=== PATIENT | female | born 1970 | race Caucasian/White ===

== ENCOUNTER → 2016-10-22 | Outpatient (CLI) | payer OTHER ==
--- NOTE | 2016-10-22 12:49 | EST ---
DATE OF SERVICE: 10/22/2016 AGE: 46Y SEX: F HT: 66 WT: 182 lbs. Protocol Samuel: X Other: Stress Stage: 2 Dur. of Exercise: 6:28 *Heart Rate Blood Pressure *Rest: 78 Rest: 107/70 * *Max. Achieved: 160 Maximum BP: 193/99 85% PMHR: 150 100% PMHR: 176 *METS: 6.7 INDICATIONS: Chest pain. MEDICATIONS: - Patient was exercised for a total period of 7 minutes. A peak heart rate of 160 was achieved. Maximum blood pressure of 193/99 mmHg was noted. Resting EKG shows normal sinus rhythm with normal VA interval and QRS duration and normal ST-T waves. No ST segment depression suggestive of ischemia is noted. No dysrhythmias are noted. FINAL IMPRESSION: This exercise test is not suggestive of ischemia. Patient's exercise tolerance is normal. The patient did not complain of any chest pain during the test.
== END | disposition home or self-care (01) ==
LOC: RADNMMAIN 10:45
PROVIDERS: ATTEND Family Medicine
DX: R07.9 Chest pain, unspecified (principal)
CPT/HCPCS: 93017

== ENCOUNTER 2016-10-23 19:56 | Emergency (ER) | payer OTHER ==
[2016-10-23] MEDS ORDERED: FAMOTIDINE 20 MG/2 ML VIAL IV STA (20:13)
[2016-10-23] MEDS ORDERED: SODIUM CHLORIDE 0.9% 1,000 ML IV ONE (20:13)
[2016-10-23] MEDS ORDERED: KETOROLAC 30 MG/ML 1 ML VIAL IVP STA (20:13)
--- NOTE | 2016-10-23 20:16 | ED ---
Chest Pain HPI - General Chief Complaint: Chest Pain Stated Complaint: Chest Pain Time Seen by Provider: 10/23/16 20:02 Source: patient Mode of arrival: wheelchair Limitations: no limitations - History of Present Illness Initial Comments: This is a 46-year-old female to history of asthma who presents emergency department for chest pain and she states it started about 5:30 [place]. She states that it started suddenly and she became lightheaded and short of breath with it. She describes it as a sharp sensation. She denies any radiation. She states that nothing really seems to make it better or worse. She has been having the chest pain on and off for the last 3 weeks. She is had a stress test done yesterday which was completely normal. She is following with Dr. Jacques for this. She states that she also was diagnosed roughly 3 years ago with gallbladder disease when she had similar episodes however has not had follow-up. 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 She denies any recent travel or surgeries. No history DVT or PE. No lower extremity edema. No other complaints. This patient is low risk for PE because he/she has met the following criteria Age <50 years HR <100 bpm Room Air SpO2 >95% No prior DVT/PE No recent trauma/surgery No hemoptysis No exogenous estrogen use No clinical signs of DVT - Related Data Home Medications Medication Instructions Recorded Confirmed Albuterol Inhaler [Ventolin 1 - 2 puff INHALATION RT-Q4H PRN 02/22/15 10/23/16 Inhaler] Previous Rx's Medication Instructions Recorded Esomeprazole Magnesium [NexIUM 20 mg PO DAILY #30 tablet. 10/23/16 24Hr] Allergies Allergy/AdvReac Type Severity Reaction Status Date / Time acetaminophen Allergy Itching Verified 10/23/16 20:58 [From Darvocet-N 100] cefixime [From Suprax] Allergy Dyspnea Verified 10/23/16 20:58 fexofenadine HCl Allergy Dyspnea Verified 10/23/16 20:58 [From Nina] Iodinated Contrast Media - Allergy Itching IN Verified 10/23/16 20:58 Oral and THROAT AND [Iodinated Contrast Media - BODY, & IV Dye] ALLERGY SYMPTOMS propoxyphene napsylate Allergy Itching Verified 10/23/16 20:58 [From Helencet-N 100] shellfish derived [Shellfish] Allergy Anaphylaxis Verified 10/23/16 20:58 egg AdvReac Abdominal Verified 10/23/16 20:58 Pain, NAUSEA - UNLESS COOKED AT HIGH TEMP IN OVEN Milk Containing Products AdvReac ALLERGY Verified 10/23/16 20:58 NASAL SYMPTOMS, IF MORE THAN 8 OZ AT A TIME SEASONAL,MOLD,DUST,ANIMAL AdvReac RUNNY Uncoded 10/23/16 20:07 DANDER NOSE, ITCHY/WATERY EYES Review of Systems ROS Statement: Those systems with pertinent positive or pertinent negative responses have been documented in the HPI. ROS Other: All systems not noted in ROS Statement are negative. EKG Findings - EKG Comments: EKG Findings:: EKG showing normal sinus rhythm with a rate of 73. No abnormal ST segment changes or T-wave inversions. QTC is 469. Other intervals normal. No ectopy. Past Medical History Past Medical History: Asthma, Chest Pain / Angina, Skin Disorder Additional Past Medical History / Comment(s): OCC ECZEMA. HX GESTATIONAL DIABETES. KIDNEY STONES. MILD FATTY LIVER. HX INJ TO RT ARM, CHRONIC PAIN. HX CP, TOLD IRREG RYTHMN. HEARTBURN, PAIN IN THROAT, CHRONIC SEVERE ABD PAIN - KAREN RUQ. OCC DK STOOL, PAST HX POS OCCULT STOOL. History of Any Multi-Drug Resistant Organisms: None Reported Past Surgical History: Adenoidectomy, Ear Surgery, Tonsillectomy Additional Past Surgical History / Comment(s): BMT. EXC DERMOID CYST RT OVARY. Past Anesthesia/Blood Transfusion Reactions: Previous Problems w/ Anesthesia Additional Past Anesthesia/Blood Transfusion Reaction / Comment(s): WOKE UP DURING COLONOSCOPY, T&A SURG. Past Psychological History: No Psychological Hx Reported Smoking Status: Never smoker - Past Family History Father Family Medical History: Cancer General Exam - General Exam Comments Initial Comments: Constitutional: [Awake alert] [Appears comfortable] Head: [Normocephalic atraumatic] Eyes: [no conjunctival injection] [No scleral icterus] [EOMI] Neck: [No JVD] [Supple] Heart: [Regular rate rhythm] [normal S1-S2] [no murmurs] Lungs: [Clear to auscultation bilaterally] [No wheezing] [No rales] Abdomen: [Soft] [nondistended] [nontender] Extremities: [Non edematous] [DP pulses intact] [Radial pulses intact] Neuro: [A&Ox3] [No focal neurologic deficits] Psych: [Appropriate mood and affect] Limitations: no limitations Course Vital Signs 10/23/16 10/23/16 20:05 20:32 Temperature 98.3 F Pulse Rate 76 64 Respiratory 16 18 Rate Blood Pressure 121/64 121/64 O2 Sat by Pulse 99 99 Oximetry Chest Pain MDM - MDM This 46-year-old female presents emergency department for chest pain. She had a negative troponin. EKG was completely unremarkable. The rest her labs were also unremarkable. At this time I feel the patient's symptoms are likely GI related. She does have a history of hiatal hernia. She is not on any PPI. Going to start her on Nexium. She follow-up with Dr. Jacques as an outpatient. Told to return if she has any worsening or concerning symptoms. All questions were answered. Disposition Clinical Impression: Chest pain Disposition: HOME SELF-CARE Instructions: Chest Pain (ED), Hiatal Hernia (ED) Prescriptions: Esomeprazole Magnesium [NexIUM 24Hr] 20 mg PO DAILY #30 tablet. Referrals: Ricky Jacques MD [Primary Care Provider] - 1-2 days
[2016-10-23 20:45] LABS: Partial Thromboplastin Time 25.2 sec (22.0-30.0); Prothrombin Time 10.5 sec (9.0-12.0)
[2016-10-23 20:46] LABS: ALT 33 U/L (9-52); AST 18 U/L (14-36); Alkaline Phosphatase 62 U/L (38-126); Anion Gap 10 mmol/L; Blood Urea Nitrogen 12 mg/dL (7-17); Calcium 9.4 mg/dL (8.4-10.2); Carbon Dioxide 24 mmol/L (22-30); Chloride 106 mmol/L (98-107); Glucose 98 mg/dL (74-99); Non-African American GFR(MDRD) >60 (>60 ml/min/1.73 sqM); Potassium 4.4 mmol/L (3.5-5.1); Sodium 140 mmol/L (137-145); Total Bilirubin 0.7 mg/dL (0.2-1.3)
[2016-10-23 20:51] LABS: Basophils % (A) 1 %; CH 29.3; CHCM 34.3; Eosinophils % (A) 0 %; HCT 38.1 % (34.0-46.0); HDW 2.64; HGB 12.8 gm/dL (11.4-16.0); Luc # (Auto) 0.13; Luc % (Auto) 2; Lymphocytes # (A) 1.8 k/uL (1.0-4.8); Lymphocytes % (A) 33 %; MCH 28.8 pg (25.0-35.0); MCHC 33.6 g/dL (31.0-37.0); MCV 85.8 fL (80.0-100.0); Mean Platelet Volume 8.4; Monocytes # (A) 0.4 k/uL (0-1.0); Monocytes % (A) 7 %; Neutrophils # (A) 3.1 k/uL (1.3-7.7); Neutrophils % (A) 57 %; RBC 4.43 m/uL (3.80-5.40); RDW 13.8 % (11.5-15.5); WBC 5.5 k/uL (3.8-10.6); WBC (Perox) 5.52
--- NOTE | 2016-10-23 20:58 | XR ---
EXAMINATION TYPE: XR chest 2V DATE OF EXAM: 10/23/2016 COMPARISON: Prior chest x-ray 08/31/2011 HISTORY: Chest pain TECHNIQUE: Frontal and lateral views of the chest are obtained. FINDINGS: There is likely a spinal curvature, patient is rotated as on prior exam. There are overlyi ng cardiac leads. No pneumonia, pneumothorax, or pleural effusion is evident. IMPRESSION: No acute cardiopulmonary process.
[2016-10-23 21:07] LABS: Creatine Kinase MB 0.8 ng/mL (0.0-2.4); Troponin I <0.012 ng/mL (0.000-0.034)
[2016-10-23 21:22] VITALS: BP 111/64; PULSE 68; RESP 16; TEMP 97.6
== END 2016-10-23 21:23 | disposition home or self-care (01) ==
LOC: EC 19:56
DX: R07.9 Chest pain, unspecified (principal); R06.02 Shortness of breath; R42 Dizziness and giddiness; Z88.1 Allergy status to other antibiotic agents; Z88.5 Allergy status to narcotic agent; Z88.8 Allergy status to other drugs, medicaments and biological substances; Z91.012 Allergy to eggs; Z91.013 Allergy to seafood; Z91.041 Radiographic dye allergy status; Z91.011 Allergy to milk products; Z91.09 Other allergy status, other than to drugs and biological substances
CPT/HCPCS: 36415; 93005; 80053; 82553; 83690; 84484; 85025; 85610; 85730; 71020; 99285; 96374; 96375; 96361; J1885

== ENCOUNTER → 2017-01-20 | Outpatient (CLI) | payer OTHER ==
--- NOTE | 2017-01-20 15:20 | XR ---
Sacrum and coccyx HISTORY: Pain radiating into legs, low back pain 3 views of the sacrum and coccyx Bone mineralization, joint spaces are maintained. Question some posterior displacement of the coccyx distally. IMPRESSION: Question some subluxation of the coccyx distally, bone scan with tail on detector view or MRI could be performed for better evaluation.
--- NOTE | 2017-01-20 15:40 | XR ---
Lumbar spine HISTORY: Low back pain 3 views of the lumbar spine correlated to prior exam 08/19/2010 Lumbar vertebral bodies show preserved height, bone mineralization is stable. Levoscoliosis again not ed centered at L2. Calcifications are superimposed over the bilateral kidneys. Mild loss of disc heig ht present at the intervertebral levels, especially L5-S1. Sclerosis present in the posterior element s of the lower lumbar spine. IMPRESSION: Degenerative disc disease and facet arthropathy, scoliosis. Bilateral nephrolithiasis.
== END | disposition home or self-care (01) ==
LOC: RADXRMAIN 11:52
PROVIDERS: ATTEND Family Medicine
DX: M51.36 Other intervertebral disc degeneration, lumbar region (principal); M41.86 Other forms of scoliosis, lumbar region; M46.06 Spinal enthesopathy, lumbar region
CPT/HCPCS: 72100; 72220

== ENCOUNTER 2017-01-21 08:33 | Emergency (ER) | payer OTHER ==
[2017-01-21 08:37] VITALS: TEMP 98.1
--- NOTE | 2017-01-21 09:22 | ED ---
General Adult HPI - General Chief complaint: Back Pain/Injury Stated complaint: Back Pain Time Seen by Provider: 01/21/17 08:59 Source: patient, RN notes reviewed Mode of arrival: ambulatory Limitations: no limitations - History of Present Illness Initial comments: Patient is a 46-year-old female significant past medical history for sciatica, who presents emergency room today with a chief complaint of increased lower back pain. Patient admits that she began feeling some sciatic type pain to the right side a week ago. She states that is gone back and forth from the right than to the left leg. She states she's had sciatic pain in the right leg before ever on the left ureter denies any injury or trauma. States she is now feeling some pain in both sides of the right hip and left hip areas. She states that over the last 3 days she's noticed some numbness sensation to her buttocks and groin area. She states that over last few days she's noticed that she's having increased difficult time urinating. She states she has to cause a lot of pressure to get a small amount of voiding. She states she saw her family doctor for this complaint yesterday. She states she had x-rays obtained yesterday here at the hospital. She states had a difficult time voiding this morning. Difficult time finding cough or position. Denies any other complaints at this time. Patient denies any recent fever, chills, shortness of breath, chest pain, abdominal pain, nausea or vomiting, dysuria or hematuria, constipation or diarrhea, headaches or visual changes, or any other complaints. - Related Data Home Medications Medication Instructions Recorded Confirmed Acetaminophen Tab [Tylenol Tab] 1,000 mg PO Q6HR PRN 01/21/17 01/21/17 Allergies Allergy/AdvReac Type Severity Reaction Status Date / Time cefixime [From Suprax] Allergy Dyspnea Verified 01/21/17 09:00 fexofenadine HCl Allergy Dyspnea Verified 01/21/17 09:00 [From Nina] Iodinated Contrast- Oral and Allergy Itching IN Verified 01/21/17 09:00 IV Dye THROAT AND [Iodinated Contrast Media - BODY, & IV Dye] ALLERGY SYMPTOMS propoxyphene napsylate Allergy Itching Verified 01/21/17 09:00 [From Darvocet-N 100] shellfish derived [Shellfish] Allergy Anaphylaxis Verified 01/21/17 09:00 egg AdvReac Abdominal Verified 01/21/17 09:00 Pain, NAUSEA - UNLESS COOKED AT HIGH TEMP IN OVEN Milk Containing Products AdvReac ALLERGY Verified 01/21/17 09:00 NASAL SYMPTOMS, IF MORE THAN 8 OZ AT A TIME SEASONAL,MOLD,DUST,ANIMAL AdvReac RUNNY Uncoded 01/21/17 08:56 DANDER NOSE, ITCHY/WATERY EYES Review of Systems ROS Statement: Those systems with pertinent positive or pertinent negative responses have been documented in the HPI. ROS Other: All systems not noted in ROS Statement are negative. Past Medical History Past Medical History: Asthma, Chest Pain / Angina, Skin Disorder Additional Past Medical History / Comment(s): OCC ECZEMA. HX GESTATIONAL DIABETES. KIDNEY STONES. MILD FATTY LIVER. HX INJ TO RT ARM, CHRONIC PAIN. HX CP, TOLD IRREG RYTHMN. HEARTBURN, PAIN IN THROAT, CHRONIC SEVERE ABD PAIN - KAREN RUQ. OCC DK STOOL, PAST HX POS OCCULT STOOL. History of Any Multi-Drug Resistant Organisms: None Reported Past Surgical History: Adenoidectomy, Ear Surgery, Tonsillectomy Additional Past Surgical History / Comment(s): BMT. EXC DERMOID CYST RT OVARY. Past Anesthesia/Blood Transfusion Reactions: Previous Problems w/ Anesthesia Additional Past Anesthesia/Blood Transfusion Reaction / Comment(s): WOKE UP DURING COLONOSCOPY, T&A SURG. Past Psychological History: No Psychological Hx Reported Smoking Status: Never smoker - Past Family History Father Family Medical History: Cancer General Exam - General Exam Comments Initial Comments: General: The patient is awake and alert, in no distress, and does not appear acutely ill. Eye: Pupils are equal, round and reactive to light, extra-ocular movements are intact. No nystagmus. There is normal conjunctiva bilaterally. No signs of icterus. Ears, nose, mouth and throat: There are moist mucous membranes and no oral lesions. Neck: The neck is supple, there is no tenderness or JVD. Cardiovascular: There is a regular rate and rhythm. No murmur, rub or gallop is appreciated. Respiratory: Lungs are clear to auscultation, respirations are non-labored, breath sounds are equal. No wheezes, stridor, rales, or rhonchi. Gastrointestinal: Soft, non-distended, non-tender abdomen without masses or organomegaly noted. There is no rebound or guarding present. No CVA tenderness. Bowel sounds are unremarkable. Musculoskeletal: Normal ROM, no tenderness. Strength 5/5. Sensation intact. Pulses equal bilaterally 2+. Neurological: A&O x 3. CN II-XII intact, There are no obvious motor or sensory deficits. Coordination appears grossly intact. Speech is normal. Skin: Skin is warm and dry and no rashes or lesions are noted. Psychiatric: Cooperative, appropriate mood & affect, normal judgment. : HOUSE WRECKERANUM Mckeon present for exam. Normal rectal tone. Limitations: no limitations Course Vital Signs 01/21/17 08:34 Temperature 98.1 F Pulse Rate 90 Respiratory 18 Rate Blood Pressure 177/84 O2 Sat by Pulse 99 Oximetry Medical Decision Making - Medical Decision Making Case discussed in detail with attending physician . Patient reexamined at this time shows no signs of distress resting comfortably. Patient has normal urine emergency room. Patient able to void. Patient's urinalysis reviewed. Patient will have MRI which is currently at 2:15 today. Patient is advised to follow-up family doctor tomorrow for her symptoms. Advised return to emergency room if any symptoms increase or worsen. She states understanding and is in agreement. - Lab Data Lab Results 01/21/17 01/21/17 Range/Units 09:20 09:20 Urine Color Yellow Urine Appearance Clear (Clear) Urine pH 6.5 (5.0-8.0) Ur Specific Imogene 1.021 (1.001-1.035) Urine Protein Negative (Negative) Urine Glucose (UA) Negative (Negative) Urine Ketones Negative (Negative) Urine Blood Negative (Negative) Urine Nitrite Negative (Negative) Urine Bilirubin Negative (Negative) Urine Urobilinogen <2.0 (<2.0) mg/dL Ur Leukocyte Esterase Negative (Negative) Urine HCG, Qual Not Detected (Not Detectd) Disposition Clinical Impression: Lumbar radiculopathy, acute Disposition: HOME SELF-CARE Condition: Undetermined Instructions: Acute Low Back Pain (ED) Additional Instructions: Please follow-up and have MRI performed at 2:15 this afternoon as discussed. Please follow-up the family doctor tomorrow as discussed. Referrals: Ricky Jacques MD [Primary Care Provider] - 1-2 days Time of Disposition: 09:41
[2017-01-21 10:09] LABS: Appearance,Urine Clear (Clear); Bilirubin,Urine Negative (Negative); Glucose,Urine (UA) Negative (Negative); Ketones,Urine Negative (Negative); Leukocyte Esterase,Urine Negative (Negative); Nitrite,Urine Negative (Negative); PH, Urine 6.5 (5.0-8.0); Protein,Urine Negative (Negative); Specific Gravity,Urine 1.021 (1.001-1.035); UA Billing (MACRO vs. MICRO) CHEM; Urobilinogen,Urine <2.0 mg/dL (<2.0)
[2017-01-21 10:38] VITALS: BP 121/58; PULSE 61; RESP 16
== END 2017-01-21 10:38 | disposition home or self-care (01) ==
LOC: EC 08:33
DX: M54.16 Radiculopathy, lumbar region (principal); R39.198 Other difficulties with micturition; Z91.041 Radiographic dye allergy status; Z91.011 Allergy to milk products; Z91.012 Allergy to eggs; Z88.1 Allergy status to other antibiotic agents; Z91.013 Allergy to seafood; Z88.8 Allergy status to other drugs, medicaments and biological substances; Z91.09 Other allergy status, other than to drugs and biological substances; Z88.5 Allergy status to narcotic agent
CPT/HCPCS: 81003; 81025; 87086; 99283

== ENCOUNTER → 2017-01-21 | Outpatient (CLI) | payer OTHER ==
--- NOTE | 2017-01-21 15:19 | MR ---
EXAMINATION TYPE: MR lumbar spine wo con DATE OF EXAM: 01/21/2017 COMPARISON: NONE HISTORY: 46-year-old female with pain and numbness down legs, numbness in tailbone and genital area TECHNIQUE: Multiplanar, multisequence images of the lumbar spine were acquired. FINDINGS: Vertebral body heights are preserved and alignment is maintained. No suspicious bone marrow replacement. Conus medullaris is normal. No prevertebral or paravertebral soft tissue abnormality. Variable mild intervertebral disc desiccation and mild disc bulging in the mid to lower lumbar spine. Additional mild facet arthropathy is present. At T12-L1, no canal or foraminal stenosis. At L1-L2, no canal or foraminal stenosis. At L2-L3, no canal or foraminal stenosis. At L3-L4, there is a central, left paracentral disc protrusion without significant canal or foraminal stenosis. At L4-L5, ligamentum flavum thickening, facet arthropathy, and bulging disc. This minimally attenuate s the thecal sac without significant spinal canal stenosis. There is minimal inferior foraminal narro wing on both sides. At L5-S1, there is diffuse disc bulge with prominent epidural fat and a superimposed central, left pa racentral disc extrusion with inferior disc migration. The sequestered disc fragment measures 1.9 x 0 .9 x 1.2 cm posterior to the S1 vertebral body effacing the spinal canal at this level. At the L5-S1 level disc material impinges the traversing left S1 nerve root and probably contacts, probably imping es the traversing right S1 nerve root as well. Mild bilateral neuroforaminal stenosis. IMPRESSION: 1. Mild multilevel degenerative disc disease. Additional facet arthropathy in the lower lumbar spine. 2. However, there is a moderate-sized disc herniation at L5-S1 with extruded and sequestered disc fra gment measuring 1.9 cm located behind the S1 vertebral body. This completely effaces the spinal canal at this level. 3. Disc material at L5-S1 also impinges the traversing left greater than right S1 nerve roots.
== END | disposition home or self-care (01) ==
LOC: RADMRIMAIN 14:05
PROVIDERS: ATTEND Physician Assistant
DX: M51.27 Other intervertebral disc displacement, lumbosacral region (principal); M51.36 Other intervertebral disc degeneration, lumbar region; S34.3XXS Injury of cauda equina, sequela
CPT/HCPCS: 72148

== ENCOUNTER 2017-02-01 10:33 | Emergency (ER) | payer OTHER ==
--- NOTE | 2017-02-01 11:23 | ED ---
General Adult HPI - General Chief complaint: Urogenital Stated complaint: unable to control bladder Time Seen by Provider: 02/01/17 11:00 Source: patient, family, RN notes reviewed Mode of arrival: ambulatory Limitations: no limitations - History of Present Illness Initial comments: Patient is a pleasant 46-year-old female presenting to the emergency department with back problems. Symptoms just started a few weeks ago. Patient has been having difficulty starting urine stream and constipation for the past couple of weeks. Patient had urinary incontinence last night. Patient states she has tingling and numbness in her perineal region. Patient questions whether or not she could have some leg weakness. Patient was in the emergency department 10 days ago and had a follow-up MRI. Patient did see her doctor following this and is planning on seeing a neurosurgeon. Patient states back discomfort is positional. Discomfort radiates occasionally down both legs. - Related Data Home Medications Medication Instructions Recorded Confirmed Ibuprofen [Motrin] 400 mg PO Q6HR PRN 02/01/17 02/01/17 Allergies Allergy/AdvReac Type Severity Reaction Status Date / Time cefixime [From Suprax] Allergy Dyspnea Verified 02/01/17 11:07 fexofenadine HCl Allergy Dyspnea Verified 02/01/17 11:07 [From Nina] Iodinated Contrast- Oral and Allergy Itching IN Verified 02/01/17 11:07 IV Dye THROAT AND [Iodinated Contrast Media - BODY, & IV Dye] ALLERGY SYMPTOMS propoxyphene napsylate Allergy Itching Verified 02/01/17 11:07 [From Darvocet-N 100] shellfish derived [Shellfish] Allergy Anaphylaxis Verified 02/01/17 11:07 egg AdvReac Abdominal Verified 02/01/17 11:07 Pain, NAUSEA - UNLESS COOKED AT HIGH TEMP IN OVEN Milk Containing Products AdvReac ALLERGY Verified 02/01/17 11:07 NASAL SYMPTOMS, IF MORE THAN 8 OZ AT A TIME SEASONAL,MOLD,DUST,ANIMAL AdvReac RUNNY Uncoded 02/01/17 10:48 DANDER NOSE, ITCHY/WATERY EYES Review of Systems ROS Statement: Those systems with pertinent positive or pertinent negative responses have been documented in the HPI. ROS Other: All systems not noted in ROS Statement are negative. Constitutional: Denies: fever Eyes: Denies: eye pain ENT: Denies: ear pain Respiratory: Denies: cough Cardiovascular: Denies: chest pain Endocrine: Denies: fatigue Gastrointestinal: Reports: constipation. Denies: abdominal pain Genitourinary: Reports: other (Incontinence) Musculoskeletal: Reports: back pain Skin: Denies: rash Neurological: Reports: weakness Past Medical History Past Medical History: Asthma, Chest Pain / Angina, Skin Disorder Additional Past Medical History / Comment(s): OCC ECZEMA. HX GESTATIONAL DIABETES. KIDNEY STONES. MILD FATTY LIVER. HX INJ TO RT ARM, CHRONIC PAIN. HX CP, TOLD IRREG RYTHMN. HEARTBURN, PAIN IN THROAT, CHRONIC SEVERE ABD PAIN - KAREN RUQ. OCC DK STOOL, PAST HX POS OCCULT STOOL. History of Any Multi-Drug Resistant Organisms: None Reported Past Surgical History: Adenoidectomy, Ear Surgery, Tonsillectomy Additional Past Surgical History / Comment(s): BMT. EXC DERMOID CYST RT OVARY. Past Anesthesia/Blood Transfusion Reactions: Previous Problems w/ Anesthesia Additional Past Anesthesia/Blood Transfusion Reaction / Comment(s): WOKE UP DURING COLONOSCOPY, T&A SURG. Past Psychological History: No Psychological Hx Reported Smoking Status: Never smoker - Past Family History Father Family Medical History: Cancer General Exam Limitations: no limitations General appearance: alert, in no apparent distress Head exam: Present: atraumatic Eye exam: Present: normal appearance, PERRL ENT exam: Present: normal oropharynx Neck exam: Present: normal inspection Respiratory exam: Present: normal lung sounds bilaterally Cardiovascular Exam: Present: regular rate, normal rhythm GI/Abdominal exam: Present: soft. Absent: tenderness Rectal exam: Present: decreased rectal tone (Rectal tone is decreased but not absent. RN Laura is present.), other (Patient states decreased sensation on exam.) Extremities exam: Present: normal inspection, full ROM Back exam: Present: tenderness (Mild tenderness diffuse lumbar region) Neurological exam: Present: alert Expanded Sensory exam: Lower Extremity Light Touch: Abnormal Right, Abnormal Left ( States is able to feel light touch however somewhat decreased from normal) Motor strength exam: RLE: 5, LLE: 5 (Grossly patient is able to lift off leg without difficulty however patient does have decreased dorsiflexion of left toe against resistance.) Psychiatric exam: Present: normal affect, normal mood Skin exam: Present: normal color Course Vital Signs 02/01/17 02/01/17 10:44 11:37 Temperature 98.2 F Pulse Rate 90 88 Respiratory 20 18 Rate Blood Pressure 126/76 119/58 O2 Sat by Pulse 98 96 Oximetry - Reevaluation(s) Reevaluation #1: 02/01/17 11:23 MRI report reviewed. 02/01/17 11:41 Case was discussed in detail with Dr. Fortune at [facility] who will accept transfer. Patient states she was scheduled to see Dr. Coronado however because of insurance reasons she believes she may have to see Dr. Gee. Disposition Clinical Impression: Cauda equina compression Disposition: OTHER INSTITUTION NOT DEFINED Condition: Serious Referrals: Ricky Jacques MD [Primary Care Provider] - 1-2 days Time of Disposition: 11:42 - Out of Hospital Transfer - Req. Specs Out of Hospital Transfer - Requested Specifics: Other Emergency Center
[2017-02-01 11:38] VITALS: BP 119/58; PULSE 88; RESP 18
[2017-02-01] MEDS ORDERED: HYDROmorphone 1 MG/ML 1 ML SYRINGE IVP STA (11:41)
[2017-02-01 12:24] VITALS: TEMP 98
== END 2017-02-01 12:24 | disposition short-term general hospital (02) ==
LOC: EC 10:33
DX: G83.4 Cauda equina syndrome (principal); Z87.442 Personal history of urinary calculi; Z91.041 Radiographic dye allergy status; Z88.1 Allergy status to other antibiotic agents; Z88.5 Allergy status to narcotic agent; Z91.011 Allergy to milk products; Z91.012 Allergy to eggs; Z91.013 Allergy to seafood; Z91.09 Other allergy status, other than to drugs and biological substances
CPT/HCPCS: 99284; 96374; 51798; J1170

== ENCOUNTER 2017-02-05 20:33 | Emergency (ER) | payer OTHER ==
[2017-02-05 20:51] VITALS: BP 140/84; PULSE 85; RESP 20; TEMP 98.9
[2017-02-05] MEDS ORDERED: SODIUM CHLORIDE 0.9% 1,000 ML IV STA ×2 (21:30)
--- NOTE | 2017-02-05 21:36 | ED ---
Female Urogenital HPI - General Stated complaint: 4 days post op/Blood in Urine Time Seen by Provider: 02/05/17 21:03 Source: patient, RN notes reviewed, old records reviewed Mode of arrival: ambulatory Limitations: no limitations - History of Present Illness Initial comments: This is a 46-year-old female presents emergency Department chief complaint of sediment and blood within her catheter bag. 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 She reports she had emergent surgery. She was given a Barnes catheter bag. She was told to come to the emergency department to be concerned there is anything abnormal in the back. She reports it's been very dark. She also reports that she's not had a bowel movement 2 days. She is on multiple pain medication. She also states that she was in the hospital, she was discharged yesterday from [facility]. Patient reports that she seemed to have a low-grade fever at that time. - Related Data Home Medications Medication Instructions Recorded Confirmed Docusate [Colace] 200 mg PO BID 02/05/17 02/05/17 Gabapentin [Neurontin] 300 mg PO BID 02/05/17 02/05/17 Methocarbamol [Robaxin] 750 mg PO TID 02/05/17 02/05/17 Sennosides [Senna] 17.2 mg PO HS 02/05/17 02/05/17 oxyCODONE-APAP 5-325MG [Percocet 1 - 2 tab PO TID PRN 02/05/17 02/05/17 5-325 mg] Previous Rx's Medication Instructions Recorded Ciprofloxacin HCl [Cipro] 500 mg PO Q12HR #14 tablet 02/05/17 Ketorolac [Toradol] 10 mg PO TID #15 tab 02/05/17 Ondansetron Odt [Zofran Odt] 4 mg PO Q8HR PRN #15 tab 02/05/17 Tamsulosin [Flomax] 0.4 mg PO DAILY #10 cap 02/05/17 Allergies Allergy/AdvReac Type Severity Reaction Status Date / Time cefixime [From Suprax] Allergy Dyspnea Verified 02/05/17 21:07 fexofenadine HCl Allergy Dyspnea Verified 02/05/17 21:07 [From Nina] Iodinated Contrast- Oral and Allergy Itching IN Verified 02/05/17 21:07 IV Dye THROAT AND [Iodinated Contrast Media - BODY, & IV Dye] ALLERGY SYMPTOMS propoxyphene napsylate Allergy Itching Verified 02/05/17 21:07 [From [place]-N 100] shellfish derived [Shellfish] Allergy Anaphylaxis Verified 02/05/17 21:07 egg AdvReac Abdominal Verified 02/05/17 21:07 Pain, NAUSEA - UNLESS COOKED AT HIGH TEMP IN OVEN Milk Containing Products AdvReac ALLERGY Verified 02/05/17 21:07 NASAL SYMPTOMS, IF MORE THAN 8 OZ AT A TIME SEASONAL,MOLD,DUST,ANIMAL AdvReac RUNNY Uncoded 02/05/17 20:52 DANDER NOSE, ITCHY/WATERY EYES Review of Systems ROS Statement: Those systems with pertinent positive or pertinent negative responses have been documented in the HPI. ROS Other: All systems not noted in ROS Statement are negative. Past Medical History Past Medical History: Asthma, Chest Pain / Angina, Skin Disorder Additional Past Medical History / Comment(s): OCC ECZEMA. HX GESTATIONAL DIABETES. KIDNEY STONES. MILD FATTY LIVER. HX INJ TO RT ARM, CHRONIC PAIN. HX CP, TOLD IRREG RYTHMN. HEARTBURN, PAIN IN THROAT, CHRONIC SEVERE ABD PAIN - KAREN RUQ. OCC DK STOOL, PAST HX POS OCCULT STOOL. History of Any Multi-Drug Resistant Organisms: None Reported Past Surgical History: Adenoidectomy, Ear Surgery, Tonsillectomy Additional Past Surgical History / Comment(s): BMT. EXC DERMOID CYST RT OVARY. Past Anesthesia/Blood Transfusion Reactions: Previous Problems w/ Anesthesia Additional Past Anesthesia/Blood Transfusion Reaction / Comment(s): WOKE UP DURING COLONOSCOPY, T&A SURG. Past Psychological History: No Psychological Hx Reported Smoking Status: Never smoker - Past Family History Father Family Medical History: Cancer General Exam - General Exam Comments Initial Comments: 46-year-old female. No acute distress. Limitations: no limitations General appearance: alert, in no apparent distress Head exam: Present: atraumatic, normocephalic, normal inspection Eye exam: Present: normal appearance, PERRL, EOMI. Absent: scleral icterus, conjunctival injection, periorbital swelling ENT exam: Present: normal exam, mucous membranes moist Neck exam: Present: normal inspection. Absent: tenderness, meningismus, lymphadenopathy Respiratory exam: Present: normal lung sounds bilaterally. Absent: respiratory distress, wheezes, rales, rhonchi, stridor Cardiovascular Exam: Present: regular rate, normal rhythm, normal heart sounds. Absent: systolic murmur, diastolic murmur, rubs, gallop, clicks GI/Abdominal exam: Present: soft, normal bowel sounds. Absent: distended, tenderness, guarding, rebound, rigid Rectal exam: Present: normal inspection, decreased rectal tone (decreased rectal tone, no stool in rectal vault). Absent: normal rectal tone External exam: Present: other (Barnes catheter.) Extremities exam: Present: normal inspection, full ROM, normal capillary refill. Absent: tenderness, pedal edema, joint swelling, calf tenderness Back exam: Present: normal inspection Neurological exam: Present: alert, oriented X3, CN II-XII intact Psychiatric exam: Present: normal affect, normal mood Skin exam: Present: warm, dry, intact, normal color. Absent: rash Course Vital Signs 02/05/17 20:48 Temperature 98.9 F Pulse Rate 85 Respiratory 20 Rate Blood Pressure 140/84 O2 Sat by Pulse 100 Oximetry Medical Decision Making - Medical Decision Making Patient is a 46 year old male, with CC of blood in urine bag. Patient has had recent cauda equina syndrome and emergency surgery. Patient lab work shows urinary tract infection, WBC was normal. Patient given a new barnes catheter. PAtient started on ciprofloxacin. Michael does not have normal rectal tone. She also complains of not having a bowel movement for 2 days. Patient does not have much stool in rectal vault. Patient given theravac. Patient did have a bowel movement. Patient KUB shows renal stones. Michael will be treated for renal stones with pain medication and cipro for infection. Urine culture obtained. She reports she does follow up with her urologist on Thursday. Return parameters were discussed. - Lab Data Result diagrams: 02/05/17 21:36 02/05/17 21:36 Lab Results 02/05/17 02/05/17 02/05/17 Range/Units 21:36 21:36 21:36 WBC 6.7 (3.8-10.6) k/uL RBC 4.58 (3.80-5.40) m/uL Hgb 13.4 (11.4-16.0) gm/dL Hct 39.7 (34.0-46.0) % MCV 86.8 (80.0-100.0) fL MCH 29.2 (25.0-35.0) pg MCHC 33.6 (31.0-37.0) g/dL RDW 14.2 (11.5-15.5) % Plt Count 259 (150-450) k/uL Neutrophils % 66 % Lymphocytes % 26 % Monocytes % 5 % Eosinophils % 0 % Basophils % 0 % Neutrophils # 4.4 (1.3-7.7) k/uL Lymphocytes # 1.8 (1.0-4.8) k/uL Monocytes # 0.4 (0-1.0) k/uL Eosinophils # 0.0 (0-0.7) k/uL Basophils # 0.0 (0-0.2) k/uL PT (9.0-12.0) sec INR (<1.2) APTT (22.0-30.0) sec Sodium 139 (137-145) mmol/L Potassium 3.9 (3.5-5.1) mmol/L Chloride 102 (98-107) mmol/L Carbon Dioxide 26 (22-30) mmol/L Anion Gap 11 mmol/L BUN 9 (7-17) mg/dL Creatinine 0.70 (0.52-1.04) mg/dL Est GFR (MDRD) Af Amer >60 (>60 ml/min/1.73 sqM) Est GFR (MDRD) Non-Af >60 (>60 ml/min/1.73 sqM) Glucose 87 (74-99) mg/dL Plasma Lactic Acid Eric 1.2 (0.7-2.0) mmol/L Calcium 9.5 (8.4-10.2) mg/dL Total Bilirubin 0.4 (0.2-1.3) mg/dL AST 46 H (14-36) U/L ALT 50 (9-52) U/L Alkaline Phosphatase 69 (38-126) U/L Total Protein 7.2 (6.3-8.2) g/dL Albumin 4.5 (3.5-5.0) g/dL Amylase <30 L (30-110) U/L Lipase 45 (23-300) U/L Urine Color Urine Appearance (Clear) Urine pH (5.0-8.0) Ur Specific [place] (1.001-1.035) Urine Protein (Negative) Urine Glucose (UA) (Negative) Urine Ketones (Negative) Urine Blood (Negative) Urine Nitrite (Negative) Urine Bilirubin (Negative) Urine Urobilinogen (<2.0) mg/dL Ur Leukocyte Esterase (Negative) Urine RBC (0-5) /hpf Urine WBC (0-5) /hpf Urine WBC Clumps (None) /hpf Amorphous Sediment (None) /hpf Urine Bacteria (None) /hpf 02/05/17 02/05/17 Range/Units 21:36 21:36 WBC (3.8-10.6) k/uL RBC (3.80-5.40) m/uL Hgb (11.4-16.0) gm/dL Hct (34.0-46.0) % MCV (80.0-100.0) fL MCH (25.0-35.0) pg MCHC (31.0-37.0) g/dL RDW (11.5-15.5) % Plt Count (150-450) k/uL Neutrophils % % Lymphocytes % % Monocytes % % Eosinophils % % Basophils % % Neutrophils # (1.3-7.7) k/uL Lymphocytes # (1.0-4.8) k/uL Monocytes # (0-1.0) k/uL Eosinophils # (0-0.7) k/uL Basophils # (0-0.2) k/uL PT 9.7 (9.0-12.0) sec INR 0.9 (<1.2) APTT 21.0 L (22.0-30.0) sec Sodium (137-145) mmol/L Potassium (3.5-5.1) mmol/L Chloride (98-107) mmol/L Carbon Dioxide (22-30) mmol/L Anion Gap mmol/L BUN (7-17) mg/dL Creatinine (0.52-1.04) mg/dL Est GFR (MDRD) Af Amer (>60 ml/min/1.73 sqM) Est GFR (MDRD) Non-Af (>60 ml/min/1.73 sqM) Glucose (74-99) mg/dL Plasma Lactic Acid Eric (0.7-2.0) mmol/L Calcium (8.4-10.2) mg/dL Total Bilirubin (0.2-1.3) mg/dL AST (14-36) U/L ALT (9-52) U/L Alkaline Phosphatase (38-126) U/L Total Protein (6.3-8.2) g/dL Albumin (3.5-5.0) g/dL Amylase (30-110) U/L Lipase (23-300) U/L Urine Color Yellow Urine Appearance Cloudy H (Clear) Urine pH 6.0 (5.0-8.0) Ur Specific [place] 1.007 (1.001-1.035) Urine Protein 1+ H (Negative) Urine Glucose (UA) Negative (Negative) Urine Ketones Negative (Negative) Urine Blood Large H (Negative) Urine Nitrite Positive H (Negative) Urine Bilirubin Negative (Negative) Urine Urobilinogen <2.0 (<2.0) mg/dL Ur Leukocyte Esterase Large H (Negative) Urine RBC 125 H (0-5) /hpf Urine WBC 41 H (0-5) /hpf Urine WBC Clumps Few H (None) /hpf Amorphous Sediment Rare H (None) /hpf Urine Bacteria Rare H (None) /hpf - Radiology Data Radiology results: report reviewed Right renal calcifications. Bilateral renal cascade concern noted on computed tomography scan of a 20 12/28/2014. Nonacute abdomen. Disposition Clinical Impression: Urinary tract infection, Renal stones Disposition: HOME SELF-CARE Condition: Good Instructions: Catheter-associated Urinary Tract Infection (ED) Additional Instructions: Patient has a follow-up with urologist on Thursday. Take antibiotics as prescribed. Return to the emergency department if any alarming signs or symptoms occur. Prescriptions: Ciprofloxacin HCl [Cipro] 500 mg PO Q12HR #14 tablet Ketorolac [Toradol] 10 mg PO TID #15 tab Ondansetron Odt [Zofran Odt] 4 mg PO Q8HR PRN #15 tab PRN Reason: Nausea Tamsulosin [Flomax] 0.4 mg PO DAILY #10 cap Referrals: Ricky Jacques MD [Primary Care Provider] - 1-2 days Time of Disposition: 23:38
[2017-02-05 21:51] LABS: Basophils % (A) 0 %; CH 29.5; CHCM 34.2; Eosinophils % (A) 0 %; HCT 39.7 % (34.0-46.0); HGB 13.4 gm/dL (11.4-16.0); Luc % (Auto) 2; Lymphocytes # (A) 1.8 k/uL (1.0-4.8); Lymphocytes % (A) 26 %; MCH 29.2 pg (25.0-35.0); MCHC 33.6 g/dL (31.0-37.0); MCV 86.8 fL (80.0-100.0); Mean Platelet Volume 8.1; Monocytes # (A) 0.4 k/uL (0-1.0); Monocytes % (A) 5 %; Neutrophils # (A) 4.4 k/uL (1.3-7.7); Neutrophils % (A) 66 %; RBC 4.58 m/uL (3.80-5.40); RDW 14.2 % (11.5-15.5); WBC 6.7 k/uL (3.8-10.6); WBC (Perox) 7.41
--- NOTE | 2017-02-05 21:55 | XR ---
EXAMINATION TYPE: XR KUB DATE OF EXAM: 02/05/2017 COMPARISON: 11/28/2011 HISTORY: Abdominal pain TECHNIQUE: 2 views FINDINGS: There is no sign of intestinal obstruction or pneumoperitoneum. Fecal pattern is normal. Th ere are calcifications over the right kidney. There is mild thoracolumbar levoscoliosis. Lung bases a re clear. There is no sign of a mass. IMPRESSION: Right renal calcifications. Bilateral renal calcifications are noted on the old CT scan o f 01/05/2015. Nonacute abdomen.
[2017-02-05 21:57] LABS: Amorphous Sediment,Urine Rare /hpf; Appearance,Urine Cloudy (Clear); Bacteria,Urine Rare /hpf; Bilirubin,Urine Negative (Negative); Glucose,Urine (UA) Negative (Negative); Ketones,Urine Negative (Negative); Leukocyte Esterase,Urine Large (Negative); Nitrite,Urine Positive (Negative); Particle Count 44107; Protein,Urine 1+ (Negative); RBC,Urine 125 /hpf (0-5); Specific Gravity,Urine 1.007 (1.001-1.035); UA Billing (MACRO vs. MICRO) MICRO; Urobilinogen,Urine <2.0 mg/dL (<2.0); WBC,Urine 41 /hpf (0-5)
[2017-02-05 22:02] LABS: ALT 50 U/L (9-52); AST 46 U/L (14-36); Alkaline Phosphatase 69 U/L (38-126); Amylase <30 U/L (30-110); Anion Gap 11 mmol/L; Blood Urea Nitrogen 9 mg/dL (7-17); Calcium 9.5 mg/dL (8.4-10.2); Carbon Dioxide 26 mmol/L (22-30); Chloride 102 mmol/L (98-107); Glucose 87 mg/dL (74-99); Non-African American GFR(MDRD) >60 (>60 ml/min/1.73 sqM); Potassium 3.9 mmol/L (3.5-5.1); Sodium 139 mmol/L (137-145); Total Bilirubin 0.4 mg/dL (0.2-1.3); Total Protein 7.2 g/dL (6.3-8.2)
[2017-02-05 22:13] LABS: INR 0.9 (<1.2); Prothrombin Time 9.7 sec (9.0-12.0)
[2017-02-05] MEDS ORDERED: DOCUSATE 283 MG/5 ML ENEMA RECTAL STA (22:36)
[2017-02-05] MEDS ORDERED: CIPROFLOXACIN HCL 500 MG TAB PO STA (23:52)
[2017-02-05] MEDS ORDERED: ONDANSETRON ODT 4 MG TAB PO STA (23:52)
[2017-02-05] MEDS ORDERED: KETOROLAC 30 MG/ML 1 ML VIAL IVP STA (23:53)
== END 2017-02-06 00:28 | disposition home or self-care (01) ==
LOC: EC 20:33
DX: N39.0 Urinary tract infection, site not specified (principal); N20.0 Calculus of kidney; Z79.899 Other long term (current) drug therapy; Z88.5 Allergy status to narcotic agent; Z88.8 Allergy status to other drugs, medicaments and biological substances; Z91.041 Radiographic dye allergy status; Z91.013 Allergy to seafood; Z91.011 Allergy to milk products; Z91.012 Allergy to eggs; Z91.09 Other allergy status, other than to drugs and biological substances
CPT/HCPCS: 36415; 80053; 82150; 83605; 83690; 85025; 85610; 85730; 81001; 87040; 87086; 74000; 99284; 51702; 96374; 96361 ×3; J1885

== ENCOUNTER → 2017-03-20 | Outpatient (CLI) | payer OTHER ==
--- NOTE | 2017-03-23 08:13 | MM ---
Reason for exam: additional evaluation requested from abnormal screening. Last mammogram was performed 1 month ago. History: Took hormonal contraceptives for 6 months beginning at age 28. Physical Findings: Nurse did not find any significant physical abnormalities on exam. MG Work Up Mamm w CAD LT Spot compression MLO, spot compression CC, and LM view(s) were taken of the left breast. Prior study comparison: March 04, 2017, bilateral MG screening mammo w CAD. May 18, 2015, bilateral MG screening mammo w CAD. The breast tissue is heterogeneously dense. This may lower the sensitivity of mammography. No significant new findings when compared with previous films. These results were verbally communicated with the patient and result sheet given to the patient on 03/20/17. ASSESSMENT: Benign, BI-RAD 2 RECOMMENDATION: Return to routine screening mammogram schedule for both breasts.
--- NOTE | 2017-03-23 08:13 | USB ---
Reason for exam: additional evaluation requested from abnormal screening. History: Took hormonal contraceptives for 6 months beginning at age 28. US Breast Workup Limited LT Left breast ultrasound demonstrates a 0.5 x 0.8 x 0.3cm oval, cystic cluster at 3 o'clock and duct ectasia at the nipple. These results were verbally communicated with the patient and result sheet given to the patient on 03/20/17. ASSESSMENT: Probably benign, BI-RAD 3 RECOMMENDATION: Ultrasound of the left breast in 6 months.
== END | disposition home or self-care (01) ==
LOC: RADMAMWWP 14:20
PROVIDERS: ATTEND Obstetrics & Gynecology
DX: R92.8 Other abnormal and inconclusive findings on diagnostic imaging of breast (principal)
CPT/HCPCS: 76642; G0206

== ENCOUNTER → 2017-09-18 | Outpatient (CLI) | payer OTHER ==
--- NOTE | 2017-09-21 07:28 | USB ---
Reason for exam: follow-up at short interval from prior study. History: Took hormonal contraceptives for 6 months beginning at age 28. Physical Findings: Nurse Summary: all soft, nodular, movable (nurse ts). US Breast LT Left complete breast ultrasound includes all four quadrants, the retroareolar region and axilla. Finding demonstrates a 0.7 x 0.5 x 0.2cm oval, cystic lesion at 2 o'clock, a 1.0 x 1.0 x 0.6cm oval, complex, cystic cluster at 3 o'clock, a 0.5 x 0.3 x 0.5cm oval, complex, cystic lesion at 11 o'clock and a 0.4 x 0.3 x 0.3cm oval, cystic lesion at 11 o'clock. These results were verbally communicated with the patient and result sheet given to the patient on 09/18/17. ASSESSMENT: Benign, BI-RAD 2 RECOMMENDATION: Follow-up diagnostic mammogram of both breasts in 6 months. Back on schedule for February 2018.
== END | disposition home or self-care (01) ==
LOC: RADUSWWP 14:53
PROVIDERS: ATTEND Obstetrics & Gynecology
DX: R92.8 Other abnormal and inconclusive findings on diagnostic imaging of breast (principal)

== ENCOUNTER → 2018-02-18 | Outpatient (CLI) | payer OTHER ==
--- NOTE | 2018-02-18 15:21 | XR ---
Abdomen HISTORY: Kidney stone, abdomen discomfort Frontal view of the abdomen on 2 images correlated to prior CT 06/13/2017, abdomen and 28/12/2016 Calcifications in the pelvis are felt likely to represent phleboliths. Bilateral renal calcifications are present, largest in the mid pole the left kidney measures proximally 7 8 mm and in the right mid pole to upper pole 8-9 millimeters. There are approximately 10 calcifications bilaterally. Lung base s are clear. No pneumoperitoneum or bowel obstruction. Retained fecal be indicative of underlying fec al stasis. Bone mineralization is normal. There is a spinal curvature. IMPRESSION: Bilateral nephrolithiasis.
== END | disposition home or self-care (01) ==
LOC: RADXRMAIN 11:25
PROVIDERS: ATTEND Urology
DX: N20.0 Calculus of kidney (principal)
CPT/HCPCS: 74018

== ENCOUNTER → 2018-03-09 | Outpatient (CLI) | payer OTHER ==
[2018-03-09 12:00] VITALS: BP 102/70; PULSE 87; BMI 30.8
--- NOTE | 2018-03-09 12:49 | P.HPOB ---
History of Present Illness H&P Date: 03/09/18 Chief Complaint: The patient is here for her routine gynecologic exam. This is a 47-year-old with an LMP of 03/02/2018. Menses are regular every month. She is complaining of an increasing bulge from the vagina. When she bears down, she can notice of bulge from the introitus about 2 inches. It does go back inside. She does have been known uterine prolapse as well as a cystocele and rectocele. She has been having some problems with bowel movements and thinks it may be getting caught because of the prolapse. Review of Systems She is getting about 18 pounds over the last year. She denies respiratory, or cardiac problems. G.I.: she has several small bowel movements daily and this is a change for her. She has also noticed intermittent abdominal bloating. Please see the HPI for additional details. Past Medical History Past Medical History: Asthma, Chest Pain / Angina, Skin Disorder Additional Past Medical History / Comment(s): OCC ECZEMA. HX GESTATIONAL DIABETES. KIDNEY STONES. MILD FATTY LIVER. HX INJ TO RT ARM, CHRONIC PAIN. HX CP, TOLD IRREG RYTHMN. HEARTBURN, PAIN IN THROAT. Hiatal hernia. Cauda Equina syndrome Jan 2017. 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 History of Any Multi-Drug Resistant Organisms: None Reported Past Surgical History: Adenoidectomy, Ear Surgery, Tonsillectomy Additional Past Surgical History / Comment(s): BMT. EXC DERMOID CYST RT OVARY 2003. Decompressive laminectomy Jan 2017 for Cauda Equina Syndrome. Colonoscopy 1999 and 2014. Past Anesthesia/Blood Transfusion Reactions: Previous Problems w/ Anesthesia Additional Past Anesthesia/Blood Transfusion Reaction / Comment(s): WOKE UP DURING COLONOSCOPY, T&A SURG. 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 - Past Family History Father Family Medical History: Cancer (Skin), Diabetes Mellitus Additional Family Medical History / Comment(s): Grandmother had uterine cancer. Mother Additional Family Medical History / Comment(s): Heart disease. Maternal uncle had Parkinson's disease as well as a grandfather. Grandfather had prostate and skin cancer. Medications and Allergies Home Medications Medication Instructions Recorded Confirmed Type Docusate [Colace] 200 mg PO BID 02/05/17 03/09/18 History Sennosides [Senna] 8.6 - 34.4 mg PO HS PRN 02/05/17 03/09/18 History Albuterol Inhaler [Ventolin Hfa 1 - 2 puff INHALATION RT-Q4H PRN 06/13/17 History Inhaler] Oxybutynin ER [Ditropan Xl] 10 mg PO HS 06/13/17 03/09/18 History Esomeprazole Magnesium [NexIUM] PO DAILY 03/09/18 History Gabapentin [Neurontin] mg PO TID 03/09/18 History Methocarbamol [Robaxin] 750 mg PO TID 03/09/18 03/09/18 History Allergies Allergy/AdvReac Type Severity Reaction Status Date / Time cefixime [From Suprax] Allergy Dyspnea Verified 03/09/18 11:52 fexofenadine HCl Allergy Dyspnea Verified 03/09/18 11:52 [From Nina] Iodinated Contrast- Oral and Allergy Itching IN Verified 03/09/18 11:52 IV Dye THROAT AND [Iodinated Contrast Media - BODY, & IV Dye] ALLERGY SYMPTOMS levofloxacin [From Levaquin] Allergy Unknown Verified 03/09/18 11:52 propoxyphene napsylate Allergy Itching Verified 03/09/18 11:52 [From [place]vocet-N 100] shellfish derived [Shellfish] Allergy Anaphylaxis Verified 03/09/18 11:52 egg AdvReac Abdominal Verified 03/09/18 11:52 Pain, NAUSEA - UNLESS COOKED AT HIGH TEMP IN OVEN Milk Containing Products AdvReac ALLERGY Verified 03/09/18 11:52 NASAL SYMPTOMS, IF MORE THAN 8 OZ AT A TIME SEASONAL,MOLD,DUST,ANIMAL AdvReac RUNNY Uncoded 03/09/18 11:52 DANDER NOSE, ITCHY/WATERY EYES Exam Vital Signs Pulse BP 03/09/18 11:52 87 102/70 Intake and Output 03/08/18 03/09/18 03/09/18 22:59 06:59 14:59 Other: Weight 86.636 kg Temperature 97.9. Height 5'6", weight 191 pounds, BMI 30.8. This is a well-developed well-nourished white female who is alert and oriented times 3 in no acute distress. HEENT: Within normal limits. NECK: Supple without mass or thyromegaly. CHEST AND LUNGS: Clear to auscultation. HEART: Regular rate and rhythm. BREASTS: Are without mass or discharge. AXILLARY EXAM: Negative for adenopathy. BACK: Negative for CVA tenderness. ABDOMEN: Soft, obese, nontender, without palpable masses. PELVIC EXAM: Normal external genitalia. Cervix and vagina reveals a grade 2-3 uterine prolapse at rest and grade 4 uterine prolapse with Valsalva. The cervix protrudes from the introitus about 3 cm with Valsalva. There is a grade 2 cystocele at rest. There is no unusual discharge. There is a grade 2 rectocele. The uterus is midposition, slightly retroverted, nongravid size and nontender. There are no palpable adnexal masses or tenderness. Bimanual examination is somewhat limited secondary to her abdominal size. RECTAL EXAM:rectovaginal exam is negative for mass or tenderness and is negative for occult blood. This does confirm a small rectocele. EXTREMITIES: Nontender. IMPRESSION: 1. 47-year-old premenopausal female with worsening pelvic prolapse consisting of a grade for uterine prolapse, grade 2 to 3 cystocele and grade 2 rectocele. This has become more symptomatic for her. 2. Previous abnormal mammogram which recommended diagnostic mammogram this year. 3. Intermittent abdominal bloating. PLAN: 1. Pap smear was deferred since she had a normal one last year. 2. Self breast awareness was discussed with the patient. 3. Diagnostic mammogram is due and the order slip was given to the patient. 4. Pelvic ultrasound will be scheduled. The order slip was given to the patient for this. 5. If the pelvic ultrasound is benign, she will be referred for her symptomatic pelvic prolapse for possible vaginal hysterectomy with anterior and posterior repairs. She would like to be referred to Dr. Mckinley for this. 6. She will also return in one year and PRN.
== END ==
LOC: WWCWWP 11:01
PROVIDERS: ATTEND Obstetrics & Gynecology
DX: Z53.9 Procedure and treatment not carried out, unspecified reason (principal)

== ENCOUNTER → 2018-03-10 | Outpatient (CLI) | payer OTHER ==
--- NOTE | 2018-03-10 09:16 | US ---
EXAMINATION TYPE: US pelvic complete DATE OF EXAM: 03/10/2018 COMPARISON: CT CLINICAL HISTORY: N81.3 UTERINE PROLAPSE. TECHNIQUE: Transabdominal (TA). Date of LMP: 03/02/2018 EXAM MEASUREMENTS: Uterus: 8.9 x 4.9 x 5.8 cm Endometrial Stripe: 1.3 cm Right Ovary: 2.1 x 2.4 x 1.5 cm Left Ovary: 3.7 x 1.9 x 1.8 cm 1. Uterus: Retroverted At least one fibroid seen right anterior uterus measures 2.7 x 2.4 x 2.1 cm 2. Endometrium: wnl 3. Right Ovary: wnl 4. Left Ovary: wnl 5. Bilateral Adnexa: wnl 6. Posterior cul-de-sac: no free fluid IMPRESSION: 1. Leiomyomatous change of the uterus.
== END | disposition home or self-care (01) ==
LOC: RADUSWWP 08:05
PROVIDERS: ATTEND Obstetrics & Gynecology
DX: R14.0 Abdominal distension (gaseous) (principal); D39.0 Neoplasm of uncertain behavior of uterus; N18.3 Chronic kidney disease, stage 3 (moderate)
CPT/HCPCS: 76856

== ENCOUNTER 2018-11-16 12:03 | Emergency (ER) | payer OTHER ==
[2018-11-16] MEDS ORDERED: SODIUM CHLORIDE 0.9% 1,000 ML IV STA ×2 (12:22)
[2018-11-16] MEDS ORDERED: ONDANSETRON 4 MG/2 ML VIAL IVP STA (12:22)
[2018-11-16] MEDS ORDERED: SODIUM CHLORIDE 0.9% 500 ML 500 ML IV STA (12:22)
--- NOTE | 2018-11-16 12:24 | ED ---
Weakness HPI - General Chief complaint: Recheck/Abnormal Lab/Rx Stated complaint: Low blood pressure Time Seen by Provider: 11/16/18 12:13 Source: patient, RN notes reviewed, old records reviewed Mode of arrival: wheelchair Limitations: no limitations - History of Present Illness Initial comments: This is a 48-year-old female the ER for evasive weakness low blood pressure. Patient has recent diagnosis of thyroid CA scheduled for radioactive iodine th erapy. Patient currently off thyroid medication. States she's been feeling weak for about a week, dietary changes, mild nausea no vomiting occasional abdominal pain. No fevers. Patient was seen by her pain specialist today and had fluttering blood pressure from average to her low for her. Patient denies symptoms of headache chest pain shortness or abdominal pain, denies syncope. MD Complaint: generalized weakness, lack of energy -: days(s) Location: generalized Severity: moderate Severity scale (1-10): 5 Consistency: constant Improves with: none Worsens with: none Context: recent illness Associated Symptoms: denies other symptoms - Related Data Home Medications Medication Instructions Recorded Confirmed Docusate [Colace] 100 mg PO TID PRN 02/05/17 11/16/18 Albuterol Inhaler [Ventolin Hfa 1 - 2 puff INHALATION RT-Q4H PRN 06/13/17 11/16/18 Inhaler] Gabapentin [Neurontin] 300 mg PO BID@0800,1600 03/09/18 11/16/18 Methocarbamol [Robaxin] 750 mg PO TID PRN 03/09/18 11/16/18 Gabapentin [Neurontin] 600 mg PO HS 11/16/18 11/16/18 Montelukast [Singulair] 10 mg PO HS 11/16/18 11/16/18 Omeprazole [PriLOSEC] 10 mg PO DAILY 11/16/18 11/16/18 Allergies Allergy/AdvReac Type Severity Reaction Status Date / Time cefixime [From Suprax] Allergy Dyspnea Verified 11/16/18 12:42 fexofenadine HCl Allergy Dyspnea Verified 11/16/18 12:42 [From Nina] Iodinated Contrast- Oral and Allergy Itching IN Verified 11/16/18 12:42 IV Dye THROAT AND [Iodinated Contrast Media - BODY, & IV Dye] ALLERGY SYMPTOMS levofloxacin [From Levaquin] Allergy Unknown Verified 11/16/18 12:42 propoxyphene napsylate Allergy Itching Verified 11/16/18 12:42 [From Darvocet-N 100] shellfish derived [Shellfish] Allergy Anaphylaxis Verified 11/16/18 12:42 egg AdvReac Abdominal Verified 11/16/18 12:42 Pain, NAUSEA - UNLESS COOKED AT HIGH TEMP IN OVEN Milk Containing Products AdvReac ALLERGY Verified 11/16/18 12:42 NASAL SYMPTOMS, IF MORE THAN 8 OZ AT A TIME SEASONAL,MOLD,DUST,ANIMAL AdvReac RUNNY Uncoded 11/16/18 12:10 DANDER NOSE, ITCHY/WATERY EYES Review of Systems ROS Statement: Those systems with pertinent positive or pertinent negative responses have been documented in the HPI. ROS Other: All systems not noted in ROS Statement are negative. Past Medical History Past Medical History: Asthma, Chest Pain / Angina, GERD/Reflux, Skin Disorder Additional Past Medical History / Comment(s): OCC ECZEMA. HX GESTATIONAL DIABETES. KIDNEY STONES. MILD FATTY LIVER. HX INJ TO RT ARM, CHRONIC PAIN. HX CP, TOLD IRREG RYTHMN. Hiatal hernia. Cauda Equina syndrome Jan 2017. P History of Any Multi-Drug Resistant Organisms: None Reported Past Surgical History: Adenoidectomy, Ear Surgery, Tonsillectomy Additional Past Surgical History / Comment(s): BMT. EXC DERMOID CYST RT OVARY 2003. Decompressive laminectomy Jan 2017 for Cauda Equina Syndrome. Colonoscopy 1999 and 2014. Past Anesthesia/Blood Transfusion Reactions: Previous Problems w/ Anesthesia Additional Past Anesthesia/Blood Transfusion Reaction / Comment(s): WOKE UP DURING COLONOSCOPY, T&A SURG. Past Psychological History: No Psychological Hx Reported Smoking Status: Never smoker Past Alcohol Use History: None Reported Past Drug Use History: None Reported - Past Family History Mother Additional Family Medical History / Comment(s): Heart disease. Maternal uncle had Parkinson's disease as well as a grandfather. Grandfather had prostate and skin cancer. Father Family Medical History: Cancer (Skin), Diabetes Mellitus Additional Family Medical History / Comment(s): Grandmother had uterine cancer. General Exam Limitations: no limitations General appearance: alert, in no apparent distress Head exam: Present: atraumatic, normocephalic, normal inspection Eye exam: Present: normal appearance, PERRL, EOMI. Absent: scleral icterus, conjunctival injection, periorbital swelling ENT exam: Present: normal exam, mucous membranes moist Neck exam: Present: normal inspection. Absent: tenderness, meningismus, lymphadenopathy Respiratory exam: Present: normal lung sounds bilaterally. Absent: respiratory distress, wheezes, rales, rhonchi, stridor Cardiovascular Exam: Present: regular rate, normal rhythm, normal heart sounds. Absent: systolic murmur, diastolic murmur, rubs, gallop, clicks GI/Abdominal exam: Present: soft, normal bowel sounds. Absent: distended, tenderness, guarding, rebound, rigid Extremities exam: Present: normal inspection, full ROM, normal capillary refill. Absent: tenderness, pedal edema, joint swelling, calf tenderness Back exam: Present: normal inspection Neurological exam: Present: alert, oriented X3, CN II-XII intact Psychiatric exam: Present: normal affect, normal mood Skin exam: Present: warm, dry, intact, normal color. Absent: rash Course Vital Signs 11/16/18 11/16/18 11/16/18 12:06 12:50 12:57 Temperature 99.0 F Pulse Rate 80 84 Pulse Rate [ 73 Trouble Dispatcher ] Respiratory 18 16 Rate Blood Pressure 107/71 113/73 O2 Sat by Pulse 100 99 Oximetry 11/16/18 11/16/18 13:00 13:30 Temperature Pulse Rate 75 62 Pulse Rate [ Trouble Dispatcher ] Respiratory 16 16 Rate Blood Pressure 113/73 113/73 O2 Sat by Pulse 97 99 Oximetry - Reevaluation(s) Reevaluation #1: 11/16/18 12:23 Medical records reviewed EKG Findings - EKG Comments: EKG Findings:: EKG shows sinus rhythm rate of 61, NE 150, QRS 80, QTC 460 Medical Decision Making - Medical Decision Making 48 female the ER for evaluation of weakness. Thought to be hyponatremic per family doctor. Patient's lab tests are normal here in the ER she feels better with Zofran also fluids. Patient can be discharged home - Lab Data Result diagrams: 11/16/18 12:40 11/16/18 12:40 Lab Results 11/16/18 11/16/18 11/16/18 Range/Units 12:40 12:40 12:40 WBC 4.9 (3.8-10.6) k/uL RBC 5.79 H (3.80-5.40) m/uL Hgb 15.7 (11.4-16.0) gm/dL Hct 47.3 H (34.0-46.0) % MCV 81.8 (80.0-100.0) fL MCH 27.1 (25.0-35.0) pg MCHC 33.1 (31.0-37.0) g/dL RDW 15.1 (11.5-15.5) % Plt Count 273 (150-450) k/uL Neutrophils % 53 % Lymphocytes % 34 % Monocytes % 9 % Eosinophils % 1 % Basophils % 1 % Neutrophils # 2.6 (1.3-7.7) k/uL Lymphocytes # 1.7 (1.0-4.8) k/uL Monocytes # 0.4 (0-1.0) k/uL Eosinophils # 0.0 (0-0.7) k/uL Basophils # 0.1 (0-0.2) k/uL PT (9.0-12.0) sec INR (<1.2) APTT (22.0-30.0) sec Sodium 141 (137-145) mmol/L Potassium 4.7 (3.5-5.1) mmol/L Chloride 102 (98-107) mmol/L Carbon Dioxide 26 (22-30) mmol/L Anion Gap 13 mmol/L BUN 8 (7-17) mg/dL Creatinine 1.08 H (0.52-1.04) mg/dL Est GFR (CKD-EPI)AfAm 71 (>60 ml/min/1.73 sqM) Est GFR (CKD-EPI)NonAf 62 (>60 ml/min/1.73 sqM) Glucose 113 H (74-99) mg/dL Plasma Lactic Acid Eric 1.6 (0.7-2.0) mmol/L Calcium 10.3 H (8.4-10.2) mg/dL Phosphorus 4.0 (2.5-4.5) mg/dL Magnesium 2.2 (1.6-2.3) mg/dL Total Bilirubin 0.5 (0.2-1.3) mg/dL AST 27 (14-36) U/L ALT 26 (9-52) U/L Alkaline Phosphatase 56 (38-126) U/L Creatine Kinase 55 (30-135) U/L Total Protein 8.1 (6.3-8.2) g/dL Albumin 5.1 H (3.5-5.0) g/dL Urine Color Urine Appearance (Clear) Urine pH (5.0-8.0) Ur Specific [place] (1.001-1.035) Urine Protein (Negative) Urine Glucose (UA) (Negative) Urine Ketones (Negative) Urine Blood (Negative) Urine Nitrite (Negative) Urine Bilirubin (Negative) Urine Urobilinogen (<2.0) mg/dL Ur Leukocyte Esterase (Negative) Urine WBC (0-5) /hpf Ur Squamous Epith Cells (0-4) /hpf Urine Bacteria (None) /hpf 11/16/18 11/16/18 Range/Units 12:40 12:40 WBC (3.8-10.6) k/uL RBC (3.80-5.40) m/uL Hgb (11.4-16.0) gm/dL Hct (34.0-46.0) % MCV (80.0-100.0) fL MCH (25.0-35.0) pg MCHC (31.0-37.0) g/dL RDW (11.5-15.5) % Plt Count (150-450) k/uL Neutrophils % % Lymphocytes % % Monocytes % % Eosinophils % % Basophils % % Neutrophils # (1.3-7.7) k/uL Lymphocytes # (1.0-4.8) k/uL Monocytes # (0-1.0) k/uL Eosinophils # (0-0.7) k/uL Basophils # (0-0.2) k/uL PT 9.8 (9.0-12.0) sec INR 0.9 (<1.2) APTT 28.4 (22.0-30.0) sec Sodium (137-145) mmol/L Potassium (3.5-5.1) mmol/L Chloride (98-107) mmol/L Carbon Dioxide (22-30) mmol/L Anion Gap mmol/L BUN (7-17) mg/dL Creatinine (0.52-1.04) mg/dL Est GFR (CKD-EPI)AfAm (>60 ml/min/1.73 sqM) Est GFR (CKD-EPI)NonAf (>60 ml/min/1.73 sqM) Glucose (74-99) mg/dL Plasma Lactic Acid Eric (0.7-2.0) mmol/L Calcium (8.4-10.2) mg/dL Phosphorus (2.5-4.5) mg/dL Magnesium (1.6-2.3) mg/dL Total Bilirubin (0.2-1.3) mg/dL AST (14-36) U/L ALT (9-52) U/L Alkaline Phosphatase (38-126) U/L Creatine Kinase (30-135) U/L Total Protein (6.3-8.2) g/dL Albumin (3.5-5.0) g/dL Urine Color Colorless Urine Appearance Clear (Clear) Urine pH 7.0 (5.0-8.0) Ur Specific [place] 1.002 (1.001-1.035) Urine Protein Negative (Negative) Urine Glucose (UA) Negative (Negative) Urine Ketones Negative (Negative) Urine Blood Trace H (Negative) Urine Nitrite Negative (Negative) Urine Bilirubin Negative (Negative) Urine Urobilinogen <2.0 (<2.0) mg/dL Ur Leukocyte Esterase Trace H (Negative) Urine WBC 2 (0-5) /hpf Ur Squamous Epith Cells <1 (0-4) /hpf Urine Bacteria Rare H (None) /hpf Disposition Clinical Impression: Weakness Disposition: HOME SELF-CARE Condition: Good Instructions (If sedation given, give patient instructions): Weakness (ED) Is patient prescribed a controlled substance at d/c from ED?: No Referrals: Clem Forrest MD [Primary Care Provider] - 1-2 days
[2018-11-16 13:09] LABS: Appearance,Urine Clear (Clear); Bacteria,Urine Rare /hpf; Bilirubin,Urine Negative (Negative); Blood,Urine Trace (Negative); Color,Urine Colorless; Glucose,Urine (UA) Negative (Negative); Ketones,Urine Negative (Negative); Leukocyte Esterase,Urine Trace (Negative); Nitrite,Urine Negative (Negative); Protein,Urine Negative (Negative); Specific Gravity,Urine 1.002 (1.001-1.035); Squamous Epithelial Cell,Urine <1 /hpf (0-4); Urobilinogen,Urine <2.0 mg/dL (<2.0); WBC,Urine 2 /hpf (0-5)
[2018-11-16 13:17] LABS: Albumin 5.1 g/dL (3.5-5.0); Calcium 10.3 mg/dL (8.4-10.2); Magnesium 2.2 mg/dL (1.6-2.3); Potassium 4.7 mmol/L (3.5-5.1); Total Bilirubin 0.5 mg/dL (0.2-1.3); Total Protein 8.1 g/dL (6.3-8.2)
[2018-11-16 13:18] LABS: INR 0.9 (<1.2); Partial Thromboplastin Time 28.4 sec (22.0-30.0); Prothrombin Time 9.8 sec (9.0-12.0)
[2018-11-16 13:22] LABS: Basophils # (A) 0.1 k/uL (0-0.2); Basophils % (A) 1 %; Eosinophils % (A) 1 %; HCT 47.3 % (34.0-46.0); HGB 15.7 gm/dL (11.4-16.0); Lymphocytes # (A) 1.7 k/uL (1.0-4.8); Lymphocytes % (A) 34 %; MCH 27.1 pg (25.0-35.0); MCHC 33.1 g/dL (31.0-37.0); MCV 81.8 fL (80.0-100.0); Mean Platelet Volume 8.8; Monocytes # (A) 0.4 k/uL (0-1.0); Monocytes % (A) 9 %; Neutrophils # (A) 2.6 k/uL (1.3-7.7); Neutrophils % (A) 53 %; Platelet Count 273 k/uL (150-450); RBC 5.79 m/uL (3.80-5.40); RDW 15.1 % (11.5-15.5); WBC 4.9 k/uL (3.8-10.6)
[2018-11-16 15:14] VITALS: BP 111/81; PULSE 89; RESP 18; TEMP 98
[2018-11-16 21:29] LABS: T4, Free (Free Thyroxine) <0.07 ng/dL (0.78-2.19)
== END 2018-11-16 15:14 | disposition home or self-care (01) ==
LOC: EC 12:03
DX: R53.1 Weakness (principal); C73 Malignant neoplasm of thyroid gland; R11.0 Nausea; R10.9 Unspecified abdominal pain; J45.909 Unspecified asthma, uncomplicated; K21.9 Gastro-esophageal reflux disease without esophagitis; G89.29 Other chronic pain; Z88.1 Allergy status to other antibiotic agents; Z88.5 Allergy status to narcotic agent; Z88.8 Allergy status to other drugs, medicaments and biological substances; Z91.011 Allergy to milk products; Z91.012 Allergy to eggs; Z91.013 Allergy to seafood; Z91.041 Radiographic dye allergy status; Z91.048 Other nonmedicinal substance allergy status; Z79.899 Other long term (current) drug therapy
CPT/HCPCS: 36415; 93005; 84439; 80053; 84443; 82550; 83605; 83735; 84100; 84484; 85025; 85610; 85730; 81001; 87040; 87086; 99284; 96374; 96361 ×2; J2405

== ENCOUNTER → 2018-11-22 | Outpatient (CLI) | payer OTHER ==
--- NOTE | 2018-11-23 13:51 | NM ---
EXAMINATION TYPE: NM thyroid uptake only single DATE OF EXAM: 11/23/2018 COMPARISON: NONE HISTORY: Thyroid CA Following administration of 82 capsule. FINDINGS: Limited uptake exam performed demonstrating the 24-hour uptake of 0.8%. IMPRESSION: Uptake measured to be 0.8%.
== END | disposition home or self-care (01) ==
LOC: RADNMMAIN 12:48
PROVIDERS: ATTEND Internal Medicine
DX: C73 Malignant neoplasm of thyroid gland (principal)
CPT/HCPCS: 78012; A9516

== ENCOUNTER → 2018-11-30 | Outpatient (CLI) | payer OTHER ==
--- NOTE | 2018-12-04 20:49 | NM ---
EXAMINATION: Nuclear medicine thyroid I-131 therapy for cancer (outpatient) DATE: 11/30/2018 HISTORY: 48-year-old female status post resection for thyroid cancer. Patient presents for post resec tion ablation treatment. COMPARISON: Correlation with nuclear medicine thyroid uptake of 11/22/2018. RADIOTRACER: 93.7 mCi I-131. TECHNIQUE: No hormone replacement has been initiated. Patient is on a low iodine diet. Dose was prescribed (written directive) by an Authorized User in conjunction with treatment request aman Baires. Risks, benefits, and potential complications of radioactive I-131 therapy were discussed in detail wi th the patient by myself and the film editor supervisor. Verbal and written informed consent wer e obtained. Written instructions were given for radiation safety precautions to be observed for 7 day s outpatient. The patient specific exposure calculations were done by RSO to ensure estimated max dose to any indiv idual exposed to the patient was less than 5 mSv. The patient was specifically advised to avoid close contact with children, women, and other members of public. Dose was verified in dose caliber and patient was given oral I-131 pill under the supervision of me freya connelly the film editor supervisor. There were no immediate complications. IMPRESSION: Outpatient 93.7 mCi I-131 oral therapy capsule for thyroid cancer patient to return for postablation scan 2 days post administration.
== END | disposition home or self-care (01) ==
LOC: RADNMMAIN 12:51 → EDSTATUS 13:00
PROVIDERS: ATTEND Internal Medicine
DX: C73 Malignant neoplasm of thyroid gland (principal)
CPT/HCPCS: 79005; A9517

== ENCOUNTER → 2018-12-02 | Outpatient (CLI) | payer OTHER ==
[~2018-12-02] MED LIST: IODINE/POTASS IOD (LUGOLS) 8 ML BTL TOPICAL ONE
--- NOTE | 2018-12-05 23:28 | NM ---
EXAMINATION TYPE: NM I-131 THYROID CANCER METASTATIC SCAN WHOLE BODY DATE OF EXAM: 12/03/2018 HISTORY: 48-year-old female status post resection for thyroid cancer. Patient presents for post ablat ion whole body scan. COMPARISON: Therapy on 11/30/2018 and uptake on 11/22/2018 TECHNIQUE: Following the oral administration of 93.7 mCi I-131 on 11/30/2018, whole body scan was perf ormed 48 hours after radiotracer administration. FINDINGS: There is physiologic uptake within the salivary glands, nasopharynx, and also within the stomach, col on, and bladder. There is moderate focal uptake centered in the thyroidectomy bed. Otherwise, no abnormal tracer activity is seen. IMPRESSION: 1. Expected uptake within the thyroidectomy bed relating to minimal thyroid remnant. 2. No additional abnormal uptake identified throughout the body. No evidence for metastatic cervical lymph nodes or other metastatic disease.
== END | disposition home or self-care (01) ==
LOC: RADNMMAIN 13:03
PROVIDERS: ATTEND Internal Medicine
DX: C73 Malignant neoplasm of thyroid gland (principal)
CPT/HCPCS: 78018

== ENCOUNTER 2018-12-11 05:24 | Emergency (ER) | payer OTHER ==
--- NOTE | 2018-12-11 06:10 | ED ---
General Adult HPI - General Chief complaint: Extremity Problem,Nontraumatic Stated complaint: Edema Time Seen by Provider: 12/11/18 05:57 Source: patient Mode of arrival: ambulatory Limitations: no limitations - History of Present Illness Initial comments: This patient is a 48-year-old woman who presents to be evaluated for a number of complaints. She states that the last time she was really feeling well was before she had thyroidectomy performed a number of months ago. She states she also had been transitioned to a low-sodium diet and drinking more fluids. She states that she is having a number of medical complaints as a result. She has complained of having fluid retention throughout her entire body. She states that it also seems to have causes a flareup in her underlying neuropathy pains in the bilateral arms and legs. She states she has been trouble with insomnia and this is making all of her body complaints feel worse. -: week(s) Location: upper extremity, lower extremity Radiation: non-radiation Quality: burning Consistency: constant Improves with: none Worsens with: none - Related Data Home Medications Medication Instructions Recorded Confirmed Docusate [Colace] 100 mg PO TID PRN 02/05/17 12/11/18 Albuterol Inhaler [Ventolin Hfa 1 - 2 puff INHALATION RT-Q4H PRN 06/13/17 12/11/18 Inhaler] Gabapentin [Neurontin] 300 mg PO BID@0800,1600 03/09/18 12/11/18 Methocarbamol [Robaxin] 750 mg PO TID PRN 03/09/18 12/11/18 Gabapentin [Neurontin] 600 mg PO HS 11/16/18 12/11/18 Montelukast [Singulair] 10 mg PO HS 11/16/18 12/11/18 Esomeprazole Magnesium [NexIUM 20 mg PO DAILY 12/11/18 12/11/18 24Hr] Levothyroxine Sodium [Synthroid] 125 mg PO DAILY 12/11/18 12/11/18 Previous Rx's Medication Instructions Recorded Zolpidem [Ambien] 10 mg PO HS PRN 6 Days #6 tab 12/11/18 Allergies Allergy/AdvReac Type Severity Reaction Status Date / Time cefixime [From Suprax] Allergy Dyspnea Verified 12/11/18 07:44 fexofenadine HCl Allergy Dyspnea Verified 12/11/18 07:44 [From Nina] Iodinated Contrast- Oral and Allergy Itching IN Verified 12/11/18 07:44 IV Dye THROAT AND [Iodinated Contrast Media - BODY, & IV Dye] ALLERGY SYMPTOMS levofloxacin [From Levaquin] Allergy Unknown Verified 12/11/18 07:44 propoxyphene napsylate Allergy Itching Verified 12/11/18 07:44 [From Darvocet-N 100] shellfish derived [Shellfish] Allergy Anaphylaxis Verified 12/11/18 07:44 egg AdvReac Abdominal Verified 12/11/18 07:44 Pain, NAUSEA - UNLESS COOKED AT HIGH TEMP IN OVEN metoclopramide [From Reglan] AdvReac Nausea & Verified 12/11/18 07:44 Vomiting & Diarrhea Milk Containing Products AdvReac ALLERGY Verified 12/11/18 07:44 NASAL SYMPTOMS, IF MORE THAN 8 OZ AT A TIME SEASONAL,MOLD,DUST,ANIMAL AdvReac RUNNY Uncoded 12/11/18 05:40 DANDER NOSE, ITCHY/WATERY EYES Review of Systems ROS Statement: Those systems with pertinent positive or pertinent negative responses have been documented in the HPI. ROS Other: All systems not noted in ROS Statement are negative. Constitutional: Denies: fever, chills Respiratory: Denies: cough, dyspnea Cardiovascular: Reports: edema. Denies: chest pain, palpitations, orthopnea Gastrointestinal: Denies: abdominal pain, vomiting, diarrhea Genitourinary: Reports: frequency. Denies: dysuria, hematuria Musculoskeletal: Denies: back pain Skin: Denies: rash Neurological: Reports: paresthesias. Denies: headache, weakness, numbness Psychiatric: Reports: anxiety Past Medical History Past Medical History: Asthma, Chest Pain / Angina, GERD/Reflux, Skin Disorder Additional Past Medical History / Comment(s): OCC ECZEMA. HX GESTATIONAL DIABETES. KIDNEY STONES. MILD FATTY LIVER. HX INJ TO RT ARM, CHRONIC PAIN. HX CP, TOLD IRREG RYTHMN. Hiatal hernia. Cauda Equina syndrome Jan 2017. P History of Any Multi-Drug Resistant Organisms: None Reported Past Surgical History: Adenoidectomy, Ear Surgery, Tonsillectomy Additional Past Surgical History / Comment(s): BMT. EXC DERMOID CYST RT OVARY 2003. Decompressive laminectomy Jan 2017 for Cauda Equina Syndrome. Colonoscopy 1999 and 2014. Past Anesthesia/Blood Transfusion Reactions: Previous Problems w/ Anesthesia Additional Past Anesthesia/Blood Transfusion Reaction / Comment(s): WOKE UP DURING COLONOSCOPY, T&A SURG. Past Psychological History: No Psychological Hx Reported Smoking Status: Never smoker Past Alcohol Use History: None Reported Past Drug Use History: None Reported - Past Family History Mother Additional Family Medical History / Comment(s): Heart disease. Maternal uncle had Parkinson's disease as well as a grandfather. Grandfather had prostate and skin cancer. Father Family Medical History: Cancer (Skin), Diabetes Mellitus Additional Family Medical History / Comment(s): Grandmother had uterine cancer. General Exam Limitations: no limitations General appearance: alert, in no apparent distress Head exam: Present: atraumatic, normocephalic Eye exam: Present: normal appearance. Absent: scleral icterus, conjunctival injection ENT exam: Present: normal oropharynx Neck exam: Present: normal inspection Respiratory exam: Present: normal lung sounds bilaterally. Absent: respiratory distress, wheezes, rales, rhonchi, stridor Cardiovascular Exam: Present: regular rate, normal rhythm, normal heart sounds GI/Abdominal exam: Present: soft. Absent: distended, tenderness, guarding, rebound Extremities exam: Present: normal inspection, normal capillary refill Back exam: Present: normal inspection. Absent: CVA tenderness (R), CVA tenderness (L) Neurological exam: Present: alert, oriented X3. Absent: motor sensory deficit Skin exam: Present: warm, dry, intact, normal color. Absent: rash Course Vital Signs 12/11/18 12/11/18 05:35 07:05 Temperature 98.5 F 98.5 F Pulse Rate 69 78 Respiratory 18 19 Rate Blood Pressure 117/73 107/81 O2 Sat by Pulse 98 100 Oximetry Medical Decision Making - Lab Data Result diagrams: 12/11/18 06:20 12/11/18 06:20 Lab Results 12/11/18 12/11/18 12/11/18 Range/Units 06:20 06:20 06:20 WBC 6.1 (3.8-10.6) k/uL RBC 4.71 (3.80-5.40) m/uL Hgb 12.9 (11.4-16.0) gm/dL Hct 39.4 (34.0-46.0) % MCV 83.7 (80.0-100.0) fL MCH 27.4 (25.0-35.0) pg MCHC 32.7 (31.0-37.0) g/dL RDW 15.9 H (11.5-15.5) % Plt Count 200 (150-450) k/uL Neutrophils % 76 % Lymphocytes % 13 % Monocytes % 8 % Eosinophils % 0 % Basophils % 1 % Neutrophils # 4.6 (1.3-7.7) k/uL Lymphocytes # 0.8 L (1.0-4.8) k/uL Monocytes # 0.5 (0-1.0) k/uL Eosinophils # 0.0 (0-0.7) k/uL Basophils # 0.1 (0-0.2) k/uL Sodium 143 (137-145) mmol/L Potassium 4.0 (3.5-5.1) mmol/L Chloride 105 (98-107) mmol/L Carbon Dioxide 28 (22-30) mmol/L Anion Gap 10 mmol/L BUN 13 (7-17) mg/dL Creatinine 1.07 H (0.52-1.04) mg/dL Est GFR (CKD-EPI)AfAm 72 (>60 ml/min/1.73 sqM) Est GFR (CKD-EPI)NonAf 63 (>60 ml/min/1.73 sqM) Glucose 117 H (74-99) mg/dL Calcium 9.7 (8.4-10.2) mg/dL Total Bilirubin 0.4 (0.2-1.3) mg/dL AST 29 (14-36) U/L ALT 28 (9-52) U/L Alkaline Phosphatase 56 (38-126) U/L Total Protein 7.5 (6.3-8.2) g/dL Albumin 4.6 (3.5-5.0) g/dL TSH 80.200 H (0.465-4.680) mIU/L Urine Color Colorless Urine Appearance Clear (Clear) Urine pH 7.0 (5.0-8.0) Ur Specific [place] 1.008 (1.001-1.035) Urine Protein Negative (Negative) Urine Glucose (UA) Negative (Negative) Urine Ketones Negative (Negative) Urine Blood Negative (Negative) Urine Nitrite Negative (Negative) Urine Bilirubin Negative (Negative) Urine Urobilinogen <2.0 (<2.0) mg/dL Ur Leukocyte Esterase Negative (Negative) Disposition Clinical Impression: Hypothyroidism, Insomnia, Neuropathy Disposition: HOME SELF-CARE Condition: Fair Instructions (If sedation given, give patient instructions): Hypothyroidism (ED), Insomnia (ED) Prescriptions: Zolpidem [Ambien] 10 mg PO HS PRN 6 Days #6 tab PRN Reason: Insomnia Is patient prescribed a controlled substance at d/c from ED?: No Referrals: Clem Forrest MD [Primary Care Provider] - 1-2 days Mary Tariq MD [REFERRING] - 1-2 days
[2018-12-11 06:36] LABS: Basophils # (A) 0.1 k/uL (0-0.2); Basophils % (A) 1 %; Eosinophils % (A) 0 %; HCT 39.4 % (34.0-46.0); HGB 12.9 gm/dL (11.4-16.0); Lymphocytes # (A) 0.8 k/uL (1.0-4.8); Lymphocytes % (A) 13 %; MCH 27.4 pg (25.0-35.0); MCHC 32.7 g/dL (31.0-37.0); MCV 83.7 fL (80.0-100.0); Mean Platelet Volume 8.4; Monocytes # (A) 0.5 k/uL (0-1.0); Monocytes % (A) 8 %; Neutrophils # (A) 4.6 k/uL (1.3-7.7); Neutrophils % (A) 76 %; Platelet Count 200 k/uL (150-450); RBC 4.71 m/uL (3.80-5.40); RDW 15.9 % (11.5-15.5); WBC 6.1 k/uL (3.8-10.6)
[2018-12-11 06:40] LABS: Appearance,Urine Clear (Clear); Bilirubin,Urine Negative (Negative); Blood,Urine Negative (Negative); Color,Urine Colorless; Glucose,Urine (UA) Negative (Negative); Ketones,Urine Negative (Negative); Leukocyte Esterase,Urine Negative (Negative); Nitrite,Urine Negative (Negative); Protein,Urine Negative (Negative); Urobilinogen,Urine <2.0 mg/dL (<2.0)
[2018-12-11 06:54] LABS: Albumin 4.6 g/dL (3.5-5.0); Calcium 9.7 mg/dL (8.4-10.2); Total Bilirubin 0.4 mg/dL (0.2-1.3); Total Protein 7.5 g/dL (6.3-8.2)
[2018-12-11 06:59] LABS: Specific Gravity,Urine 1.008 (1.001-1.035)
[2018-12-11 08:24] VITALS: BP 117/75; PULSE 77; RESP 18; TEMP 97.6
== END 2018-12-11 08:31 | disposition home or self-care (01) ==
LOC: EC 05:24
DX: E03.9 Hypothyroidism, unspecified (principal); G47.00 Insomnia, unspecified; G62.9 Polyneuropathy, unspecified; R60.9 Edema, unspecified; J45.909 Unspecified asthma, uncomplicated; K21.9 Gastro-esophageal reflux disease without esophagitis; Z90.89 Acquired absence of other organs; Z79.890 Hormone replacement therapy; Z79.899 Other long term (current) drug therapy; Z88.1 Allergy status to other antibiotic agents; Z88.8 Allergy status to other drugs, medicaments and biological substances; Z91.041 Radiographic dye allergy status; Z88.5 Allergy status to narcotic agent; Z91.013 Allergy to seafood; Z91.012 Allergy to eggs; Z91.011 Allergy to milk products; Z91.048 Other nonmedicinal substance allergy status
CPT/HCPCS: 36415; 80053; 81003; 84443; 85025; 99284

== ENCOUNTER 2018-12-12 02:28 | Emergency (ER) | payer OTHER ==
[2018-12-12] MEDS ORDERED: FUROSEMIDE 10 MG/ML 4 ML VIAL IV STA (03:36)
[2018-12-12] MEDS ORDERED: DIAZEPAM 5 MG/ML 2 ML INJ IVP STA (03:36)
[2018-12-12 04:22] LABS: Basophils % (A) 1 %; Eosinophils % (A) 0 %; HCT 38.9 % (34.0-46.0); Lymphocytes # (A) 0.7 k/uL (1.0-4.8); Lymphocytes % (A) 13 %; MCH 27.3 pg (25.0-35.0); MCHC 33.5 g/dL (31.0-37.0); MCV 81.3 fL (80.0-100.0); Mean Platelet Volume 8.1; Monocytes # (A) 0.3 k/uL (0-1.0); Monocytes % (A) 6 %; Neutrophils # (A) 4.3 k/uL (1.3-7.7); Neutrophils % (A) 78 %; Platelet Count 182 k/uL (150-450); RBC 4.78 m/uL (3.80-5.40); RDW 15.5 % (11.5-15.5); WBC 5.5 k/uL (3.8-10.6)
[2018-12-12 04:30] LABS: Albumin 4.7 g/dL (3.5-5.0); Calcium 9.9 mg/dL (8.4-10.2); Magnesium 2.2 mg/dL (1.6-2.3); Phosphorus 4.4 mg/dL (2.5-4.5); Total Bilirubin 0.4 mg/dL (0.2-1.3); Total Protein 7.5 g/dL (6.3-8.2)
[2018-12-12 04:35] LABS: Appearance,Urine Clear (Clear); Bilirubin,Urine Negative (Negative); Blood,Urine Negative (Negative); Color,Urine Light Yellow; Glucose,Urine (UA) Negative (Negative); Ketones,Urine Negative (Negative); Leukocyte Esterase,Urine Trace (Negative); Mucus,Urine Rare /hpf; Nitrite,Urine Negative (Negative); PH, Urine 6.5 (5.0-8.0); Protein,Urine Negative (Negative); RBC,Urine 1 /hpf (0-5); Specific Gravity,Urine 1.009 (1.001-1.035); Squamous Epithelial Cell,Urine <1 /hpf (0-4); Urobilinogen,Urine <2.0 mg/dL (<2.0); WBC,Urine 2 /hpf (0-5)
[2018-12-12 04:38] LABS: Potassium 4.6 mmol/L (3.5-5.1)
--- NOTE | 2018-12-12 04:43 | ED ---
Abdominal Pain HPI - General Chief Complaint: Abdominal Pain Stated Complaint: Revisit-leg swelling,abd pain Time Seen by Provider: 12/12/18 02:59 Source: patient, family, RN notes reviewed, old records reviewed Mode of arrival: ambulatory Limitations: no limitations - History of Present Illness Initial Comments: This is a 48-year-old female the ER for evaluation. Patient is a plethora of nonspecific complaints. Patient is calm. Recent medical history significant for thyroid cancer with radioactive iodine treatment and recently re-resumed thyroid medication. Patient was here yesterday for similar complaints including lower extremity edema abdominal pain and not feeling well. MD Complaint: abdominal pain, other (Bilateral lower extremity edema) -: days(s) Location: diffuse, epigastric, suprapubic Radiation: epigastric, suprapubic Migration to: no migration Severity: mild Severity scale (1-10): 3 Quality: aching Improves With: nothing Worsens With: nothing Associated Symptoms: nausea - Related Data Home Medications Medication Instructions Recorded Confirmed Docusate [Colace] 100 mg PO TID PRN 02/05/17 12/11/18 Albuterol Inhaler [Ventolin Hfa 1 - 2 puff INHALATION RT-Q4H PRN 06/13/17 12/11/18 Inhaler] Gabapentin [Neurontin] 300 mg PO BID@0800,1600 03/09/18 12/11/18 Methocarbamol [Robaxin] 750 mg PO TID PRN 03/09/18 12/11/18 Gabapentin [Neurontin] 600 mg PO HS 11/16/18 12/11/18 Montelukast [Singulair] 10 mg PO HS 11/16/18 12/11/18 Esomeprazole Magnesium [NexIUM 20 mg PO DAILY 12/11/18 12/11/18 24Hr] Levothyroxine Sodium [Synthroid] 125 mg PO DAILY 12/11/18 12/11/18 Previous Rx's Medication Instructions Recorded Zolpidem [Ambien] 10 mg PO HS PRN 6 Days #6 tab 12/11/18 Allergies Allergy/AdvReac Type Severity Reaction Status Date / Time cefixime [From Suprax] Allergy Dyspnea Verified 12/12/18 02:51 fexofenadine HCl Allergy Dyspnea Verified 12/12/18 02:51 [From Nina] Iodinated Contrast- Oral and Allergy Itching IN Verified 12/12/18 02:51 IV Dye THROAT AND [Iodinated Contrast Media - BODY, & IV Dye] ALLERGY SYMPTOMS levofloxacin [From Levaquin] Allergy Unknown Verified 12/12/18 02:51 propoxyphene napsylate Allergy Itching Verified 12/12/18 02:51 [From Darvocet-N 100] shellfish derived [Shellfish] Allergy Anaphylaxis Verified 12/12/18 02:51 egg AdvReac Abdominal Verified 12/12/18 02:51 Pain, NAUSEA - UNLESS COOKED AT HIGH TEMP IN OVEN metoclopramide [From Reglan] AdvReac Nausea & Verified 12/12/18 02:51 Vomiting & Diarrhea Milk Containing Products AdvReac ALLERGY Verified 12/12/18 02:51 NASAL SYMPTOMS, IF MORE THAN 8 OZ AT A TIME SEASONAL,MOLD,DUST,ANIMAL AdvReac RUNNY Uncoded 12/12/18 02:51 DANDER NOSE, ITCHY/WATERY EYES Review of Systems ROS Statement: Those systems with pertinent positive or pertinent negative responses have been documented in the HPI. ROS Other: All systems not noted in ROS Statement are negative. Past Medical History Past Medical History: Asthma, Chest Pain / Angina, GERD/Reflux, Skin Disorder Additional Past Medical History / Comment(s): OCC ECZEMA. HX GESTATIONAL DIABETES. KIDNEY STONES. MILD FATTY LIVER. HX INJ TO RT ARM, CHRONIC PAIN. HX CP, TOLD IRREG RYTHMN. Hiatal hernia. Cauda Equina syndrome Jan 2017. P History of Any Multi-Drug Resistant Organisms: None Reported Past Surgical History: Adenoidectomy, Ear Surgery, Tonsillectomy Additional Past Surgical History / Comment(s): BMT. EXC DERMOID CYST RT OVARY 2003. Decompressive laminectomy Jan 2017 for Cauda Equina Syndrome. Colonoscopy 1999 and 2014. Past Anesthesia/Blood Transfusion Reactions: Previous Problems w/ Anesthesia Additional Past Anesthesia/Blood Transfusion Reaction / Comment(s): WOKE UP DURING COLONOSCOPY, T&A SURG. Past Psychological History: No Psychological Hx Reported Smoking Status: Never smoker Past Alcohol Use History: None Reported Past Drug Use History: None Reported - Past Family History Mother Additional Family Medical History / Comment(s): Heart disease. Maternal uncle had Parkinson's disease as well as a grandfather. Grandfather had prostate and skin cancer. Father Family Medical History: Cancer (Skin), Diabetes Mellitus Additional Family Medical History / Comment(s): Grandmother had uterine cancer. General Exam Limitations: no limitations General appearance: alert, in no apparent distress Head exam: Present: atraumatic, normocephalic, normal inspection Eye exam: Present: normal appearance, PERRL, EOMI. Absent: scleral icterus, conjunctival injection, periorbital swelling ENT exam: Present: normal exam, mucous membranes moist Neck exam: Present: normal inspection. Absent: tenderness, meningismus, lymphadenopathy Respiratory exam: Present: normal lung sounds bilaterally. Absent: respiratory distress, wheezes, rales, rhonchi, stridor Cardiovascular Exam: Present: regular rate, normal rhythm, normal heart sounds. Absent: systolic murmur, diastolic murmur, rubs, gallop, clicks GI/Abdominal exam: Present: soft, normal bowel sounds. Absent: distended, tenderness, guarding, rebound, rigid Extremities exam: Present: normal inspection, full ROM, normal capillary refill, other (Bilateral lower extremity edema 1+). Absent: tenderness, pedal edema, joint swelling, calf tenderness Back exam: Present: normal inspection Neurological exam: Present: alert, oriented X3, CN II-XII intact Psychiatric exam: Present: normal affect, normal mood Skin exam: Present: warm, dry, intact, normal color. Absent: rash Course Vital Signs 12/12/18 12/12/18 12/12/18 02:47 05:00 06:43 Temperature 98.7 F 98.1 F Pulse Rate 76 73 80 Respiratory 20 17 18 Rate Blood Pressure 119/76 111/75 122/67 O2 Sat by Pulse 97 100 96 Oximetry - Reevaluation(s) Reevaluation #1: Medical records reviewed Patient discussed at length regarding pros and cons to stay in hospital for further evaluation management of thyroid levels and diuresis. At this point patient has no shortness of breath and is in no distress. No evidence of hypothyroid or myxedema coma, patient will continue to follow-up with endocrinology, refusing hospital admission currently Medical Decision Making - Medical Decision Making 48-year-old multiple nonspecific complaints. Patient has recent thyroid is cancer with surgery. Patient is working getting her thyroid levels back is also having lower extremity edema. Given Lasix here in the ER with significant urine output. Patient denies any specific symptoms. 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 Patient is in no acute distress and can be discharged - Lab Data Result diagrams: 12/12/18 04:08 12/12/18 04:08 Lab Results 12/12/18 12/12/18 12/12/18 Range/Units 04:00 04:08 04:08 WBC 5.5 (3.8-10.6) k/uL RBC 4.78 (3.80-5.40) m/uL Hgb 13.0 (11.4-16.0) gm/dL Hct 38.9 (34.0-46.0) % MCV 81.3 (80.0-100.0) fL MCH 27.3 (25.0-35.0) pg MCHC 33.5 (31.0-37.0) g/dL RDW 15.5 (11.5-15.5) % Plt Count 182 (150-450) k/uL Neutrophils % 78 % Lymphocytes % 13 % Monocytes % 6 % Eosinophils % 0 % Basophils % 1 % Neutrophils # 4.3 (1.3-7.7) k/uL Lymphocytes # 0.7 L (1.0-4.8) k/uL Monocytes # 0.3 (0-1.0) k/uL Eosinophils # 0.0 (0-0.7) k/uL Basophils # 0.0 (0-0.2) k/uL Sodium 141 (137-145) mmol/L Potassium 4.6 (3.5-5.1) mmol/L Chloride 106 (98-107) mmol/L Carbon Dioxide 25 (22-30) mmol/L Anion Gap 10 mmol/L BUN 14 (7-17) mg/dL Creatinine 1.08 H (0.52-1.04) mg/dL Est GFR (CKD-EPI)AfAm 71 (>60 ml/min/1.73 sqM) Est GFR (CKD-EPI)NonAf 62 (>60 ml/min/1.73 sqM) Glucose 118 H (74-99) mg/dL Calcium 9.9 (8.4-10.2) mg/dL Phosphorus 4.4 (2.5-4.5) mg/dL Magnesium 2.2 (1.6-2.3) mg/dL Total Bilirubin 0.4 (0.2-1.3) mg/dL AST 28 (14-36) U/L ALT 28 (9-52) U/L Alkaline Phosphatase 58 (38-126) U/L Troponin I (0.000-0.034) ng/mL NT-Pro-B Natriuret Pep pg/mL Total Protein 7.5 (6.3-8.2) g/dL Albumin 4.7 (3.5-5.0) g/dL Lipase 152 (23-300) U/L TSH 77.700 H (0.465-4.680) mIU/L Free T4 0.45 L (0.78-2.19) ng/dL Free T3 pg/mL 1.9 L (2.8-5.3) pg/ml Urine Color Light Yellow Urine Appearance Clear (Clear) Urine pH 6.5 (5.0-8.0) Ur Specific [place] 1.009 (1.001-1.035) Urine Protein Negative (Negative) Urine Glucose (UA) Negative (Negative) Urine Ketones Negative (Negative) Urine Blood Negative (Negative) Urine Nitrite Negative (Negative) Urine Bilirubin Negative (Negative) Urine Urobilinogen <2.0 (<2.0) mg/dL Ur Leukocyte Esterase Trace H (Negative) Urine RBC 1 (0-5) /hpf Urine WBC 2 (0-5) /hpf Ur Squamous Epith Cells <1 (0-4) /hpf Urine Mucus Rare H (None) /hpf 12/12/18 12/12/18 Range/Units 04:08 04:08 WBC (3.8-10.6) k/uL RBC (3.80-5.40) m/uL Hgb (11.4-16.0) gm/dL Hct (34.0-46.0) % MCV (80.0-100.0) fL MCH (25.0-35.0) pg MCHC (31.0-37.0) g/dL RDW (11.5-15.5) % Plt Count (150-450) k/uL Neutrophils % % Lymphocytes % % Monocytes % % Eosinophils % % Basophils % % Neutrophils # (1.3-7.7) k/uL Lymphocytes # (1.0-4.8) k/uL Monocytes # (0-1.0) k/uL Eosinophils # (0-0.7) k/uL Basophils # (0-0.2) k/uL Sodium (137-145) mmol/L Potassium (3.5-5.1) mmol/L Chloride (98-107) mmol/L Carbon Dioxide (22-30) mmol/L Anion Gap mmol/L BUN (7-17) mg/dL Creatinine (0.52-1.04) mg/dL Est GFR (CKD-EPI)AfAm (>60 ml/min/1.73 sqM) Est GFR (CKD-EPI)NonAf (>60 ml/min/1.73 sqM) Glucose (74-99) mg/dL Calcium (8.4-10.2) mg/dL Phosphorus (2.5-4.5) mg/dL Magnesium (1.6-2.3) mg/dL Total Bilirubin (0.2-1.3) mg/dL AST (14-36) U/L ALT (9-52) U/L Alkaline Phosphatase (38-126) U/L Troponin I <0.012 (0.000-0.034) ng/mL NT-Pro-B Natriuret Pep 52 pg/mL Total Protein (6.3-8.2) g/dL Albumin (3.5-5.0) g/dL Lipase (23-300) U/L TSH (0.465-4.680) mIU/L Free T4 (0.78-2.19) ng/dL Free T3 pg/mL (2.8-5.3) pg/ml Urine Color Urine Appearance (Clear) Urine pH (5.0-8.0) Ur Specific [place] (1.001-1.035) Urine Protein (Negative) Urine Glucose (UA) (Negative) Urine Ketones (Negative) Urine Blood (Negative) Urine Nitrite (Negative) Urine Bilirubin (Negative) Urine Urobilinogen (<2.0) mg/dL Ur Leukocyte Esterase (Negative) Urine RBC (0-5) /hpf Urine WBC (0-5) /hpf Ur Squamous Epith Cells (0-4) /hpf Urine Mucus (None) /hpf - EKG Data -: EKG Interpreted by Me (EKG shows sinus rhythm rate of 66, OR 150, QRS 80, QTC 446) - Radiology Data Radiology results: report reviewed (Patient refusing any and all imaging despite abdominal pain) Disposition Clinical Impression: Abdominal pain, Weakness, Hypothyroidism Disposition: HOME SELF-CARE Condition: Good Instructions (If sedation given, give patient instructions): Hypothyroidism (ED) Is patient prescribed a controlled substance at d/c from ED?: No Referrals: Clem Forrest MD [Primary Care Provider] - 1-2 days
[2018-12-12 05:43] LABS: T4, Free (Free Thyroxine) 0.45 ng/dL (0.78-2.19)
[2018-12-12] MEDS ORDERED: ONDANSETRON 4 MG ODT STARTER PACK 2 TAB BTL PO STA (06:08)
[2018-12-12] MEDS ORDERED: diphenhydrAMINE 50 MG/ML 1 ML VIAL IVP STA (06:08)
[2018-12-12] MEDS ORDERED: METOCLOPRAMIDE 5 MG/ML 2 ML VIAL IVP STA (06:08)
[2018-12-12 06:45] VITALS: BP 122/67; PULSE 80; RESP 18; TEMP 98.1
== END 2018-12-12 06:45 | disposition home or self-care (01) ==
LOC: EC 02:28
DX: R10.30 Lower abdominal pain, unspecified (principal); R53.1 Weakness; E03.9 Hypothyroidism, unspecified; R60.0 Localized edema; K21.9 Gastro-esophageal reflux disease without esophagitis; G89.29 Other chronic pain; J30.2 Other seasonal allergic rhinitis; J30.81 Allergic rhinitis due to animal (cat) (dog) hair and dander; Z79.890 Hormone replacement therapy; Z79.899 Other long term (current) drug therapy; Z88.1 Allergy status to other antibiotic agents; Z91.041 Radiographic dye allergy status; Z88.8 Allergy status to other drugs, medicaments and biological substances; Z88.5 Allergy status to narcotic agent; Z91.013 Allergy to seafood; Z91.012 Allergy to eggs; Z91.011 Allergy to milk products; Z77.120 Contact with and (suspected) exposure to mold (toxic); Z91.048 Other nonmedicinal substance allergy status
CPT/HCPCS: 36415; 93005; 84439; 84481; 83880; 80053; 84443; 83690; 83735; 84100; 84484; 85025; 81001; 96374; 96375 ×2; 99284; J1200; J1940; J3360; S0119

== ENCOUNTER → 2019-03-30 | Outpatient (CLI) | payer OTHER ==
[2019-03-30 09:25] VITALS: BP 145/76; PULSE 61; RESP 16; TEMP 97.6; BMI 32.5
--- NOTE | 2019-03-30 10:24 | P.HPOB ---
History of Present Illness H&P Date: 03/30/19 Chief Complaint: The patient is here for her routine gynecologic exam and ma mmogram. This is a 48-year-old with an LMP of 03/27/2019. The patient has a known grade 4 uterine prolapse. She was referred to Dr. Mckinley last year for this. She was given a ring pessary with support. The patient states she only uses this periodically. She states it can be uncomfortable at times when she does use it. She was considering surgery for the prolapse, but developed thyroi d problems and had to deal with that earlier this year. She states she notices the dropping mostly when she is on the toilet. She underwent a thyroidectomy for thyroid cancer earlier in the year and around that time missed a period. She has been using periodic abstinence for control. Review of Systems The patient has gained about 11 pounds over the last year. She denies respiratory or cardiac problems. GI: Occasional gallbladder problems if she eats greasy foods. She is seeing Dr. Paulino for her gallbladder. Past Medical History Past Medical History: Asthma, Cancer, Chest Pain / Angina, GERD/Reflux, Skin Disorder Additional Past Medical History / Comment(s): Thyroid cancer status post t hyroidectomy and radioactive iodine treatments. OCC ECZEMA. HX GESTATIONAL DIABETES. KIDNEY STONES. MILD FATTY LIVER. HX INJ TO RT ARM, CHRONIC PAIN. HX CP, TOLD IRREG RYTHMN. Hiatal hernia. Cauda Equina syndrome Jan 2017. 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 History of Any Multi-Drug Resistant Organisms: None Reported Past Surgical History: Adenoidectomy, Ear Surgery, Tonsillectomy Additional Past Surgical History / Comment(s): BMT. EXC DERMOID CYST RT OVARY 2003. Decompressive laminectomy Jan 2017 for Cauda Equina Syndrome. Colonoscopy 1999 and 2014. Thyroidectomy 2018. Past Anesthesia/Blood Transfusion Reactions: Previous Problems w/ Anesthesia Additional Past Anesthesia/Blood Transfusion Reaction / Comment(s): WOKE UP DURING COLONOSCOPY, T&A SURG. 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 - Past Family History Mother Additional Family Medical History / Comment(s): Heart disease. Maternal uncle had Parkinson's disease as well as a grandfather. Grandfather had prostate and skin cancer. Father Family Medical History: Cancer, Diabetes Mellitus Additional Family Medical History / Comment(s): Skin cancer. Grandmother had uterine cancer. Medications and Allergies Home Medications Medication Instructions Recorded Confirmed Type Docusate [Colace] 100 mg PO TID PRN 02/05/17 03/30/19 History Albuterol Inhaler [Ventolin Hfa 1 - 2 puff INHALATION RT-Q4H PRN 06/13/17 03/30/19 History Inhaler] Gabapentin [Neurontin] 300 mg PO BID@0800,1600 03/09/18 03/30/19 History Methocarbamol [Robaxin] 750 mg PO TID PRN 03/09/18 03/30/19 History Gabapentin [Neurontin] 600 mg PO HS 11/16/18 03/30/19 History Montelukast [Singulair] 10 mg PO HS 11/16/18 03/30/19 History Esomeprazole Magnesium [NexIUM 20 mg PO DAILY 12/11/18 03/30/19 History 24Hr] Levothyroxine Sodium [Synthroid] 125 mg PO DAILY 12/11/18 03/30/19 History Allergies Allergy/AdvReac Type Severity Reaction Status Date / Time cefixime [From Suprax] Allergy Dyspnea Verified 03/30/19 09:25 fexofenadine HCl Allergy Dyspnea Verified 03/30/19 09:25 [From Nina] Iodinated Contrast Media Allergy Itching IN Verified 03/30/19 09:25 [Iodinated Contrast Media - THROAT AND IV Dye] BODY, & ALLERGY SYMPTOMS levofloxacin [From Levaquin] Allergy Unknown Verified 03/30/19 09:25 propoxyphene napsylate Allergy Itching Verified 03/30/19 09:25 [From Darvocet-N 100] shellfish derived [Shellfish] Allergy Anaphylaxis Verified 03/30/19 09:25 egg AdvReac Abdominal Verified 03/30/19 09:25 Pain, NAUSEA - UNLESS COOKED AT HIGH TEMP IN OVEN metoclopramide [From Reglan] AdvReac Nausea & Verified 03/30/19 09:25 Vomiting & Diarrhea Milk Containing Products AdvReac ALLERGY Verified 03/30/19 09:25 NASAL SYMPTOMS, IF MORE THAN 8 OZ AT A TIME SEASONAL,MOLD,DUST,ANIMAL AdvReac RUNNY Uncoded 03/30/19 09:25 DANDER NOSE, ITCHY/WATERY EYES Exam Vital Signs Temp Pulse Resp BP Pulse Ox 03/30/19 09:19 97.6 F 61 16 145/76 97 Intake and Output 03/29/19 03/30/19 03/30/19 22:59 06:59 14:59 Other: Weight 91.626 kg Height 5 feet 6 inches, weight 202 pounds, BMI 32.6. This is a well-developed well-nourished white female who is alert and oriented times 3 in no acute distress. HEENT: Within normal limits. NECK: Supple without mass or thyromegaly. CHEST AND LUNGS: Clear to auscultation. HEART: Regular rate and rhythm. BREASTS: Are without mass or discharge. AXILLARY EXAM: Negative for adenopathy. BACK: Negative for CVA tenderness. ABDOMEN: Soft, nontender, without palpable masses. PELVIC EXAM: Normal external genitalia. Cervix and vagina appear reveals a grade 2-3 uterine prolapse at rest which drops to a grade 3 prolapse with Valsalva. The cervix tissue appears normal without significant thickening. There is moderate menstrual blood in the vagina. There is no unusual discharge. There is also grade 2 cystocele and grade 2 rectocele which is stable. The uterus is midposition, nongravid size and nontender. There are no palpable adnexal masses or tenderness. RECTAL EXAM: Rectal exam is negative for mass or tenderness . Hemoccult testing was deferred because of the menstrual blood. EXTREMITIES: Nontender. IMPRESSION: 1. 48-year-old female with stable grade 3-4 uterine prolapse and grade 2 cystocele and rectocele. The patient uses a ring pessary occasionally for this. 2. Slight menstrual irregularity after her thyroidectomy. PLAN: 1. Pap smear was deferred because of the menstrual blood and will be done in one year. Her last one was on 03/04/2017 and was negative. 2. Self breast awareness was discussed with the patient. 3. Screening mammogram will be done today. 4. We have had a long discussion regarding surgical correction for the vaginal prolapse and uterine prolapse. She will continue to use the pessary as directed and will call Dr. Mckinley if she chooses to proceed with surgical correction. 5. She was advised to return in one year for her annual well woman exam and as needed.
--- NOTE | 2019-03-31 10:51 | MM ---
Reason for exam: screening (asymptomatic). Last mammogram was performed 1 year ago. History: Patient history of other cancer. Took hormonal contraceptives for 6 months beginning at age 28. Physical Findings: A clinical breast exam by your physician is recommended on an annual basis and results should be correlated with mammographic findings. MG Screening Mammo w CAD Bilateral CC and MLO view(s) were taken. Prior study comparison: March 24, 2018, bilateral MG diagnostic mammo w CAD [facility]A. March 20, 2017, left breast MG work up mamm w CAD LT. The breast tissue is heterogeneously dense. This may lower the sensitivity of mammography. There is no discrete abnormality. No significant changes when compared with prior studies. ASSESSMENT: Negative, BI-RAD 1 RECOMMENDATION: Routine screening mammogram of both breasts in 1 year.
== END | disposition home or self-care (01) ==
LOC: WWCWWP 09:10
PROVIDERS: ATTEND Obstetrics & Gynecology
DX: Z12.31 Encounter for screening mammogram for malignant neoplasm of breast (principal)
CPT/HCPCS: 77067

== ENCOUNTER → 2019-10-10 | Outpatient (CLI) | payer OTHER ==
--- NOTE | 2019-10-10 14:37 | CT ---
EXAMINATION TYPE: CT abdomen pelvis wo con DATE OF EXAM: 10/10/2019 COMPARISON: 06/13/2017 HISTORY: 49-year-old female right lower quadrant and left lower quadrant pain. Bilateral flank pain, history of known stones, CT DLP: 905 mGycm. Automated exposure control for dose reduction was used. TECHNIQUE: Contiguous axial scanning of the abdomen and pelvis without IV contrast. Coronal and sagit ang reconstructions performed. FINDINGS: LUNG BASES: Small hiatal hernia. Otherwise, no significant abnormality is appreciated. Lack of IV contrast limits assessment of the solid abdominal viscera, lymph nodes, and vascular struc tures. LIVER/GB: No significant abnormality is appreciated. PANCREAS: No significant abnormality is seen. SPLEEN: No significant abnormality is seen. Tiny anterior hilar splenule. ADRENALS: No significant abnormality is seen. KIDNEYS: - Nonobstructing calculi in the right, many of which are punctate but largest measuring 8 mm. - 15 nonobstructive calculi on the left, many of which are punctate, largest measuring 8 mm. - No hydronephrosis. No suspicious calculus seen along the course of either ureter. BOWEL: Mild to moderate stool burden. No dilated small bowel, free fluid, or free air. LYMPH NODES: No mesenteric or retroperitoneal lymphadenopathy. PELVIS: Multiple pelvic phleboliths. Uterus anteverted but retroflexed. There is a bulky contour cedric g the right fundus measuring up to 3.9 cm versus 2.8 cm on 06/13/2017. Both ovaries are visualized. Mil d right-sided cul-de-sac free fluid. No pelvic lymphadenopathy. BONES: Degenerative disc disease L5-S1. IMPRESSION: 1. Bilateral nonobstructive renal calculi measuring up to 8 mm on either side. No hydronephrosis or suspicious ureteral calculus. 2. Bulky contour along the right uterine fundus measuring 3.9 cm versus 2.8 cm on 06/13/2017. Recommen d female pelvic MRI to further evaluate given enlarging size. A partially exophytic uterine fibroid i s suspected. 3. Mild right-sided cul-de-sac free fluid likely physiologic. 4. Small hiatal hernia.
== END | disposition home or self-care (01) ==
LOC: RADCTMAIN 13:56
PROVIDERS: ATTEND Urology
DX: N20.0 Calculus of kidney (principal); K44.9 Diaphragmatic hernia without obstruction or gangrene; N85.8 Other specified noninflammatory disorders of uterus
CPT/HCPCS: 74176

== ENCOUNTER → 2020-01-19 | Outpatient (CLI) | payer OTHER ==
--- NOTE | 2020-01-19 10:05 | XR ---
EXAMINATION TYPE: XR KUB DATE OF EXAM: 01/19/2020 COMPARISON: 02/05/2017 HISTORY: Bilateral flank pain TECHNIQUE: One view abdominal series FINDINGS: The osseous structures are intact. The bowel gas pattern is nonspecific. The bowel content obscures overlying renal outlines. Right kidney: There are approximately 4 punctate 1 to 2 mm calculi overlying the right kidney with th e larger mid to upper pole 8.5 mm calcification. Left kidney: There are approximately 15 calcifications overlying the left kidney all but one measure less than 5 mm. The largest measures approximately 8 mm. Scoliotic curvature of the spine. Calcifications in the pelvis are nonspecific but likely vascular. H ypertrophic change of the acetabulum could be associated with femoral acetabular impingement correlat e clinically. IMPRESSION: 1. Bilateral nephrolithiasis with numerous calculi as noted above. Largest within each kidney measure s approximately 8 to 8.5 mm
== END | disposition home or self-care (01) ==
LOC: RADXRMAIN 08:38
PROVIDERS: ATTEND Urology
DX: N20.0 Calculus of kidney (principal)
CPT/HCPCS: 74018

== ENCOUNTER 2020-01-25 15:09 | Emergency (ER) | payer OTHER ==
[2020-01-25] MEDS ORDERED: SODIUM CHLORIDE 0.9% 1,000 ML IV STA (15:55)
--- NOTE | 2020-01-25 16:14 | ED ---
Abdominal Pain HPI - General Chief Complaint: Abdominal Pain Stated Complaint: abd pain Time Seen by Provider: 01/25/20 15:54 Source: patient, RN notes reviewed Mode of arrival: wheelchair Limitations: no limitations - History of Present Illness Initial Comments: 49-year-old female presents emergency Department chief complaint left flank pain. She's had on-and-off symptoms in the past. Patient states pain started today with associated nausea vomiting she has had some mild constipation. No noticeable hematuria. No dysuria. Patient does have a history kidney stones. Patient had CAT scan recently. Patient denies any fevers, chills, chest pain, shortness breath, headache or dizziness. Nothing really makes the pain feel better or worse. - Related Data Home Medications Medication Instructions Recorded Confirmed Docusate [Colace] 100 mg PO TID PRN 02/05/17 03/30/19 Albuterol Inhaler (Mhu) [Ventolin 1 - 2 puff INHALATION RT-Q4H PRN 06/13/17 03/30/19 Hfa Inhaler] Gabapentin [Neurontin] 300 mg PO BID@0800,1600 03/09/18 03/30/19 methocarbamoL [Robaxin] 750 mg PO TID PRN 03/09/18 03/30/19 Gabapentin [Neurontin] 600 mg PO HS 11/16/18 03/30/19 Montelukast [Singulair] 10 mg PO HS 11/16/18 03/30/19 Esomeprazole Magnesium [NexIUM 20 mg PO DAILY 12/11/18 03/30/19 24Hr] Levothyroxine Sodium [Synthroid] 125 mg PO DAILY 12/11/18 03/30/19 Previous Rx's Medication Instructions Recorded Amoxicillin/Potassium Clav 1 tab PO Q12HR #20 tab 01/25/20 [Augmentin 875-125 Tablet] HYDROcodone/APAP 7.5-325MG [[place] 1 tab PO Q6HR PRN 3 Days #12 tab 01/25/20 7.5-325] Ondansetron Odt [Zofran Odt] 4 mg PO Q8HR PRN #10 tab 01/25/20 Allergies Allergy/AdvReac Type Severity Reaction Status Date / Time cefixime [From Suprax] Allergy Dyspnea Verified 01/25/20 15:16 fexofenadine HCl Allergy Dyspnea Verified 01/25/20 15:16 [From Nina] Iodinated Contrast Media Allergy Itching IN Verified 01/25/20 15:16 [Iodinated Contrast Media - THROAT AND IV Dye] BODY, & ALLERGY SYMPTOMS levofloxacin [From Levaquin] Allergy Unknown Verified 01/25/20 15:16 propoxyphene napsylate Allergy Itching Verified 01/25/20 15:16 [From Darvocet-N 100] shellfish derived [Shellfish] Allergy Anaphylaxis Verified 01/25/20 15:16 egg AdvReac Abdominal Verified 01/25/20 15:16 Pain, NAUSEA - UNLESS COOKED AT HIGH TEMP IN OVEN metoclopramide [From Reglan] AdvReac Nausea & Verified 01/25/20 15:16 Vomiting & Diarrhea Milk Containing Products AdvReac ALLERGY Verified 01/25/20 15:16 NASAL SYMPTOMS, IF MORE THAN 8 OZ AT A TIME SEASONAL,MOLD,DUST,ANIMAL AdvReac RUNNY Uncoded 01/25/20 15:16 DANDER NOSE, ITCHY/WATERY EYES Review of Systems ROS Statement: Those systems with pertinent positive or pertinent negative responses have been documented in the HPI. ROS Other: All systems not noted in ROS Statement are negative. Past Medical History Past Medical History: Asthma, Cancer, Chest Pain / Angina, GERD/Reflux, Skin Disorder Additional Past Medical History / Comment(s): Thyroid cancer status post thyroidectomy and radioactive iodine treatments. OCC ECZEMA. HX GESTATIONAL DIABETES. KIDNEY STONES. MILD FATTY LIVER. HX INJ TO RT ARM, CHRONIC PAIN. HX CP, TOLD IRREG RYTHMN. Hiatal hernia. Cauda Equina syndrome Jan 2017. 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 History of Any Multi-Drug Resistant Organisms: None Reported Past Surgical History: Adenoidectomy, Ear Surgery, Tonsillectomy Additional Past Surgical History / Comment(s): BMT. EXC DERMOID CYST RT OVARY 2003. Decompressive laminectomy Jan 2017 for Cauda Equina Syndrome. Colonoscopy 1999 and 2014. Thyroidectomy 2018. Past Anesthesia/Blood Transfusion Reactions: Previous Problems w/ Anesthesia Additional Past Anesthesia/Blood Transfusion Reaction / Comment(s): WOKE UP DURING COLONOSCOPY, T&A SURG. Past Psychological History: No Psychological Hx Reported Smoking Status: Never smoker Past Alcohol Use History: None Reported Past Drug Use History: None Reported - Past Family History Mother Additional Family Medical History / Comment(s): Heart disease. Maternal uncle had Parkinson's disease as well as a grandfather. Grandfather had prostate and skin cancer. Father Family Medical History: Cancer, Diabetes Mellitus Additional Family Medical History / Comment(s): Skin cancer. Grandmother had uterine cancer. General Exam Limitations: no limitations General appearance: alert, in no apparent distress Head exam: Present: atraumatic, normocephalic, normal inspection Eye exam: Present: normal appearance, PERRL, EOMI. Absent: scleral icterus, conjunctival injection, periorbital swelling Neck exam: Present: normal inspection, full ROM. Absent: tenderness, meningismus, lymphadenopathy Respiratory exam: Present: normal lung sounds bilaterally. Absent: respiratory distress, wheezes, rales, rhonchi, stridor Cardiovascular Exam: Present: regular rate, normal rhythm, normal heart sounds. Absent: systolic murmur, diastolic murmur, rubs, gallop, clicks GI/Abdominal exam: Present: soft, tenderness (Mild left-sided), normal bowel sounds. Absent: distended, guarding, rebound, rigid Back exam: Present: CVA tenderness (L). Absent: CVA tenderness (R) Neurological exam: Present: alert, oriented X3 Skin exam: Present: warm, dry, intact, normal color. Absent: rash Course Vital Signs 01/25/20 01/25/20 15:14 18:50 Temperature 98.2 F Pulse Rate 87 86 Respiratory 16 12 Rate Blood Pressure 125/78 113/54 O2 Sat by Pulse 98 97 Oximetry Medical Decision Making - Medical Decision Making 49-year-old female presented for flank pain. Patient has evidence of urinary tract infection. CT is obtained for concerns of stone with infection no stone evident. Patient was given [facility] emergency department as she has an ALLERGY to cephalosporins and fluoroquinolones. Patient we discharged on oral antibiotic, pain meds antiemetics will follow-up tomorrow for recheck and return for any worsening symptoms. - Lab Data Result diagrams: 01/25/20 16:18 01/25/20 16:18 Lab Results 01/25/20 01/25/20 01/25/20 Range/Units 16:18 16:18 16:18 WBC 6.4 (3.8-10.6) k/uL RBC 5.69 H (3.80-5.40) m/uL Hgb 15.0 (11.4-16.0) gm/dL Hct 45.9 (34.0-46.0) % MCV 80.7 (80.0-100.0) fL MCH 26.3 (25.0-35.0) pg MCHC 32.6 (31.0-37.0) g/dL RDW 13.5 (11.5-15.5) % Plt Count 245 (150-450) k/uL Neutrophils % 81 % Lymphocytes % 13 % Monocytes % 5 % Eosinophils % 0 % Basophils % 1 % Neutrophils # 5.2 (1.3-7.7) k/uL Lymphocytes # 0.8 L (1.0-4.8) k/uL Monocytes # 0.3 (0-1.0) k/uL Eosinophils # 0.0 (0-0.7) k/uL Basophils # 0.0 (0-0.2) k/uL Sodium 141 (137-145) mmol/L Potassium 4.4 (3.5-5.1) mmol/L Chloride 104 (98-107) mmol/L Carbon Dioxide 27 (22-30) mmol/L Anion Gap 10 mmol/L BUN 14 (7-17) mg/dL Creatinine 0.78 (0.52-1.04) mg/dL Est GFR (CKD-EPI)AfAm >90 (>60 ml/min/1.73 sqM) Est GFR (CKD-EPI)NonAf >90 (>60 ml/min/1.73 sqM) Glucose 108 H (74-99) mg/dL Plasma Lactic Acid Eric 1.0 (0.7-2.0) mmol/L Calcium 9.7 (8.4-10.2) mg/dL Total Bilirubin 0.5 (0.2-1.3) mg/dL AST 25 (14-36) U/L ALT 24 (4-34) U/L Alkaline Phosphatase 81 (38-126) U/L Total Protein 8.1 (6.3-8.2) g/dL Albumin 5.0 (3.5-5.0) g/dL Lipase 115 (23-300) U/L Urine Color Urine Appearance (Clear) Urine pH (5.0-8.0) Ur Specific [place] (1.001-1.035) Urine Protein (Negative) Urine Glucose (UA) (Negative) Urine Ketones (Negative) Urine Blood (Negative) Urine Nitrite (Negative) Urine Bilirubin (Negative) Urine Urobilinogen (<2.0) mg/dL Ur Leukocyte Esterase (Negative) Urine RBC (0-5) /hpf Urine WBC (0-5) /hpf Urine WBC Clumps (None) /hpf Ur Squamous Epith Cells (0-4) /hpf Urine Bacteria (None) /hpf Urine Mucus (None) /hpf 01/25/20 Range/Units Unknown WBC (3.8-10.6) k/uL RBC (3.80-5.40) m/uL Hgb (11.4-16.0) gm/dL Hct (34.0-46.0) % MCV (80.0-100.0) fL MCH (25.0-35.0) pg MCHC (31.0-37.0) g/dL RDW (11.5-15.5) % Plt Count (150-450) k/uL Neutrophils % % Lymphocytes % % Monocytes % % Eosinophils % % Basophils % % Neutrophils # (1.3-7.7) k/uL Lymphocytes # (1.0-4.8) k/uL Monocytes # (0-1.0) k/uL Eosinophils # (0-0.7) k/uL Basophils # (0-0.2) k/uL Sodium (137-145) mmol/L Potassium (3.5-5.1) mmol/L Chloride (98-107) mmol/L Carbon Dioxide (22-30) mmol/L Anion Gap mmol/L BUN (7-17) mg/dL Creatinine (0.52-1.04) mg/dL Est GFR (CKD-EPI)AfAm (>60 ml/min/1.73 sqM) Est GFR (CKD-EPI)NonAf (>60 ml/min/1.73 sqM) Glucose (74-99) mg/dL Plasma Lactic Acid Eric (0.7-2.0) mmol/L Calcium (8.4-10.2) mg/dL Total Bilirubin (0.2-1.3) mg/dL AST (14-36) U/L ALT (4-34) U/L Alkaline Phosphatase (38-126) U/L Total Protein (6.3-8.2) g/dL Albumin (3.5-5.0) g/dL Lipase (23-300) U/L Urine Color Yellow Urine Appearance Cloudy H (Clear) Urine pH 5.5 (5.0-8.0) Ur Specific [place] 1.018 (1.001-1.035) Urine Protein 1+ H (Negative) Urine Glucose (UA) Negative (Negative) Urine Ketones 2+ H (Negative) Urine Blood Small H (Negative) Urine Nitrite Negative (Negative) Urine Bilirubin Negative (Negative) Urine Urobilinogen <2.0 (<2.0) mg/dL Ur Leukocyte Esterase Large H (Negative) Urine RBC 15 H (0-5) /hpf Urine WBC >182 H (0-5) /hpf Urine WBC Clumps Few H (None) /hpf Ur Squamous Epith Cells 14 H (0-4) /hpf Urine Bacteria Occasional H (None) /hpf Urine Mucus Few H (None) /hpf Disposition Clinical Impression: Acute pyelonephritis Disposition: HOME SELF-CARE Condition: Stable Instructions (If sedation given, give patient instructions): Kidney Infection (ED) Additional Instructions: Please return to the Emergency Department if symptoms worsen or any other concerns. Prescriptions: Amoxicillin/Potassium Clav [Augmentin 875-125 Tablet] 1 tab PO Q12HR #20 tab HYDROcodone/APAP 7.5-325MG [[place] 7.5-325] 1 tab PO Q6HR PRN 3 Days #12 tab PRN Reason: pain Ondansetron Odt [Zofran Odt] 4 mg PO Q8HR PRN #10 tab PRN Reason: Nausea Is patient prescribed a controlled substance at d/c from ED?: Yes When asked, does pt state using other controlled substances?: No If prescribed controlled substance>3 days was MAPS reviewed?: Prescribed <3 Days If opioid is for acute pain is fill amount 7 days or less?: Yes If Rx opioid, was Start Talking consent form obtained?: Yes Referrals: Clem Forrest MD [Primary Care Provider] - 1-2 days Time of Disposition: 19:08
[2020-01-25] MEDS ORDERED: ONDANSETRON 4 MG/2 ML VIAL IVP STA (16:21)
[2020-01-25] MEDS ORDERED: HYDROmorphone 0.5 MG/0.5 ML SYRINGE IVP STA ×2 (16:21→17:44)
[2020-01-25 16:36] LABS: ALT 24 U/L (4-34); AST 25 U/L (14-36); African American GFR (CKD) >90 (>60 ml/min/1.73 sqM); Alkaline Phosphatase 81 U/L (38-126); Anion Gap 10 mmol/L; Blood Urea Nitrogen 14 mg/dL (7-17); Calcium 9.7 mg/dL (8.4-10.2); Carbon Dioxide 27 mmol/L (22-30); Chloride 104 mmol/L (98-107); Glucose 108 mg/dL (74-99); Non-African American GFR(CKD) >90 (>60 ml/min/1.73 sqM); Potassium 4.4 mmol/L (3.5-5.1); Sodium 141 mmol/L (137-145); Total Bilirubin 0.5 mg/dL (0.2-1.3); Total Protein 8.1 g/dL (6.3-8.2)
--- NOTE | 2020-01-25 16:42 | XR ---
EXAMINATION TYPE: XR KUB DATE OF EXAM: 01/25/2020 COMPARISON: 01/19/2020 HISTORY: Bilateral flank pain TECHNIQUE: 2 views upright FINDINGS: There is no sign of intestinal obstruction or pneumoperitoneum. There are a few calcificati ons over the left kidney that measure up to 7 mm. There is 9 mm calcification over the right kidney. Lung bases are clear. Fecal pattern is normal. There is mild thoracolumbar levoscoliosis. IMPRESSION: Bilateral renal calculi unchanged. Nonacute abdomen.
[2020-01-25 16:47] LABS: Basophils % (A) 1 %; Eosinophils % (A) 0 %; HCT 45.9 % (34.0-46.0); Lymphocytes # (A) 0.8 k/uL (1.0-4.8); Lymphocytes % (A) 13 %; MCH 26.3 pg (25.0-35.0); MCHC 32.6 g/dL (31.0-37.0); MCV 80.7 fL (80.0-100.0); Mean Platelet Volume 8.1; Monocytes # (A) 0.3 k/uL (0-1.0); Monocytes % (A) 5 %; Neutrophils # (A) 5.2 k/uL (1.3-7.7); Neutrophils % (A) 81 %; Platelet Count 245 k/uL (150-450); RBC 5.69 m/uL (3.80-5.40); RDW 13.5 % (11.5-15.5); WBC 6.4 k/uL (3.8-10.6)
[2020-01-25 17:37] LABS: Appearance,Urine Cloudy (Clear); Bacteria,Urine Occasional /hpf; Bilirubin,Urine Negative (Negative); Blood,Urine Small (Negative); Color,Urine Yellow; Glucose,Urine (UA) Negative (Negative); Ketones,Urine 2+ (Negative); Leukocyte Esterase,Urine Large (Negative); Mucus,Urine Few /hpf; Nitrite,Urine Negative (Negative); PH, Urine 5.5 (5.0-8.0); Protein,Urine 1+ (Negative); RBC,Urine 15 /hpf (0-5); Specific Gravity,Urine 1.018 (1.001-1.035); Squamous Epithelial Cell,Urine 14 /hpf (0-4); Urobilinogen,Urine <2.0 mg/dL (<2.0); WBC,Urine >182 /hpf (0-5)
[2020-01-25] MEDS ORDERED: PIPERACILLIN-TAZOBACTAM 3.375 GM in SODIUM CHLORIDE 0.9% 100 ML IVPB STA (17:46)
[2020-01-25 18:51] VITALS: BP 113/54; PULSE 86; RESP 12
--- NOTE | 2020-01-25 18:58 | CT ---
EXAMINATION TYPE: CT abdomen pelvis wo con DATE OF EXAM: 01/25/2020 COMPARISON: 10/10/2019 HISTORY: left flank pain CT DLP: 835 mGycm Automated exposure control for dose reduction was used. Lung bases are clear of consolidation. There is no pleural effusion. There is no pericardial effusion . Liver spleen stomach pancreas gallbladder appear intact. Bile ducts are not dilated. There is small h iatal hernia. There is no adrenal mass. There are numerous bilateral renal calculi that measure up to 1 cm. Ureters are not dilated. There are multiple phleboliths in the pelvis. The bladder distends smoothly. Uterus measures 8 cm. There is no free fluid in the pelvis. Uterus is retroverted and there is an apparent 4 cm fibroid on the anterior wall of the uterus. Lumbar vertebra have normal alignment. There is narrowing of L5-S1 disc space. There is no compressio n fracture. Bony pelvis is intact. There is broad-based ventral hernia in the mid abdomen. There is no mesenteric edema. There is no ascites or free air. There is no bowel obstruction. Appendi x is posterior and appears normal. There is facet arthropathy in the lower lumbar spine with some lat eral recess stenosis. IMPRESSION: Numerous bilateral renal calculi. No evidence of renal obstruction. Normal appendix. Renal calculi are similar to old exam. Lumbar spondylotic changes. No acute abnormal ity within the abdomen pelvis. I do not see a cause for left flank pain.
[2020-01-25] MEDS ORDERED: KETOROLAC 15 MG/ML 1 ML VIAL IVP STA (19:06)
[2020-01-25 19:28] VITALS: TEMP 98.7
== END 2020-01-25 19:27 | disposition home or self-care (01) ==
LOC: EC 15:09
DX: N10 Acute pyelonephritis (principal); N39.0 Urinary tract infection, site not specified; J45.909 Unspecified asthma, uncomplicated; K21.9 Gastro-esophageal reflux disease without esophagitis; K44.9 Diaphragmatic hernia without obstruction or gangrene; E89.0 Postprocedural hypothyroidism; Z79.890 Hormone replacement therapy; Z79.899 Other long term (current) drug therapy; Z88.1 Allergy status to other antibiotic agents; Z88.8 Allergy status to other drugs, medicaments and biological substances; Z91.041 Radiographic dye allergy status; Z88.5 Allergy status to narcotic agent; Z91.013 Allergy to seafood; Z91.011 Allergy to milk products; Z91.012 Allergy to eggs; Z91.09 Other allergy status, other than to drugs and biological substances; Z87.442 Personal history of urinary calculi; Z85.850 Personal history of malignant neoplasm of thyroid
CPT/HCPCS: 36415; 80053; 83605; 83690; 85025; 81001; 87040; 87086; 74018; 74176; 99284; 96365; 96375 ×3; 96376; 96361; J2543; J2405; J1885; J1170

== ENCOUNTER 2020-01-28 22:34 | Emergency (ER) | payer OTHER ==
--- NOTE | 2020-01-28 23:00 | ED ---
Abdominal Pain HPI - General Chief Complaint: Abdominal Pain Stated Complaint: Abdominal Pain Time Seen by Provider: 01/28/20 22:56 Source: patient, RN notes reviewed, old records reviewed Mode of arrival: ambulatory Limitations: no limitations - History of Present Illness Initial Comments: This is a 49-year-old female DF for evaluation patient presents today for evaluation regards to severe abdominal pain left-sided abdominal pain anterior abdominal pain. Patient recently diagnosed with kidney infection on antibiotics but not improving. Patient now having fevers with nausea vomiting and has had a bowel movement 2 days. No significant medical history no surgical history MD Complaint: abdominal pain, flank pain (Left-sided) -: days(s) (4) Location: LLQ Radiation: LLQ Migration to: suprapubic Severity: moderate Severity scale (1-10): 6 Quality: cramping Consistency: constant Improves With: nothing Worsens With: nothing Context: recent antibiotic use Associated Symptoms: nausea, vomiting, chills - Related Data Home Medications Medication Instructions Recorded Confirmed Docusate [Colace] 100 mg PO TID PRN 02/05/17 03/30/19 Albuterol Inhaler (Mhu) [Ventolin 1 - 2 puff INHALATION RT-Q4H PRN 06/13/17 03/30/19 Hfa Inhaler] Gabapentin [Neurontin] 300 mg PO BID@0800,1600 03/09/18 03/30/19 methocarbamoL [Robaxin] 750 mg PO TID PRN 03/09/18 03/30/19 Gabapentin [Neurontin] 600 mg PO HS 11/16/18 03/30/19 Montelukast [Singulair] 10 mg PO HS 11/16/18 03/30/19 Esomeprazole Magnesium [NexIUM 20 mg PO DAILY 12/11/18 03/30/19 24Hr] Levothyroxine Sodium [Synthroid] 125 mg PO DAILY 12/11/18 03/30/19 Previous Rx's Medication Instructions Recorded Amoxicillin/Potassium Clav 1 tab PO Q12HR #20 tab 01/25/20 [Augmentin 875-125 Tablet] HYDROcodone/APAP 7.5-325MG [[place] 1 tab PO Q6HR PRN 3 Days #12 tab 01/25/20 7.5-325] Ondansetron Odt [Zofran Odt] 4 mg PO Q8HR PRN #10 tab 01/25/20 Allergies Allergy/AdvReac Type Severity Reaction Status Date / Time cefixime [From Suprax] Allergy Dyspnea Verified 01/28/20 22:53 fexofenadine HCl Allergy Dyspnea Verified 01/28/20 22:53 [From Nina] Iodinated Contrast Media Allergy Itching IN Verified 01/28/20 22:53 [Iodinated Contrast Media - THROAT AND IV Dye] BODY, & ALLERGY SYMPTOMS levofloxacin [From Levaquin] Allergy Unknown Verified 01/28/20 22:53 propoxyphene napsylate Allergy Itching Verified 01/28/20 22:53 [From Darvocet-N 100] shellfish derived [Shellfish] Allergy Anaphylaxis Verified 01/28/20 22:53 egg AdvReac Abdominal Verified 01/28/20 22:53 Pain, NAUSEA - UNLESS COOKED AT HIGH TEMP IN OVEN metoclopramide [From Reglan] AdvReac Nausea & Verified 01/28/20 22:53 Vomiting & Diarrhea Milk Containing Products AdvReac ALLERGY Verified 01/28/20 22:53 NASAL SYMPTOMS, IF MORE THAN 8 OZ AT A TIME SEASONAL,MOLD,DUST,ANIMAL AdvReac RUNNY Uncoded 01/28/20 22:53 DANDER NOSE, ITCHY/WATERY EYES Review of Systems ROS Statement: Those systems with pertinent positive or pertinent negative responses have been documented in the HPI. ROS Other: All systems not noted in ROS Statement are negative. Past Medical History Past Medical History: Asthma, Cancer, Chest Pain / Angina, GERD/Reflux, Skin Disorder Additional Past Medical History / Comment(s): Thyroid cancer status post thyroidectomy and radioactive iodine treatments. OCC ECZEMA. HX GESTATIONAL DIABETES. KIDNEY STONES. MILD FATTY LIVER. HX INJ TO RT ARM, CHRONIC PAIN. HX CP, TOLD IRREG RYTHMN. Hiatal hernia. Cauda Equina syndrome Jan 2017. 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 History of Any Multi-Drug Resistant Organisms: None Reported Past Surgical History: Adenoidectomy, Ear Surgery, Tonsillectomy Additional Past Surgical History / Comment(s): BMT. EXC DERMOID CYST RT OVARY 2003. Decompressive laminectomy Jan 2017 for Cauda Equina Syndrome. Colonoscopy 1999 and 2014. Thyroidectomy 2018. Past Anesthesia/Blood Transfusion Reactions: Previous Problems w/ Anesthesia Additional Past Anesthesia/Blood Transfusion Reaction / Comment(s): WOKE UP DURING COLONOSCOPY, T&A SURG. Past Psychological History: No Psychological Hx Reported Smoking Status: Never smoker Past Alcohol Use History: None Reported Past Drug Use History: None Reported - Past Family History Mother Additional Family Medical History / Comment(s): Heart disease. Maternal uncle had Parkinson's disease as well as a grandfather. Grandfather had prostate and skin cancer. Father Family Medical History: Cancer, Diabetes Mellitus Additional Family Medical History / Comment(s): Skin cancer. Grandmother had uterine cancer. General Exam Limitations: no limitations General appearance: alert, in no apparent distress, anxious Head exam: Present: atraumatic, normocephalic, normal inspection Eye exam: Present: normal appearance, PERRL, EOMI. Absent: scleral icterus, conjunctival injection, periorbital swelling ENT exam: Present: normal exam, mucous membranes moist Neck exam: Present: normal inspection. Absent: tenderness, meningismus, lymphadenopathy Respiratory exam: Present: normal lung sounds bilaterally. Absent: respiratory distress, wheezes, rales, rhonchi, stridor Cardiovascular Exam: Present: normal rhythm, tachycardia, normal heart sounds. Absent: systolic murmur, diastolic murmur, rubs, gallop, clicks GI/Abdominal exam: Present: soft, tenderness (Left lower quadrant), normal bowel sounds. Absent: distended, guarding, rebound, rigid Extremities exam: Present: normal inspection, full ROM, normal capillary refill. Absent: tenderness, pedal edema, joint swelling, calf tenderness Back exam: Present: normal inspection Neurological exam: Present: alert, oriented X3, CN II-XII intact Psychiatric exam: Present: normal affect, normal mood Skin exam: Present: warm, dry, intact, normal color. Absent: rash Course Vital Signs 01/28/20 22:49 Temperature 99.7 F H Pulse Rate 102 H Respiratory 18 Rate Blood Pressure 127/71 O2 Sat by Pulse 99 Oximetry - Reevaluation(s) Reevaluation #1: 01/28/20 23:21 Medical record is reviewed 01/28/20 23:21 Prior ER visit relating the same complaint has also been reviewed Reevaluation #2: 01/29/20 00:48 Patient symptoms are significantly improved here in the ER Reevaluation #3: 01/29/20 00:48 Patient informed results questions answered she is okay with discharge home Medical Decision Making - Medical Decision Making 49 female DF for persistent abdominal pain. Patient is no acute findings and computed tomography scan UTI looks like it improving checking microbiology report From prior visit: Antibiotic, patient can be discharged home - Lab Data Result diagrams: 01/28/20 23:31 01/28/20 23:31 Lab Results 01/28/20 01/28/20 01/28/20 Range/Units 23:31 23:31 23:31 WBC 9.8 (3.8-10.6) k/uL RBC 5.05 (3.80-5.40) m/uL Hgb 13.4 (11.4-16.0) gm/dL Hct 41.0 (34.0-46.0) % MCV 81.2 (80.0-100.0) fL MCH 26.6 (25.0-35.0) pg MCHC 32.8 (31.0-37.0) g/dL RDW 13.3 (11.5-15.5) % Plt Count 219 (150-450) k/uL Neutrophils % 80 % Lymphocytes % 13 % Monocytes % 6 % Eosinophils % 0 % Basophils % 0 % Neutrophils # 7.7 (1.3-7.7) k/uL Lymphocytes # 1.2 (1.0-4.8) k/uL Monocytes # 0.6 (0-1.0) k/uL Eosinophils # 0.0 (0-0.7) k/uL Basophils # 0.0 (0-0.2) k/uL Sodium 137 (137-145) mmol/L Potassium 3.7 (3.5-5.1) mmol/L Chloride 103 (98-107) mmol/L Carbon Dioxide 26 (22-30) mmol/L Anion Gap 8 mmol/L BUN 7 (7-17) mg/dL Creatinine 0.65 (0.52-1.04) mg/dL Est GFR (CKD-EPI)AfAm >90 (>60 ml/min/1.73 sqM) Est GFR (CKD-EPI)NonAf >90 (>60 ml/min/1.73 sqM) Glucose 116 H (74-99) mg/dL Plasma Lactic Acid Eric (0.7-2.0) mmol/L Calcium 9.4 (8.4-10.2) mg/dL Total Bilirubin 0.6 (0.2-1.3) mg/dL AST 23 (14-36) U/L ALT 19 (4-34) U/L Alkaline Phosphatase 77 (38-126) U/L Creatine Kinase 28 L (30-135) U/L Total Protein 7.1 (6.3-8.2) g/dL Albumin 4.3 (3.5-5.0) g/dL Amylase 63 (30-110) U/L Lipase 43 (23-300) U/L Urine Color Yellow Urine Appearance Clear (Clear) Urine pH 5.5 (5.0-8.0) Ur Specific [place] 1.015 (1.001-1.035) Urine Protein Negative (Negative) Urine Glucose (UA) Negative (Negative) Urine Ketones Trace H (Negative) Urine Blood Small H (Negative) Urine Nitrite Negative (Negative) Urine Bilirubin Negative (Negative) Urine Urobilinogen 2.0 (<2.0) mg/dL Ur Leukocyte Esterase Moderate H (Negative) Urine RBC 3 (0-5) /hpf Urine WBC 45 H (0-5) /hpf Ur Squamous Epith Cells 1 (0-4) /hpf Urine Bacteria Rare H (None) /hpf Urine Mucus Rare H (None) /hpf 01/28/20 Range/Units 23:31 WBC (3.8-10.6) k/uL RBC (3.80-5.40) m/uL Hgb (11.4-16.0) gm/dL Hct (34.0-46.0) % MCV (80.0-100.0) fL MCH (25.0-35.0) pg MCHC (31.0-37.0) g/dL RDW (11.5-15.5) % Plt Count (150-450) k/uL Neutrophils % % Lymphocytes % % Monocytes % % Eosinophils % % Basophils % % Neutrophils # (1.3-7.7) k/uL Lymphocytes # (1.0-4.8) k/uL Monocytes # (0-1.0) k/uL Eosinophils # (0-0.7) k/uL Basophils # (0-0.2) k/uL Sodium (137-145) mmol/L Potassium (3.5-5.1) mmol/L Chloride (98-107) mmol/L Carbon Dioxide (22-30) mmol/L Anion Gap mmol/L BUN (7-17) mg/dL Creatinine (0.52-1.04) mg/dL Est GFR (CKD-EPI)AfAm (>60 ml/min/1.73 sqM) Est GFR (CKD-EPI)NonAf (>60 ml/min/1.73 sqM) Glucose (74-99) mg/dL Plasma Lactic Acid Eric 1.1 (0.7-2.0) mmol/L Calcium (8.4-10.2) mg/dL Total Bilirubin (0.2-1.3) mg/dL AST (14-36) U/L ALT (4-34) U/L Alkaline Phosphatase (38-126) U/L Creatine Kinase (30-135) U/L Total Protein (6.3-8.2) g/dL Albumin (3.5-5.0) g/dL Amylase (30-110) U/L Lipase (23-300) U/L Urine Color Urine Appearance (Clear) Urine pH (5.0-8.0) Ur Specific [place] (1.001-1.035) Urine Protein (Negative) Urine Glucose (UA) (Negative) Urine Ketones (Negative) Urine Blood (Negative) Urine Nitrite (Negative) Urine Bilirubin (Negative) Urine Urobilinogen (<2.0) mg/dL Ur Leukocyte Esterase (Negative) Urine RBC (0-5) /hpf Urine WBC (0-5) /hpf Ur Squamous Epith Cells (0-4) /hpf Urine Bacteria (None) /hpf Urine Mucus (None) /hpf - Radiology Data Radiology results: report reviewed (CT pelvis negative for acute disease), image reviewed Disposition Clinical Impression: Acute pyelonephritis, UTI (urinary tract infection) Disposition: HOME SELF-CARE Condition: Good Instructions (If sedation given, give patient instructions): Urinary Tract Infection in Women (ED) Is patient prescribed a controlled substance at d/c from ED?: No Referrals: Clem Forrest MD [Primary Care Provider] - 1-2 days
[2020-01-28] MEDS ORDERED: SODIUM CHLORIDE 0.9% 1,000 ML IV STA (23:12)
[2020-01-28] MEDS ORDERED: ONDANSETRON 4 MG/2 ML VIAL IVP STA (23:12)
[2020-01-28] MEDS ORDERED: PANTOPRAZOLE 40 MG/10 ML VIAL IVP STA (23:12)
[2020-01-28] MEDS ORDERED: MORPHINE SULFATE 4 MG/ML SYRINGE IV STA (23:12)
[2020-01-28] MEDS ORDERED: FAMOTIDINE 20 MG/2 ML VIAL IV STA (23:28)
[2020-01-28] MEDS ORDERED: methylPREDNISolone SOD SUCCI 125 MG/2 ML VIAL IV STA (23:28)
[2020-01-28] MEDS ORDERED: diphenhydrAMINE 50 MG/ML 1 ML VIAL IVP STA (23:28)
[2020-01-28 23:46] LABS: Basophils % (A) 0 %; Eosinophils % (A) 0 %; HGB 13.4 gm/dL (11.4-16.0); Lymphocytes # (A) 1.2 k/uL (1.0-4.8); Lymphocytes % (A) 13 %; MCH 26.6 pg (25.0-35.0); MCHC 32.8 g/dL (31.0-37.0); MCV 81.2 fL (80.0-100.0); Mean Platelet Volume 8.4; Monocytes # (A) 0.6 k/uL (0-1.0); Monocytes % (A) 6 %; Neutrophils # (A) 7.7 k/uL (1.3-7.7); Neutrophils % (A) 80 %; Platelet Count 219 k/uL (150-450); RBC 5.05 m/uL (3.80-5.40); RDW 13.3 % (11.5-15.5); WBC 9.8 k/uL (3.8-10.6)
[2020-01-28 23:59] LABS: ALT 19 U/L (4-34); AST 23 U/L (14-36); African American GFR (CKD) >90 (>60 ml/min/1.73 sqM); Albumin 4.3 g/dL (3.5-5.0); Alkaline Phosphatase 77 U/L (38-126); Amylase 63 U/L (30-110); Anion Gap 8 mmol/L; Appearance,Urine Clear (Clear); Bacteria,Urine Rare /hpf; Bilirubin,Urine Negative (Negative); Blood Urea Nitrogen 7 mg/dL (7-17); Blood,Urine Small (Negative); Calcium 9.4 mg/dL (8.4-10.2); Carbon Dioxide 26 mmol/L (22-30); Chloride 103 mmol/L (98-107); Color,Urine Yellow; Creatine Kinase 28 U/L (30-135); Glucose 116 mg/dL (74-99); Glucose,Urine (UA) Negative (Negative); Ketones,Urine Trace (Negative); Leukocyte Esterase,Urine Moderate (Negative); Mucus,Urine Rare /hpf; Nitrite,Urine Negative (Negative); Non-African American GFR(CKD) >90 (>60 ml/min/1.73 sqM); PH, Urine 5.5 (5.0-8.0); Potassium 3.7 mmol/L (3.5-5.1); Protein,Urine Negative (Negative); RBC,Urine 3 /hpf (0-5); Sodium 137 mmol/L (137-145); Specific Gravity,Urine 1.015 (1.001-1.035); Squamous Epithelial Cell,Urine 1 /hpf (0-4); Total Bilirubin 0.6 mg/dL (0.2-1.3); Total Protein 7.1 g/dL (6.3-8.2); WBC,Urine 45 /hpf (0-5)
--- NOTE | 2020-01-29 00:43 | CT ---
EXAMINATION TYPE: CT abdomen pelvis w con DATE OF EXAM: 01/29/2020 COMPARISON: 01/25/2020 HISTORY: abd pain CT DLP: 1348.1 mGycm Automated exposure control for dose reduction was used. CONTRAST: Performed with IV Contrast, patient injected with 100 mL of Isovue 300. Lung bases are clear. There is no pleural effusion. Heart size is normal. There is no pericardial eff usion. Liver spleen pancreas gallbladder appear normal. Bile ducts are not dilated. There is no adrenal mass . Stomach appears normal. Kidneys show satisfactory contrast opacification. There is no hydronephrosis. There are numerous bila teral renal calculi that measure up to 1 cm. Delayed images show normal renal excretion. There is no hydronephrosis. There is broad-based umbilical hernia that contains bowel. Bladder distends smoothly. There is no inguinal hernia. There is no free fluid in the pelvis. Uterus is retroverted. There is n o evidence of a pelvic mass. Appendix is not seen. There is no sign of thickened appendix. There is n o mesenteric edema. There is no ascites or free air. There is no bowel obstruction. There is 2.5 cm c yst on the left ovary. There is mild thoracolumbar levoscoliosis. There is narrowing of L5-S1 disc space. There is no lumbar compression fracture. Bony pelvis appears intact. IMPRESSION: Numerous nonobstructing bilateral renal calculi unchanged. No sign of acute abdomen and pelvis.
[2020-01-29] MEDS ORDERED: ACET/COD 300 MG/30 MG STARTER PACK 6 TAB BTL PO STA (00:46)
[2020-01-29] MEDS ORDERED: ONDANSETRON 4 MG ODT STARTER PACK 2 TAB BTL PO STA (00:46)
[2020-01-29] MEDS ORDERED: Acetaminophen-Codeine 300-30mg TAB PO STA (00:46)
[2020-01-29] MEDS ORDERED: AMPICILLIN-SULBACTAM 3 GM in SODIUM CHLORIDE 0.9% 100 ML IVPB STA (00:46)
[2020-01-29 01:43] VITALS: BP 118/47; PULSE 87; RESP 16; TEMP 99
== END 2020-01-29 01:50 | disposition home or self-care (01) ==
LOC: EC 22:34
DX: N10 Acute pyelonephritis (principal); K21.9 Gastro-esophageal reflux disease without esophagitis; J45.909 Unspecified asthma, uncomplicated; Z90.89 Acquired absence of other organs; Z85.850 Personal history of malignant neoplasm of thyroid; Z79.890 Hormone replacement therapy; Z79.899 Other long term (current) drug therapy; Z88.1 Allergy status to other antibiotic agents; Z88.8 Allergy status to other drugs, medicaments and biological substances; Z91.011 Allergy to milk products; Z91.012 Allergy to eggs; Z91.013 Allergy to seafood; Z91.018 Allergy to other foods; Z91.041 Radiographic dye allergy status; Z91.048 Other nonmedicinal substance allergy status; Z80.42 Family history of malignant neoplasm of prostate; Z80.8 Family history of malignant neoplasm of other organs or systems
CPT/HCPCS: 36415; 80053; 82150; 82550; 83605; 83690; 85025; 87040; 99285; 96365; 96375 ×5; 96361; J2270; J1200; J2930; J2405; 74177; 81001; 87086

== ENCOUNTER 2020-03-07 09:38 | Emergency (ER) | payer OTHER ==
[2020-03-07 09:42] VITALS: RESP 18; TEMP 97.9
[2020-03-07] MEDS ORDERED: SODIUM CHLORIDE 0.9% 500 ML 500 ML IV ONE (09:46)
[2020-03-07] MEDS ORDERED: ONDANSETRON 4 MG/2 ML VIAL IVP STA (09:48)
[2020-03-07] MEDS ORDERED: SODIUM CHLORIDE 0.9% 1,000 ML IV SCH (10:00)
[2020-03-07 10:22] LABS: Basophils % (A) 0 %; Eosinophils # (A) 0.1 k/uL (0-0.7); Eosinophils % (A) 1 %; HGB 15.1 gm/dL (11.4-16.0); Lymphocytes # (A) 0.6 k/uL (1.0-4.8); Lymphocytes % (A) 5 %; MCH 27.4 pg (25.0-35.0); MCV 83.1 fL (80.0-100.0); Mean Platelet Volume 7.9; Monocytes # (A) 0.6 k/uL (0-1.0); Monocytes % (A) 5 %; Neutrophils # (A) 11.2 k/uL (1.3-7.7); Neutrophils % (A) 89 %; Platelet Count 239 k/uL (150-450); RBC 5.53 m/uL (3.80-5.40); RDW 13.4 % (11.5-15.5); WBC 12.6 k/uL (3.8-10.6)
[2020-03-07 10:32] LABS: ALT 20 U/L (4-34); AST 23 U/L (14-36); African American GFR (CKD) >90 (>60 ml/min/1.73 sqM); Albumin 4.7 g/dL (3.5-5.0); Alkaline Phosphatase 88 U/L (38-126); Amylase 65 U/L (30-110); Anion Gap 11 mmol/L; Blood Urea Nitrogen 18 mg/dL (7-17); Calcium 10.1 mg/dL (8.4-10.2); Carbon Dioxide 24 mmol/L (22-30); Chloride 107 mmol/L (98-107); Glucose 145 mg/dL (74-99); Non-African American GFR(CKD) 88 (>60 ml/min/1.73 sqM); Potassium 4.3 mmol/L (3.5-5.1); Sodium 142 mmol/L (137-145); Total Bilirubin 0.5 mg/dL (0.2-1.3); Total Protein 7.9 g/dL (6.3-8.2)
--- NOTE | 2020-03-07 10:39 | XR ---
EXAMINATION TYPE: XR KUB DATE OF EXAM: 03/07/2020 10:27 AM CLINICAL HISTORY: Nausea vomiting and diarrhea today. TECHNIQUE: Two Upright KUB images of the abdomen are obtained. COMPARISON: CT abdomen and pelvis January 28, 2020. FINDINGS: Some paucity of bowel gas. Scattered gas seen in nondistended stomach along with scattered small and large bowel loops. No pneumoperitoneum. Complex scoliosis redemonstrated. Bilateral renal c alculi again seen. Lung bases remain clear. IMPRESSION: Overall nonspecific but favor nonobstructive bowel gas pattern. Bilateral nephrolithiasis redemonstra mendez.
[2020-03-07 11:07] LABS: Appearance,Urine Cloudy (Clear); Bacteria,Urine Occasional /hpf; Bilirubin,Urine Negative (Negative); Blood,Urine Small (Negative); Color,Urine Yellow; Glucose,Urine (UA) Negative (Negative); Hyaline Casts,Urine 12 /lpf (0-2); Ketones,Urine Negative (Negative); Leukocyte Esterase,Urine Large (Negative); Mucus,Urine Few /hpf; Nitrite,Urine Negative (Negative); PH, Urine 5.5 (5.0-8.0); Protein,Urine 1+ (Negative); RBC,Urine 8 /hpf (0-5); Specific Gravity,Urine 1.019 (1.001-1.035); Squamous Epithelial Cell,Urine 5 /hpf (0-4); Urobilinogen,Urine <2.0 mg/dL (<2.0); WBC,Urine >182 /hpf (0-5)
[2020-03-07] MEDS ORDERED: SULFAMETH-TMP DS STARTER PACK 2 TAB BTL PO STA (11:15)
--- NOTE | 2020-03-07 11:53 | CT ---
EXAMINATION TYPE: CT abdomen pelvis wo con DATE OF EXAM: 03/07/2020 HISTORY: Renal stones with flank pain. CT DLP: 838.4 mGycm. Automated Exposure Control for Dose Reduction was Utilized. TECHNIQUE: CT scan of the abdomen and pelvis is performed without oral or IV contrast. COMPARISON: CT abdomen and pelvis January 28, 2020 and older CTs FINDINGS: Within the limitations of a non-contrast study, the following observations are made. LUNG BASES: No significant abnormality is appreciated. LIVER/GB: No significant abnormality is appreciated. PANCREAS: No significant abnormality is seen. SPLEEN: No significant abnormality is seen. ADRENALS: No significant abnormality is seen. KIDNEYS: Scattered bilateral renal calculi redemonstrated. Roughly 10 calculi bilaterally again seen measuring up to 11 mm long axis centrally right kidney coronal image 59. This is causing mild calycea l dilatation of upper pole calyx. No significant change from most recent CT. There is central 1.2 cm thin-walled cyst upper to midpole left kidney coronal image 57. No pyelocaliectasis or hydroureter bi laterally. BOWEL: Stable small size hiatal hernia. No suspicious small or large bowel dilatation. Appendix withi n normal limits inferiorly from base of cecum in the right pelvis. GENITAL ORGANS: Anteverted uterus. LYMPH NODES: No greater than 1cm abdominal or pelvic lymph nodes are appreciated. OSSEOUS STRUCTURES: Moderate to severe disc space narrowing lumbosacral junction. OTHER: Eventration near umbilicus without hernia defect redemonstrated. IMPRESSION: No new or acute findings evident from most recent CT.
[2020-03-07 12:01] LABS: T4, Free (Free Thyroxine) 2.52 ng/dL (0.78-2.19)
--- NOTE | 2020-03-07 12:05 | ED ---
Nausea/Vomiting/Diarrhea HPI - General Chief complaint: Nausea/Vomiting/Diarrhea Stated complaint: NVD Time Seen by Provider: 03/07/20 09:45 Source: patient Mode of arrival: wheelchair Limitations: no limitations - History of Present Illness Initial comments: 49yo female with hx of thyroid cancer presenting today for chief complaint of nausea vomiting diarrhea. Patient states she has had nausea vomiting diarrhea since this morning. She states she has been unable to keep a pill down that she needed to take for radioactive test on Thursday. She states she was sent here for symptomatically treatment. She denies any acute abdominal pain. Denies any melena hematochezia chest pain shortness of breath. She denies any headache visual changes or fever she denies any upper respiratory symptoms. Patient appears well nontoxic in no acute distress. - Related Data Home Medications Medication Instructions Recorded Confirmed Docusate [Colace] 100 mg PO DAILY PRN 02/05/17 03/07/20 Montelukast [Singulair] 10 mg PO HS PRN 11/16/18 03/07/20 Albuterol Sulfate [Proair Hfa] 2 puff INHALATION RT-QID PRN 03/07/20 03/07/20 Ergocalciferol [Vitamin D2] 50,000 unit PO Q7D 03/07/20 03/07/20 Fluticasone Propion/Salmeterol 1 puff INHALATION RT-BID PRN 03/07/20 03/07/20 [[place]ela 250-50 Inhub] Gabapentin [Neurontin] 400 mg PO TID PRN 03/07/20 03/07/20 HYDROcodone/APAP 5-325MG [[place] 1 tab PO BID PRN 03/07/20 03/07/20 5-325] Levothyroxine Sodium [Synthroid] 137 mcg PO DAILY 03/07/20 03/07/20 Sennosides [Senna] 8.6 mg PO DAILY PRN 03/07/20 03/07/20 Tamsulosin HCl [Flomax] 0.4 mg PO HS 03/07/20 03/07/20 Previous Rx's Medication Instructions Recorded Sulfamethox-Tmp 800-160Mg [Bactrim 1 tab PO Q12HR 7 Days #14 tab 03/07/20 DS 800-160 mg] Allergies Allergy/AdvReac Type Severity Reaction Status Date / Time cefixime [From Suprax] Allergy Dyspnea Verified 03/07/20 10:30 fexofenadine HCl Allergy Dyspnea Verified 03/07/20 10:30 [From Nina] Iodinated Contrast Media Allergy Itching IN Verified 03/07/20 10:30 [Iodinated Contrast Media - THROAT AND IV Dye] BODY, & ALLERGY SYMPTOMS levofloxacin [From Levaquin] Allergy Unknown Verified 03/07/20 10:30 propoxyphene napsylate Allergy Itching Verified 03/07/20 10:30 [From Darvocet-N 100] shellfish derived [Shellfish] Allergy Anaphylaxis Verified 03/07/20 10:30 egg AdvReac Abdominal Verified 03/07/20 10:30 Pain, NAUSEA - UNLESS COOKED AT HIGH TEMP IN OVEN metoclopramide [From Reglan] AdvReac Nausea & Verified 03/07/20 10:30 Vomiting & Diarrhea Milk Containing Products AdvReac ALLERGY Verified 03/07/20 10:30 NASAL SYMPTOMS, IF MORE THAN 8 OZ AT A TIME SEASONAL,MOLD,DUST,ANIMAL AdvReac RUNNY Uncoded 03/07/20 09:42 DANDER NOSE, ITCHY/WATERY EYES Review of Systems ROS Statement: Those systems with pertinent positive or pertinent negative responses have been documented in the HPI. ROS Other: All systems not noted in ROS Statement are negative. Past Medical History Past Medical History: Asthma, Cancer, Chest Pain / Angina, GERD/Reflux, Skin Disorder Additional Past Medical History / Comment(s): Thyroid cancer status post thyroidectomy and radioactive iodine treatments. OCC ECZEMA. HX GESTATIONAL DIABETES. KIDNEY STONES. MILD FATTY LIVER. HX INJ TO RT ARM, CHRONIC PAIN. HX CP, TOLD [facility]REG RYTHMN. Hiatal hernia. Cauda Equina syndrome Jan 2017. 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 History of Any Multi-Drug Resistant Organisms: None Reported Past Surgical History: Adenoidectomy, Ear Surgery, Tonsillectomy Additional Past Surgical History / Comment(s): BMT. EXC DERMOID CYST RT OVARY 2003. Decompressive laminectomy Jan 2017 for Cauda Equina Syndrome. Colonoscopy 1999 and 2014. Thyroidectomy 2018. Past Anesthesia/Blood Transfusion Reactions: Previous Problems w/ Anesthesia Additional Past Anesthesia/Blood Transfusion Reaction / Comment(s): WOKE UP DURING COLONOSCOPY, T&A SURG. Past Psychological History: No Psychological Hx Reported Smoking Status: Never smoker Past Alcohol Use History: None Reported Past Drug Use History: None Reported - Past Family History Mother Additional Family Medical History / Comment(s): Heart disease. Maternal uncle had Parkinson's disease as well as a grandfather. Grandfather had prostate and skin cancer. Father Family Medical History: Cancer, Diabetes Mellitus Additional Family Medical History / Comment(s): Skin cancer. Grandmother had uterine cancer. General Exam - General Exam Comments Initial Comments: General: The patient is awake and alert, in no distress, and does not appear acutely ill. Eye: +3 mm pupils are equal, round and reactive to light, extra-ocular movem ents are intact. No nystagmus. There is normal conjunctiva bilaterally. No signs of icterus. Ears, nose, mouth and throat: There are moist mucous membranes and no oral l esions. Neck: The neck is supple, there is no tenderness or JVD. Cardiovascular: There is a regular rate and rhythm. No murmur, rub or gallop is appreciated. Respiratory: Lungs are clear to auscultation, respirations are non-labored, breath sounds are equal. No wheezes, stridor, rales, or rhonchi. Gastrointestinal: Soft, non-distended, non-tender abdomen without masses or organomegaly noted. There is no rebound or guarding present. No CVA tenderness Musculoskeletal: Normal ROM, no tenderness. Strength 5/5. Sensation intact. Radial pulses equal bilaterally 2+. Neurological: A&O x 3. CN II-XII intact grossly, There are no obvious motor or sensory deficits. Coordination appears grossly intact. Speech is normal. Skin: Skin is warm and dry and no rashes or lesions are noted. Psychiatric: Cooperative, appropriate mood & affect, normal judgment. Limitations: no limitations Course Vital Signs 03/07/20 03/07/20 03/07/20 09:40 10:42 11:00 Temperature 97.9 F Pulse Rate 115 H 84 84 Respiratory 18 18 18 Rate Blood Pressure 120/82 107/73 107/68 O2 Sat by Pulse 98 98 98 Oximetry 03/07/20 12:27 Temperature 97.9 F Pulse Rate 90 Respiratory 18 Rate Blood Pressure 106/69 O2 Sat by Pulse 98 Oximetry Medical Decision Making - Medical Decision Making No vomiting in the ER. Urinalysis concerning for infection she denies any flank or back pain. Does have history of kidney stones number since of urolithiasis on CT there is stones within the kidney. She hasthe hematuria. Patient will be initiated on antibiotics. She does not appear toxic she does have significant elevated TSH however she's been given exogenous re-combination TSH to prepare her for her radioactive iodine test patient states she just wants to back treatments that she can take the following the study done. Patient's symptoms controlled she states she is feeling much better she denies any abdominal pain at this time patient is agreeable to discharge with close follow-up with primary care provider for urinary tract infection. Discussed case with Dr. Madera who is agreeable to care plan and discharge. - Lab Data Result diagrams: 03/07/20 10:03 03/07/20 10:03 Lab Results 03/07/20 03/07/20 03/07/20 Range/Units 10:03 10:03 10:03 WBC 12.6 H (3.8-10.6) k/uL RBC 5.53 H (3.80-5.40) m/uL Hgb 15.1 (11.4-16.0) gm/dL Hct 46.0 (34.0-46.0) % MCV 83.1 (80.0-100.0) fL MCH 27.4 (25.0-35.0) pg MCHC 33.0 (31.0-37.0) g/dL RDW 13.4 (11.5-15.5) % Plt Count 239 (150-450) k/uL Neutrophils % 89 % Lymphocytes % 5 % Monocytes % 5 % Eosinophils % 1 % Basophils % 0 % Neutrophils # 11.2 H (1.3-7.7) k/uL Lymphocytes # 0.6 L (1.0-4.8) k/uL Monocytes # 0.6 (0-1.0) k/uL Eosinophils # 0.1 (0-0.7) k/uL Basophils # 0.0 (0-0.2) k/uL Sodium 142 (137-145) mmol/L Potassium 4.3 (3.5-5.1) mmol/L Chloride 107 (98-107) mmol/L Carbon Dioxide 24 (22-30) mmol/L Anion Gap 11 mmol/L BUN 18 H (7-17) mg/dL Creatinine 0.80 (0.52-1.04) mg/dL Est GFR (CKD-EPI)AfAm >90 (>60 ml/min/1.73 sqM) Est GFR (CKD-EPI)NonAf 88 (>60 ml/min/1.73 sqM) Glucose 145 H (74-99) mg/dL Calcium 10.1 (8.4-10.2) mg/dL Total Bilirubin 0.5 (0.2-1.3) mg/dL AST 23 (14-36) U/L ALT 20 (4-34) U/L Alkaline Phosphatase 88 (38-126) U/L Total Protein 7.9 (6.3-8.2) g/dL Albumin 4.7 (3.5-5.0) g/dL Amylase 65 (30-110) U/L Lipase 228 (23-300) U/L TSH (0.465-4.680) mIU/L Free T4 (0.78-2.19) ng/dL Urine Color Yellow Urine Appearance Cloudy H (Clear) Urine pH 5.5 (5.0-8.0) Ur Specific [place] 1.019 (1.001-1.035) Urine Protein 1+ H (Negative) Urine Glucose (UA) Negative (Negative) Urine Ketones Negative (Negative) Urine Blood Small H (Negative) Urine Nitrite Negative (Negative) Urine Bilirubin Negative (Negative) Urine Urobilinogen <2.0 (<2.0) mg/dL Ur Leukocyte Esterase Large H (Negative) Urine RBC 8 H (0-5) /hpf Urine WBC >182 H (0-5) /hpf Urine WBC Clumps Many H (None) /hpf Ur Squamous Epith Cells 5 H (0-4) /hpf Urine Bacteria Occasional H (None) /hpf Hyaline Casts 12 H (0-2) /lpf Urine Mucus Few H (None) /hpf 03/07/20 Range/Units 10:03 WBC (3.8-10.6) k/uL RBC (3.80-5.40) m/uL Hgb (11.4-16.0) gm/dL Hct (34.0-46.0) % MCV (80.0-100.0) fL MCH (25.0-35.0) pg MCHC (31.0-37.0) g/dL RDW (11.5-15.5) % Plt Count (150-450) k/uL Neutrophils % % Lymphocytes % % Monocytes % % Eosinophils % % Basophils % % Neutrophils # (1.3-7.7) k/uL Lymphocytes # (1.0-4.8) k/uL Monocytes # (0-1.0) k/uL Eosinophils # (0-0.7) k/uL Basophils # (0-0.2) k/uL Sodium (137-145) mmol/L Potassium (3.5-5.1) mmol/L Chloride (98-107) mmol/L Carbon Dioxide (22-30) mmol/L Anion Gap mmol/L BUN (7-17) mg/dL Creatinine (0.52-1.04) mg/dL Est GFR (CKD-EPI)AfAm (>60 ml/min/1.73 sqM) Est GFR (CKD-EPI)NonAf (>60 ml/min/1.73 sqM) Glucose (74-99) mg/dL Calcium (8.4-10.2) mg/dL Total Bilirubin (0.2-1.3) mg/dL AST (14-36) U/L ALT (4-34) U/L Alkaline Phosphatase (38-126) U/L Total Protein (6.3-8.2) g/dL Albumin (3.5-5.0) g/dL Amylase (30-110) U/L Lipase (23-300) U/L TSH >100.000 H (0.465-4.680) mIU/L Free T4 2.52 H (0.78-2.19) ng/dL Urine Color Urine Appearance (Clear) Urine pH (5.0-8.0) Ur Specific [place] (1.001-1.035) Urine Protein (Negative) Urine Glucose (UA) (Negative) Urine Ketones (Negative) Urine Blood (Negative) Urine Nitrite (Negative) Urine Bilirubin (Negative) Urine Urobilinogen (<2.0) mg/dL Ur Leukocyte Esterase (Negative) Urine RBC (0-5) /hpf Urine WBC (0-5) /hpf Urine WBC Clumps (None) /hpf Ur Squamous Epith Cells (0-4) /hpf Urine Bacteria (None) /hpf Hyaline Casts (0-2) /lpf Urine Mucus (None) /hpf Disposition Clinical Impression: Nausea, Diarrhea, UTI (urinary tract infection) Disposition: HOME SELF-CARE Condition: Good Instructions (If sedation given, give patient instructions): Urinary Tract Infection in Women (ED) Additional Instructions: Please use medication as discussed. Please follow-up with family doctor in the next 2 days. Please return to emergency room if the symptoms increase or worsen or for any other concerns. Prescriptions: Sulfamethox-Tmp 800-160Mg [Bactrim DS 800-160 mg] 1 tab PO Q12HR 7 Days #14 tab Is patient prescribed a controlled substance at d/c from ED?: No Referrals: Clem Forrest MD [Primary Care Provider] - 1-2 days Time of Disposition: 11:59
[2020-03-07] MEDS ORDERED: ONDANSETRON 4 MG ODT STARTER PACK 2 TAB BTL PO STA (12:10)
[2020-03-07 12:40] VITALS: BP 106/69; PULSE 90
== END 2020-03-07 12:30 | disposition home or self-care (01) ==
LOC: EC 09:38
DX: N39.0 Urinary tract infection, site not specified (principal); R19.7 Diarrhea, unspecified; J45.909 Unspecified asthma, uncomplicated; E07.9 Disorder of thyroid, unspecified; I25.2 Old myocardial infarction; G89.29 Other chronic pain; Z79.51 Long term (current) use of inhaled steroids; Z79.899 Other long term (current) drug therapy; Z79.890 Hormone replacement therapy; Z91.048 Other nonmedicinal substance allergy status; Z91.011 Allergy to milk products; Z88.8 Allergy status to other drugs, medicaments and biological substances; Z88.1 Allergy status to other antibiotic agents; Z91.041 Radiographic dye allergy status; Z91.013 Allergy to seafood; Z91.012 Allergy to eggs; Z90.89 Acquired absence of other organs; Z87.19 Personal history of other diseases of the digestive system; Z85.850 Personal history of malignant neoplasm of thyroid; Z87.442 Personal history of urinary calculi
CPT/HCPCS: 36415; 84439; 80053; 84443; 82150; 83690; 85025; 81001; 87086; 74018; 74176; 99284; 96374; 96361 ×2; J2405; S0119

== ENCOUNTER → 2020-03-07 | Outpatient (CLI) | payer OTHER ==
--- NOTE | 2020-03-12 10:29 | NM ---
Nuclear medicine hepatobiliary scan. HISTORY: 48-year-old female status post resection for thyroid cancer. Patient presents for post ablat ion whole body scan. COMPARISON: Therapy on 11/30/2018 and uptake on 11/22/2018 TECHNIQUE: Following the oral administration of 4.07 mCi I-131 on 11/30/2018, whole body scan was perf ormed . FINDINGS: There is physiologic uptake within the salivary glands, nasopharynx, and also within the st omach, colon, and bladder. There is resolution of the previously described focal uptake centered in t he thyroidectomy bed. Otherwise, no abnormal tracer activity is seen. IMPRESSION: 1. Expected uptake within the thyroidectomy bed relating to minimal thyroid remnant on the prior exam has resolved. 2. No additional abnormal uptake identified throughout the body. No evidence for metastatic cervical lymph nodes or other metastatic disease.
== END | disposition home or self-care (01) ==
LOC: RADNMMAIN 12:58
PROVIDERS: ATTEND Internal Medicine
DX: Z53.9 Procedure and treatment not carried out, unspecified reason (principal)

== ENCOUNTER → 2020-03-13 | Outpatient (CLI) | payer OTHER ==
[2020-03-13 14:44] LABS: African American GFR (CKD) >90 (>60 ml/min/1.73 sqM); Anion Gap 6 mmol/L; Blood Urea Nitrogen 10 mg/dL (7-17); Carbon Dioxide 27 mmol/L (22-30); Chloride 107 mmol/L (98-107); Glucose 94 mg/dL (74-99); Non-African American GFR(CKD) >90 (>60 ml/min/1.73 sqM); Potassium 4.5 mmol/L (3.5-5.1); Sodium 140 mmol/L (137-145)
[2020-03-13 15:50] LABS: HCT 42.4 % (34.0-46.0); HGB 13.6 gm/dL (11.4-16.0); MCH 27.3 pg (25.0-35.0); MCV 85.2 fL (80.0-100.0); Mean Platelet Volume 8.6; Platelet Count 183 k/uL (150-450); RBC 4.98 m/uL (3.80-5.40); RDW 13.5 % (11.5-15.5); WBC 3.7 k/uL (3.8-10.6)
[2020-03-13 16:20] LABS: Band Neutrophils % 1 %; Eosinophils # (M) 0.04 k/uL (0-0.7); Lymphocytes # (M) 1.41 k/uL (1.0-4.8); Monocytes # (M) 0.11 k/uL (0-1.0); Neutrophils % (M) 57 %; Nucleated Red Blood Cells 0 /100 WBC (0-0); Total Cells Counted 100
== END | disposition home or self-care (01) ==
LOC: LABPAT 13:02
PROVIDERS: ATTEND Obstetrics & Gynecology
DX: Z01.818 Encounter for other preprocedural examination (principal); N81.4 Uterovaginal prolapse, unspecified
CPT/HCPCS: 36415; 80051; 82565; 82947; 84520; 85025; 86850; 86900; 86901; 87086

== ENCOUNTER 2020-03-19 07:29 | Day surgery (SDC) | payer OTHER ==
--- NOTE | 2020-03-15 11:17 | HP ---
HISTORY AND PHYSICAL This is a 49-year-old female 7, para 6-0-1-4, who presents today with a complaint of increasing perineal bulge and pressure. She has been using a pessary, but states that this has become very uncomfortable and it is now chafing her tissues. [place] is no longer possible secondary to the exaggerated prolapse, and she is requesting surgical repair. REVIEW OF SYSTEMS: Otherwise negative. PAST MEDICAL HISTORY: Significant for angina, asthma, cauda equina syndrome, eczema, fibroid uterus, hiatal hernia, hypoglycemia, scoliosis, spastic bowel disease, and thyroid cancer. PAST SURGICAL HISTORY: Significant for adenoidectomy and tonsillectomy, colonoscopy, disc decompression, mini laparotomy with excision of dermoid tumor on the right adnexal, thyroidectomy, eustachian tubes in the ears. CURRENT MEDICATIONS: Colace 100 mg capsule daily, Flomax 0.4 mg capsule by oral route daily 0.5 hour following the morning meal, gabapentin 300 mg tablets orally t.i.d., levothyroxine 137 mcg daily, [place] as needed for pain, Oxytrol 24 hour transdermal patch every 3-4 days, senna 8.6 mg tabs orally once daily, Ventolin inhaler 90 mcg or 1 puff every 6 hours as needed, vitamin D2 oral capsules once weekly, Zofran 4 mg p.r.n. ALLERGIES: Include NICA to which she reports shortness of breath, CEFIXIME, reaction unknown, DARVOCET to which reports itching, LEVOFLOXACIN, PROPOXYPHENE, and FEXOFENADINE to which she reports an unknown reaction, SUPRAX to which she reports shortness of breath, and REGLAN to which reports dizziness and lightheadedness. FAMILY HISTORY: Significant for heart disease, skin cancer, diabetes, prostate cancer, Parkinson's disease, uterine cancer, Crohn's disease, colon cancer. REPRODUCTIVE HISTORY: Significant for a full-term vaginal delivery x6, missed AD x1. SOCIAL HISTORY: Patient has never been a smoker, she denies alcohol or drug use, she is . PHYSICAL EXAM: Patient is 5 foot 5-1/2 inches, 193 pounds, heart rate 79, blood pressure 110/70, BMI 31. HEENT: Exam reveals no thyromegaly, no cervical lymphadenopathy, normal dentition. CHEST: Clear to auscultation in all harden anteriorly and posteriorly with normal breath sounds and unlabored breathing. CARDIAC: Exam reveals regular rate and rhythm with no murmur, click, or rub. The breasts are bilaterally symmetric to inspection with no skin dimpling, nipple discharge, axillary adenopathy, or skin changes. ABDOMINAL: Exam reveals the abdomen to be nontender, normal tone with no rigidity or guarding, no masses or tenderness. No CVA tenderness. On examination of the genitalia, the labia are normal in appearance, no discharge or inflammatory lesions. Vaginal vault is within normal limits, bladder is nontender. There is a grade 3 cystocele noted, a grade 3 rectocele and a grade 4 uterine prolapse. The uterus has a small lateral fibroid on palpation. It is otherwise smooth, midline and nontender. Adnexa are negative to palpation bilaterally. Rectal exam reveals good sphincter tone, no hemorrhoids, FIT negative stool. Neurologically patient is grossly oriented, normal insight and judgment, normal mood and appropriate affect. IMPRESSION: Extensive uterine prolapse, cystocele and rectocele noted. Small fibroids noted on the uterus. PLAN: We will proceed with vaginal hysterectomy, anterior and posterior colporrhaphy. The risks of surgery to include but not be exclusive of bleeding, infection, perforation or damage to bowel, bladder, ureters, blood vessels or indeed any pelvic or abdominal organs are all reviewed. Risk of anesthesia, aspiration, nerve damage, or even are all discussed. The ACOG pamphlet on pelvic organ prolapse has been given to the patient for her thorough review. All questions answered. We will proceed with surgery on Noemi Armando on Thursday, March 19, 2020 as noted above. MMODL / IJN: [id number] /
[2020-03-16 11:02] VITALS: BMI 30.9
[~2020-03-19 07:29] MED LIST changes: +CLINDAMYCIN 900 MG in DEXTROSE 5% IN WATER 50 ML IVPB ONE; +DEXAMETHASONE SOD PHOSPHATE 4 MG/ML 1 ML VIAL IV ONE; +GENTAMICIN 340 MG in SODIUM CHLORIDE 0.9% 100 ML IVPB ONE; -IODINE/POTASS IOD (LUGOLS) 8 ML BTL TOPICAL ONE; +LACTATED RINGERS 1,000 ML IV SCH; +MIDAZOLAM 2 MG/2 ML VIAL IV PRN; +ONDANSETRON 4 MG/2 ML VIAL IVP ONE; +SCOPOLAMINE 1.5MG/72HR PATCH TRANSDERM ONE
[2020-03-19 08:11] LABS: Glucose,Whole Blood 105 mg/dL (75-99)
[2020-03-19] MEDS: fentaNYL (PF) 50 MCG/ML 2 ML AMP IV ONE ×3 (08:17→10:52)
[2020-03-19] MEDS ORDERED: diphenhydrAMINE 50 MG/ML 1 ML VIAL ONE (08:47)
[2020-03-19] MEDS ORDERED: diphenhydrAMINE 50 MG/ML 1 ML VIAL IVP ONE (08:48)
[2020-03-19] MEDS ORDERED: fentaNYL (PF) 50 MCG/ML 2 ML AMP ONE (08:53)
[2020-03-19] MEDS ORDERED: LIDOCAINE 1% INJ 10MG/ML (20 ML MDV) ONE (08:53)
[2020-03-19] MEDS ORDERED: PROPOFOL 10 MG/ML 20 ML VIAL IV ONE (08:53)
[2020-03-19] MEDS ORDERED: KETOROLAC 15 MG/ML 1 ML VIAL ONE (08:53)
[2020-03-19] MEDS ORDERED: NEOSTIGMINE 1 MG/ML 10 ML VIAL ONE (08:53)
[2020-03-19] MEDS ORDERED: GLYCOPYRROLATE 0.2 MG/ML 2 ML VIAL ONE (08:53)
[2020-03-19] MEDS ORDERED: SUCCINYLCHOLINE CHLORIDE 100 MG/5 ML SYR IV ONE (08:53)
[2020-03-19] MEDS ORDERED: ROCURONIUM 10 MG/ML (10 ML VIAL) IV ONE (08:53)
[2020-03-19] MEDS ORDERED: VASOPRESSIN 20 UNIT/ML 1 ML VIAL IM ONE ×3 (09:17→09:53)
[2020-03-19] MEDS ORDERED: BACITRACIN ZINC 500 UNIT/GM OINT 28.4 GM TUBE TOPICAL ONE ×2 (09:32→09:59)
[2020-03-19] MEDS ORDERED: NALOXONE 0.4 MG/ML 1 ML VIAL IV PRN (10:11)
[2020-03-19] MEDS: diphenhydrAMINE 50 MG/ML 1 ML VIAL IVP PRN ×2 (10:29→16:30)
[2020-03-19] MEDS ORDERED: ONDANSETRON 4 MG/2 ML VIAL IVP PRN (10:32)
[2020-03-19] MEDS ORDERED: KETOROLAC 15 MG/ML 1 ML VIAL IVP PRN (10:32)
[2020-03-19] MEDS ORDERED: SIMETHICONE 80 MG CHEWABLE PO PRN (10:32)
--- NOTE | 2020-03-19 10:32 | P.OP ---
Date of Procedure: 03/19/20 Preoperative Diagnosis: Symptomatic uterine prolapse, cystocele and rectocele. Postoperative Diagnosis: Same, normal-appearing ovaries bilaterally. Procedure(s) Performed: Vaginal hysterectomy, anterior and posterior colporrhaphy's Anesthesia: JAMESA Surgeon: Daina Mckinley Activities Concierge #1: Wen Edwards Estimated Blood Loss (ml): 100 IV fluids (ml): 600 Urine output (ml): 200 Pathology: other (Cervix and uterus) Condition: stable Disposition: PACU Operative Findings: Normal-appearing ovaries bilaterally, high in the pelvis. Description of Procedure: Patient is brought to the operating suite after spinal with Duramorph is placed in the preoperative area. Antibiotics are given. The appropriate timeout was performed to assure proper patient and procedural identification. General anesthetic is administered. Patient is placed in the dorsal lithotomy position. Cervix, vagina, perineal bodies are all prepped and draped in usual sterile fashion. Weighted speculum was placed into the vagina. Bladder is drained for approximately 200 mL of clear yellow urine. Anterior lip of the cervix is grasped with a double-tooth tenaculum. Cervix is injected circumferentially with a dilute Pitressin solution. A [place] blade scalpel is used and an incision is made circumferentially with a V positioning posteriorly. A sponge is used to sweep the mucosa from the underlying fascial edges. The peritoneum is entered at 6:00 and suture tied with 2-0 Vicryl suture, held with a hemostat. Large billed speculum is then placed. At all times the mucosa is swept well from the operative field to avoid bladder and/or ureteral injury. The uterosacral cardinal ligaments are identified, clamped cut and suture ligated and held with hemostats laterally. Uterine vasculature is identified and skeletonized, clamped cut and suture ligated. 2 additional pedicles are taken superior to the vessels. Uterus is then "walked out" posteriorly. The anterior peritoneum is entered with Metzenbaum scissors. Jose clamps are used across the final pedicles and the cervix and uterus are sent to pathology for evaluation. Uterine fibroids are noted. 0 Vicryl suture is used to tie securely, flashed, and retied both of the pedicles for excellent hemostasis. A sponge stick is used and the ovaries are visualized bilaterally, high in the pelvis, and within normal limits to inspection. They are left in situ per the patient's wishes. The speculum is then changed to the shallow billed speculum and the 2-0 Vicryl suture placed at 6:00 is brought around in a pursestring fashion to close the peritoneum. Care is taken to avoid any bowel or bladder tissues. The uterosacral cardinal ligaments are now brought across to incorporate the opposite ligament and vaginal mucosa. 2 additional [id number] sutures are placed in the vaginal mucosa inferior to the uterosacral ligament stitch. The anterior mucosa is now grasped with Allis clamps and the anterior repair is started. The mucosa is injected in the midline with the same dilute Pitressin solution. Ethibond scissors are used to undermine the mucosa from the underlying fascial edge, the mucosa is opened with Metzenbaum scissors and held laterally with Allis clamps. A sponge rolled finger is used to sweep the fascial edges from the overlying mucosa. Nunez catheter is placed in the urine is noted to be clear. 2-0 Vicryl sutures used in an interrupted fashion to bring the edges together in the midline thereby completely reducing the cystocele. Metzenbaum scissors are used to trim the redundant mucosa. 2-0 Vicryl is used in a running locking stitch to close the defect for excellent reapproximation. The posterior repair is now started. Allis clamps are used on the perineal body at 5:00 and 7:00. Scalpel is used to remove a triangular portion of tissue. Metzenbaum scissors are used in the midline to open the defect after it is thoroughly injected with the same dilute Pitressin solution. This is done to the apex of the defect. Allis clamps are used in a fanlike fashion to hold the tissue laterally. Sponge rolled finger is used to sweep the underlying fascial plane from the overlying mucosa. 2-0 Vicryl is used in an interrupted fashion to bring the fascial edges together thereby completely eliminating the rectocele. The redundant mucosa is trimmed with Metzenbaum scissors. 2-0 Vicryl suture is used to bring the edges together now in the midline in a running locking stitch. An episiotomy like closure is used to complete the repair. All suture edges are clean and dry. The vagina is packed with one-inch iodophor gauze with basic tracing. Nunez catheter once again is noted to be draining clear urine. Total estimated blood loss 100 mL's. Fluid replacement 600 mL's. Urine 200 mL's. All sponge needle and enhancement counts are correct. Patient is brought back to recovery room in very good condition with stable vital signs including a pulse of 62, blood pressure 114/63.
[2020-03-19] MEDS: HYDROmorphone 0.5 MG/0.5 ML SYRINGE IVP PRN ×2 (11:13→11:20)
[2020-03-19] MEDS ORDERED: diphenhydrAMINE 50 MG CAP PO PRN (22:49)
[2020-03-19] MEDS: IBUPROFEN 600 MG TAB PO PRN (22:53)
[2020-03-19] MEDS: SENNOSIDES-DOCUSATE SODIUM 1 EACH TAB PO SCH (22:53)
[2020-03-20] MEDS: diphenhydrAMINE 25 MG CAP PO PRN ×2 (05:58→11:54)
[2020-03-20 06:03] VITALS: RESP 16
--- NOTE | 2020-03-20 06:45 | P.DS ---
Providers Date of admission: 03/19/20 Expected date of discharge: 03/20/20 Attending physician: Daina Mckinley Primary care physician: [facility] Course: This is a 49-year-old female who presented with increasingly symptomatic uterine prolapse, cystocele and rectocele, wishing surgical repair. Please see dictated history and physical for details. She underwent a vaginal hysterectomy, anterior and posterior colporrhaphy under my care yesterday and the operating room. She did well intraoperatively with an estimated blood loss of 100 mL's. Ovaries appeared normal and were left in situ per her wishes. Vagina was packed with iodoform gauze and Nunez catheter placed. Please see dictated operative note for details. This morning the patient is doing well. The Nunez catheter has been removed and bladder training has commenced. Vagina is clean and dry. Pain is minimal. Extremities are negative for edema. Chest is clear. Patient is judged to be in good condition for discharge home and will likely be discharged home later this morning pending successful bladder training. I have reminded her no intercourse, tampons or douching. She will use [id number] Motrin products as needed for pain. No heavy lifting, no driving for 2 weeks, no vacuuming. Call with any fevers shakes or chills, foul smelling or bloody vaginal discharge, with any pain not alleviated by [id number] products, or indeed with any concerns. Assessment: Doing well postoperative day #1 Patient Condition at Discharge: Good Plan - Discharge Summary Discharge Rx Participant: No New Discharge Prescriptions: No Action Docusate [Colace] 100 mg PO DAILY PRN PRN Reason: Constipation Montelukast [Singulair] 10 mg PO HS PRN PRN Reason: Allergy Symptoms Sennosides [Senna] 8.6 mg PO DAILY PRN PRN Reason: Constipation Levothyroxine Sodium [Synthroid] 137 mcg PO DAILY HYDROcodone/APAP 5-325MG [[place] [address] 5-325] 1 tab PO BID PRN PRN Reason: Pain Gabapentin [Neurontin] 400 mg PO TID PRN PRN Reason: Pain Fluticasone Propion/Salmeterol [[place] 250-50 Inhub] 1 puff INHALATION RT-BID PRN PRN Reason: Shortness Of Breath Discharge Medication List Docusate [Colace] 100 mg PO DAILY PRN 02/05/17 [History] Montelukast [Singulair] 10 mg PO HS PRN 11/16/18 [History] Fluticasone Propion/Salmeterol [[place] 250-50 Inhub] 1 puff INHALATION RT-BID PRN 03/07/20 [History] Gabapentin [Neurontin] 400 mg PO TID PRN 03/07/20 [History] HYDROcodone/APAP 5-325MG [[place] [address] 5-325] 1 tab PO BID PRN 03/07/20 [History] Levothyroxine Sodium [Synthroid] 137 mcg PO DAILY 03/07/20 [History] Sennosides [Senna] 8.6 mg PO DAILY PRN 03/07/20 [History] Follow up Appointment(s)/Referral(s): Daina Mckinley MD [STAFF PHYSICIAN] - 2 Weeks Patient Instructions/Handouts: *Surgery [facility] - Scopalamine Patch Instructions Discharge Disposition: HOME SELF-CARE
[2020-03-20] MEDS: IBUPROFEN 600 MG TAB PO PRN ×2 (07:34→14:57)
--- NOTE | 2020-03-20 08:00 | P.PN ---
Progress Note - Text Date: 03/20/2020 Time: 06:51 The patient is status post , vaginal hysterectomy. Vital signs stable VAS: 1-10 Patient has no complaints of pain. The patient incurred some minimal itching yesterday, this itching is now subsiding. Pain meds to be managed by service.
[2020-03-20] MEDS: SENNOSIDES-DOCUSATE SODIUM 1 EACH TAB PO SCH ×2 (10:19→11:54)
[2020-03-20] MEDS ORDERED: HYDROcodone/APAP 5-325MG 1 EACH TAB PO STA (10:28)
[2020-03-20 17:06] VITALS: BP 123/74; PULSE 80; TEMP 98.2
== END 2020-03-20 16:45 | disposition home or self-care (01) ==
LOC: OR 07:29 → 4FBP 10:30 → OR 03-20 16:45
PROVIDERS: ATTEND Obstetrics & Gynecology
DX: N81.4 Uterovaginal prolapse, unspecified (principal); D25.1 Intramural leiomyoma of uterus; I20.9 Angina pectoris, unspecified; J45.909 Unspecified asthma, uncomplicated; G83.4 Cauda equina syndrome; L30.9 Dermatitis, unspecified; K44.9 Diaphragmatic hernia without obstruction or gangrene; E16.2 Hypoglycemia, unspecified; M41.9 Scoliosis, unspecified; K21.9 Gastro-esophageal reflux disease without esophagitis; Z85.850 Personal history of malignant neoplasm of thyroid; Z98.890 Other specified postprocedural states; Z96.7 Presence of other bone and tendon implants; Z96.22 Myringotomy tube(s) status; E89.0 Postprocedural hypothyroidism; Z82.49 Family history of ischemic heart disease and other diseases of the circulatory system; Z80.8 Family history of malignant neoplasm of other organs or systems; Z80.42 Family history of malignant neoplasm of prostate; Z80.49 Family history of malignant neoplasm of other genital organs; Z80.0 Family history of malignant neoplasm of digestive organs; Z83.79 Family history of other diseases of the digestive system; Z82.0 Family history of epilepsy and other diseases of the nervous system; Z83.3 Family history of diabetes mellitus; Z79.890 Hormone replacement therapy; Z79.899 Other long term (current) drug therapy; Z79.891 Long term (current) use of opiate analgesic; Z91.041 Radiographic dye allergy status; Z88.1 Allergy status to other antibiotic agents; Z88.8 Allergy status to other drugs, medicaments and biological substances; Z88.5 Allergy status to narcotic agent; Z91.012 Allergy to eggs; Z91.011 Allergy to milk products
CPT/HCPCS: 81025; 88307; 58260; 57260; J2250; J1200; J1580; J2710; J2405; J2001; J3010; J1885; J0330; J2704; J1170; 86850; 86900; 86901

== ENCOUNTER → 2020-04-24 | Outpatient (CLI) | payer OTHER ==
[2020-04-24 10:58] VITALS: BP 111/74; PULSE 70; RESP 18; TEMP 98.1
--- NOTE | 2020-04-24 11:34 | P.HPOB ---
History of Present Illness H&P Date: 04/24/20 Chief Complaint: The patient is here for her routine gynecologic exam and ma mmogram. This is a 49-year-old 004 with an LMP of 03/19/2020. She is up approximately 5 weeks status post vaginal hysterectomy with anterior and posterior repairs done by Dr. Mckinley. She states her bleeding after the surgery has completely stopped. She is without gynecologic complaints. Review of Systems The patient has lost 8 pounds over the last year. She denies respiratory, cardiac, or G.I. problems. Past Medical History Past Medical History: Asthma, Cancer, GERD/Reflux, Skin Disorder Additional Past Medical History / Comment(s): Thyroid cancer status post thyroidectomy and radioactive iodine treatments. OCC ECZEMA. HX GESTATIONAL DIABETES. KIDNEY STONES. MILD FATTY LIVER. HX INJ TO RT ARM, CHRONIC PAIN. Hiatal hernia. Cauda Equina syndrome Jan 2017. 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 History of Any Multi-Drug Resistant Organisms: None Reported Past Surgical History: Adenoidectomy, Ear Surgery, Tonsillectomy Additional Past Surgical History / Comment(s): BMT. EXC DERMOID CYST RT OVARY 2003. Decompressive laminectomy Jan 2017 for Cauda Equina Syndrome. Colonoscopy 2014(next after 5yr). Thyroidectomy 2018. Vaginal hysterectomy with A& P repairs 2019. Past Anesthesia/Blood Transfusion Reactions: Previous Problems w/ Anesthesia Additional Past Anesthesia/Blood Transfusion Reaction / Comment(s): WOKE UP DURING COLONOSCOPY, T&A SURG. 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 - Past Family History Mother Additional Family Medical History / Comment(s): Heart disease. Maternal uncle had Parkinson's disease as well as a grandfather. Grandfather had prostate and skin cancer. Father Family Medical History: Cancer, Diabetes Mellitus Additional Family Medical History / Comment(s): Skin cancer. Grandmother had uterine cancer. Medications and Allergies Home Medications Medication Instructions Recorded Confirmed Type Docusate [Colace] 100 mg PO DAILY PRN 02/05/17 04/24/20 History Montelukast [Singulair] 10 mg PO HS PRN 11/16/18 04/24/20 History Fluticasone Propion/Salmeterol 1 puff INHALATION RT-BID PRN 03/07/20 04/24/20 History [Wixela 250-50 Inhub] Gabapentin [Neurontin] 400 mg PO TID PRN 03/07/20 04/24/20 History HYDROcodone/APAP 5-325MG [[place] 1 tab PO BID PRN 03/07/20 04/24/20 History 5-325] Levothyroxine Sodium [Synthroid] 137 mcg PO DAILY 03/07/20 04/24/20 History Sennosides [Senna] 8.6 mg PO DAILY PRN 03/07/20 04/24/20 History Allergies Allergy/AdvReac Type Severity Reaction Status Date / Time cefixime [From Suprax] Allergy Dyspnea Verified 04/24/20 10:51 fexofenadine HCl Allergy Dyspnea Verified 04/24/20 10:51 [From Nina] Iodinated Contrast Media Allergy Itching IN Verified 04/24/20 10:51 [Iodinated Contrast Media - THROAT AND IV Dye] BODY, & ALLERGY SYMPTOMS levofloxacin [From Levaquin] Allergy Unknown Verified 04/24/20 10:51 propoxyphene napsylate Allergy Itching Verified 04/24/20 10:51 [From Darvocet-N 100] shellfish derived [Shellfish] Allergy Anaphylaxis Verified 04/24/20 10:51 egg AdvReac Abdominal Verified 04/24/20 10:51 Pain, NAUSEA - UNLESS COOKED AT HIGH TEMP IN OVEN metoclopramide [From Reglan] AdvReac Nausea & Verified 04/24/20 10:51 Vomiting & Diarrhea Milk Containing Products AdvReac ALLERGY Verified 04/24/20 10:51 NASAL SYMPTOMS, IF MORE THAN 8 OZ AT A TIME SEASONAL,MOLD,DUST,ANIMAL AdvReac RUNNY Uncoded 04/24/20 10:51 DANDER NOSE, ITCHY/WATERY EYES Exam Vital Signs Temp Pulse Resp BP Pulse Ox 04/24/20 10:53 98.1 F 70 18 111/74 98 Intake and Output 04/23/20 04/24/20 04/24/20 22:59 06:59 14:59 Other: Weight 87.997 kg Height 5 feet 6 inches, weight 194 pounds, BMI 31.3. This is a well-developed well-nourished white female who is alert and oriented times 3 in no acute distress. HEENT: Within normal limits. NECK: Supple without mass or thyromegaly. CHEST AND LUNGS: Clear to auscultation. HEART: Regular rate and rhythm. BREASTS: Are without mass or discharge. AXILLARY EXAM: Negative for adenopathy. BACK: Negative for CVA tenderness. ABDOMEN: Soft, obese, nontender, without palpable masses. PELVIC EXAM: External genitalia appears normal. Vagina is consistent with her recent vaginal hysterectomy with a and P repairs. The repairs and vaginal cuff are intact. There is some shortening of the vagina consistent with her recent surgery. There is no unusual discharge. There is no evidence of prolapse. Bimanual examination is negative for mass or tenderness. RECTAL EXAM: Rectal exam is negative for mass or tenderness and is negative for occult blood. EXTREMITIES: Nontender. IMPRESSION: 1. 49-year-old premenopausal female status post vaginal hysterectomy with anterior and posterior repairs 5 weeks ago with exam consistent with recent surgery. PLAN: 1. Pap smears have been discontinued. 2. Self breast awareness was discussed with the patient. 3. Screening mammogram will be done today. 4. Osteoporosis prevention was discussed. I have stressed the importance of adequate calcium, vitamin D and regular exercise. Recommended amounts of calcium and vitamin D were also discussed. 5. She will continue to abstain from sexual activity. She will keep her 6 week postop check appointment with Dr. Mckinley. She will follow the instructions r egarding sexual activity that Dr. Mckinley gives her. 6. She believes her colonoscopy is due. She will follow-up with her lead blender for this in the upcoming year 7. She was advised to return in one year for her annual well woman exam.
--- NOTE | 2020-04-25 10:40 | MM ---
Reason for exam: screening (asymptomatic). Last mammogram was performed 1 year and 1 month ago. History: Patient has history of other cancer at age 48. Took hormonal contraceptives for 6 months beginning at age 28. Physical Findings: A clinical breast exam by your physician is recommended on an annual basis and results should be correlated with mammographic findings. MG Screening Mammo w CAD Bilateral CC and MLO view(s) were taken. Prior study comparison: March 30, 2019, bilateral MG screening mammo w CAD. March 24, 2018, bilateral MG diagnostic mammo w CAD MILLA. The breast tissue is heterogeneously dense. This may lower the sensitivity of mammography. There are benign appearing round calcifications bilaterally. There is no discrete abnormality. ASSESSMENT: Benign, BI-RAD 2 RECOMMENDATION: Routine screening mammogram of both breasts in 1 year.
== END | disposition home or self-care (01) ==
LOC: WWCWWP 10:41
PROVIDERS: ATTEND Obstetrics & Gynecology
DX: Z12.31 Encounter for screening mammogram for malignant neoplasm of breast (principal)
CPT/HCPCS: 77067

== ENCOUNTER → 2020-06-07 | Outpatient (CLI) | payer OTHER ==
--- NOTE | 2020-06-07 16:29 | US ---
EXAMINATION TYPE: US kidneys/renal and bladder DATE OF EXAM: 06/07/2020 COMPARISON: 03/07/2020 CLINICAL HISTORY: 49-year-old female N20.0 kidney stone, R10.31 right flank pain. TECHNIQUE: Multiple sonographic images of the kidneys and bladder are obtained. FINDINGS: EXAM MEASUREMENTS: Right Kidney: 9.5 x 4.5 x 4.7 cm Left Kidney: 9.9 x 4.9 x 4.7 cm Formula Room Worker notes: Patient of very large body habitus, technically difficult and limited study. Right Kidney: multiple echogenic foci with largest measuring 1.1 x 0.5 x 0.7cm. No hydronephrosis. Left Kidney: multiple echogenic foci with largest measuring 0.5 x 0.3 x 0.4cm. No hydronephrosis. Bladder: wnl IMPRESSION: Multiple bilateral nonobstructive renal calculi measuring up to 1.1 cm on the right and 5 mm on the l eft. No hydronephrosis.
== END | disposition home or self-care (01) ==
LOC: RADUSWWP 15:00
PROVIDERS: ATTEND Urology
DX: N20.0 Calculus of kidney (principal); R10.31 Right lower quadrant pain; R10.32 Left lower quadrant pain
CPT/HCPCS: 76770

== ENCOUNTER 2020-07-26 23:19 | Emergency (ER) | payer OTHER ==
[2020-07-26 23:26] VITALS: RESP 18
[2020-07-26] MEDS ORDERED: SODIUM CHLORIDE 0.9% 1,000 ML IV STA ×2 (23:57)
[2020-07-27] MEDS ORDERED: ACETAMINOPHEN TAB 500 MG TAB PO STA (00:01)
[2020-07-27 00:27] LABS: Basophils % (A) 1 %; Eosinophils % (A) 1 %; HCT 40.5 % (34.0-46.0); HGB 13.6 gm/dL (11.4-16.0); Lymphocytes # (A) 0.7 k/uL (1.0-4.8); Lymphocytes % (A) 14 %; MCHC 33.7 g/dL (31.0-37.0); MCV 80.1 fL (80.0-100.0); Monocytes # (A) 0.4 k/uL (0-1.0); Monocytes % (A) 8 %; Neutrophils # (A) 3.7 k/uL (1.3-7.7); Neutrophils % (A) 76 %; Platelet Count 154 k/uL (150-450); RBC 5.06 m/uL (3.80-5.40); RDW 14.1 % (11.5-15.5); WBC 4.8 k/uL (3.8-10.6)
[2020-07-27] MEDS ORDERED: AMPICILLIN-SULBACTAM 3 GM in SODIUM CHLORIDE 0.9% 100 ML IVPB STA (00:29)
[2020-07-27 00:44] LABS: ALT 39 U/L (4-34); AST 34 U/L (14-36); African American GFR (CKD) >90 (>60 ml/min/1.73 sqM); Albumin 4.5 g/dL (3.5-5.0); Alkaline Phosphatase 87 U/L (38-126); Anion Gap 11 mmol/L; Blood Urea Nitrogen 10 mg/dL (7-17); Calcium 9.2 mg/dL (8.4-10.2); Carbon Dioxide 22 mmol/L (22-30); Chloride 101 mmol/L (98-107); Glucose 110 mg/dL (74-99); Non-African American GFR(CKD) >90 (>60 ml/min/1.73 sqM); Potassium 4.2 mmol/L (3.5-5.1); Sodium 134 mmol/L (137-145); Total Bilirubin 0.7 mg/dL (0.2-1.3); Total Protein 7.4 g/dL (6.3-8.2)
--- NOTE | 2020-07-27 01:30 | ED ---
Fever HPI - General Chief Complaint: Fever Stated Complaint: Fever Time Seen by Provider: 07/26/20 23:33 Source: patient, family Mode of arrival: wheelchair Limitations: physical limitation - History of Present Illness Initial Comments: 50-year-old female presents to emergency Department with a chief complaint of a fever. Patient reports 5 days ago she was started on Macrobid for urinary tract infection. States that yesterday she had a procedure performed to remove kidney stones. She does have history of kidney stones for over a decade. States the procedure was performed by . Patient states one day after procedure, she continued to have blood clots in the urine but today she has developed chills and a fever home. She also reports continuous right flank pain. She does report some nausea but no vomiting. Denies any chest pain or shortness of breath. Patient has been taking [place] for pain at home. - Related Data Home Medications Medication Instructions Recorded Confirmed Docusate [Colace] 100 mg PO DAILY PRN 02/05/17 04/24/20 Montelukast [Singulair] 10 mg PO HS PRN 11/16/18 04/24/20 Fluticasone Propion/Salmeterol 1 puff INHALATION RT-BID PRN 03/07/20 04/24/20 [Wixela 250-50 Inhub] Gabapentin [Neurontin] 400 mg PO TID PRN 03/07/20 04/24/20 HYDROcodone/APAP 5-325MG [[place] 1 tab PO BID PRN 03/07/20 04/24/20 5-325] Levothyroxine Sodium [Synthroid] 137 mcg PO DAILY 03/07/20 04/24/20 Sennosides [Senna] 8.6 mg PO DAILY PRN 03/07/20 04/24/20 Allergies Allergy/AdvReac Type Severity Reaction Status Date / Time cefixime [From Suprax] Allergy Dyspnea Verified 07/26/20 23:27 fexofenadine HCl Allergy Dyspnea Verified 07/26/20 23:27 [From Nina] Iodinated Contrast Media Allergy Itching IN Verified 07/26/20 23:27 [Iodinated Contrast Media - THROAT AND IV Dye] BODY, & ALLERGY SYMPTOMS levofloxacin [From Levaquin] Allergy Unknown Verified 07/26/20 23:27 propoxyphene napsylate Allergy Itching Verified 07/26/20 23:27 [From [place]et-N 100] shellfish derived [Shellfish] Allergy Anaphylaxis Verified 07/26/20 23:27 egg AdvReac Abdominal Verified 07/26/20 23:27 Pain, NAUSEA - UNLESS COOKED AT HIGH TEMP IN OVEN metoclopramide [From Reglan] AdvReac Nausea & Verified 07/26/20 23:27 Vomiting & Diarrhea Milk Containing Products AdvReac ALLERGY Verified 07/26/20 23:27 NASAL SYMPTOMS, IF MORE THAN 8 OZ AT A TIME SEASONAL,MOLD,DUST,ANIMAL AdvReac RUNNY Uncoded 07/26/20 23:27 DANDER NOSE, ITCHY/WATERY EYES Review of Systems ROS Statement: Those systems with pertinent positive or pertinent negative responses have been documented in the HPI. ROS Other: All systems not noted in ROS Statement are negative. Past Medical History Past Medical History: Asthma, Cancer, GERD/Reflux, Skin Disorder Additional Past Medical History / Comment(s): Thyroid cancer status post thyroidectomy and radioactive iodine treatments. OCC ECZEMA. HX GESTATIONAL DI ABETES. KIDNEY STONES. MILD FATTY LIVER. HX INJ TO RT ARM, CHRONIC PAIN. Hiatal hernia. Cauda Equina syndrome Jan 2017. 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 History of Any Multi-Drug Resistant Organisms: None Reported Past Surgical History: Adenoidectomy, Ear Surgery, Tonsillectomy Additional Past Surgical History / Comment(s): BMT. EXC DERMOID CYST RT OVARY 2003. Decompressive laminectomy Jan 2017 for Cauda Equina Syndrome. Colonoscopy 2014(next after 5yr). Thyroidectomy 2018. Vaginal hysterectomy with A& P repairs 2019. Past Anesthesia/Blood Transfusion Reactions: Previous Problems w/ Anesthesia Additional Past Anesthesia/Blood Transfusion Reaction / Comment(s): WOKE UP DURING COLONOSCOPY, T&A SURG. Past Psychological History: No Psychological Hx Reported Smoking Status: Never smoker Past Alcohol Use History: None Reported Past Drug Use History: None Reported - Past Family History Mother Additional Family Medical History / Comment(s): Heart disease. Maternal uncle had Parkinson's disease as well as a grandfather. Grandfather had prostate and skin cancer. Father Family Medical History: Cancer, Diabetes Mellitus Additional Family Medical History / Comment(s): Skin cancer. Grandmother had uterine cancer. General Exam Limitations: physical limitation General appearance: alert, in no apparent distress, obese Head exam: Present: atraumatic, normocephalic, normal inspection Eye exam: Present: normal appearance, PERRL, EOMI Pupils: Present: normal accommodation ENT exam: Present: normal exam, normal oropharynx, mucous membranes moist Neck exam: Present: normal inspection, full ROM. Absent: tenderness Respiratory exam: Present: normal lung sounds bilaterally. Absent: respiratory distress Cardiovascular Exam: Present: regular rate, normal rhythm, normal heart sounds GI/Abdominal exam: Present: soft, tenderness (Mild right flank pain). Absent: distended Extremities exam: Present: normal inspection, full ROM, normal capillary refill. Absent: tenderness, pedal edema, joint swelling Back exam: Present: normal inspection, full ROM, tenderness, CVA tenderness (R) Neurological exam: Present: alert, oriented X3 Psychiatric exam: Present: normal affect, normal mood Skin exam: Present: warm, dry, intact, normal color Course Vital Signs 07/26/20 07/27/20 07/27/20 23:21 02:19 03:30 Temperature 101.3 F H 98.7 F 98.7 F Pulse Rate 91 86 88 Respiratory 18 18 18 Rate Blood Pressure 110/66 107/63 110/73 O2 Sat by Pulse 94 L 97 96 Oximetry Medical Decision Making - Medical Decision Making 42-year-old female presents to emergency Department with a chief complaint of fever. On physical examination, mild right CVA tenderness. Patient was initially febrile. Sepsis workup started. She did fit surge criteria with a heart rate above 90 and febrile. IV fluids given according to ideal body weight. She is ALLERGIC to sulfa cyclosporins and Levaquin, she was started on Unasyn 3 g. CBC unremarkable. Lactic acid within normal limits. Blood cultures pending. There was delay in urinary analysis results due to laboratory error. Her urine did show +3 ketones which I suspect is secondary to decreased fluid intake. Urine culture is pending. Mild some hematuria noted. Small amount of white blood cells. No leukocyte esterase at this time. Patient was advised to continue taking the Macrobid. CT without contrast of the abdomen and pelvis reveals multiple punctate nonobstructive stones bilaterally. There is mild right-sided hydroureter secondary to a 4 mm stone near the UVJ. I advised the patient if her symptoms continue to follow-up with her urologist. No cough chest pain or shortness of breath. Vital signs improved. She was also advised to return to emergency department if her symptoms worsen. Case discussed with - Lab Data Result diagrams: 07/27/20 00:16 07/27/20 00:16 Lab Results 07/27/20 07/27/20 07/27/20 Range/Units 00:16 00:16 00:16 WBC 4.8 (3.8-10.6) k/uL RBC 5.06 (3.80-5.40) m/uL Hgb 13.6 (11.4-16.0) gm/dL Hct 40.5 (34.0-46.0) % MCV 80.1 (80.0-100.0) fL MCH 27.0 (25.0-35.0) pg MCHC 33.7 (31.0-37.0) g/dL RDW 14.1 (11.5-15.5) % Plt Count 154 (150-450) k/uL MPV 8.0 Neutrophils % 76 % Lymphocytes % 14 % Monocytes % 8 % Eosinophils % 1 % Basophils % 1 % Neutrophils # 3.7 (1.3-7.7) k/uL Lymphocytes # 0.7 L (1.0-4.8) k/uL Monocytes # 0.4 (0-1.0) k/uL Eosinophils # 0.0 (0-0.7) k/uL Basophils # 0.0 (0-0.2) k/uL Sodium 134 L (137-145) mmol/L Potassium 4.2 (3.5-5.1) mmol/L Chloride 101 (98-107) mmol/L Carbon Dioxide 22 (22-30) mmol/L Anion Gap 11 mmol/L BUN 10 (7-17) mg/dL Creatinine 0.69 (0.52-1.04) mg/dL Est GFR (CKD-EPI)AfAm >90 (>60 ml/min/1.73 sqM) Est GFR (CKD-EPI)NonAf >90 (>60 ml/min/1.73 sqM) Glucose 110 H (74-99) mg/dL Plasma Lactic Acid Eric 0.9 (0.7-2.0) mmol/L Calcium 9.2 (8.4-10.2) mg/dL Total Bilirubin 0.7 (0.2-1.3) mg/dL AST 34 (14-36) U/L ALT 39 H (4-34) U/L Alkaline Phosphatase 87 (38-126) U/L Total Protein 7.4 (6.3-8.2) g/dL Albumin 4.5 (3.5-5.0) g/dL Urine Color Urine Appearance (Clear) Urine pH (5.0-8.0) Ur Specific [place] (1.001-1.035) Urine Protein (Negative) Urine Glucose (UA) (Negative) Urine Ketones (Negative) Urine Blood (Negative) Urine Nitrite (Negative) Urine Bilirubin (Negative) Urine Urobilinogen (<2.0) mg/dL Ur Leukocyte Esterase (Negative) Urine RBC (0-5) /hpf Urine WBC (0-5) /hpf Urine WBC Clumps (None) /hpf Ur Squamous Epith Cells (0-4) /hpf Urine Bacteria (None) /hpf Urine Mucus (None) /hpf 07/27/20 Range/Units 01:35 WBC (3.8-10.6) k/uL RBC (3.80-5.40) m/uL Hgb (11.4-16.0) gm/dL Hct (34.0-46.0) % MCV (80.0-100.0) fL MCH (25.0-35.0) pg MCHC (31.0-37.0) g/dL RDW (11.5-15.5) % Plt Count (150-450) k/uL MPV Neutrophils % % Lymphocytes % % Monocytes % % Eosinophils % % Basophils % % Neutrophils # (1.3-7.7) k/uL Lymphocytes # (1.0-4.8) k/uL Monocytes # (0-1.0) k/uL Eosinophils # (0-0.7) k/uL Basophils # (0-0.2) k/uL Sodium (137-145) mmol/L Potassium (3.5-5.1) mmol/L Chloride (98-107) mmol/L Carbon Dioxide (22-30) mmol/L Anion Gap mmol/L BUN (7-17) mg/dL Creatinine (0.52-1.04) mg/dL Est GFR (CKD-EPI)AfAm (>60 ml/min/1.73 sqM) Est GFR (CKD-EPI)NonAf (>60 ml/min/1.73 sqM) Glucose (74-99) mg/dL Plasma Lactic Acid Eric (0.7-2.0) mmol/L Calcium (8.4-10.2) mg/dL Total Bilirubin (0.2-1.3) mg/dL AST (14-36) U/L ALT (4-34) U/L Alkaline Phosphatase (38-126) U/L Total Protein (6.3-8.2) g/dL Albumin (3.5-5.0) g/dL Urine Color Yellow Urine Appearance Clear (Clear) Urine pH 5.5 (5.0-8.0) Ur Specific [place] 1.027 (1.001-1.035) Urine Protein Trace H (Negative) Urine Glucose (UA) Negative (Negative) Urine Ketones 3+ H (Negative) Urine Blood Moderate H (Negative) Urine Nitrite Negative (Negative) Urine Bilirubin Negative (Negative) Urine Urobilinogen <2.0 (<2.0) mg/dL Ur Leukocyte Esterase Negative (Negative) Urine RBC 18 H (0-5) /hpf Urine WBC 7 H (0-5) /hpf Urine WBC Clumps Rare H (None) /hpf Ur Squamous Epith Cells 4 (0-4) /hpf Urine Bacteria Rare H (None) /hpf Urine Mucus Occasional H (None) /hpf Disposition Clinical Impression: Hematuria, Kidney stone Disposition: HOME SELF-CARE Condition: Stable Instructions (If sedation given, give patient instructions): Kidney Stones (ED) Additional Instructions: Please return to the Emergency Department if symptoms worsen or any other concerns. Is patient prescribed a controlled substance at d/c from ED?: No Referrals: Clem Forrest MD [Primary Care Provider] - 1-2 days Time of Disposition: 03:06
[2020-07-27 02:20] VITALS: TEMP 98.7
--- NOTE | 2020-07-27 02:21 | CT ---
EXAM: CT Abdomen and Pelvis Without Intravenous Contrast CLINICAL HISTORY: ITS.REASON CT Reason: right CVA TECHNIQUE: Axial computed tomography images of the abdomen and pelvis without intravenous contrast. CTDI is 17.87 mGy and DLP is 982.5 mGy-cm. This CT exam was performed using one or more of the following dose reduction techniques: automated exposure control, adjustment of the mA and/or kV according to patient size, and/or use of iterative reconstruction technique. COMPARISON: 03/07/2020 FINDINGS: Lung bases: No mass. No consolidation. ABDOMEN: Liver: Steatosis. Gallbladder and bile ducts: Slightly dense gallbladder neck area. Pancreas: No ductal dilation. Spleen: Unremarkable. Adrenals: Unremarkable. Kidneys and ureters: Multiple punctate nonobstructive stones bilaterally. Mild right hydroureteronephrosis secondary to 4 mm stone near the UVJ. Stomach and bowel: No bowel obstruction. No bowel wall thickening. Mild hiatal hernia. PELVIS: Appendix: No evidence of appendicitis. Bladder: No stones. Reproductive: Unremarkable. ABDOMEN and PELVIS: Intraperitoneal space: Unremarkable. Bones/joints: No acute fractures. Soft tissues: Unremarkable. Vasculature: No abdominal aortic aneurysm. Lymph nodes: No enlarged lymph nodes. IMPRESSION: Multiple punctate nonobstructive stones bilaterally. Mild right hydroureteronephrosis secondary to 4 mm stone near the UVJ. Hepatic steatosis. Possible Gallbladder sludge.
[2020-07-27 02:59] LABS: Appearance,Urine Clear (Clear); Bacteria,Urine Rare /hpf; Bilirubin,Urine Negative (Negative); Blood,Urine Moderate (Negative); Color,Urine Yellow; Glucose,Urine (UA) Negative (Negative); Ketones,Urine 3+ (Negative); Leukocyte Esterase,Urine Negative (Negative); Mucus,Urine Occasional /hpf; Nitrite,Urine Negative (Negative); PH, Urine 5.5 (5.0-8.0); Protein,Urine Trace (Negative); RBC,Urine 18 /hpf (0-5); Specific Gravity,Urine 1.027 (1.001-1.035); Squamous Epithelial Cell,Urine 4 /hpf (0-4); Urobilinogen,Urine <2.0 mg/dL (<2.0); WBC,Urine 7 /hpf (0-5)
[2020-07-27 03:32] VITALS: BP 110/73; PULSE 88
== END 2020-07-27 03:30 | disposition home or self-care (01) ==
LOC: EC 23:19
DX: N20.0 Calculus of kidney (principal); J45.909 Unspecified asthma, uncomplicated; K21.9 Gastro-esophageal reflux disease without esophagitis; Z90.49 Acquired absence of other specified parts of digestive tract; Z85.850 Personal history of malignant neoplasm of thyroid
CPT/HCPCS: 36415; 80053; 83605; 85025; 81001; 87040; 74176; 99284; 96365; 96361; J0295

== ENCOUNTER 2020-08-04 18:25 | Emergency (ER) | payer OTHER ==
--- NOTE | 2020-08-04 19:31 | XR ---
EXAMINATION TYPE: XR chest 1V portable DATE OF EXAM: 08/04/2020 COMPARISON: 10/23/2016. HISTORY: Cough. TECHNIQUE: Single frontal view of the chest is obtained. FINDINGS: There is no focal air space opacity, pleural effusion, or pneumothorax seen. The cardiac silhouette size is within normal limits. The osseous structures are intact. IMPRESSION: No acute process.
--- NOTE | 2020-08-04 20:00 | ED ---
General Adult HPI - General Chief complaint: Allergic Reaction Stated complaint: poss allergic reaction, SOB Time Seen by Provider: 08/04/20 18:42 Source: patient Mode of arrival: wheelchair Limitations: no limitations - History of Present Illness Initial comments: Noemi is a 50yo female who presents to the ER today for evaluation of shortness of breath which she is concerned is related to allergic reaction to keflex. Patient reports she is on keflex for sinusitis and UTI, she has been on keflex before without reaction. Patient does report nasal congestion, non-productive cough and low grade fever. - Related Data Home Medications Medication Instructions Recorded Confirmed Docusate [Colace] 100 - 200 mg PO BID PRN 02/05/17 08/04/20 Montelukast [Singulair] 10 mg PO HS PRN 11/16/18 08/04/20 Gabapentin [Neurontin] 400 mg PO TID PRN 03/07/20 08/04/20 HYDROcodone/APAP 5-325MG [[place] 1 tab PO BID PRN 03/07/20 08/04/20 5-325] Levothyroxine Sodium [Synthroid] 137 mcg PO DAILY 03/07/20 08/04/20 Sennosides [Senna] 8.6 - 17.2 mg PO DAILY PRN 03/07/20 08/04/20 Acetaminophen Tab [Tylenol Tab] 500 mg PO Q6H PRN 08/04/20 08/04/20 Cephalexin [Keflex] 500 mg PO QID 08/04/20 08/04/20 Cyclobenzaprine [Flexeril] 5 mg PO BID PRN 08/04/20 08/04/20 Ergocalciferol (Vitamin D2) 1,250 mcg PO TU 08/04/20 08/04/20 [Drisdol (50,000 Iu)] Tamsulosin HCl [Flomax] 0.4 mg PO DAILY 08/04/20 08/04/20 methylPREDNISolone Dose Pack See Taper PO DIRECTED 08/04/20 08/04/20 [Medrol Dose Pack] Allergies Allergy/AdvReac Type Severity Reaction Status Date / Time cefixime [From Suprax] Allergy Dyspnea Verified 08/04/20 19:12 fexofenadine HCl Allergy Dyspnea Verified 08/04/20 19:12 [From Nina] Iodinated Contrast Media Allergy Itching IN Verified 08/04/20 19:12 [Iodinated Contrast Media - THROAT AND IV Dye] BODY, & ALLERGY SYMPTOMS levofloxacin [From Levaquin] Allergy Unknown Verified 08/04/20 19:12 propoxyphene napsylate Allergy Itching Verified 08/04/20 19:12 [From Darvocet-N 100] shellfish derived [Shellfish] Allergy Anaphylaxis Verified 08/04/20 19:12 egg AdvReac Abdominal Verified 08/04/20 19:12 Pain, NAUSEA - UNLESS COOKED AT HIGH TEMP IN OVEN metoclopramide [From Reglan] AdvReac Nausea & Verified 08/04/20 19:12 Vomiting & Diarrhea Milk Containing Products AdvReac ALLERGY Verified 08/04/20 19:12 NASAL SYMPTOMS, IF MORE THAN 8 OZ AT A TIME SEASONAL,MOLD,DUST,ANIMAL AdvReac RUNNY Uncoded 07/26/20 23:27 DANDER NOSE, ITCHY/WATERY EYES Review of Systems ROS Statement: Those systems with pertinent positive or pertinent negative responses have been documented in the HPI. ROS Other: All systems not noted in ROS Statement are negative. Past Medical History Past Medical History: Asthma, Cancer, GERD/Reflux, Skin Disorder Additional Past Medical History / Comment(s): Thyroid cancer status post thyroidectomy and radioactive iodine treatments. OCC ECZEMA. HX GESTATIONAL DIABETES. KIDNEY STONES. MILD FATTY LIVER. HX INJ TO RT ARM, CHRONIC PAIN. Hiatal hernia. Cauda Equina syndrome Jan 2017. 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 History of Any Multi-Drug Resistant Organisms: None Reported Past Surgical History: Adenoidectomy, Ear Surgery, Tonsillectomy Additional Past Surgical History / Comment(s): BMT. EXC DERMOID CYST RT OVARY 2004. Decompressive laminectomy Jan 2017 for Cauda Equina Syndrome. Colonoscopy 2014(next after 5yr). Thyroidectomy 2018. Vaginal hysterectomy with A& P repairs 2019. Past Anesthesia/Blood Transfusion Reactions: Previous Problems w/ Anesthesia Additional Past Anesthesia/Blood Transfusion Reaction / Comment(s): WOKE UP DURING COLONOSCOPY, T&A SURG. Past Psychological History: No Psychological Hx Reported Smoking Status: Never smoker Past Alcohol Use History: None Reported Past Drug Use History: None Reported - Past Family History Mother Additional Family Medical History / Comment(s): Heart disease. Maternal uncle had Parkinson's disease as well as a grandfather. Grandfather had prostate and skin cancer. Father Family Medical History: Cancer, Diabetes Mellitus Additional Family Medical History / Comment(s): Skin cancer. Grandmother had uterine cancer. General Exam - General Exam Comments Initial Comments: Physical Exam GENERAL: Patient is well-developed and well-nourished. Patient is nontoxic and well-hydrated and is in no distress. HENT: Normocephalic, Atraumatic. EYES: PERRL, EOMI PULMONARY: Unlabored respirations Clear to auscultation bilaterally CARDIOVASCULAR: RRR Well perfused extremities ABDOMEN: Non-distended SKIN: Warm No rashes or bruising : Deferred NEUROLOGIC: Alert and oriented Normal speech Normal gait MUSCULOSKELETAL: Moving all extremities with no apparent injury PSYCHIATRIC: No SI/HI Limitations: no limitations Course Vital Signs 08/04/20 08/04/20 08/04/20 18:28 19:24 20:16 Temperature 97.9 F 98.4 F Pulse Rate 83 96 Respiratory 18 26 H 18 Rate Blood Pressure 113/65 115/62 O2 Sat by Pulse 100 98 Oximetry Medical Decision Making - Medical Decision Making Patient was seen and evaluated history was obtained from the patient Physical exam is not consistent with an ALLERGIC reactions patient has no rash in her GI upset and only cough with fever earlier this week have a higher susp icion the patient has COVID walked on but results have not been provided as of yet Did swab was obtained was positive She is currently taking a prednisone Dosepak at home I advised her to continue this and other supportive care including vitamin C, vitamin D and zinc Return parameters were discussed patient was discharged home in stable condition - Lab Data Lab Results 08/04/20 Range/Units 19:21 Coronavirus (PCR) Detected A (Not Detectd) Disposition Clinical Impression: COVID-19 Disposition: HOME SELF-CARE Condition: Stable Instructions (If sedation given, give patient instructions): Coronavirus Disease 2019 (COVID-19) Is patient prescribed a controlled substance at d/c from ED?: No Referrals: Clem Forrest MD [Primary Care Provider] - 1-2 days
[2020-08-04 20:17] VITALS: BP 115/62; PULSE 96; RESP 18; TEMP 98.4
== END 2020-08-04 20:17 | disposition home or self-care (01) ==
LOC: EC 18:25
DX: U07.1 COVID-19 (principal); J45.909 Unspecified asthma, uncomplicated; K21.9 Gastro-esophageal reflux disease without esophagitis
CPT/HCPCS: 71045; 87635; 99285

== ENCOUNTER → 2020-08-20 | Outpatient (CLI) | payer OTHER ==
--- NOTE | 2020-08-20 15:51 | XR ---
EXAMINATION TYPE: XR KUB DATE OF EXAM: 08/20/2020 COMPARISON: NONE HISTORY: Post lithotripsy TECHNIQUE: One view abdominal series FINDINGS: The osseous structures are intact hypertrophic change of the acetabulum with arthropathy correlate fo r femoral acetabular impingement. Calcifications in the lower pelvis are indeterminate. Degenerative change of the lower lumbar spine. Right kidney: There are approximately 8 calcifications overlying the right renal outline measuring le ss than 5 mm. Left kidney: Approximate 7 calcifications overlying the left kidney the largest measuring 6 mm. Slight curvature of the spine. Bowel gas pattern nonspecific.. IMPRESSION: 1. Bilateral nephrolithiasis with interval fragmentation of a large calcification on the right as dis cussed above.
== END | disposition home or self-care (01) ==
LOC: RADXRMAIN 15:06
PROVIDERS: ATTEND Urology
DX: Z48.816 Encounter for surgical aftercare following surgery on the genitourinary system (principal); N20.0 Calculus of kidney; Z98.890 Other specified postprocedural states
CPT/HCPCS: 74018

== ENCOUNTER → 2020-08-28 | Outpatient (CLI) | payer OTHER ==
--- NOTE | 2020-08-28 12:09 | US ---
EXAMINATION TYPE: US kidneys/renal and bladder DATE OF EXAM: 08/28/2020 COMPARISON: 06/07/2020 CLINICAL HISTORY: 50-year-old female R10.2 Pelvis/Perineal pain N20.0 Calculus of kidney. History of multiple renal stones over the years, recent lithotripsy on the right in Jun, some smaller stones sti ll persist per patient. Bilateral flank pain. TECHNIQUE: Multiple sonographic images of the kidneys and bladder are obtained. FINDINGS: EXAM MEASUREMENTS: Right Kidney: 9.3 x 4.6 x 5.4 cm Left Kidney: 9.9 x 4.2 x 5.1 cm Right Kidney: 8 mm nonobstructive right renal calculus. No hydronephrosis. Left Kidney: 1.3 x 1.1cm mid pole stone seen . No hydronephrosis. Bladder: wnl Bilateral Jets seen: yes IMPRESSION: No hydronephrosis. 8 mm nonobstructive right renal calculus remains (as compared to 1.1 cm on 06/07/19) and 1.3 cm calculus in the left kidney.
== END | disposition home or self-care (01) ==
LOC: RADUSWWP 11:01
PROVIDERS: ATTEND Urology
DX: N20.0 Calculus of kidney (principal); Z98.890 Other specified postprocedural states
CPT/HCPCS: 76770

== ENCOUNTER → 2020-10-02 | Outpatient (CLI) | payer OTHER ==
[2020-10-03 00:07] LABS: African American GFR (CKD) 124.9 (60.0-200.0); Non-African American GFR(CKD) 107.8 (60.0-200.0)
== END | disposition home or self-care (01) ==
LOC: LABWHC1 11:17
PROVIDERS: ATTEND Otolaryngology
DX: R22.1 Localized swelling, mass and lump, neck (principal)
CPT/HCPCS: 36415; 82565; 84520

== ENCOUNTER → 2020-10-05 | Outpatient (CLI) | payer OTHER ==
--- NOTE | 2020-10-05 13:59 | CT ---
EXAMINATION TYPE: CT soft tissue neck wo con DATE OF EXAM: 10/05/2020 COMPARISON: None HISTORY: Chronic sialoadenitis CT DLP: 323.[address] of the neck was performed from the skull base through the lung apices. AIRWAY: The supraglottic, glottic, and subglottic portions of the airway appear patent and free of mass. SALIVARY GLANDS: There is mild fullness of the right submandibular gland versus its left-sided counte rpart. No distinct mass is appreciated over the lack of contrast does limit evaluation. No inflammato ry change is present. No focal calcifications seen. Parotid glands are symmetric and unremarkable. THYROID GLAND: No nodules or masses seen. LYMPH NODES: No adenopathy seen greater than 1cm. LUNG APICES: No nodule or mass is seen. OTHER: Vascular structures are patent. No significant degenerative change of the cervical spine. N o abscess seen. IMPRESSION: There is mild fullness of the right submandibular gland versus its left-sided counterpart. No distinc t mass is appreciated over the lack of contrast does limit evaluation. No inflammatory change is pres ent.
== END | disposition home or self-care (01) ==
LOC: RADCTMAIN 13:20
PROVIDERS: ATTEND Otolaryngology
DX: K11.23 Chronic sialoadenitis (principal)
CPT/HCPCS: 70490

== ENCOUNTER → 2020-10-16 | Outpatient (CLI) | payer OTHER | END | disposition home or self-care (01) | LOC: RADMRIMAIN 15:37 | PROVIDERS: ATTEND Otolaryngology | DX: Z53.9 Procedure and treatment not carried out, unspecified reason (principal) ==

== ENCOUNTER 2020-11-15 22:46 | Observation (INO) | payer OTHER ==
--- NOTE | 2020-11-15 23:17 | ED ---
Abdominal Pain HPI - General Chief Complaint: Abdominal Pain Stated Complaint: Abd Pain Time Seen by Provider: 11/15/20 23:16 Source: patient, RN notes reviewed, old records reviewed Mode of arrival: ambulatory Limitations: no limitations - History of Present Illness Initial Comments: This is a 42-year-old female DF for evaluation. Patient presents today for evaluation of abdominal pain epigastric abdominal pain. Nausea no vomiting. Severe pain today. Patient has significant severe pain related to her gallbladder. History of gallbladder disease. No fevers no travel history no sick contacts MD Complaint: abdominal pain, other (Recheck gallbladder pain) -: days(s) Location: RUQ, epigastric Radiation: RUQ, epigastric Migration to: epigastric Severity: moderate Severity scale (1-10): 7 Quality: aching, sharp Consistency: intermittent Improves With: nothing Worsens With: nothing Context: other (none) Associated Symptoms: nausea Treatments Prior to Arrival: other (none) - Related Data Home Medications Medication Instructions Recorded Confirmed Docusate [Colace] 100 - 200 mg PO BID PRN 02/05/17 11/15/20 Montelukast [Singulair] 10 mg PO HS PRN 11/16/18 11/15/20 Gabapentin [Neurontin] 400 mg PO TID PRN 03/07/20 11/15/20 HYDROcodone/APAP 5-325MG [[place] 1 tab PO BID PRN 03/07/20 11/15/20 5-325] Levothyroxine Sodium [Synthroid] 137 mcg PO DAILY 03/07/20 11/15/20 Sennosides [Senna] 8.6 - 17.2 mg PO DAILY PRN 03/07/20 11/15/20 Cyclobenzaprine [Flexeril] 5 mg PO BID PRN 08/04/20 11/15/20 Ergocalciferol (Vitamin D2) 1,250 mcg PO TU 08/04/20 11/15/20 [Drisdol (50,000 Iu)] Albuterol Nebulized [Ventolin 2.5 mg INHALATION RT-QID PRN 11/15/20 11/15/20 Nebulized] Albuterol Sulfate [Proair Hfa] 2 puff INHALATION RT-QID PRN 11/15/20 11/15/20 Fluticasone Nasal [place] [Flonase 2 spr EA NOSTRIL BID PRN 11/15/20 11/15/20 Nasal [place]] Allergies Allergy/AdvReac Type Severity Reaction Status Date / Time cefixime [From Suprax] Allergy Dyspnea Verified 11/15/20 23:57 fexofenadine HCl Allergy Dyspnea Verified 11/15/20 23:57 [From Nina] Iodinated Contrast Media Allergy Itching IN Verified 11/15/20 23:57 [Iodinated Contrast Media - THROAT AND IV Dye] BODY, & ALLERGY SYMPTOMS levofloxacin [From Levaquin] Allergy Unknown Verified 11/15/20 23:57 propoxyphene napsylate Allergy Itching Verified 11/15/20 23:57 [From Darvocet-N 100] shellfish derived [Shellfish] Allergy Anaphylaxis Verified 11/15/20 23:57 egg AdvReac Abdominal Verified 11/15/20 23:57 Pain, NAUSEA - UNLESS COOKED AT HIGH TEMP IN OVEN metoclopramide [From Reglan] AdvReac Nausea & Verified 11/15/20 23:57 Vomiting & Diarrhea Milk Containing Products AdvReac ALLERGY Verified 11/15/20 23:57 NASAL SYMPTOMS, IF MORE THAN 8 OZ AT A TIME SEASONAL,MOLD,DUST,ANIMAL AdvReac RUNNY Uncoded 11/15/20 23:57 DANDER NOSE, ITCHY/WATERY EYES Review of Systems ROS Statement: Those systems with pertinent positive or pertinent negative responses have been documented in the HPI. ROS Other: All systems not noted in ROS Statement are negative. Past Medical History Past Medical History: Asthma, Cancer, GERD/Reflux, Skin Disorder Additional Past Medical History / Comment(s): Thyroid cancer status post thyroidectomy and radioactive iodine treatments. OCC ECZEMA. HX GESTATIONAL DIABETES. KIDNEY STONES. MILD FATTY LIVER. HX INJ TO RT ARM, CHRONIC PAIN. Hiatal hernia. Cauda Equina syndrome Jan 2017. 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 History of Any Multi-Drug Resistant Organisms: None Reported Past Surgical History: Adenoidectomy, Ear Surgery, Tonsillectomy Additional Past Surgical History / Comment(s): BMT. EXC DERMOID CYST RT OVARY 2003. Decompressive laminectomy Jan 2017 for Cauda Equina Syndrome. Colonoscopy 2014(next after 5yr). Thyroidectomy 2018. Vaginal hysterectomy with A& P repairs 2019. Past Anesthesia/Blood Transfusion Reactions: Previous Problems w/ Anesthesia Additional Past Anesthesia/Blood Transfusion Reaction / Comment(s): WOKE UP DURING COLONOSCOPY, T&A SURG. Past Psychological History: No Psychological Hx Reported Smoking Status: Never smoker Past Alcohol Use History: None Reported Past Drug Use History: None Reported - Past Family History Mother Additional Family Medical History / Comment(s): Heart disease. Maternal uncle had Parkinson's disease as well as a grandfather. Grandfather had prostate and skin cancer. Father Family Medical History: Cancer, Diabetes Mellitus Additional Family Medical History / Comment(s): Skin cancer. Grandmother had uterine cancer. General Exam Limitations: no limitations General appearance: alert, in no apparent distress, obese Head exam: Present: atraumatic, normocephalic, normal inspection Eye exam: Present: normal appearance, PERRL, EOMI. Absent: scleral icterus, conjunctival injection, periorbital swelling ENT exam: Present: normal exam, mucous membranes moist Neck exam: Present: normal inspection. Absent: tenderness, meningismus, ly mphadenopathy Respiratory exam: Present: normal lung sounds bilaterally. Absent: respiratory distress, wheezes, rales, rhonchi, stridor Cardiovascular Exam: Present: regular rate, normal rhythm, normal heart sounds. Absent: systolic murmur, diastolic murmur, rubs, gallop, clicks GI/Abdominal exam: Present: soft, normal bowel sounds. Absent: distended, tenderness, guarding, rebound, rigid Extremities exam: Present: normal inspection, full ROM, normal capillary refill. Absent: tenderness, pedal edema, joint swelling, calf tenderness Back exam: Present: normal inspection Neurological exam: Present: alert, oriented X3, CN II-XII intact Psychiatric exam: Present: normal affect, normal mood Skin exam: Present: warm, dry, intact, normal color. Absent: rash Course Vital Signs 11/15/20 11/15/20 11/16/20 22:51 23:35 00:53 Temperature 98.1 F Pulse Rate 89 80 72 Respiratory 16 20 20 Rate Blood Pressure 124/62 129/62 107/60 O2 Sat by Pulse 97 97 Oximetry - Reevaluation(s) Reevaluation #1: 11/15/20 23:35 Medical record is reviewed Reevaluation #2: 11/15/20 23:35 Patient has pain improved Reevaluation #3: 11/16/20 00:58 She continues to feel unwell here in the ER Reevaluation #4: 11/16/20 00:58 Patient informed results questions answered - Consultations Consultation #1: Jayce with Dr. Gary who is okay to admit this patient Medical Decision Making - Medical Decision Making Review female DF for evaluation. Patient be admitted for urinary tract evaluation abdominal pain pancreatitis UTI and chronic: Cystitis. Patient be admitted for IV antibiotics and pain control - Lab Data Result diagrams: 11/15/20 23:31 11/15/20 23:31 Lab Results 11/15/20 11/15/20 11/15/20 Range/Units 23:31 23:31 23:31 WBC 6.8 (3.8-10.6) k/uL RBC 4.95 (3.80-5.40) m/uL Hgb 14.2 (11.4-16.0) gm/dL Hct 40.6 (34.0-46.0) % MCV 81.9 (80.0-100.0) fL MCH 28.6 (25.0-35.0) pg MCHC 34.9 (31.0-37.0) g/dL RDW 13.5 (11.5-15.5) % Plt Count 223 (150-450) k/uL MPV 8.0 Neutrophils % 62 % Lymphocytes % 28 % Monocytes % 7 % Eosinophils % 1 % Basophils % 1 % Neutrophils # 4.2 (1.3-7.7) k/uL Lymphocytes # 1.9 (1.0-4.8) k/uL Monocytes # 0.5 (0-1.0) k/uL Eosinophils # 0.1 (0-0.7) k/uL Basophils # 0.1 (0-0.2) k/uL Sodium 139 (137-145) mmol/L Potassium 4.0 (3.5-5.1) mmol/L Chloride 104 (98-107) mmol/L Carbon Dioxide 26 (22-30) mmol/L Anion Gap 9 mmol/L BUN 9 (7-17) mg/dL Creatinine 0.60 (0.52-1.04) mg/dL Est GFR (CKD-EPI)AfAm >90 (>60 ml/min/1.73 sqM) Est GFR (CKD-EPI)NonAf >90 (>60 ml/min/1.73 sqM) Glucose 106 H (74-99) mg/dL Plasma Lactic Acid Eric (0.7-2.0) mmol/L Calcium 9.3 (8.4-10.2) mg/dL Total Bilirubin 0.5 (0.2-1.3) mg/dL AST 27 (14-36) U/L ALT 29 (4-34) U/L Alkaline Phosphatase 82 (38-126) U/L Total Protein 7.0 (6.3-8.2) g/dL Albumin 4.5 (3.5-5.0) g/dL Amylase 73 (30-110) U/L Lipase 356 H (23-300) U/L Urine Color Yellow Urine Appearance Cloudy H (Clear) Urine pH 5.5 (5.0-8.0) Ur Specific [place] 1.024 (1.001-1.035) Urine Protein Negative (Negative) Urine Glucose (UA) Negative (Negative) Urine Ketones Negative (Negative) Urine Blood Trace H (Negative) Urine Nitrite Negative (Negative) Urine Bilirubin Negative (Negative) Urine Urobilinogen 2.0 (<2.0) mg/dL Ur Leukocyte Esterase Large H (Negative) Urine RBC 3 (0-5) /hpf Urine WBC 78 H (0-5) /hpf Urine WBC Clumps Occasional H (None) /hpf Ur Squamous Epith Cells 5 H (0-4) /hpf Urine Bacteria Rare H (None) /hpf Urine Mucus Rare H (None) /hpf 11/15/20 Range/Units 23:31 WBC (3.8-10.6) k/uL RBC (3.80-5.40) m/uL Hgb (11.4-16.0) gm/dL Hct (34.0-46.0) % MCV (80.0-100.0) fL MCH (25.0-35.0) pg MCHC (31.0-37.0) g/dL RDW (11.5-15.5) % Plt Count (150-450) k/uL MPV Neutrophils % % Lymphocytes % % Monocytes % % Eosinophils % % Basophils % % Neutrophils # (1.3-7.7) k/uL Lymphocytes # (1.0-4.8) k/uL Monocytes # (0-1.0) k/uL Eosinophils # (0-0.7) k/uL Basophils # (0-0.2) k/uL Sodium (137-145) mmol/L Potassium (3.5-5.1) mmol/L Chloride (98-107) mmol/L Carbon Dioxide (22-30) mmol/L Anion Gap mmol/L BUN (7-17) mg/dL Creatinine (0.52-1.04) mg/dL Est GFR (CKD-EPI)AfAm (>60 ml/min/1.73 sqM) Est GFR (CKD-EPI)NonAf (>60 ml/min/1.73 sqM) Glucose (74-99) mg/dL Plasma Lactic Acid Eric 1.2 (0.7-2.0) mmol/L Calcium (8.4-10.2) mg/dL Total Bilirubin (0.2-1.3) mg/dL AST (14-36) U/L ALT (4-34) U/L Alkaline Phosphatase (38-126) U/L Total Protein (6.3-8.2) g/dL Albumin (3.5-5.0) g/dL Amylase (30-110) U/L Lipase (23-300) U/L Urine Color Urine Appearance (Clear) Urine pH (5.0-8.0) Ur Specific [place] (1.001-1.035) Urine Protein (Negative) Urine Glucose (UA) (Negative) Urine Ketones (Negative) Urine Blood (Negative) Urine Nitrite (Negative) Urine Bilirubin (Negative) Urine Urobilinogen (<2.0) mg/dL Ur Leukocyte Esterase (Negative) Urine RBC (0-5) /hpf Urine WBC (0-5) /hpf Urine WBC Clumps (None) /hpf Ur Squamous Epith Cells (0-4) /hpf Urine Bacteria (None) /hpf Urine Mucus (None) /hpf - Radiology Data Radiology results: report reviewed (Ultrasound gallbladder is negative for acute disease), image reviewed Disposition Clinical Impression: Abdominal pain, UTI (urinary tract infection), Pancreatitis Disposition: ADMITTED IP TO THIS [facility] Condition: Good Is patient prescribed a controlled substance at d/c from ED?: No Referrals: Clem Forrest MD [Primary Care Provider] - 1-2 days
[2020-11-15] MEDS ORDERED: KETOROLAC 15 MG/ML 1 ML VIAL IVP STA (23:28)
[2020-11-15] MEDS ORDERED: SODIUM CHLORIDE 0.9% 1,000 ML IV STA (23:28)
[2020-11-15] MEDS ORDERED: MORPHINE SULFATE 4 MG/ML SYRINGE IV STA (23:28)
[2020-11-16 00:01] LABS: Basophils # (A) 0.1 k/uL (0-0.2); Basophils % (A) 1 %; Eosinophils # (A) 0.1 k/uL (0-0.7); Eosinophils % (A) 1 %; HCT 40.6 % (34.0-46.0); HGB 14.2 gm/dL (11.4-16.0); Lymphocytes # (A) 1.9 k/uL (1.0-4.8); Lymphocytes % (A) 28 %; MCH 28.6 pg (25.0-35.0); MCHC 34.9 g/dL (31.0-37.0); MCV 81.9 fL (80.0-100.0); Monocytes # (A) 0.5 k/uL (0-1.0); Monocytes % (A) 7 %; Neutrophils # (A) 4.2 k/uL (1.3-7.7); Neutrophils % (A) 62 %; Platelet Count 223 k/uL (150-450); RBC 4.95 m/uL (3.80-5.40); RDW 13.5 % (11.5-15.5); WBC 6.8 k/uL (3.8-10.6)
[2020-11-16 00:03] LABS: ALT 29 U/L (4-34); AST 27 U/L (14-36); African American GFR (CKD) >90 (>60 ml/min/1.73 sqM); Albumin 4.5 g/dL (3.5-5.0); Alkaline Phosphatase 82 U/L (38-126); Amylase 73 U/L (30-110); Anion Gap 9 mmol/L; Blood Urea Nitrogen 9 mg/dL (7-17); Calcium 9.3 mg/dL (8.4-10.2); Carbon Dioxide 26 mmol/L (22-30); Chloride 104 mmol/L (98-107); Glucose 106 mg/dL (74-99); Lipase 356 U/L (23-300); Non-African American GFR(CKD) >90 (>60 ml/min/1.73 sqM); Sodium 139 mmol/L (137-145); Total Bilirubin 0.5 mg/dL (0.2-1.3)
[2020-11-16 00:15] LABS: Appearance,Urine Cloudy (Clear); Bacteria,Urine Rare /hpf; Bilirubin,Urine Negative (Negative); Blood,Urine Trace (Negative); Color,Urine Yellow; Glucose,Urine (UA) Negative (Negative); Ketones,Urine Negative (Negative); Leukocyte Esterase,Urine Large (Negative); Mucus,Urine Rare /hpf; Nitrite,Urine Negative (Negative); PH, Urine 5.5 (5.0-8.0); Protein,Urine Negative (Negative); RBC,Urine 3 /hpf (0-5); Specific Gravity,Urine 1.024 (1.001-1.035); Squamous Epithelial Cell,Urine 5 /hpf (0-4); WBC,Urine 78 /hpf (0-5)
--- NOTE | 2020-11-16 00:38 | US ---
EXAMINATION TYPE: US gallbladder DATE OF EXAM: 11/16/2020 COMPARISON: CT, US CLINICAL HISTORY: pain. Pain. Patient is scheduled for cholecystectomy on 12/10/20. Hx fatty liver, ki dney stone. EXAM MEASUREMENTS: Liver Length: 18.5 cm Gallbladder Wall: 0.20 cm CBD: 0.51 cm Right Kidney: 10.6 x 4.8 x 4.8 cm Limited due to overlying bowel gas. Pancreas: Limited due to gas. Liver: Appears enlarged, coarse, and to have an increased echogenicity. Gallbladder: Two hyperechoic foci seen within the gallbladder. #1: 0.8 x 0.6 x 1.0 cm. #2: 0.5 x 0.9 x 0.4 cm. Internal echoes seen. Evidence for sonographic Galdamez's sign: yes. CBD: Portions seen appear to be wnl. Right Kidney: Hyperechoic focus within the upper pole: 0.4 x 0.5 x 0.5 cm. IMPRESSION: There is evidence of fatty infiltration of the liver. Multiple gallstones. No dilated ducts. Possible calculus upper pole right kidney.
[2020-11-16] MEDS ORDERED: AMPICILLIN-SULBACTAM 3 GM in SODIUM CHLORIDE 0.9% 100 ML IVPB STA (00:55)
[2020-11-16] MEDS ORDERED: NALOXONE 0.4 MG/ML 1 ML VIAL IV PRN (00:55)
[2020-11-16] MEDS ORDERED: AMPICILLIN-SULBACTAM 3 GM in SODIUM CHLORIDE 0.9% 100 ML IVPB ONE (01:02)
[2020-11-16] MEDS: ONDANSETRON 4 MG/2 ML VIAL IVP PRN ×3 (01:10→15:32)
[2020-11-16] MEDS: DEXTROSE 5%-0.45% NACL 1,000 ML IV SCH ×2 (03:29→17:06)
[2020-11-16] MEDS: LEVOTHYROXINE 137 MCG TAB PO SCH (05:46)
[2020-11-16] MEDS: MORPHINE SULFATE 4 MG/ML SYRINGE IV PRN ×3 (05:51→20:42)
[2020-11-16] MEDS ORDERED: ACETAMINOPHEN TAB 500 MG TAB PO PRN (06:28)
[2020-11-16] MEDS ORDERED: GABAPENTIN 300 MG CAP PO PRN (06:28)
[2020-11-16] MEDS ORDERED: SCOPOLAMINE 1.5MG/72HR PATCH TRANSDERM PRN (06:28)
[2020-11-16] MEDS ORDERED: MELOXICAM 7.5 MG TAB PO PRN (06:28)
[2020-11-16] MEDS ORDERED: DEXAMETHASONE SOD PHOSPHATE 10 MG/ML 1 ML VIAL IV PRN (06:31)
[2020-11-16] MEDS ORDERED: diphenhydrAMINE 50 MG/ML 1 ML VIAL IVP PRN (06:31)
[2020-11-16] MEDS ORDERED: INDOCYANINE GREEN 25 MG VIAL IV PRN (06:32)
[2020-11-16] MEDS ORDERED: CLINDAMYCIN 900 MG in DEXTROSE 5% IN WATER 50 ML IVPB PRN ×2 (07:00)
[2020-11-16] MEDS: AMPICILLIN-SULBACTAM 3 GM in SODIUM CHLORIDE 0.9% 100 ML IVPB SCH ×2 (09:38→16:59)
[2020-11-16] MEDS: DEXAMETHASONE SOD PHOSPHATE 4 MG/ML 1 ML VIAL IV SCH ×3 (09:39→18:55)
[2020-11-16] MEDS: PANTOPRAZOLE 40 MG/10 ML VIAL IV SCH (09:39)
--- NOTE | 2020-11-16 11:10 | P.GSCN ---
<Megan Leos - Last Filed: 11/16/20 11:01> History of Present Illness Consult date: 11/16/20 History of present illness: CHIEF COMPLAINT: Abdominal pain HISTORY OF PRESENT ILLNESS: This is a 50-year-old female with a known past medical history of gallbladder disease and significant family history of gallbladder disease. Patient also has a history of thyroid cancer status post thyroidectomy and radioactive iodine treatments, hiatal hernia and cauda equina syndrome requiring back surgery. This further surgical history includes hysterectomy and removal of dermoid cyst from right ovary. Patient presents to the emergency room with complaints of right upper quadrant abdominal pain with pain that crosses her upper abdomen. She reports that symptoms started on Thursday. She has been nauseated. Her pain is worse after eating. She's also been having some chills. Denies any fever. She states that she has been dealing with gallbladder issues since 1997. However other medical issues have kept her from having any surgical intervention such as her thyroid cancer and treatment. Patient had an abdominal ultrasound completed showing fatty infiltrate of the liver. Multiple gallstones. No dilated ducts. Possible calculus upper pole of right kidney. Surgical services been consulted in regards to gallstones. PAST MEDICAL HISTORY: See list. PAST SURGICAL HISTORY: See list. MEDICATIONS: See list. ALLERGIES: See list. SOCIAL HISTORY: No illicit drug use. REVIEW OF SYSTEMS: CONSTITUTIONAL: Denies fever or chills. HEENT: Denies blurred vision, vision changes, or eye pain. Denies hemoptysis ENDOCRINE: Denies heat or cold intolerance. CARDIOVASCULAR: Denies chest pain or pressure. RESPIRATORY: No shortness of breath. GASTROINTESTINAL: Please refer to HPI otherwise unremarkable NEURO: Denies history of seizures. PSYCH: No depression or suicidal ideation HEMATOLOGIC: Denies bleeding disorders. LYMPHATIC: The patient denies any lumps and bumps around the neck. GENITOURINARY: Denies any blood in urine or increased urinary frequency. MUSCULOSKELETAL: Denies myalgias. Denies joint swelling. Denies decreased range of motion beyond patients baseline. SKIN: Denies pruitis. Denies rash. PHYSICAL EXAM: VITAL SIGNS: Reviewed GENERAL: Well-developed in no acute distress. HEENT: No sclera icterus. Extraocular movements grossly intact. Moist buccal mucosa. Head is atraumatic, normocephalic. Hears conversational speech. No nasal drainage. NECK: Supple without lymphadenopathy. CHEST: Non-labored respirations and equal bilateral excursions. CARDIOVASCULAR: Palpable 2+ radial pulses. ABDOMEN: Soft. Nondistended. Right upper quadrant tenderness to palpation MUSCULOSKELETAL: No clubbing or cyanosis. NEUROLOGIC: No focal or lateralizing signs. Cranial nerves II through XII grossly intact. PSYCH: Appropriate affect. Alert and oriented to person, place and time. SKIN: Well perfused. Good skin turgor. LABORATORY DATA: WBC 6.8 hemoglobin 14.2 platelets 223 sodium 139 potassium 4.0 creatinine 0.60 lactic 1.2 LFTs normal Lipase 356 IMAGING: Abdominal ultrasound completed showing fatty infiltrate of the liver. Multiple gallstones. No dilated ducts. Possible calculus upper pole of right kidney. ASSESSMENT: 1. Acute cholecystitis 2. Abdominal pain 3. History of thyroid cancer status post thyroidectomy and radioactive iodine treatment 4. History of kidney stones 5. Fatty liver PLAN: -Patient is scheduled for Robotic cholecystectomy today with Dr. Lobo -Keep patient nothing by mouth -Continue IV antibiotics -Continue pain medication as needed Thank you for this consultation Physician Licensed Psychologist Manager note has been reviewed by physician. Signing provider agrees with the documented findings, assessment, and plan of care. Past Medical History Past Medical History: Asthma, Cancer, GERD/Reflux, Skin Disorder Additional Past Medical History / Comment(s): Thyroid cancer status post thyroidectomy and radioactive iodine treatments. OCC ECZEMA. HX GESTATIONAL DIABETES. KIDNEY STONES. MILD FATTY LIVER. HX INJURY TO RT ARM, CHRONIC PAIN. Hiatal hernia. Cauda Equina syndrome Jan 2017. 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 History of Any Multi-Drug Resistant Organisms: None Reported Past Surgical History: Adenoidectomy, Ear Surgery, Tonsillectomy Additional Past Surgical History / Comment(s): BMT. EXC DERMOID CYST RT OVARY 2003. Decompressive laminectomy Jan 2017 for Cauda Equina Syndrome. Colonoscopy 2014(next after 5yr). Thyroidectomy 2018. Vaginal hysterectomy with A&P repairs 2019. COVID positive July 25. Past Anesthesia/Blood Transfusion Reactions: Previous Problems w/ Anesthesia Additional Past Anesthesia/Blood Transfusion Reaction / Comm: WOKE UP DURING COLONOSCOPY, T&A SURG. Past Psychological History: No Psychological Hx Reported Smoking Status: Never smoker Past Alcohol Use History: None Reported Past Drug Use History: None Reported - Past Family History Mother Additional Family Medical History / Comment(s): Heart disease. Maternal uncle had Parkinson's disease as well as a grandfather. Grandfather had prostate and skin cancer. Father Family Medical History: Cancer, Diabetes Mellitus Additional Family Medical History / Comment(s): Skin cancer. Grandmother had uterine cancer. Medications and Allergies Home Medications Medication Instructions Recorded Confirmed Type Docusate [Colace] 100 - 200 mg PO BID PRN 02/05/17 11/15/20 History Montelukast [Singulair] 10 mg PO HS PRN 11/16/18 11/15/20 History Gabapentin [Neurontin] 400 mg PO TID PRN 03/07/20 11/15/20 History HYDROcodone/APAP 5-325MG [[place] 1 tab PO BID PRN 03/07/20 11/15/20 History 5-325] Levothyroxine Sodium [Synthroid] 137 mcg PO DAILY 03/07/20 11/15/20 History Sennosides [Senna] 8.6 - 17.2 mg PO DAILY PRN 03/07/20 11/15/20 History Cyclobenzaprine [Flexeril] 5 mg PO BID PRN 08/04/20 11/15/20 History Ergocalciferol (Vitamin D2) 1,250 mcg PO TU 08/04/20 11/15/20 History [Drisdol (50,000 Iu)] Albuterol Nebulized [Ventolin 2.5 mg INHALATION RT-QID PRN 11/15/20 11/15/20 History Nebulized] Albuterol Sulfate [Proair Hfa] 2 puff INHALATION RT-QID PRN 11/15/20 11/15/20 History Fluticasone Nasal [place] [Flonase 2 spr EA NOSTRIL BID PRN 11/15/20 11/15/20 History Nasal [place]] Ibuprofen [Motrin] 600 mg PO Q8HR PRN #30 tab 11/16/20 Rx Allergies Allergy/AdvReac Type Severity Reaction Status Date / Time cefixime [From Suprax] Allergy Dyspnea Verified 11/16/20 12:47 fexofenadine HCl Allergy Dyspnea Verified 11/16/20 12:47 [From Nina] Iodinated Contrast Media Allergy Itching IN Verified 11/16/20 12:47 [Iodinated Contrast Media - THROAT AND IV Dye] BODY, & ALLERGY SYMPTOMS levofloxacin [From Levaquin] Allergy Unknown Verified 11/16/20 12:47 propoxyphene napsylate Allergy Itching Verified 11/16/20 12:47 [From Darvocet-N 100] shellfish derived [Shellfish] Allergy Anaphylaxis Verified 11/16/20 12:47 egg AdvReac Abdominal Verified 11/16/20 12:47 Pain, NAUSEA - UNLESS COOKED AT HIGH TEMP IN OVEN metoclopramide [From Reglan] AdvReac Nausea & Verified 11/16/20 12:47 Vomiting & Diarrhea Milk Containing Products AdvReac ALLERGY Verified 11/16/20 12:47 NASAL SYMPTOMS, IF MORE THAN 8 OZ AT A TIME SEASONAL,MOLD,DUST,ANIMAL AdvReac RUNNY Uncoded 11/15/20 23:57 DANDER NOSE, ITCHY/WATERY EYES Surgical - Exam Vital Signs Temp Pulse Resp BP Pulse Ox 98.1 F 89 16 124/62 97 11/15/20 22:51 11/15/20 22:51 11/15/20 22:51 11/15/20 22:51 11/15/20 22:51 Results - Labs 11/15/20 23:31 11/15/20 23:31 Abnormal Lab Results - Last 24 Hours (Table) 11/15/20 11/15/20 Range/Units 23:31 23:31 Glucose 106 H (74-99) mg/dL Lipase 356 H (23-300) U/L Urine Appearance Cloudy H (Clear) Urine Blood Trace H (Negative) Ur Leukocyte Esterase Large H (Negative) Urine WBC 78 H (0-5) /hpf Urine WBC Clumps Occasional H (None) /hpf Ur Squamous Epith Cells 5 H (0-4) /hpf Urine Bacteria Rare H (None) /hpf Urine Mucus Rare H (None) /hpf Diabetes panel 11/15/20 Range/Units 23:31 Sodium 139 (137-145) mmol/L Potassium 4.0 (3.5-5.1) mmol/L Chloride 104 (98-107) mmol/L Carbon Dioxide 26 (22-30) mmol/L BUN 9 (7-17) mg/dL Creatinine 0.60 (0.52-1.04) mg/dL Glucose 106 H (74-99) mg/dL Calcium 9.3 (8.4-10.2) mg/dL AST 27 (14-36) U/L ALT 29 (4-34) U/L Alkaline Phosphatase 82 (38-126) U/L Total Protein 7.0 (6.3-8.2) g/dL Albumin 4.5 (3.5-5.0) g/dL Calcium panel 11/15/20 Range/Units 23:31 Calcium 9.3 (8.4-10.2) mg/dL Albumin 4.5 (3.5-5.0) g/dL Pituitary panel 11/15/20 Range/Units 23:31 Sodium 139 (137-145) mmol/L Potassium 4.0 (3.5-5.1) mmol/L Chloride 104 (98-107) mmol/L Carbon Dioxide 26 (22-30) mmol/L BUN 9 (7-17) mg/dL Creatinine 0.60 (0.52-1.04) mg/dL Glucose 106 H (74-99) mg/dL Calcium 9.3 (8.4-10.2) mg/dL Adrenal panel 11/15/20 Range/Units 23:31 Sodium 139 (137-145) mmol/L Potassium 4.0 (3.5-5.1) mmol/L Chloride 104 (98-107) mmol/L Carbon Dioxide 26 (22-30) mmol/L BUN 9 (7-17) mg/dL Creatinine 0.60 (0.52-1.04) mg/dL Glucose 106 H (74-99) mg/dL Calcium 9.3 (8.4-10.2) mg/dL Total Bilirubin 0.5 (0.2-1.3) mg/dL AST 27 (14-36) U/L ALT 29 (4-34) U/L Alkaline Phosphatase 82 (38-126) U/L Total Protein 7.0 (6.3-8.2) g/dL Albumin 4.5 (3.5-5.0) g/dL <Daina Lobo - Last Filed: 11/16/20 22:07> History of Present Illness History of present illness: CHIEF COMPLAINT: Cholecystitis HISTORY OF PRESENT ILLNESS: The patient is a 50-year-old female who was previously seen in the office less than 2 weeks ago for right upper quadrant abdominal pain. She was given low fat diet to control her symptoms as she was about to travel out of town when she had a gallbladder attack. She presented to the emergency room with moderate to severe pain including urinary tract infection. She had elevated lipase levels. General surgery is consulted for gallstone pancreatitis. PAST MEDICAL HISTORY: Please see list PAST SURGICAL HISTORY: Please see list MEDICATIONS: Please see list ALLERGIES: Please see list SOCIAL HISTORY: Please see list FAMILY HISTORY: Please see list REVIEW OF ORGAN SYSTEMS: CONSTITUTIONAL: No reports of fevers or chills. HEENT: Denies any troubles with the vision or hearing. ENDOCRINE: Has hypothyroidism. No diabetes. RESPIRATORY: No recent pneumonias. Has asthma. CARDIOVASCULAR: Denies chest pain or palpitations GI: No blood in stools. Has constipation. MUSCULOSKELETAL: Has occasional joint pain including back pain. NEURO: No seizure disorders or headaches. No recent stroke. PSYCH: No depression or suicidal ideation. GENITOURINARY: No active blood in urine. No urinary hesitancy. Has urinary tract infection. HEMATOLOGIC: No personal or family history of DVTs or pulmonary emboli. SKIN: No skin cancer. PHYSICAL EXAM: VITAL SIGNS: Afebrile vital signs stable GENERAL: Well-developed pleasant in no acute distress. HEENT: No scleral icterus. Extraocular movements grossly intact. Moist buccal mucosa. NECK: Supple without lymphadenopathy. CHEST: Unlabored respirations. Equal bilateral excursions. CARDIOVASCULAR: Regular rate regular rhythm rhythm. Distal 2+ pulses. ABDOMEN: Soft, nondistended. Tender along the epigastrium and right upper q uadrant. MUSCULOSKELETAL: No clubbing, cyanosis, or edema. NEURO: Cranial nerves II to XII within normal limits. No focal or lateralizing signs. PSYCH: Alert and oriented to person, place and time. SKIN: Well-perfused good skin turgor. LABS: Lipase elevated over 300. Urine analysis with leukocyte esterase. Nitrite negative. STUDIES: Ultrasound of the gallbladder independently reviewed with gallstones along the neck of the gallbladder. This is my independent interpretation. RADIOLOGY: Ultrasound report confirms gallstones and fatty liver disease. ASSESSMENT: 1. Gallstone pancreatitis 2. Urinary tract infection. PLAN: 1. Will need a robotic cholecystectomy possible open. Benefits and risks were described. 2. Heparin for DVT prophylaxis 5000 units. 3. Antibiotic prophylaxis. Surgical - Exam Vital Signs Temp Pulse Resp BP Pulse Ox 98.1 F 89 16 124/62 97 11/15/20 22:51 11/15/20 22:51 11/15/20 22:51 11/15/20 22:51 11/15/20 22:51 Results - Labs 11/15/20 23:31 11/15/20 23:31 Abnormal Lab Results - Last 24 Hours (Table) 11/15/20 11/15/20 11/16/20 Range/Units 23:31 23:31 13:04 Glucose 106 H (74-99) mg/dL POC Glucose (mg/dL) 125 H (75-99) mg/dL Lipase 356 H (23-300) U/L Urine Appearance Cloudy H (Clear) Urine Blood Trace H (Negative) Ur Leukocyte Esterase Large H (Negative) Urine WBC 78 H (0-5) /hpf Urine WBC Clumps Occasional H (None) /hpf Ur Squamous Epith Cells 5 H (0-4) /hpf Urine Bacteria Rare H (None) /hpf Urine Mucus Rare H (None) /hpf Microbiology - Last 24 Hours (Table) 11/15/20 23:31 Urine Culture - Preliminary Urine,Voided Diabetes panel 11/15/20 Range/Units 23:31 Sodium 139 (137-145) mmol/L Potassium 4.0 (3.5-5.1) mmol/L Chloride 104 (98-107) mmol/L Carbon Dioxide 26 (22-30) mmol/L BUN 9 (7-17) mg/dL Creatinine 0.60 (0.52-1.04) mg/dL Glucose 106 H (74-99) mg/dL Calcium 9.3 (8.4-10.2) mg/dL AST 27 (14-36) U/L ALT 29 (4-34) U/L Alkaline Phosphatase 82 (38-126) U/L Total Protein 7.0 (6.3-8.2) g/dL Albumin 4.5 (3.5-5.0) g/dL Calcium panel 11/15/20 Range/Units 23:31 Calcium 9.3 (8.4-10.2) mg/dL Albumin 4.5 (3.5-5.0) g/dL Pituitary panel 11/15/20 Range/Units 23:31 Sodium 139 (137-145) mmol/L Potassium 4.0 (3.5-5.1) mmol/L Chloride 104 (98-107) mmol/L Carbon Dioxide 26 (22-30) mmol/L BUN 9 (7-17) mg/dL Creatinine 0.60 (0.52-1.04) mg/dL Glucose 106 H (74-99) mg/dL Calcium 9.3 (8.4-10.2) mg/dL Adrenal panel 11/15/20 Range/Units 23:31 Sodium 139 (137-145) mmol/L Potassium 4.0 (3.5-5.1) mmol/L Chloride 104 (98-107) mmol/L Carbon Dioxide 26 (22-30) mmol/L BUN 9 (7-17) mg/dL Creatinine 0.60 (0.52-1.04) mg/dL Glucose 106 H (74-99) mg/dL Calcium 9.3 (8.4-10.2) mg/dL Total Bilirubin 0.5 (0.2-1.3) mg/dL AST 27 (14-36) U/L ALT 29 (4-34) U/L Alkaline Phosphatase 82 (38-126) U/L Total Protein 7.0 (6.3-8.2) g/dL Albumin 4.5 (3.5-5.0) g/dL Assessment and Plan (1) Gallstone pancreatitis Current Visit: Yes Status: Acute Code(s): K85.10 - BILIARY ACUTE PANCREATITIS WITHOUT NECROSIS OR INFECTION SNOMED Code(s): 34225848 (2) Obesity (BMI 30.0-34.9) Current Visit: Yes Status: Acute Code(s): E66.9 - OBESITY, UNSPECIFIED SNOMED Code(s): 959240781847408 (3) BMI 32.0-32.9,adult Current Visit: Yes Status: Acute Code(s): Z68.32 - BODY MASS INDEX [BMI] 32.0-32.9, ADULT SNOMED Code(s): 104517221 (4) UTI (urinary tract infection) Current Visit: Yes Status: Acute Code(s): N39.0 - URINARY TRACT INFECTION, SITE NOT SPECIFIED SNOMED Code(s): 16148083
--- NOTE | 2020-11-16 12:13 | P.HPADDEND ---
H&P Addendum H&P Addendum Date: 11/16/20 Patient seen and evaluated. Benefits and risks of cholecystectomy for gallstones pancreatitis described.
[2020-11-16] MEDS ORDERED: LACTATED RINGERS 1,000 ML IV ONE ×2 (13:05→14:29)
[2020-11-16 13:14] LABS: Glucose,Whole Blood 125 mg/dL (75-99)
[2020-11-16] MEDS ORDERED: HEPARIN SODIUM,PORCINE 5,000 UNIT/ML 1 ML VIAL SQ ONE (13:43)
[2020-11-16] MEDS ORDERED: LIDOCAINE 1%-EPI 1:100,000 20 ML VIAL SQ ONE (13:50)
[2020-11-16] MEDS ORDERED: SUCCINYLCHOLINE CHLORIDE 100 MG/5 ML SYR IV ONE (14:00)
[2020-11-16] MEDS ORDERED: LIDOCAINE 1% INJ 10MG/ML (20 ML MDV) ONE (14:00)
[2020-11-16] MEDS ORDERED: PROPOFOL 10 MG/ML 20 ML VIAL IV ONE (14:00)
[2020-11-16] MEDS ORDERED: MIDAZOLAM 2 MG/2 ML VIAL ONE (14:00)
[2020-11-16] MEDS ORDERED: fentaNYL (PF) 50 MCG/ML 2 ML AMP ONE (14:00)
[2020-11-16] MEDS ORDERED: NEOSTIGMINE 1 MG/ML 10 ML VIAL ONE (14:00)
[2020-11-16] MEDS ORDERED: ROCURONIUM 10 MG/ML (5 ML VIAL) IV ONE (14:00)
[2020-11-16] MEDS ORDERED: GLYCOPYRROLATE 0.2 MG/ML 2 ML VIAL ONE (14:00)
[2020-11-16] MEDS ORDERED: ALBUTEROL HFA INHALER INHALATION PRN (14:33)
[2020-11-16] MEDS ORDERED: CYCLOBENZAPRINE 5 MG TAB PO PRN (14:33)
[2020-11-16] MEDS ORDERED: FLUTICASONE 50MCG/SPRAY NASAL 16GM EA NOSTRIL PRN (14:33)
[2020-11-16] MEDS ORDERED: MONTELUKAST 10 MG TAB PO PRN (14:33)
--- NOTE | 2020-11-16 14:37 | P.HPIM ---
History of Present Illness H&P Date: 11/16/20 HISTORY OF PRESENT ILLNESS This is a 50-year-old female patient of Dr. Forrest with past medical history of prediabetes, kidney stones, asthma, irritable bowel syndrome, thyroid cancer diagnosed in 2018, status post hysterectomy, history of CLL and rectocele that was done last fall when Covid in August 2020. Patient came in complaining of abdominal pain in the upper area along with nausea. She denies any fever. Patient states the pain is in her bilateral upper abdominal quadrants and radiates to bilateral shoulders. Patient presented to [facility] emergency center for evaluation and found to be afebrile, WBC was normal. Blood sugar 106. Lipase 356. Liver enzymes were normal. Urinalysis was cloudy with large amount of leukoesterase, WBC clumps occasional, squamous cells 5. Bacteria rare. Urine culture was sent. Patient was admitted, consult with general surgery and has been scheduled for robotic cholecystectomy today. REVIEW OF SYSTEMS Constitutional: No fever, no chills, no night sweats. No weight change. No weakness, fatigue or lethargy. No daytime sleepiness. EENT: No headache. No blurred vision or double vision, no loss of vision. No loss of Hearing, no ringing in the ears, no dizziness. No nasal drainage or congestion. No epistaxis. No sore throat. Lungs: No shortness of breath, cough, no sputum production. No wheezing. Cardiovascular: No chest pain, no lower extremity edema. No palpitations. No paroxysmal nocturnal dyspnea. No orthopnea. No lightheadedness or dizziness. No syncopal episodes. Abdominal: Reports abdominal pain with bilateral shoulder pain. No nausea, vomiting. No diarrhea. No constipation. No bloody or tarry stools.. No loss of appetite. Genitourinary: No dysuria, increased frequency, urgency. No urinary retention. Musculoskeletal: No myalgias. No muscle weakness, no gait dysfunction, no frequent falls. No back pain. No neck pain. Integumentary: No wounds, no lesions. No rash or pruritus. No unusual bruising. No change in hair or nails. Neurologic: No aphasia. No facial droop. No change in mentation. No head injury. No headache. No paralysis. No paresthesia. Psychiatric: No depression. No anxiety. No mood swings. Endocrine: No abnormal blood sugars. No weight change. No excessive sweating or thirst. No cold intolerance. SOCIAL HISTORY Patient is a lifelong nonsmoker, no alcohol use, no marijuana or illicit drug use. She does not have oxygen at home. She does have a nebulizer but has not used it since August. FAMILY HISTORY Mother has history of coronary artery disease CVA and thyroid disorder. Father had history of coronary artery disease and thyroid. Patient does not have any brothers. Patient has 3 sisters and 2 have had emergency gallbladder surgery. One has history of Crohn's disease. Patient has 4 children. 2 daughters. 2 sons head and one has had gallbladder surgery.. PHYSICAL EXAMINATION Gen: This is a 50-year-old female resting in bed and appears to be comfortable and in no acute distress HEENT: Head is atraumatic, normocephalic. Pupils equal, round. Sclerae is anicteric. NECK: Supple. No JVD. No lymphadenopathy. No thyromegaly. LUNGS: Clear to auscultation. No wheezes or rhonchi. No intercostal retractions. HEART: Regular rate and rhythm. No murmur. ABDOMEN: Soft. Bowel sounds are present. No masses. Right upper quadrant tender ness. EXTREMITIES: No pedal edema. No calf tenderness. NEUROLOGICAL: Patient is awake, alert and oriented x3. Cranial nerves 2 through 12 are grossly intact. ASSESSMENT AND PLAN 1. Abdominal pain secondary to acute cholecystitis. Patient has been seen by general surgery and is scheduled for surgery today., Morphine as needed for pain, Zofran as needed for nausea. 2. History of thyroid cancer in 2018. Continue levothyroxine 137 g oral daily 3. Mild intermittent asthma without exacerbation. Continue Singulair 10 mg at bedtime, albuterol inhaler 4 times daily as needed, Flonase twice daily as needed. 4. Irritable bowel syndrome. 5. Chronic pain. Continue gabapentin 400 mg 3 times daily, [place] 5 one twice daily as needed.. 6. GI prophylaxis. Protonix 40 mg daily. 7. DVT prophylaxis. Early ambulation, SEBASTIEN hose and SCDs. Patient will be admitted to the hospital for a minimum of 2 night stay. DISCHARGE PLAN home. Impression and plan of care have been directed as dictated by the signing physician. Oma Johnson nurse practitioner acting as scribe for signing physic nasir. Past Medical History Past Medical History: Asthma, Cancer, GERD/Reflux, Skin Disorder Additional Past Medical History / Comment(s): Thyroid cancer status post thyroidectomy and radioactive iodine treatments. OCC ECZEMA. HX GESTATIONAL DIABETES. KIDNEY STONES. MILD FATTY LIVER. HX INJURY TO RT ARM, CHRONIC PAIN. Hiatal hernia. Cauda Equina syndrome Jan 2017. 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 History of Any Multi-Drug Resistant Organisms: None Reported Past Surgical History: Adenoidectomy, Ear Surgery, Tonsillectomy Additional Past Surgical History / Comment(s): BMT. EXC DERMOID CYST RT OVARY 2003. Decompressive laminectomy Jan 2017 for Cauda Equina Syndrome. Colonoscopy 2014(next after 5yr). Thyroidectomy 2018. Vaginal hysterectomy with A&P repairs 2019. COVID positive July 25. Past Anesthesia/Blood Transfusion Reactions: Previous Problems w/ Anesthesia Additional Past Anesthesia/Blood Transfusion Reaction / Comment(s): WOKE UP DURING COLONOSCOPY, T&A SURG. Past Psychological History: No Psychological Hx Reported Smoking Status: Never smoker Past Alcohol Use History: None Reported Past Drug Use History: None Reported - Past Family History Mother Additional Family Medical History / Comment(s): Heart disease. Maternal uncle had Parkinson's disease as well as a grandfather. Grandfather had prostate and skin cancer. Father Family Medical History: Cancer, Diabetes Mellitus Additional Family Medical History / Comment(s): Skin cancer. Grandmother had uterine cancer. Medications and Allergies Home Medications Medication Instructions Recorded Confirmed Type Docusate [Colace] 100 - 200 mg PO BID PRN 02/05/17 11/15/20 History Montelukast [Singulair] 10 mg PO HS PRN 11/16/18 11/15/20 History Gabapentin [Neurontin] 400 mg PO TID PRN 03/07/20 11/15/20 History HYDROcodone/APAP 5-325MG [[place] 1 tab PO BID PRN 03/07/20 11/15/20 History 5-325] Levothyroxine Sodium [Synthroid] 137 mcg PO DAILY 03/07/20 11/15/20 History Sennosides [Senna] 8.6 - 17.2 mg PO DAILY PRN 03/07/20 11/15/20 History Cyclobenzaprine [Flexeril] 5 mg PO BID PRN 08/04/20 11/15/20 History Ergocalciferol (Vitamin D2) 1,250 mcg PO TU 08/04/20 11/15/20 History [Drisdol (50,000 Iu)] Albuterol Nebulized [Ventolin 2.5 mg INHALATION RT-QID PRN 11/15/20 11/15/20 History Nebulized] Albuterol Sulfate [Proair Hfa] 2 puff INHALATION RT-QID PRN 11/15/20 11/15/20 History Fluticasone Nasal [place] [Flonase 2 spr EA NOSTRIL BID PRN 11/15/20 11/15/20 History Nasal [place]] Allergies Allergy/AdvReac Type Severity Reaction Status Date / Time cefixime [From Suprax] Allergy Dyspnea Verified 11/16/20 12:47 fexofenadine HCl Allergy Dyspnea Verified 11/16/20 12:47 [From Nina] Iodinated Contrast Media Allergy Itching IN Verified 11/16/20 12:47 [Iodinated Contrast Media - THROAT AND IV Dye] BODY, & ALLERGY SYMPTOMS levofloxacin [From Levaquin] Allergy Unknown Verified 11/16/20 12:47 propoxyphene napsylate Allergy Itching Verified 11/16/20 12:47 [From Darvocet-N 100] shellfish derived [Shellfish] Allergy Anaphylaxis Verified 11/16/20 12:47 egg AdvReac Abdominal Verified 11/16/20 12:47 Pain, NAUSEA - UNLESS COOKED AT HIGH TEMP IN OVEN metoclopramide [From Reglan] AdvReac Nausea & Verified 11/16/20 12:47 Vomiting & Diarrhea Milk Containing Products AdvReac ALLERGY Verified 11/16/20 12:47 NASAL SYMPTOMS, IF MORE THAN 8 OZ AT A TIME SEASONAL,MOLD,DUST,ANIMAL AdvReac RUNNY Uncoded 11/15/20 23:57 DANDER NOSE, ITCHY/WATERY EYES Physical Exam Vitals: Vital Signs Temp Pulse Pulse Resp BP BP Pulse Ox 11/16/20 08:10 97.8 F 64 16 104/67 97 11/16/20 06:04 97.9 F 88 16 107/63 95 11/16/20 02:57 16 11/16/20 02:31 98.1 F 82 16 104/62 97 11/16/20 00:53 72 20 107/60 97 07/08/21 23:35 80 20 129/62 11/15/20 22:51 98.1 F 89 16 124/62 97 Intake and Output 11/15/20 11/16/20 11/16/20 22:59 06:59 14:59 Other: Voiding Method Toilet Diaper # Voids 1 Weight 91.626 kg 92.3 kg Results CBC & Chem 7: 11/15/20 23:31 11/15/20 23:31 Labs: Abnormal Lab Results - Last 24 Hours (Table) 11/15/20 11/15/20 Range/Units 23:31 23:31 Glucose 106 H (74-99) mg/dL Lipase 356 H (23-300) U/L Urine Appearance Cloudy H (Clear) Urine Blood Trace H (Negative) Ur Leukocyte Esterase Large H (Negative) Urine WBC 78 H (0-5) /hpf Urine WBC Clumps Occasional H (None) /hpf Ur Squamous Epith Cells 5 H (0-4) /hpf Urine Bacteria Rare H (None) /hpf Urine Mucus Rare H (None) /hpf Thrombosis Risk Factor Assmnt - Choose All That Apply Each Factor Represents 1 point: Age 41-60 years, Obesity (BMI >25) Other Risk Factors: No Other congenital or acquired thrombophilia - If yes, enter type in comment: No Thrombosis Risk Factor Assessment Total Risk Factor Score: 2 Thrombosis Risk Factor Assessment Level: Low Risk
--- NOTE | 2020-11-16 15:23 | P.OP ---
Date of Procedure: 11/16/20 Description of Procedure: SURGEON: LELA LAWRENCE MD PREOPERATIVE DIAGNOSES: 1. Gallstone pancreatitis 2. Right upper quadrant peritonitis 3. Obesity due to excess calories, BMI 32.8 4. Chronic obstructive pulmonary disease due to asthma 5. Hypothyroidism 6. Fibromyalgia 7. Chronic pain syndrome 8. Cauda equina syndrome POSTOPERATIVE DIAGNOSES: 1. Gallstone pancreatitis 2. Right upper quadrant peritonitis 3. Obesity due to excess calories, BMI 32.8 4. Chronic obstructive pulmonary disease due to asthma 5. Hypothyroidism 6. Fibromyalgia 7. Chronic pain syndrome 8. Cauda equina syndrome 9. Peritoneal adhesions, right upper quadrant OPERATION: 1. Robotic-assisted da Tiana Xi laparoscopic lysis of adhesions 2. Robotic-assisted da Tiana Xi laparoscopic cholecystectomy, multiport with FIREFLY ESTIMATED BLOOD LOSS: 10 mL. SPECIMENS REMOVED: Gallbladder. COMPLICATIONS: None. OPERATIVE FINDINGS: 1. Moderate scarring over entire gallbladder with peritoneal adhesions, pericholecystic with features of chronic cholecystitis 2. Multiple gallstones over 5 identified INDICATIONS: The patient is a 50-year-old female who presents with symptomatic gallstones and gallstone pancreatitis. Robotic assisted laparoscopic approach was described. Benefits and risks of the procedure including but not limited to bleeding, infection, injury to the biliary tree was described. Informed consent was obtained. DESCRIPTION OF PROCEDURE: Patient was brought to the operating room, placed in supine position. After general induction, the abdomen had been prepped and draped in standard sterile fashion. The robotic da Tiana XI system was primed. After a timeout protocol was performed, the patient had been prepped and draped in standard sterile fashion. The patient was injected with indocyanine green. A 5 mm 0 degrees laparoscopic trocar entry was performed along the left upper quadrant. The abdomen insufflated to 15 mmHg pressure which was tolerated well. Diagnostic laparoscopy demonstrated no injury to bowel viscera or mesentery. The liver surface was unremarkable. Next, two 8 mm robotic ports were placed along the right upper abdomen. The camera 8-mm port was maintained along the epigastrium. Another 8 mm port was placed along the left upper abdominal wall after exchanging the 5 mm port. Please note that the ports were placed at least 10 to 15 cm away from the target anatomy of the gallbladder. The robot was docked along the left lateral abdomen. The patient was repositioned in reverse Trendelenburg position. Using a grasper for arm 3, a grasper for arm 4, including hook cautery for arm 1, the robotic system was docked and primed as described. Instruments were interchanged by the campaign assistant including hook cautery, Bovie cautery and clip appliers. I had sat at the console. The gallbladder was scarred with peritoneal adhesions. Lysis of adhesions was performed to free the gallbladder from the surrounding tissues. Next attention was brought to the infundibulum and cystic structures. The infundibulum and cystic duct were dissected free from surrounding tissues. The cystic duct was isolated. FIREFLY was used to identify the cystic artery and cystic structures. A critical view of safety was obtained. Large PLASTIC clips were used throughout the entire case. Using a clip celery stripper, 2 clips were placed at the junction of the infundibulum and cystic duct. The cystic duct was divided between clips. Next, the cystic artery was similarly clipped and cauterized. Electro-Bovie cautery was used to remove the gallbladder from the hepatic fossa. Hemostasis was checked and found to be adequate. The robot was undocked. I re-scrubbed into the case. Using a 10 mm Endo Catch bag via the left upper quadrant incision, the specimen was removed from the abdominal cavity. All pneumoperitoneum instruments were evacuated from the abdominal cavity. The incisions were reapproximated using 4-0 Monocryl in an interrupted subcuticular fashion. Fascial defects were less than 8 mm in size. Please note along the trocar sites, local anesthetic was placed as a field block prior to insertion of all instruments. Liquid glue was applied to the skin. At the end of the procedure needle, sponge, and instrument count had been verified correct by the avionics test technician. The patient was transferred to postanesthesia care unit in stable condition. Intraoperative films were shared with the patient's family.
[2020-11-16] MEDS ORDERED: HYDROmorphone 0.5 MG/0.5 ML SYRINGE IVP ONE ×3 (15:32→15:50)
[2020-11-16] MEDS ORDERED: diphenhydrAMINE 50 MG/ML 1 ML VIAL IVP ONE (16:10)
[2020-11-16] MEDS: KETOROLAC 15 MG/ML 1 ML VIAL IVP SCH (17:46)
[2020-11-16] MEDS: ALBUTEROL NEBULIZED 2.5 MG/3 ML INHALATION PRN (21:08)
[2020-11-16] MEDS: GABAPENTIN 400 MG CAP PO PRN (23:27)
[2020-11-17] MEDS: KETOROLAC 15 MG/ML 1 ML VIAL IVP SCH ×5 (00:06→23:55)
[2020-11-17] MEDS: DEXAMETHASONE SOD PHOSPHATE 4 MG/ML 1 ML VIAL IV SCH ×5 (00:07→23:55)
[2020-11-17] MEDS: ONDANSETRON 4 MG/2 ML VIAL IVP PRN ×2 (00:12→12:25)
[2020-11-17] MEDS: AMPICILLIN-SULBACTAM 3 GM in SODIUM CHLORIDE 0.9% 100 ML IVPB SCH ×4 (01:00→23:55)
[2020-11-17] MEDS: LEVOTHYROXINE 137 MCG TAB PO SCH (06:05)
[2020-11-17] MEDS: DEXTROSE 5%-0.45% NACL 1,000 ML IV SCH ×2 (06:09→17:09)
[2020-11-17] MEDS: HYDROcodone/APAP 5-325MG 1 EACH TAB PO PRN ×2 (06:43→20:04)
[2020-11-17 07:19] LABS: ALT 59 U/L (4-34); African American GFR (CKD) >90 (>60 ml/min/1.73 sqM); Albumin 4.6 g/dL (3.5-5.0); Anion Gap 8 mmol/L; Blood Urea Nitrogen 3 mg/dL (7-17); Calcium 9.7 mg/dL (8.4-10.2); Carbon Dioxide 25 mmol/L (22-30); Chloride 108 mmol/L (98-107); Glucose 187 mg/dL (74-99); Non-African American GFR(CKD) >90 (>60 ml/min/1.73 sqM); Phosphorus 3.7 mg/dL (2.5-4.5); Sodium 141 mmol/L (137-145); Total Bilirubin 0.5 mg/dL (0.2-1.3); Total Protein 7.4 g/dL (6.3-8.2)
[2020-11-17 07:26] LABS: AST 60 U/L (14-36); Alkaline Phosphatase 70 U/L (38-126); Magnesium 1.9 mg/dL (1.6-2.3); Potassium 4.6 mmol/L (3.5-5.1)
[2020-11-17] MEDS: ALBUTEROL NEBULIZED 2.5 MG/3 ML INHALATION PRN ×2 (08:13→17:13)
[2020-11-17] MEDS: ENOXAPARIN 30 MG/0.3 ML SYRINGE SQ SCH (09:01)
[2020-11-17] MEDS: PANTOPRAZOLE 40 MG/10 ML VIAL IV SCH (09:01)
[2020-11-17] MEDS: DOCUSATE 100 MG CAP PO PRN (10:02)
--- NOTE | 2020-11-17 11:29 | P.PN ---
Subjective Progress Note Date: 11/17/20 Principal diagnosis: Gallstone pancreatitis Patient seems to be doing fairly well. Pain is improving. Tolerating diet. ALT and AST slightly elevated. Patient describes constipation. Objective - Vital Signs Vital signs: Vital Signs Temp 97.6 F 11/17/20 08:00 Pulse 76 11/17/20 08:22 Resp 16 11/17/20 08:00 BP 99/51 11/17/20 08:00 Pulse Ox 98 11/17/20 08:00 Intake & Output 11/16/20 11/17/20 11/17/20 18:59 06:59 18:59 Intake Total 1126 1200 Output Total 20 Balance 1106 1200 Intake: IV 1006 Oral 120 1200 Output: Estimated Blood Loss 20 Other: Voiding Method Diaper Toilet # Voids 1 3 - Exam Abdomen: Soft, nondistended, mild tenderness, incisions clean and dry - Labs CBC & Chem 7: 11/15/20 23:31 11/17/20 06:31 Labs: Abnormal Lab Results - Last 24 Hours (Table) 11/16/20 11/17/20 Range/Units 13:04 06:31 Chloride 108 H (98-107) mmol/L BUN 3 L (7-17) mg/dL Glucose 187 H (74-99) mg/dL POC Glucose (mg/dL) 125 H (75-99) mg/dL AST 60 H (14-36) U/L ALT 59 H (4-34) U/L Microbiology - Last 24 Hours (Table) 11/15/20 23:31 Urine Culture - Preliminary Urine,Voided Assessment and Plan (1) Gallstone pancreatitis Narrative/Plan: Patient doing fairly well. Continue diet as tolerated. Will add senna for constipation. Continue antibiotics for UTI. Current Visit: Yes Status: Acute Code(s): K85.10 - BILIARY ACUTE PANCREATITIS WITHOUT NECROSIS OR INFECTION SNOMED Code(s): 41493290
[2020-11-17 11:41] LABS: Basophils % (A) 0 %; Eosinophils % (A) 0 %; HCT 40.3 % (34.0-46.0); HGB 13.5 gm/dL (11.4-16.0); Lymphocytes # (A) 0.3 k/uL (1.0-4.8); Lymphocytes % (A) 4 %; MCHC 33.4 g/dL (31.0-37.0); Mean Platelet Volume 8.4; Monocytes # (A) 0.2 k/uL (0-1.0); Monocytes % (A) 2 %; Neutrophils # (A) 7.7 k/uL (1.3-7.7); Neutrophils % (A) 94 %; Platelet Count 235 k/uL (150-450); RDW 14.1 % (11.5-15.5); WBC 8.2 k/uL (3.8-10.6)
[2020-11-17] MEDS: SENNOSIDES 8.6 MG TAB PO SCH ×2 (12:23→20:04)
--- NOTE | 2020-11-17 13:30 | P.PN ---
Subjective Progress Note Date: 11/17/20 ISTORY OF PRESENT ILLNESS This is a 50-year-old female patient of Dr. Forrest with past medical history of prediabetes, kidney stones, asthma, irritable bowel syndrome, thyroid cancer diagnosed in 2018, status post hysterectomy, history of CLL and rectocele that was done last fall when Covid in August 2020. Patient came in complaining of abdominal pain in the upper area along with nausea. She denies any fever. Patient states the pain is in her bilateral upper abdominal quadrants and radiates to bilateral shoulders. Patient presented to [facility] emergency center for evaluation and found to be afebrile, WBC was normal. Blood sugar 106. Lipase 356. Liver enzymes were normal. Urinalysis was cloudy with large amount of leukoesterase, WBC clumps occasional, squamous cells 5. Bacteria rare. Urine culture was sent. Patient was admitted, consult with general surgery and has been scheduled for robotic cholecystectomy today. 11/17: Surgery postop day 1, patient states this is feeling better compared to yesterday, no bowel movements. Continues to questions. No fevers. Patient is found to be sitting up in chair. Abdominal incision dry and intact. Patient is tolerating diet. Pain continues to show improvement. Patient afebrile, pulse rate 72, respirations 16, blood pressure 99/51, pulse ox 90% on room air. REVIEW OF SYSTEMS Constitutional: No fever, no chills, no night sweats. No weight change. No weakness, fatigue or lethargy. No daytime sleepiness. EENT: No headache. No blurred vision or double vision, no loss of vision. No loss of Hearing, no ringing in the ears, no dizziness. No nasal drainage or congestion. No epistaxis. No sore throat. Lungs: No shortness of breath, cough, no sputum production. No wheezing. Cardiovascular: No chest pain, no lower extremity edema. No palpitations. No paroxysmal nocturnal dyspnea. No orthopnea. No lightheadedness or dizziness. No syncopal episodes. Abdominal: Reports abdominal pain with bilateral shoulder pain. No nausea, vomiting. No diarrhea. No constipation. No bloody or tarry stools.. No loss of appetite. Genitourinary: No dysuria, increased frequency, urgency. No urinary retention. Musculoskeletal: No myalgias. No muscle weakness, no gait dysfunction, no frequent falls. No back pain. No neck pain. Integumentary: No wounds, no lesions. No rash or pruritus. No unusual bruising. No change in hair or nails. Neurologic: No aphasia. No facial droop. No change in mentation. No head injury. No headache. No paralysis. No paresthesia. Psychiatric: No depression. No anxiety. No mood swings. Endocrine: No abnormal blood sugars. No weight change. No excessive sweating or thirst. No cold intolerance. PHYSICAL EXAMINATION Gen: This is a 50-year-old female resting in bed and appears to be comfortable and in no acute distress HEENT: Head is atraumatic, normocephalic. Pupils equal, round. Sclerae is anicteric. NECK: Supple. No JVD. No lymphadenopathy. No thyromegaly. LUNGS: Clear to auscultation. No wheezes or rhonchi. No intercostal retractions. HEART: Regular rate and rhythm. No murmur. ABDOMEN: Soft. Bowel sounds are present. No masses. Right upper quadrant tenderness. EXTREMITIES: No pedal edema. No calf tenderness. NEUROLOGICAL: Patient is awake, alert and oriented x3. Cranial nerves 2 through 12 are grossly intact. ASSESSMENT AND PLAN 1. Abdominal pain secondary to acute cholecystitis. Post- cholecystectomy. Post- op day #1, Morphine as needed for pain, Zofran as needed for nausea. senna for constipation. Continue with unasyn. 2. History of thyroid cancer in 2018. Continue levothyroxine 137 g oral daily 3. Mild intermittent asthma without exacerbation. Continue Singulair 10 mg at bedtime, albuterol inhaler 4 times daily as needed, Flonase twice daily as needed. 4. Irritable bowel syndrome. 5. Chronic pain. Continue gabapentin 400 mg 3 times daily, [place] 5 one twice daily as needed.. 6. GI prophylaxis. Protonix 40 mg daily. 7. DVT prophylaxis. Early ambulation, SEBASTIEN hose and SCDs. Patient will be admitted to the hospital for a minimum of 2 night stay. DISCHARGE PLAN home. Impression and plan of care have been directed as dictated by the signing physician. Marisa Laird nurse practitioner acting as scribe for signing physician. Objective - Vital Signs Vital signs: Vital Signs Temp 97.6 F 11/17/20 08:00 Pulse 76 07/10/21 08:22 Resp 16 11/17/20 08:00 BP 99/51 11/17/20 08:00 Pulse Ox 98 11/17/20 08:00 Intake & Output 11/16/20 11/17/20 11/17/20 18:59 06:59 18:59 Intake Total 1126 1200 Output Total 20 Balance 1106 1200 Intake: IV 1006 Oral 120 1200 Output: Estimated Blood Loss 20 Other: Voiding Method Diaper Toilet # Voids 1 3 - Labs CBC & Chem 7: 11/17/20 10:20 11/17/20 06:31 Labs: Abnormal Lab Results - Last 24 Hours (Table) 11/17/20 11/17/20 Range/Units 06:31 10:20 Lymphocytes # 0.3 L (1.0-4.8) k/uL Chloride 108 H (98-107) mmol/L BUN 3 L (7-17) mg/dL Glucose 187 H (74-99) mg/dL AST 60 H (14-36) U/L ALT 59 H (4-34) U/L Microbiology - Last 24 Hours (Table) 11/15/20 23:31 Urine Culture - Final Urine,Voided
[2020-11-17] MEDS: GABAPENTIN 400 MG CAP PO PRN (17:09)
[2020-11-18] MEDS: KETOROLAC 15 MG/ML 1 ML VIAL IVP SCH ×2 (05:22→12:16)
[2020-11-18] MEDS: DEXTROSE 5%-0.45% NACL 1,000 ML IV SCH ×2 (05:23→17:08)
[2020-11-18] MEDS: LEVOTHYROXINE 137 MCG TAB PO SCH (05:23)
[2020-11-18] MEDS: DEXAMETHASONE SOD PHOSPHATE 4 MG/ML 1 ML VIAL IV SCH ×4 (05:23→23:04)
[2020-11-18 06:08] LABS: Basophils % (A) 0 %; Eosinophils % (A) 0 %; HCT 35.4 % (34.0-46.0); HGB 12.1 gm/dL (11.4-16.0); Lymphocytes # (A) 0.6 k/uL (1.0-4.8); Lymphocytes % (A) 7 %; MCH 28.7 pg (25.0-35.0); MCHC 34.2 g/dL (31.0-37.0); MCV 83.8 fL (80.0-100.0); Mean Platelet Volume 8.2; Monocytes # (A) 0.3 k/uL (0-1.0); Monocytes % (A) 4 %; Neutrophils # (A) 7.9 k/uL (1.3-7.7); Neutrophils % (A) 89 %; Platelet Count 176 k/uL (150-450); RBC 4.22 m/uL (3.80-5.40); RDW 14.1 % (11.5-15.5); WBC 8.9 k/uL (3.8-10.6)
[2020-11-18 06:26] LABS: ALT 38 U/L (4-34); AST 28 U/L (14-36); African American GFR (CKD) >90 (>60 ml/min/1.73 sqM); Albumin 3.7 g/dL (3.5-5.0); Alkaline Phosphatase 52 U/L (38-126); Amylase 34 U/L (30-110); Anion Gap 7 mmol/L; Blood Urea Nitrogen 9 mg/dL (7-17); Carbon Dioxide 26 mmol/L (22-30); Chloride 107 mmol/L (98-107); Glucose 171 mg/dL (74-99); Lipase 38 U/L (23-300); Non-African American GFR(CKD) >90 (>60 ml/min/1.73 sqM); Potassium 4.3 mmol/L (3.5-5.1); Sodium 140 mmol/L (137-145); Total Bilirubin 0.2 mg/dL (0.2-1.3)
[2020-11-18] MEDS: ALBUTEROL NEBULIZED 2.5 MG/3 ML INHALATION PRN ×2 (08:09→16:20)
[2020-11-18] MEDS: AMPICILLIN-SULBACTAM 3 GM in SODIUM CHLORIDE 0.9% 100 ML IVPB SCH ×2 (08:58→17:08)
[2020-11-18] MEDS: ENOXAPARIN 30 MG/0.3 ML SYRINGE SQ SCH (08:58)
[2020-11-18] MEDS: PANTOPRAZOLE 40 MG TABLET PO SCH (08:59)
[2020-11-18] MEDS: SENNOSIDES 8.6 MG TAB PO SCH ×2 (08:59→20:00)
[2020-11-18] MEDS: DOCUSATE 100 MG CAP PO PRN ×2 (09:00→20:00)
[2020-11-18] MEDS: HYDROcodone/APAP 5-325MG 1 EACH TAB PO PRN ×2 (09:09→21:00)
--- NOTE | 2020-11-18 09:46 | P.PN ---
Subjective Progress Note Date: 11/18/20 Principal diagnosis: Gallstone pancreatitis Patient complaining of chills today. She has left-sided pain with radiation to the back. Says it reminds her of her kidney stones. She is afebrile however. White blood cell count is normal. Final urinary culture was clear. Objective - Vital Signs Vital signs: Vital Signs Temp 97.7 F 11/18/20 08:00 Pulse 82 11/18/20 08:18 Resp 18 11/18/20 08:00 BP 144/80 11/18/20 08:00 Pulse Ox 100 11/18/20 08:00 Intake & Output 11/17/20 11/18/20 11/18/20 18:59 06:59 18:59 Intake Total 600 Balance 600 Intake: Intake, IV Titration 600 Amount Dextrose 5%-0.45% NaCl 1, 600 000 ml @ 80 mls/hr IV . [id number] [facility] Rx#:[id number] Other: # Voids 1 3 2 - Exam Abdomen: Soft, nondistended, mild left flank tenderness, mild incisional tenderness, incisions clean and dry - Labs CBC & Chem 7: 11/18/20 05:47 11/18/20 05:47 Labs: Abnormal Lab Results - Last 24 Hours (Table) 11/17/20 11/18/20 11/18/20 Range/Units 10:20 05:47 05:47 Neutrophils # 7.9 H (1.3-7.7) k/uL Lymphocytes # 0.3 L 0.6 L (1.0-4.8) k/uL Glucose 171 H (74-99) mg/dL ALT 38 H (4-34) U/L Total Protein 6.0 L (6.3-8.2) g/dL Microbiology - Last 24 Hours (Table) 11/15/20 23:31 Urine Culture - Final Urine,Voided Assessment and Plan (1) Gallstone pancreatitis Narrative/Plan: Patient complaining of new left-sided pain. Could be on the basis of known kidney stones. Continue diet as tolerated. Will repeat labs tomorrow. Continue antibiotics. Current Visit: Yes Status: Acute Code(s): K85.10 - BILIARY ACUTE PANC REATITIS WITHOUT NECROSIS OR INFECTION SNOMED Code(s): 20764966
--- NOTE | 2020-11-18 13:03 | P.PN ---
Subjective Progress Note Date: 11/18/20 ISTORY OF PRESENT ILLNESS This is a 50-year-old female patient of Dr. Forrest with past medical history of prediabetes, kidney stones, asthma, irritable bowel syndrome, thyroid cancer diagnosed in 2018, status post hysterectomy, history of CLL and rectocele that was done last fall when Covid in August 2020. Patient came in complaining of abdominal pain in the upper area along with nausea. She denies any fever. Patient states the pain is in her bilateral upper abdominal quadrants and radiates to bilateral shoulders. Patient presented to [facility] emergency center for evaluation and found to be afebrile, WBC was normal. Blood sugar 106. Lipase 356. Liver enzymes were normal. Urinalysis was cloudy with large amount of leukoesterase, WBC clumps occasional, squamous cells 5. Bacteria rare. Urine culture was sent. Patient was admitted, consult with general surgery and has been scheduled for robotic cholecystectomy today. 11/17: Surgery postop day 1, patient states this is feeling better compared to yesterday, no bowel movements. Continues to questions. No fevers. Patient is found to be sitting up in chair. Abdominal incision dry and intact. Patient is tolerating diet. Pain continues to show improvement. Patient afebrile, pulse rate 72, respirations 16, blood pressure 99/51, pulse ox 90% on room air. 11/18: She is found resting in bed she is on surgical postop day #2. She is complaining of chills and lower abdominal discomfort. Patient has been afebrile. She is encouraged to ambulate throughout the halls to help dissipate this is used during surgery. Patient found to have abdominal distention, passing gas however she has not had a bowel movement. She is tolerating her diet without any nausea or vomiting. Heart rate 100, respirations 18, blood pressure 144/80, pulse ox 100% on room air. CBC 8.9, hemoglobin 12.1, potassium 4.3, BUN 9, creatinine 0.61. REVIEW OF SYSTEMS Constitutional: No fever, no chills, no night sweats. No weight change. No weakness, fatigue or lethargy. No daytime sleepiness. EENT: No headache. No blurred vision or double vision, no loss of vision. No loss of Hearing, no ringing in the ears, no dizziness. No nasal drainage or congestion. No epistaxis. No sore throat. Lungs: No shortness of breath, cough, no sputum production. No wheezing. Cardiovascular: No chest pain, no lower extremity edema. No palpitations. No paroxysmal nocturnal dyspnea. No orthopnea. No lightheadedness or dizziness. No syncopal episodes. Abdominal: Reports abdominal pain with bilateral shoulder pain. No nausea, vomiting. No diarrhea. No constipation. No bloody or tarry stools.. No loss of appetite. Genitourinary: No dysuria, increased frequency, urgency. No urinary retention. Musculoskeletal: No myalgias. No muscle weakness, no gait dysfunction, no frequent falls. No back pain. No neck pain. Integumentary: No wounds, no lesions. No rash or pruritus. No unusual bruising. No change in hair or nails. Neurologic: No aphasia. No facial droop. No change in mentation. No head injury. No headache. No paralysis. No paresthesia. Psychiatric: No depression. No anxiety. No mood swings. Endocrine: No abnormal blood sugars. No weight change. No excessive sweating or thirst. No cold intolerance. PHYSICAL EXAMINATION Gen: This is a 50-year-old female resting in bed and appears to be comfortable and in no acute distress HEENT: Head is atraumatic, normocephalic. Pupils equal, round. Sclerae is anicteric. NECK: Supple. No JVD. No lymphadenopathy. No thyromegaly. LUNGS: Clear to auscultation. No wheezes or rhonchi. No intercostal retractions. HEART: Regular rate and rhythm. No murmur. ABDOMEN: Soft. Bowel sounds are present. No masses. Right upper quadrant tenderness. EXTREMITIES: No pedal edema. No calf tenderness. NEUROLOGICAL: Patient is awake, alert and oriented x3. Cranial nerves 2 through 12 are grossly intact. ASSESSMENT AND PLAN 1. Abdominal pain secondary to acute cholecystitis. Post- cholecystectomy. Post- op day #2, Morphine as needed for pain, Zofran as needed for nausea. senna for constipation. Continue with unasyn. 2. History of thyroid cancer in 2018. Continue levothyroxine 137 g oral daily 3. Mild intermittent asthma without exacerbation. Continue Singulair 10 mg at bedtime, albuterol inhaler 4 times daily as needed, Flonase twice daily as nee ded. 4. Irritable bowel syndrome. 5. Chronic pain. Continue gabapentin 400 mg 3 times daily, [place] 5 one twice daily as needed.. 6. GI prophylaxis. Protonix 40 mg daily. 7. DVT prophylaxis. Early ambulation, SEBASTIEN nanoe and SCDs. Patient will be admitted to the hospital for a minimum of 2 night stay. DISCHARGE PLAN home tomorrow Impression and plan of care have been directed as dictated by the signing physician. Marisa Laird nurse practitioner acting as scribe for signing physician. Objective - Vital Signs Vital signs: Vital Signs Temp 97.7 F 11/18/20 08:00 Pulse 82 11/18/20 08:18 Resp 18 11/18/20 08:00 BP 144/80 11/18/20 08:00 Pulse Ox 100 11/18/20 08:00 Intake & Output 11/17/20 11/18/20 11/18/20 18:59 06:59 18:59 Intake Total 600 Balance 600 Intake: Intake, IV Titration 600 Amount Dextrose 5%-0.45% NaCl 1, 600 000 ml @ 80 mls/hr IV . [id number] [facility] Rx#:[id number] Other: # Voids 1 3 2 - Labs CBC & Chem 7: 11/18/20 05:47 11/18/20 05:47 Labs: Abnormal Lab Results - Last 24 Hours (Table) 11/18/20 11/18/20 Range/Units 05:47 05:47 Neutrophils # 7.9 H (1.3-7.7) k/uL Lymphocytes # 0.6 L (1.0-4.8) k/uL Glucose 171 H (74-99) mg/dL ALT 38 H (4-34) U/L Total Protein 6.0 L (6.3-8.2) g/dL Microbiology - Last 24 Hours (Table) 11/15/20 23:31 Urine Culture - Final Urine,Voided
[2020-11-18] MEDS: GABAPENTIN 400 MG CAP PO PRN (16:05)
[2020-11-19] MEDS: AMPICILLIN-SULBACTAM 3 GM in SODIUM CHLORIDE 0.9% 100 ML IVPB SCH ×2 (00:57→08:32)
[2020-11-19] MEDS: DEXTROSE 5%-0.45% NACL 1,000 ML IV SCH (03:27)
[2020-11-19] MEDS: DEXAMETHASONE SOD PHOSPHATE 4 MG/ML 1 ML VIAL IV SCH ×2 (05:28→12:06)
[2020-11-19] MEDS: LEVOTHYROXINE 137 MCG TAB PO SCH (05:29)
[2020-11-19] MEDS: ONDANSETRON 4 MG/2 ML VIAL IVP PRN (05:46)
[2020-11-19 06:05] LABS: Basophils % (A) 0 %; Eosinophils % (A) 0 %; HCT 34.2 % (34.0-46.0); HGB 11.8 gm/dL (11.4-16.0); Lymphocytes # (A) 0.8 k/uL (1.0-4.8); Lymphocytes % (A) 11 %; MCHC 34.3 g/dL (31.0-37.0); MCV 84.4 fL (80.0-100.0); Mean Platelet Volume 8.2; Monocytes # (A) 0.3 k/uL (0-1.0); Monocytes % (A) 5 %; Neutrophils # (A) 5.8 k/uL (1.3-7.7); Neutrophils % (A) 83 %; Platelet Count 170 k/uL (150-450); RBC 4.05 m/uL (3.80-5.40); RDW 14.1 % (11.5-15.5); WBC 6.9 k/uL (3.8-10.6)
[2020-11-19 07:35] VITALS: BP 133/80; RESP 18; TEMP 98
[2020-11-19] MEDS: ENOXAPARIN 30 MG/0.3 ML SYRINGE SQ SCH (08:33)
[2020-11-19] MEDS: SENNOSIDES 8.6 MG TAB PO SCH (08:33)
[2020-11-19] MEDS: PANTOPRAZOLE 40 MG TABLET PO SCH (08:33)
--- NOTE | 2020-11-19 09:48 | XR ---
EXAMINATION TYPE: XR abdomen 2V DATE OF EXAM: 11/19/2020 8:52 AM CLINICAL HISTORY: Ileus. Pain and distention. Recent cholecystectomy. TECHNIQUE: Supine and upright images of the abdomen and pelvis were obtained COMPARISON: 08/20/2020. FINDINGS: Positive small bowel gas. Visualized small bowel loops are nonspecific. Moderate colonic fe irene debris of the ascending and transverse colon. There may be a tiny sliver of pneumoperitoneum unde r the right hemidiaphragm on upright view. Calcifications overlying the bilateral renal shadows likel y nephrolithiasis. The lung bases are clear. Levocurvature of the thoracolumbar spine. IMPRESSION: 1. Nonspecific bowel gas pattern. 2. Moderate ascending colon and transverse colon fecal debris may represent constipation. 3. Likely tiny right pneumoperitoneum, within expected limits postoperatively.
[2020-11-19] MEDS: ALBUTEROL NEBULIZED 2.5 MG/3 ML INHALATION PRN (11:29)
[2020-11-19 11:38] VITALS: PULSE 78
--- NOTE | 2020-11-19 12:57 | P.PN ---
Subjective Progress Note Date: 11/19/20 CHIEF COMPLAINT: Abdominal pain HISTORY OF PRESENT ILLNESS: Patient is status post Robotic-assisted da Tiana Xi laparoscopic lysis of adhesions and Robotic-assisted da Tiana Xi laparoscopic cholecystectomy for gallstone pancreatitis and peritoneal adhesions. Patient reports that her abdominal pain is better then on admission. She is passing gas did have a small bowel movement. She did report some nausea. But she was able to eat her whole tray of food this morning. She had a bladder scan completed shows no evidence of any urinary retention. Abdominal x-ray shows nonspecific bowel gas pattern. Moderate ascending colon and transverse colon fecal debris may represent constipation. Likely tiny right pneumoperitoneum, within expected limits postoperatively. Patient is afebrile. WBC 6.9 hemoglobin 11.8 PHYSICAL EXAM: VITAL SIGNS: Reviewed. GENERAL: Well-developed in no acute distress. HEENT: No sclera icterus. Extraocular movements grossly intact. Moist buccal mucosa. Head is atraumatic, normocephalic. ABDOMEN: Soft. Nondistended. Nontender. NEUROLOGIC: Alert and oriented. Cranial nerves II through XII grossly intact. ASSESSMENT: 1. Gallstone pancreatitis 2. Right upper quadrant peritonitis 3. Obesity due to excess calories, BMI 32.8 4. Chronic obstructive pulmonary disease due to asthma 5. Hypothyroidism 6. Fibromyalgia 7. Chronic pain syndrome 8. Cauda equina syndrome 9. Peritoneal adhesions, right upper quadrant 10. Constipation PLAN: -Patient is stable from surgical standpoint for discharge -Antibiotics per medicine service -Continue stool softeners for constipation Physician [employer] note has been reviewed by physician. Signing provider agrees with the documented findings, assessment, and plan of care. Objective - Vital Signs Vital signs: Vital Signs Temp 98 F 11/19/20 07:35 Pulse 78 11/19/20 11:38 Resp 18 11/19/20 07:35 BP 133/80 11/19/20 07:35 Pulse Ox 98 11/19/20 07:35 Intake & Output 11/18/20 11/19/20 11/19/20 18:59 06:59 18:59 Intake Total 400 Output Total 21 Balance 400 -21 Intake: Oral 400 Output: Post Void Residual 21 Other: Voiding Method Toilet # Voids 2 1 1 # Bowel Movements 1 - Labs CBC & Chem 7: 11/19/20 05:27 11/18/20 05:47 Labs: Abnormal Lab Results - Last 24 Hours (Table) 11/19/20 Range/Units 05:27 Lymphocytes # 0.8 L (1.0-4.8) k/uL
--- NOTE | 2020-11-20 13:22 | P.DS ---
Providers Date of admission: 11/16/20 00:55 Expected date of discharge: 11/19/20 Attending physician: Wayne Gupta Consults: 11/16/20 00:55 Consult Physician Routine Consulting Provider: Daina Lobo Consult Reason/Comments: known Do you want consulting provider notified?: Yes Primary care physician: Clem Forrest [facility] Course: ISTORY OF PRESENT ILLNESS This is a 50-year-old female patient of Dr. Forrest with past medical history of prediabetes, kidney stones, asthma, irritable bowel syndrome, thyroid cancer diagnosed in 2018, status post hysterectomy, history of CLL and rectocele that was done last fall when Covid in August 2020. Patient came in complaining of abdominal pain in the upper area along with nausea. She denies any fever. Patient states the pain is in her bilateral upper abdominal quadrants and radiates to bilateral shoulders. Patient presented to [facility] emergency center for evaluation and found to be afebrile, WBC was normal. Blood sugar 106. Lipase 356. Liver enzymes were normal. Urinalysis was cloudy with large amount of leukoesterase, WBC clumps occasional, squamous cells 5. Bacteria rare. Urine culture was sent. Patient was admitted, consult with general surgery and has been scheduled for robotic cholecystectomy today. 11/17: Surgery postop day 1, patient states this is feeling better compared to yesterday, no bowel movements. Continues to questions. No fevers. Patient is found to be sitting up in chair. Abdominal incision dry and intact. Patient is tolerating diet. Pain continues to show improvement. Patient afebrile, pulse rate 72, respirations 16, blood pressure 99/51, pulse ox 90% on room air. 11/18: She is found resting in bed she is on surgical postop day #2. She is complaining of chills and lower abdominal discomfort. Patient has been afebrile. She is encouraged to ambulate throughout the halls to help dissipate this is used during surgery. Patient found to have abdominal distention, passing gas however she has not had a bowel movement. She is tolerating her diet without any nausea or vomiting. Heart rate 100, respirations 18, blood pressure 144/80, pulse ox 100% on room air. CBC 8.9, hemoglobin 12.1, potassium 4.3, BUN 9, creatinine 0.61. 11/19: Patient is passing gas but was not having a bowel movement. She states she ate a big meal last evening and did have some pain after she had dinner. Abdominal x-ray this morning done revealed nonspecific bowel gas pattern. Moderate ascending colon and transverse colon fecal debris may represent constipation. Likely tiny right pneumoperitoneum within expected limits postoperatively. Laboratory reveals a WBC 6.9 and hemoglobin 11.8. We will plan for discharge with 5 days of Keflex if patient is able to have a bowel movement and cleared by general surgery. ASSESSMENT AND PLAN 1. Abdominal pain secondary to acute cholecystitis. Post- cholecystectomy. 2. History of thyroid cancer in 2018. 3. Mild intermittent asthma without exacerbation. 4. Irritable bowel syndrome. 5. Chronic pain. DISCHARGE PLAN home Impression and plan of care have been directed as dictated by the signing physician. Marisa Laird nurse practitioner acting as scribe for signing physician. Patient Condition at Discharge: Good Plan - Discharge Summary Discharge Rx Participant: Yes New Discharge Prescriptions: New Ibuprofen [Motrin] 600 mg PO Q8HR PRN #30 tab PRN Reason: Pain Amoxicillin/Potassium Clav [Augmentin 875-125 Tablet] 1 tab PO BID 5 Days #10 tab Continue Docusate [Colace] 100 - 200 mg PO BID PRN PRN Reason: Constipation Montelukast [Singulair] 10 mg PO HS PRN PRN Reason: Allergy Symptoms Sennosides [Senna] 8.6 - 17.2 mg PO DAILY PRN PRN Reason: Constipation Levothyroxine Sodium [Synthroid] 137 mcg PO DAILY HYDROcodone/APAP 5-325MG [[place] 5-325] 1 tab PO BID PRN PRN Reason: Pain Gabapentin [Neurontin] 400 mg PO TID PRN PRN Reason: Pain Cyclobenzaprine [Flexeril] 5 mg PO BID PRN PRN Reason: Muscle Pain Ergocalciferol (Vitamin D2) [Drisdol (50,000 Iu)] 1,250 mcg PO TU Albuterol Nebulized [Ventolin Nebulized] 2.5 mg INHALATION RT-QID PRN PRN Reason: Shortness Of Breath Albuterol Sulfate [Proair Hfa] 2 puff INHALATION RT-QID PRN PRN Reason: Shortness Of Breath Fluticasone Nasal [place] [Flonase Nasal [place]] 2 spr EA NOSTRIL BID PRN PRN Reason: Allergy Symptoms Discharge Medication List Docusate [Colace] 100 - 200 mg PO BID PRN 02/05/17 [History] Montelukast [Singulair] 10 mg PO HS PRN 11/16/18 [History] Gabapentin [Neurontin] 400 mg PO TID PRN 03/07/20 [History] HYDROcodone/APAP 5-325MG [[place] 5-325] 1 tab PO BID PRN 03/07/20 [History] Levothyroxine Sodium [Synthroid] 137 mcg PO DAILY 03/07/20 [History] Sennosides [Senna] 8.6 - 17.2 mg PO DAILY PRN 03/07/20 [History] Cyclobenzaprine [Flexeril] 5 mg PO BID PRN 08/04/20 [History] Ergocalciferol (Vitamin D2) [Drisdol (50,000 Iu)] 1,250 mcg PO TU 08/04/20 [History] Albuterol Nebulized [Ventolin Nebulized] 2.5 mg INHALATION RT-QID PRN 11/15/20 [History] Albuterol Sulfate [Proair Hfa] 2 puff INHALATION RT-QID PRN 11/15/20 [History] Fluticasone Nasal [place] [Flonase Nasal [place]] 2 spr EA NOSTRIL BID PRN 11/15/20 [History] Ibuprofen [Motrin] 600 mg PO Q8HR PRN #30 tab 11/16/20 [Rx] Amoxicillin/Potassium Clav [Augmentin 875-125 Tablet] 1 tab PO BID 5 Days #10 tab 11/19/20 [Rx] Follow up Appointment(s)/Referral(s): Daina Lobo MD [STAFF PHYSICIAN] - 11/20/20 5:15 pm Clem Forrest MD [Primary Care Provider] - 1 Week Patient Instructions/Handouts: Low Fat Diet (DC), Laparoscopic Cholecystectomy (DC) Activity/Diet/Wound Care/Special Instructions: Recommend low-fat diet for the next 2 days. No lifting over 10 pounds in 2 weeks until November 30. May shower. No bath tub soaks for two weeks until November 30. Diet as tolerated. Use Tylenol, simethicone and ibuprofen or Aleve scheduled for the next 24-48 hours for best pain relief. Use ice along incisions for today to prevent swelling call your Dr with any fever, chills, uncontrolled pain, increased redness or discolored drainage to puncture sites or any concerns. continue to use your incentive spirometery at home. Discharge Disposition: HOME SELF-CARE
== END 2020-11-19 15:04 | disposition home or self-care (01) ==
LOC: EC 22:46 → 6PED 11-16 00:55
PROVIDERS: ADMIT Internal Medicine Geriatric Medicine; ATTEND Internal Medicine Geriatric Medicine
DX: K80.12 Calculus of gallbladder with acute and chronic cholecystitis without obstruction (principal); N30.20 Other chronic cystitis without hematuria; Z85.850 Personal history of malignant neoplasm of thyroid; J45.20 Mild intermittent asthma, uncomplicated; K58.9 Irritable bowel syndrome, unspecified; G89.4 Chronic pain syndrome; K85.10 Biliary acute pancreatitis without necrosis or infection; K65.9 Peritonitis, unspecified; E66.09 Other obesity due to excess calories; Z68.32 Body mass index [BMI] 32.0-32.9, adult; J44.9 Chronic obstructive pulmonary disease, unspecified; M79.7 Fibromyalgia; G83.4 Cauda equina syndrome; K66.0 Peritoneal adhesions (postprocedural) (postinfection); R73.03 Prediabetes; K21.9 Gastro-esophageal reflux disease without esophagitis; K82.9 Disease of gallbladder, unspecified; K76.0 Fatty (change of) liver, not elsewhere classified; E89.0 Postprocedural hypothyroidism; Z86.32 Personal history of gestational diabetes; Z85.6 Personal history of leukemia; Z86.16 Personal history of COVID-19; Z87.442 Personal history of urinary calculi; Z90.710 Acquired absence of both cervix and uterus; Z79.899 Other long term (current) drug therapy; Z79.890 Hormone replacement therapy; Z88.1 Allergy status to other antibiotic agents; Z91.041 Radiographic dye allergy status; Z91.012 Allergy to eggs; Z91.011 Allergy to milk products; Z88.5 Allergy status to narcotic agent; Z91.013 Allergy to seafood; Z88.8 Allergy status to other drugs, medicaments and biological substances; Z91.048 Other nonmedicinal substance allergy status; Z82.49 Family history of ischemic heart disease and other diseases of the circulatory system; Z82.3 Family history of stroke; Z83.49 Family history of other endocrine, nutritional and metabolic diseases; Z83.79 Family history of other diseases of the digestive system; Z82.0 Family history of epilepsy and other diseases of the nervous system; Z80.49 Family history of malignant neoplasm of other genital organs; Z80.8 Family history of malignant neoplasm of other organs or systems; Z83.3 Family history of diabetes mellitus
CPT/HCPCS: 47562; S2900; 36415; 74019; 76705; 80053; 81001; 82150; 83605; 83690; 83735; 84100; 85025; 87086; 88304; 93005; 94640; 96361; 96374; 96375; 96376; 99285

== ENCOUNTER 2020-11-22 11:29 | Emergency (ER) | payer OTHER ==
[2020-11-22 12:13] VITALS: TEMP 98.4
[2020-11-22] MEDS ORDERED: MORPHINE SULFATE 4 MG/ML SYRINGE IV STA (12:38)
[2020-11-22] MEDS ORDERED: SODIUM CHLORIDE 0.9% 1,000 ML IV STA (12:38)
[2020-11-22] MEDS ORDERED: methylPREDNISolone SOD SUCCI 125 MG/2 ML VIAL IV STA (12:39)
[2020-11-22] MEDS ORDERED: FAMOTIDINE 20 MG/2 ML VIAL IV STA (12:39)
[2020-11-22] MEDS ORDERED: diphenhydrAMINE 50 MG/ML 1 ML VIAL IVP STA (12:39)
--- NOTE | 2020-11-22 12:45 | ED ---
Abdominal Pain HPI - General Chief Complaint: Abdominal Pain Stated Complaint: Post Op Abd Pain Time Seen by Provider: 11/22/20 12:15 Source: patient Mode of arrival: ambulatory - History of Present Illness Initial Comments: Patient is a 50-year-old female presenting to the emergency Department with complaints of abdominal pain for the past 2 days. Patient had recent cholecyst ectomy with Dr. Lobo 6 days ago, released from the hospital 3 days ago. She is currently on Augmentin. She states the as been increasing over the past 2 days. She did see Dr. Lobo for a postop check today after she was released, she thought that the patient may have an ileus. Patient states she has been passing gas and having loose bowel movements. Patient is complaining of pain mostly in the left side of the abdomen with also pain on the right upper side. She denies any fevers or chills. She states her appetite has been low as she is scared to eat anything. She denies any chest pain or shortness of breath. He denies any dysuria. She denies any other previous abdominal ragland rgeries. She has no further complaints at this time. Her vital signs are stable upon arrival. - Related Data Home Medications Medication Instructions Recorded Confirmed Docusate [Colace] 100 - 200 mg PO BID PRN 02/05/17 11/15/20 Montelukast [Singulair] 10 mg PO HS PRN 11/16/18 11/15/20 Gabapentin [Neurontin] 400 mg PO TID PRN 03/07/20 11/15/20 HYDROcodone/APAP 5-325MG [[place] 1 tab PO BID PRN 03/07/20 11/15/20 5-325] Levothyroxine Sodium [Synthroid] 137 mcg PO DAILY 03/07/20 11/15/20 Sennosides [Senna] 8.6 - 17.2 mg PO DAILY PRN 03/07/20 11/15/20 Cyclobenzaprine [Flexeril] 5 mg PO BID PRN 08/04/20 11/15/20 Ergocalciferol (Vitamin D2) 1,250 mcg PO TU 08/04/20 11/15/20 [Drisdol (50,000 Iu)] Albuterol Nebulized [Ventolin 2.5 mg INHALATION RT-QID PRN 11/15/20 11/15/20 Nebulized] Albuterol Sulfate [Proair Hfa] 2 puff INHALATION RT-QID PRN 11/15/20 11/15/20 Fluticasone Nasal [place] [Flonase 2 spr EA NOSTRIL BID PRN 11/15/20 11/15/20 Nasal [place]] Previous Rx's Medication Instructions Recorded Ibuprofen [Motrin] 600 mg PO Q8HR PRN #30 tab 11/16/20 Amoxicillin/Potassium Clav 1 tab PO BID 5 Days #10 tab 11/19/20 [Augmentin 875-125 Tablet] Simethicone 40 mg/0.6 ml Drops 80 mg PO Q6HR PRN #30 ml 11/20/20 [Mylicon Drops] Allergies Allergy/AdvReac Type Severity Reaction Status Date / Time cefixime [From Suprax] Allergy Dyspnea Verified 11/22/20 12:13 fexofenadine HCl Allergy Dyspnea Verified 11/22/20 12:13 [From Nina] Iodinated Contrast Media Allergy Itching IN Verified 11/22/20 12:13 [Iodinated Contrast Media - THROAT AND IV Dye] BODY, & ALLERGY SYMPTOMS levofloxacin [From Levaquin] Allergy Unknown Verified 11/22/20 12:13 propoxyphene napsylate Allergy Itching Verified 11/22/20 12:13 [From Darvocet-N 100] shellfish derived [Shellfish] Allergy Anaphylaxis Verified 11/22/20 12:13 egg AdvReac Abdominal Verified 11/22/20 12:13 Pain, NAUSEA - UNLESS COOKED AT HIGH TEMP IN OVEN metoclopramide [From Reglan] AdvReac Nausea & Verified 11/22/20 12:13 Vomiting & Diarrhea Milk Containing Products AdvReac ALLERGY Verified 11/22/20 12:13 NASAL SYMPTOMS, IF MORE THAN 8 OZ AT A TIME SEASONAL,MOLD,DUST,ANIMAL AdvReac RUNNY Uncoded 11/22/20 12:13 DANDER NOSE, ITCHY/WATERY EYES Review of Systems ROS Statement: Those systems with pertinent positive or pertinent negative responses have been documented in the HPI. ROS Other: All systems not noted in ROS Statement are negative. Past Medical History Past Medical History: Asthma, Cancer, GERD/Reflux, Skin Disorder Additional Past Medical History / Comment(s): Thyroid cancer status post thyroidectomy and radioactive iodine treatments. OCC ECZEMA. HX GESTATIONAL DIABETES. KIDNEY STONES. MILD FATTY LIVER. HX INJURY TO RT ARM, CHRONIC PAIN. Hiatal hernia. Cauda Equina syndrome Jan 2017. PAST INTERN ARCHITECT HISTORY: She has no history of STDs. COVID 07/29 History of Any Multi-Drug Resistant Organisms: None Reported Past Surgical History: Adenoidectomy, Cholecystectomy, Ear Surgery, Tonsillectomy Additional Past Surgical History / Comment(s): BMT. EXC DERMOID CYST RT OVARY 2003. Decompressive laminectomy Jan 2017 for Cauda Equina Syndrome. Colonoscopy 2014(next after 5yr). Thyroidectomy 2018. Vaginal hysterectomy with A&P repairs 2019. COVID positive July 25. Past Anesthesia/Blood Transfusion Reactions: Previous Problems w/ Anesthesia Additional Past Anesthesia/Blood Transfusion Reaction / Comment(s): WOKE UP DURING COLONOSCOPY, T&A SURG. Past Psychological History: No Psychological Hx Reported Smoking Status: Never smoker Past Alcohol Use History: None Reported Past Drug Use History: None Reported - Past Family History Mother Additional Family Medical History / Comment(s): Heart disease. Maternal uncle had Parkinson's disease as well as a grandfather. Grandfather had prostate and skin cancer. Father Family Medical History: Cancer, Diabetes Mellitus Additional Family Medical History / Comment(s): Skin cancer. Grandmother had uterine cancer. General Exam - General Exam Comments Initial Comments: GENERAL: Patient is well-developed and well-nourished. Patient is nontoxic and in mild distress. HEAD: Atraumatic, normocephalic. EYES: Pupils equal round and reactive to light, extraocular movements intact, sclera anicteric, conjunctiva are normal. Eyelids were unremarkable. ENT: TMs normal, nares patent, oropharynx clear without exudates. Moist mucous membranes. NECK: Normal range of motion, supple without lymphadenopathy or JVD. LUNGS: Unlabored respirations. Breath sounds clear to auscultation bilaterally and equal. No wheezes rales or rhonchi. HEART: Regular rate and rhythm without murmurs, rubs or gallops. ABDOMEN: Abdomen is soft, seem mildly bloated, tender to palpation mostly in the left side of the abdomen was also right upper quadrant tenderness. Recent surgical incisions look clean, dry and intact, no signs of infection. normoactive bowel sounds. No guarding. : Deferred MUSCULOSKELETAL: Normal extremities with adequate strength and normal range of motion, no pitting or edema. No clubbing or cyanosis. NEUROLOGICAL: Patient is alert and oriented x 3. Motor and sensory are also intact. Cranial nerves II through XII grossly intact. Symmetrical smile. Normal speech, normal gait. PSYCH: Normal mood, normal affect. SKIN: Warm, Dry, normal turgor, no rashes or lesions noted. Course Vital Signs 11/22/20 12:09 Temperature 98.4 F Pulse Rate 87 Respiratory 20 Rate Blood Pressure 128/71 O2 Sat by Pulse 99 Oximetry Medical Decision Making - Medical Decision Making She is a 50-year-old female here with abdominal pain over the past 2 days. She had recent cholecystectomy with Dr. Lobo, 6 days ago, did see her again for postop visit 3 days ago. Suspected patient may have an ileus. Her vitals are stable, no fevers. She is currently on Augmentin. Patient's labs are within normal limits including a normal white count, normal lactic acid, lipase is normal. Urine is normal. CT of abdomen and pelvis shows a very small amount of free fluid within the pelvis, fecal debris is within the colon, there is no obstruction, no acute findings other than nonobstructing renal stones. Patient was given fluids, pain control. Her vital signs remain stable throughout her stay. I did speak with Dr. Lobo who is okay with patient going home. She recommended MiraLAX, or Colace. I also discussed with patient that she should try walking around her house. Patient is upset with this plan of care, she states she has been walking around, she does not want to try MiraLAX as that has caused her constipation the past. I recommended following up with Dr. Lobo in her office. Patient is stable for discharge, return parameters were discussed with her and she verbalized understanding. The case discussed with Dr. [place]. - Lab Data Result diagrams: 11/22/20 13:30 11/22/20 13:30 Lab Results 11/22/20 11/22/20 11/22/20 Range/Units 13:30 13:30 13:30 WBC 9.0 (3.8-10.6) k/uL RBC 5.01 (3.80-5.40) m/uL Hgb 14.5 (11.4-16.0) gm/dL Hct 41.1 (34.0-46.0) % MCV 81.9 (80.0-100.0) fL MCH 28.9 (25.0-35.0) pg MCHC 35.3 (31.0-37.0) g/dL RDW 13.8 (11.5-15.5) % Plt Count 209 (150-450) k/uL MPV 7.7 Neutrophils % 76 % Lymphocytes % 16 % Monocytes % 6 % Eosinophils % 1 % Basophils % 0 % Neutrophils # 6.9 (1.3-7.7) k/uL Lymphocytes # 1.4 (1.0-4.8) k/uL Monocytes # 0.5 (0-1.0) k/uL Eosinophils # 0.1 (0-0.7) k/uL Basophils # 0.0 (0-0.2) k/uL PT (9.0-12.0) sec INR (<1.2) APTT (22.0-30.0) sec Sodium 137 (137-145) mmol/L Potassium 4.3 (3.5-5.1) mmol/L Chloride 103 (98-107) mmol/L Carbon Dioxide 25 (22-30) mmol/L Anion Gap 9 mmol/L BUN 11 (7-17) mg/dL Creatinine 0.64 (0.52-1.04) mg/dL Est GFR (CKD-EPI)AfAm >90 (>60 ml/min/1.73 sqM) Est GFR (CKD-EPI)NonAf >90 (>60 ml/min/1.73 sqM) Glucose 107 H (74-99) mg/dL Plasma Lactic Acid Eric (0.7-2.0) mmol/L Calcium 9.0 (8.4-10.2) mg/dL Total Bilirubin 0.5 (0.2-1.3) mg/dL AST 28 (14-36) U/L ALT 48 H (4-34) U/L Alkaline Phosphatase 60 (38-126) U/L Total Protein 6.4 (6.3-8.2) g/dL Albumin 3.9 (3.5-5.0) g/dL Amylase 53 (30-110) U/L Lipase 148 (23-300) U/L Urine Color Light Yellow Urine Appearance Clear (Clear) Urine pH 7.5 (5.0-8.0) Ur Specific Okay 1.007 (1.001-1.035) Urine Protein Negative (Negative) Urine Glucose (UA) Negative (Negative) Urine Ketones Negative (Negative) Urine Blood Negative (Negative) Urine Nitrite Negative (Negative) Urine Bilirubin Negative (Negative) Urine Urobilinogen <2.0 (<2.0) mg/dL Ur Leukocyte Esterase Negative (Negative) 11/22/20 11/22/20 Range/Units 13:30 13:30 WBC (3.8-10.6) k/uL RBC (3.80-5.40) m/uL Hgb (11.4-16.0) gm/dL Hct (34.0-46.0) % MCV (80.0-100.0) fL MCH (25.0-35.0) pg MCHC (31.0-37.0) g/dL RDW (11.5-15.5) % Plt Count (150-450) k/uL MPV Neutrophils % % Lymphocytes % % Monocytes % % Eosinophils % % Basophils % % Neutrophils # (1.3-7.7) k/uL Lymphocytes # (1.0-4.8) k/uL Monocytes # (0-1.0) k/uL Eosinophils # (0-0.7) k/uL Basophils # (0-0.2) k/uL PT 9.8 (9.0-12.0) sec INR 0.9 (<1.2) APTT 24.0 (22.0-30.0) sec Sodium (137-145) mmol/L Potassium (3.5-5.1) mmol/L Chloride (98-107) mmol/L Carbon Dioxide (22-30) mmol/L Anion Gap mmol/L BUN (7-17) mg/dL Creatinine (0.52-1.04) mg/dL Est GFR (CKD-EPI)AfAm (>60 ml/min/1.73 sqM) Est GFR (CKD-EPI)NonAf (>60 ml/min/1.73 sqM) Glucose (74-99) mg/dL Plasma Lactic Acid Eric 0.8 (0.7-2.0) mmol/L Calcium (8.4-10.2) mg/dL Total Bilirubin (0.2-1.3) mg/dL AST (14-36) U/L ALT (4-34) U/L Alkaline Phosphatase (38-126) U/L Total Protein (6.3-8.2) g/dL Albumin (3.5-5.0) g/dL Amylase (30-110) U/L Lipase (23-300) U/L Urine Color Urine Appearance (Clear) Urine pH (5.0-8.0) Ur Specific Okay (1.001-1.035) Urine Protein (Negative) Urine Glucose (UA) (Negative) Urine Ketones (Negative) Urine Blood (Negative) Urine Nitrite (Negative) Urine Bilirubin (Negative) Urine Urobilinogen (<2.0) mg/dL Ur Leukocyte Esterase (Negative) Disposition Clinical Impression: Postoperative generalized abdominal pain Disposition: HOME SELF-CARE Condition: Stable Instructions (If sedation given, give patient instructions): Abdominal Pain (ED) Additional Instructions: Please return to the Emergency Department if symptoms worsen or any other concerns. I recommend continuing to increase your walking around the house, trial of MiraLAX or Colace to help with bowel movements. Continue with your already prescribed antibiotics and pain control. Follow-up with Dr. Lobo. Is patient prescribed a controlled substance at d/c from ED?: No Referrals: Clem Forrest MD [Primary Care Provider] - 1-2 days Daina Lobo MD [STAFF PHYSICIAN] - 1-2 days Time of Disposition: 15:11
[2020-11-22] MEDS ORDERED: ONDANSETRON 4 MG/2 ML VIAL IVP STA (13:46)
[2020-11-22 13:53] LABS: Appearance,Urine Clear (Clear); Bilirubin,Urine Negative (Negative); Blood,Urine Negative (Negative); Color,Urine Light Yellow; Glucose,Urine (UA) Negative (Negative); Ketones,Urine Negative (Negative); Leukocyte Esterase,Urine Negative (Negative); Nitrite,Urine Negative (Negative); PH, Urine 7.5 (5.0-8.0); Protein,Urine Negative (Negative); Specific Gravity,Urine 1.007 (1.001-1.035); Urobilinogen,Urine <2.0 mg/dL (<2.0)
[2020-11-22 13:54] LABS: Basophils % (A) 0 %; Eosinophils # (A) 0.1 k/uL (0-0.7); Eosinophils % (A) 1 %; HCT 41.1 % (34.0-46.0); HGB 14.5 gm/dL (11.4-16.0); Lymphocytes # (A) 1.4 k/uL (1.0-4.8); Lymphocytes % (A) 16 %; MCH 28.9 pg (25.0-35.0); MCHC 35.3 g/dL (31.0-37.0); MCV 81.9 fL (80.0-100.0); Mean Platelet Volume 7.7; Monocytes # (A) 0.5 k/uL (0-1.0); Monocytes % (A) 6 %; Neutrophils # (A) 6.9 k/uL (1.3-7.7); Neutrophils % (A) 76 %; Platelet Count 209 k/uL (150-450); RBC 5.01 m/uL (3.80-5.40); RDW 13.8 % (11.5-15.5)
[2020-11-22 14:00] LABS: INR 0.9 (<1.2); Prothrombin Time 9.8 sec (9.0-12.0)
[2020-11-22 14:02] LABS: ALT 48 U/L (4-34); AST 28 U/L (14-36); African American GFR (CKD) >90 (>60 ml/min/1.73 sqM); Albumin 3.9 g/dL (3.5-5.0); Alkaline Phosphatase 60 U/L (38-126); Amylase 53 U/L (30-110); Anion Gap 9 mmol/L; Blood Urea Nitrogen 11 mg/dL (7-17); Carbon Dioxide 25 mmol/L (22-30); Chloride 103 mmol/L (98-107); Glucose 107 mg/dL (74-99); Lipase 148 U/L (23-300); Non-African American GFR(CKD) >90 (>60 ml/min/1.73 sqM); Potassium 4.3 mmol/L (3.5-5.1); Sodium 137 mmol/L (137-145); Total Bilirubin 0.5 mg/dL (0.2-1.3); Total Protein 6.4 g/dL (6.3-8.2)
--- NOTE | 2020-11-22 14:27 | CT ---
EXAMINATION TYPE: CT abdomen pelvis w con DATE OF EXAM: 11/22/2020 COMPARISON: 07/27/2020 INDICATION: Abdominal pain, distention. S/P Cholecystectomy DLP: 1510.4 mGycm, Automated exposure control for dose reduction was used. CONTRAST: 100 ml mL of Isovue 300. Study performed without Oral Contrast TECHNIQUE: Axial images were obtained from above the diaphragm to the pubic rami in the axial plane a t 5 mm thick sections. Reconstructed images are reviewed on the computer in the coronal plane. FINDINGS: Limited CT sections are obtained the lung bases. The lung bases are clear. CT ABDOMEN: Liver: Some early fatty infiltration may be present. Spleen: Normal Pancreas: Normal Adrenal glands: The adrenal glands are normal. Gallbladder: Surgically absent 11/26/2020. No abnormal fluid collections are evident. Kidneys: Multiple renal stones are present. The largest is on the lateral left kidney measuring 0.7 c m. Multiple additional 3 mm calcifications are on the left with an inferior pole 3 mm calcification o n the right. These are nonobstructing stones. No hydronephrosis is present. No cysts are present. Delayed images were obtained through the kidneys. Aorta: Vascular calcification is within the aorta. Inferior vena cava: Normal CT PELVIS: Small amount of free fluid is within the pelvis. Loops of bowel within the abdomen and pelvis are normal. Fecal debris is within the colon. The st udy is performed without oral contrast limiting bowel evaluation. Appendix: Not visualized. No suspicious dilated tubular structure or inflammatory change is evident. Urinary bladder: Normal. Genitourinary structures: Uterus and ovaries are not identified. Osseous structures: No suspicious lytic or sclerotic lesions. IMPRESSIONS: 1. Nonobstructing renal stones
[2020-11-22 15:25] VITALS: BP 117/62; PULSE 78; RESP 18
== END 2020-11-22 15:25 | disposition home or self-care (01) ==
LOC: EC 11:29
DX: G89.18 Other acute postprocedural pain (principal); R10.84 Generalized abdominal pain; J45.909 Unspecified asthma, uncomplicated; K21.9 Gastro-esophageal reflux disease without esophagitis; Z90.89 Acquired absence of other organs; Z90.49 Acquired absence of other specified parts of digestive tract
CPT/HCPCS: 36415; 80053; 82150; 83605; 83690; 85025; 85610; 85730; 81003; 74177; 99284; 96374; 96375 ×4; J2270; J1200; J2930; J2405; Q9967

== ENCOUNTER 2020-12-12 07:59 | Day surgery (SDC) | payer OTHER ==
[2020-12-10 13:32] VITALS: BMI 32.5
[~2020-12-12 07:59] MED LIST changes: -CLINDAMYCIN 900 MG in DEXTROSE 5% IN WATER 50 ML IVPB ONE; -DEXAMETHASONE SOD PHOSPHATE 4 MG/ML 1 ML VIAL IV ONE; -GENTAMICIN 340 MG in SODIUM CHLORIDE 0.9% 100 ML IVPB ONE; -MIDAZOLAM 2 MG/2 ML VIAL IV PRN; -ONDANSETRON 4 MG/2 ML VIAL IVP ONE; -SCOPOLAMINE 1.5MG/72HR PATCH TRANSDERM ONE
[2020-12-12 08:35] VITALS: TEMP 97.9
[2020-12-12] MEDS ORDERED: LIDOCAINE 1% INJ 10MG/ML (20 ML MDV) ONE (09:16)
[2020-12-12] MEDS ORDERED: PROPOFOL 10 MG/ML 20 ML VIAL IV ONE (09:16)
--- NOTE | 2020-12-12 09:28 | P.GSHP ---
History of Present Illness H&P Date: 12/12/20 CHIEF COMPLAINT: GERD HISTORY OF PRESENT ILLNESS: The patient is a 50-year-old female who presents reports gastroesophageal reflux disease. Upper endoscopy was offered for further evaluation and management. PAST MEDICAL HISTORY: Please see list. PAST SURGICAL HISTORY: Please see list. MEDICATIONS: Please see list. ALLERGIES: Please see list. SOCIAL HISTORY: No illicit drug use FAMILY HISTORY: No reports of Crohn disease or ulcerative colitis. REVIEW OF ORGAN SYSTEMS: CONSTITUTIONAL: No reports of fevers or chills. GI: Denies any blood in stools or constipation. PHYSICAL EXAM: VITAL SIGNS: Stable GENERAL: Well-developed and pleasant in no acute distress. HEENT: No scleral icterus. Extraocular movements grossly intact. Moist buccal mucosa. NECK: Supple without lymphadenopathy. CHEST: Unlabored respirations. Equal bilateral excursions. CARDIOVASCULAR: Regular rate and rhythm. Distal 2+ pulses. ABDOMEN: Soft, nondistended. MUSCULOSKELETAL: No clubbing, cyanosis, or edema. ASSESSMENT: 1. Gastroesophageal reflux disease PLAN: 1. Recommend proceeding with an upper endoscopy Past Medical History Past Medical History: Asthma, Cancer, GERD/Reflux, Liver Disease, Skin Disorder Additional Past Medical History / Comment(s): Thyroid cancer status post thyroidectomy and radioactive iodine treatments. OCC ECZEMA. HX GESTATIONAL DIABETES. KIDNEY STONES. MILD FATTY LIVER. HX INJURY TO RT ARM, CHRONIC PAIN. Hiatal hernia. Cauda Equina syndrome Jan 2017. COVID 07/29, recent gallbladder surgery, recent pancreatitis History of Any Multi-Drug Resistant Organisms: None Reported Past Surgical History: Adenoidectomy, Back Surgery, Cholecystectomy, Ear Surgery, Hysterectomy, Tonsillectomy Additional Past Surgical History / Comment(s): BMT. EXC DERMOID CYST RT OVARY. Decompressive laminectomy Jan 2017 for Cauda Equina Syndrome. Thyroidectomy. Vaginal hysterectomy with A&P repairs, lthotripsy, sheryl 11/16/20 Past Anesthesia/Blood Transfusion Reactions: Previous Problems w/ Anesthesia, Motion Sickness, Postoperative Nausea & Vomiting (PONV) Additional Past Anesthesia/Blood Transfusion Reaction / Comment(s): WOKE UP DURING COLONOSCOPY and T&A surgeries Smoking Status: Never smoker - Past Family History Mother Additional Family Medical History / Comment(s): Heart disease. Maternal uncle had Parkinson's disease as well as a grandfather. Grandfather had prostate and skin cancer. Father Family Medical History: Cancer Additional Family Medical History / Comment(s): Skin cancerr-basal cell Medications and Allergies Home Medications Medication Instructions Recorded Confirmed Type Montelukast [Singulair] 10 mg PO HS PRN 11/16/18 12/10/20 History Gabapentin [Neurontin] 400 mg PO TID PRN 03/07/20 12/10/20 History HYDROcodone/APAP 5-325MG [[place] 1 tab PO BID PRN 03/07/20 12/10/20 History 5-325] Levothyroxine Sodium [Synthroid] 137 mcg PO DAILY 03/07/20 12/10/20 History Cyclobenzaprine [Flexeril] 5 mg PO BID PRN 08/04/20 12/10/20 History Ergocalciferol (Vitamin D2) 1,250 mcg PO TU 08/04/20 12/10/20 History [Drisdol (50,000 Iu)] Albuterol Nebulized [Ventolin 2.5 mg INHALATION RT-QID PRN 11/15/20 12/10/20 History Nebulized] Albuterol Sulfate [Proair Hfa] 2 puff INHALATION RT-QID PRN 11/15/20 12/10/20 History Fluticasone Nasal [place] [Flonase 2 spr EA NOSTRIL BID PRN 11/15/20 12/10/20 History Nasal [place]] Ibuprofen [Motrin] 600 mg PO Q8HR PRN #30 tab 11/16/20 12/10/20 Rx Senexon-S 1 - 2 tab PO DAILY PRN 12/10/20 12/10/20 History Allergies Allergy/AdvReac Type Severity Reaction Status Date / Time cefixime [From Suprax] Allergy Dyspnea Verified 12/12/20 08:24 fexofenadine HCl Allergy Dyspnea Verified 12/12/20 08:24 [From Nina] Iodinated Contrast Media Allergy Itching IN Verified 12/12/20 08:24 [Iodinated Contrast Media - THROAT AND IV Dye] BODY, & ALLERGY SYMPTOMS levofloxacin [From Levaquin] Allergy Unknown Verified 12/12/20 08:24 propoxyphene napsylate Allergy Itching Verified 12/12/20 08:24 [From Darvocet-N 100] shellfish derived [Shellfish] Allergy Anaphylaxis Verified 12/12/20 08:24 egg AdvReac Abdominal Verified 12/12/20 08:24 Pain, NAUSEA - UNLESS COOKED AT HIGH TEMP IN OVEN [facility]ramide [facility] AdvReac Nausea & Verified 12/12/20 08:24 Vomiting & Diarrhea Milk Containing Products AdvReac ALLERGY Verified 12/12/20 08:24 NASAL SYMPTOMS, IF MORE THAN 8 OZ AT A TIME SEASONAL,MOLD,DUST,ANIMAL AdvReac RUNNY Uncoded 12/12/20 08:24 DANDER NOSE, ITCHY/WATERY EYES Surgical - Exam Vital Signs Temp Pulse Resp BP Pulse Ox 97.9 F 74 15 130/58 97 12/12/20 08:33 12/12/20 08:33 12/12/20 08:33 12/12/20 08:33 12/12/20 08:33
--- NOTE | 2020-12-12 09:34 | P.PCN ---
Date of Procedure: 12/12/20 Description of Procedure: PREOPERATIVE DIAGNOSIS: Gastroesophageal reflux disease. History of gastric ulcers POSTOPERATIVE DIAGNOSIS: Gastritis. Gastroesophageal reflux disease. OPERATION: Esophagogastroduodenoscopy with biopsies along antrum. SURGEON: Daina Lobo MD ANESTHESIA: MAC. INDICATIONS: The patient is a 50-year-old female who presents with a history of reflux disease. Benefits and risks of the procedure were described. Informed consent was obtained. DESCRIPTION: The patient was brought into the endoscopy suite and laid in the left lateral decubitus position. An Olympus gastroscope was passed along the posterior oropharynx down to the distal esophagus where the squamocolumnar junction was encountered at 38 cm from the incisors. The stomach was entered and bile reflux was found. Additional findings are listed below. Biopsies with cold forceps were obtained of the antrum. The first through third portion of the duodenum was examined and unremarkable. Retroflexion of the scope confirmed Hill grade 1 lower esophageal valve. The squamocolumnar junction demonstrated LA grade A erosive esophagitis. The stomach was desufflated. The patient tolerated the procedure well. FINDINGS: Squamocolumnar junction 38 cm from the incisors. Diaphragmatic hiatus at 38 cm. Hill grade 1 lower esophageal valve. LA grade A erosive esophagitis with bile reflux No active duodenitis. Chronic gastritis RECOMMENDATIONS: Upper endoscopy as needed. Plan - Discharge Summary New Discharge Prescriptions: Continue Montelukast [Singulair] 10 mg PO HS PRN PRN Reason: Allergy Symptoms Levothyroxine Sodium [Synthroid] 137 mcg PO DAILY HYDROcodone/APAP 5-325MG [[place] 5-325] 1 tab PO BID PRN PRN Reason: Pain Gabapentin [Neurontin] 400 mg PO TID PRN PRN Reason: Pain Cyclobenzaprine [Flexeril] 5 mg PO BID PRN PRN Reason: Muscle Pain Ergocalciferol (Vitamin D2) [Drisdol (50,000 Iu)] 1,250 mcg PO TU Albuterol Nebulized [Ventolin Nebulized] 2.5 mg INHALATION RT-QID PRN PRN Reason: Shortness Of Breath Albuterol Sulfate [Proair Hfa] 2 puff INHALATION RT-QID PRN PRN Reason: Shortness Of Breath Fluticasone Nasal [place] [Flonase Nasal [place]] 2 spr EA NOSTRIL BID PRN PRN Reason: Allergy Symptoms Ibuprofen [Motrin] 600 mg PO Q8HR PRN #30 tab PRN Reason: Pain Senexon-S 1 - 2 tab PO DAILY PRN PRN Reason: Constipation Discharge Medication List Montelukast [Singulair] 10 mg PO HS PRN 11/16/18 [History] Gabapentin [Neurontin] 400 mg PO TID PRN 03/07/20 [History] HYDROcodone/APAP 5-325MG [[place] 5-325] 1 tab PO BID PRN 03/07/20 [History] Levothyroxine Sodium [Synthroid] 137 mcg PO DAILY 03/07/20 [History] Cyclobenzaprine [Flexeril] 5 mg PO BID PRN 08/04/20 [History] Ergocalciferol (Vitamin D2) [Drisdol (50,000 Iu)] 1,250 mcg PO TU 08/04/20 [History] Albuterol Nebulized [Ventolin Nebulized] 2.5 mg INHALATION RT-QID PRN 11/15/20 [History] Albuterol Sulfate [Proair Hfa] 2 puff INHALATION RT-QID PRN 11/15/20 [History] Fluticasone Nasal [place] [Flonase Nasal [place]] 2 spr EA NOSTRIL BID PRN 11/15/20 [History] Ibuprofen [Motrin] 600 mg PO Q8HR PRN #30 tab 11/16/20 [Rx] Senexon-S 1 - 2 tab PO DAILY PRN 12/10/20 [History] Follow up Appointment(s)/Referral(s): Daina Lobo MD [STAFF PHYSICIAN] - 12/18/20 Patient Instructions/Handouts: Gastritis (DC) Discharge Disposition: HOME SELF-CARE
[2020-12-12 09:48] VITALS: PULSE 70; RESP 16
[2020-12-12 09:50] VITALS: BP 112/77
== END 2020-12-12 10:28 | disposition home or self-care (01) ==
LOC: ORWHC2ENDO 07:59
PROVIDERS: ATTEND Surgery Plastic and Reconstructive Surgery
DX: K29.50 Unspecified chronic gastritis without bleeding (principal); K21.9 Gastro-esophageal reflux disease without esophagitis; E89.0 Postprocedural hypothyroidism; J45.909 Unspecified asthma, uncomplicated; K76.0 Fatty (change of) liver, not elsewhere classified; Z79.1 Long term (current) use of non-steroidal anti-inflammatories (NSAID); Z82.49 Family history of ischemic heart disease and other diseases of the circulatory system; Z85.850 Personal history of malignant neoplasm of thyroid; Z86.018 Personal history of other benign neoplasm; Z87.442 Personal history of urinary calculi; Z88.1 Allergy status to other antibiotic agents; Z90.49 Acquired absence of other specified parts of digestive tract; Z87.11 Personal history of peptic ulcer disease
CPT/HCPCS: 43239; 88305; J2001; J2704

== ENCOUNTER 2021-07-26 10:11 | Day surgery (SDC) | payer OTHER ==
[2021-07-25 13:00] VITALS: BMI 33.9
[2021-07-26 10:59] VITALS: RESP 16; TEMP 98
[2021-07-26 11:10] LABS: Glucose,Whole Blood 107 mg/dL (75-99)
[2021-07-26] MEDS ORDERED: LIDOCAINE 1% (10MG/ML) FOR IV START INTRADERMA ONE (11:11)
[2021-07-26] MEDS ORDERED: PROPOFOL 10 MG/ML 20 ML VIAL IV ONE (11:43)
--- NOTE | 2021-07-26 11:59 | P.PCN ---
Date of Procedure: 07/26/21 Procedure(s) Performed: BRIEF HISTORY: Patient is a 51-year-old pleasant white female scheduled for an elective colonoscopy as a part of evaluation of change in bowel habits for the last several months duration. PROCEDURE PERFORMED: Colonoscopy. PREOPERATIVE DIAGNOSIS: Change in bowel habits. IV sedation per Anesthesia. PROCEDURE: After informed consent was obtained, the patient, was brought into the endoscopy unit. IV sedation was administered by Anesthesia under continuous monitoring. Digital rectal examination was normal. Initially the Olympus CF-160 flexible video colonoscope was then inserted in the rectum, gradually advanced into the cecum without any difficulty. Careful examination was performed as the scope was gradually being withdrawn. Ileocecal valve and the appendiceal orifice were visualized and appeared normal. Prep was excellent. Mucosa of the cecum, ascending colon, transverse colon, descending colon, sigmoid colon, and rectum appeared normal. Retroflexion was performed in the rectum and no lesions were seen. The patient tolerated the procedure well. IMPRESSION: Normal-appearing colon from rectum to cecum . No evidence of colorectal neoplasia RECOMMENDATIONS: Findings of this examination were discussed with the patient as well as a family. She was advised to be a high-fiber diet and take fiber supplements a regular basis. She can have a repeat screening colonoscopy in 10 years..
[2021-07-26] MEDS ORDERED: MORPHINE SULFATE 4 MG/ML SYRINGE ONE (12:19)
[2021-07-26 13:03] VITALS: BP 115/79; PULSE 66
== END 2021-07-26 13:24 | disposition home or self-care (01) ==
LOC: ORWHC2ENDO 10:11
PROVIDERS: ATTEND Internal Medicine Gastroenterology
DX: R19.4 Change in bowel habit (principal); J45.909 Unspecified asthma, uncomplicated; Z85.850 Personal history of malignant neoplasm of thyroid; G83.4 Cauda equina syndrome; K21.9 Gastro-esophageal reflux disease without esophagitis; K44.9 Diaphragmatic hernia without obstruction or gangrene; Z79.899 Other long term (current) drug therapy; Z79.890 Hormone replacement therapy; Z79.891 Long term (current) use of opiate analgesic; Z79.82 Long term (current) use of aspirin; Z90.710 Acquired absence of both cervix and uterus; Z90.49 Acquired absence of other specified parts of digestive tract; Z98.890 Other specified postprocedural states; Z88.8 Allergy status to other drugs, medicaments and biological substances; Z91.041 Radiographic dye allergy status
CPT/HCPCS: 45378; J2270; J2704

== ENCOUNTER → 2021-08-08 | Outpatient (CLI) | payer OTHER ==
--- NOTE | 2021-08-08 15:18 | US ---
EXAMINATION TYPE: US kidneys/renal and bladder DATE OF EXAM: 08/08/2021 COMPARISON: CT, US CLINICAL HISTORY: N20.0 KIDNEY STONE, R10.31 R FLANK PAIN. Left flank pain now, hematuria EXAM MEASUREMENTS: Right Kidney: 9.3 x 6.5 x 4.5 cm Left Kidney: 10.3 x 5.2 x 4.6 cm Post Void Residual Volume: 36.0 mL Right Kidney: calcification with posterior shadowing seen mid pole = 0.7 x 0.4 x 0.3cm Left Kidney: calcification, with posterior shadowing, surrounded by cystic/fluid area seen mid pole = 0.8 x 0.5 x 0.3cm; inferior pole calcification seen = 0.9 x 0.6 x 0.7cm. Bladder: wnl Bilateral Jets seen: yes Normal Post Void Residual: yes There is no evidence for hydronephrosis at this point in time. No masses are identified. The urinary bladder is anechoic. Bilateral ureteral jets are seen. IMPRESSION: Bilateral nephrolithiasis
== END | disposition home or self-care (01) ==
LOC: RADUSWWP 12:04
PROVIDERS: ATTEND Urology
DX: N20.0 Calculus of kidney (principal)
CPT/HCPCS: 76770

== ENCOUNTER → 2021-10-09 | Outpatient (CLI) | payer OTHER ==
--- NOTE | 2021-10-10 06:49 | CT ---
EXAMINATION TYPE: CT abdomen pelvis wo con DATE OF EXAM: 10/09/2021 HISTORY: renal stone CT DLP: 997 mGycm. Automated Exposure Control for Dose Reduction was Utilized. TECHNIQUE: CT scan of the abdomen and pelvis is performed without oral or IV contrast. COMPARISON: Most recent CT November 22, 2020 and older CTs FINDINGS: Within the limitations of a non-contrast study, the following observations are made. LUNG BASES: No significant abnormality is appreciated. LIVER/GB: Surgical sutures from cholecystectomy are redemonstrated. Visualized liver is heterogeneous ly hypodense consistent with diffuse fatty infiltration PANCREAS: No significant abnormality is seen. SPLEEN: No significant abnormality is seen. ADRENALS: No significant abnormality is seen. KIDNEYS: Scattered bilateral renal calculi redemonstrated. Roughly 10 calculi throughout the left kid chintan and approximately 6 scattered smaller calculi throughout the right kidney. All the calculi in the right kidney measuring under 3 mm in size. The largest calculus in the left kidney measures up to 7 mm axial image 28 at midpole level on current study. No hydronephrosis on current study. No intralumi nal calculus in the bladder. BOWEL: Stable small size hiatal hernia. Appendix within normal limits inferiorly from base of cecum i n the right lower quadrant. No suspicious small or large bowel dilatation. GENITAL ORGANS: Uterus surgically absent. Scattered bilateral pelvic phleboliths redemonstrated. LYMPH NODES: No greater than 1cm abdominal or pelvic lymph nodes are appreciated. OSSEOUS STRUCTURES: Moderate to severe disc space narrowing lumbosacral junction redemonstrated. Slig ht scoliotic curvature. OTHER: Eventration near umbilicus without hernia defect redemonstrated. IMPRESSION: Stable nonobstructing bilateral renal calculi more numerous and larger in the left kidney . No hydronephrosis noted. No significant change from most recent CT.
== END | disposition home or self-care (01) ==
LOC: RADCTMAIN 16:23
PROVIDERS: ATTEND Urology
DX: N20.0 Calculus of kidney (principal)
CPT/HCPCS: 74176

== ENCOUNTER → 2022-09-30 | Outpatient (CLI) | payer OTHER ==
[2022-09-30 15:28] VITALS: BP 122/77; PULSE 83; RESP 17; TEMP 98.5
--- NOTE | 2022-09-30 16:10 | P.HPOB ---
History of Present Illness H&P Date: 09/30/22 Chief Complaint: The patient is here for her routine gynecologic exam and ma mmogram. This is a 52-year-old 004 with an LMP of 2019. She is status post vaginal hysterectomy with anterior and posterior repairs for prolapse. She has had occasional hot flashes which are mild. She believes she is not fully menopausal because she still has brief mild pains near the ovaries about monthly. She sometimes notices it on the right side and sometimes notices it on the left side. She is otherwise without gynecologic complaints. Review of Systems She is getting about 8 pounds over the past year. She denies cardiac problems. GI: Occasional gastroesophageal reflux symptoms which can make her cough. Respiratory: Occasional cough which she thinks may be related to her gastric reflux. Past Medical History Past Medical History: Asthma, Cancer, GERD/Reflux, Liver Disease, Skin Disorder Additional Past Medical History / Comment(s): Thyroid cancer status post thyroidectomy and radioactive iodine treatments. OCC ECZEMA. HX GESTATIONAL DIABETES. KIDNEY STONES. MILD FATTY LIVER. HX INJURY TO RT ARM, CHRONIC PAIN. Hiatal hernia. Cauda Equina syndrome Jan 2017. COVID 2020 pancreatitis. 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 History of Any Multi-Drug Resistant Organisms: None Reported Past Surgical History: Adenoidectomy, Back Surgery, Cholecystectomy, Ear Surgery, Hysterectomy, Tonsillectomy Additional Past Surgical History / Comment(s): BMT. EXC DERMOID CYST RT OVARY. Decompressive laminectomy Jan 2017 for Cauda Equina Syndrome. Thyroidectomy. Vaginal hysterectomy with A&P repairs 2019, LITHOTRIPSY, sheryl 11/16/20, EGD. [id number](next after 10yr). 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 She is considered disabled. - Past Family History Mother Additional Family Medical History / Comment(s): Heart disease. Maternal uncle had Parkinson's disease as well as a grandfather. Grandfather had prostate and skin cancer. Father Family Medical History: Cancer Additional Family Medical History / Comment(s): Skin cancerr-basal cell Medications and Allergies Home Medications Medication Instructions Recorded Confirmed Type Gabapentin [Neurontin] 400 mg PO TID PRN 03/07/20 09/30/22 History Levothyroxine Sodium [Synthroid] 137 mcg PO DAILY 03/07/20 09/30/22 History Cyclobenzaprine [Flexeril] 5 mg PO BID PRN 08/04/20 09/30/22 History Ergocalciferol (Vitamin D2) 1,250 mcg PO TU 08/04/20 09/30/22 History [Drisdol (50,000 Iu)] Albuterol Nebulized [Ventolin 2.5 mg INHALATION RT-QID PRN 11/15/20 09/30/22 History Nebulized] Fluticasone Nasal [place] [Flonase 2 spr EA NOSTRIL BID PRN 11/15/20 09/30/22 History Nasal [place]] Loratadine 10 mg PO DAILY 09/30/22 09/30/22 History Allergies Allergy/AdvReac Type Severity Reaction Status Date / Time cefixime [From Suprax] Allergy Dyspnea Verified 09/30/22 15:23 fexofenadine HCl Allergy Dyspnea Verified 09/30/22 15:23 [From Nina] Iodinated Contrast Media Allergy Itching IN Verified 09/30/22 15:23 [Iodinated Contrast Media - THROAT AND IV Dye] BODY, & ALLERGY SYMPTOMS levofloxacin [From Levaquin] Allergy Unknown Verified 09/30/22 15:23 propoxyphene napsylate Allergy Itching Verified 09/30/22 15:23 [From Darvocet-N 100] shellfish derived [Shellfish] Allergy Anaphylaxis Verified 09/30/22 15:23 egg AdvReac Abdominal Verified 09/30/22 15:23 Pain, NAUSEA - UNLESS COOKED AT HIGH TEMP IN OVEN metoclopramide [From Reglan] AdvReac Nausea & Verified 09/30/22 15:23 Vomiting & Diarrhea Milk Containing Products AdvReac ALLERGY Verified 09/30/22 15:23 NASAL SYMPTOMS, IF MORE THAN 8 OZ AT A TIME SEASONAL,MOLD,DUST,ANIMAL AdvReac RUNNY Uncoded 09/30/22 15:23 DANDER NOSE, ITCHY/WATERY EYES Exam Vital Signs Temp Pulse Resp BP Pulse Ox 09/30/22 15:25 98.5 F 83 17 122/77 96 Intake and Output 09/30/22 09/30/22 09/30/22 06:59 14:59 22:59 Other: Weight 99.79 kg Height 5 feet 5 inches weight 220 pounds, BMI 36.6. This is a well-developed well-nourished white female who is alert and oriented times 3 in no acute distress. HEENT: Within normal limits. NECK: Supple without mass or thyromegaly. CHEST AND LUNGS: Clear to auscultation. HEART: Regular rate and rhythm. BREASTS: Are without mass or discharge. AXILLARY EXAM: Negative for adenopathy. BACK: Negative for CVA tenderness. ABDOMEN: Soft, nontender, without palpable masses. PELVIC EXAM: External genitalia appears normal. Vagina appears normal. There is no evidence of prolapse. Bimanual examination is negative for mass. There is minimal left adnexal tenderness without palpable mass. There is no other tenderness noted. RECTAL EXAM: Rectovaginal exam is negative for mass or tenderness and is negative for occult blood. EXTREMITIES: Nontender. IMPRESSION: 1. 52-year-old perimenopausal female status post vaginal hysterectomy with anterior and posterior repairs for benign reasons, with minimal left adnexal tenderness on exam today. This may represent ovulation related slight tenderness. She was not having any pain today, but has had ovulatory type pains which can alter sides. PLAN: 1. Pap smears have been discontinued. 2. Self breast awareness was discussed with the patient. We have also discussed symptoms associated with inflammatory breast cancer. 3. Screening mammogram will be done today. 4. Osteoporosis prevention was discussed. I have stressed the importance of adequate calcium, vitamin D and regular exercise. Recommended amounts of calciu m and vitamin D were also discussed. 5. We have discussed the intermittent brief pains that she can have during the month and I feel that this is most likely representing ovulation related mild pains. I believe her minimal tenderness on exam today they also represent this. She was instructed to call if she is having more than brief monthly pains, worsening of symptoms, or problems. If this is the case we'll consider further evaluation with pelvic ultrasound. 6. She was advised to return in one year for her annual well woman exam and as needed.
--- NOTE | 2022-10-01 11:19 | MM ---
Reason for Exam: Screening (asymptomatic). Last mammogram was performed 1 year(s) and 1 month(s) ago. Patient History: Menarche at age 15. First Full-Term at age 30. Left ovary removed at age 49. Right ovary removed at age 49. Hysterectomy at age 49. Postmenopausal. Other cancer, age 48. Hormonal Contraceptives for 6 months starting at age 28. Risk Values: Shani 5 year model risk: 1.1%. NCI Lifetime model risk: 9.9%. Prior Study Comparison: 03/30/2019 Bilateral Screening Mammogram, [facility]. 04/24/2020 Bilateral Screening Mammogram, [facility]. 08/14/2021 Bilateral Screening Mammogram, [facility]. Tissue Density: The breast tissue is heterogeneously dense. This may lower the sensitivity of mammography. Findings: Analyzed By CAD. A few tiny benign-appearing round calcifications bilaterally are redemonstrated. There is no suspicious group of microcalcifications or new suspicious mass in either breast. Overall Assessment: Benign, BI-RAD 2 Management: Screening Mammogram of both breasts in 1 year. . Patient should continue monthly self-breast exams. A clinical breast exam by your physician is recommended on an annual basis. This exam should not preclude additional follow-up of suspicious palpable abnormalities. Note on Shani scores and lifetime risk: 1. A Shani score greater than 3% is considered moderate risk. If this is the case, consider specialist referral to assess eligibility for a risk reducing agent. 2. If overall lifetime risk for the development of breast cancer is 20% or higher, the patient may qualify for future screening with alternating mammogram and breast MRI. Electronically signed and approved by: Roly Yanez M.D.
== END ==
LOC: WWCWWP 15:12
PROVIDERS: ATTEND Obstetrics & Gynecology
DX: Z12.31 Encounter for screening mammogram for malignant neoplasm of breast (principal); Z01.419 Encounter for gynecological examination (general) (routine) without abnormal findings; J45.909 Unspecified asthma, uncomplicated; K21.9 Gastro-esophageal reflux disease without esophagitis; Z79.51 Long term (current) use of inhaled steroids; Z88.1 Allergy status to other antibiotic agents; Z91.041 Radiographic dye allergy status; Z91.013 Allergy to seafood; Z91.012 Allergy to eggs; Z91.011 Allergy to milk products; Z91.048 Other nonmedicinal substance allergy status
CPT/HCPCS: 77067

== ENCOUNTER 2022-10-03 19:39 | Emergency (ER) | payer OTHER ==
[2022-10-03] MEDS ORDERED: SODIUM CHLORIDE 0.9% 1,000 ML IV STA (20:28)
[2022-10-03] MEDS ORDERED: ONDANSETRON 4 MG/2 ML VIAL IVP STA (20:28)
[2022-10-03] MEDS ORDERED: KETOROLAC 15 MG/ML 1 ML VIAL IVP STA (20:28)
[2022-10-03] MEDS ORDERED: ACETAMINOPHEN TAB 500 MG TAB PO STA (20:29)
--- NOTE | 2022-10-03 20:51 | ED ---
Abdominal Pain HPI - General Chief Complaint: Abdominal Pain Stated Complaint: Post surgery abd/back pain Time Seen by Provider: 10/03/22 20:23 Source: patient Mode of arrival: ambulatory Limitations: no limitations - History of Present Illness Initial Comments: Patient is a 52-year-old female presenting with chief complaint of flank pain. Patient had lithotripsy performed 2 days ago on the left side with Dr. Fernandez, her regular urologist is Dr. Garner. Today she noticed increasing bilateral flank pain as well as nausea and vomiting. Patient has a fever, she was unable to take any antipyretics at home due to the vomiting. She has increased flank pain with deep breaths. No chest pain or palpitations. - Related Data Home Medications Medication Instructions Recorded Confirmed Gabapentin [Neurontin] 400 mg PO TID PRN 03/07/20 09/30/22 Levothyroxine Sodium [Synthroid] 137 mcg PO DAILY 03/07/20 09/30/22 Cyclobenzaprine [Flexeril] 5 mg PO BID PRN 08/04/20 09/30/22 Ergocalciferol (Vitamin D2) 1,250 mcg PO TU 08/04/20 09/30/22 [Drisdol (50,000 Iu)] Albuterol Nebulized [Ventolin 2.5 mg INHALATION RT-QID PRN 11/15/20 09/30/22 Nebulized] Fluticasone Nasal [place] [Flonase 2 spr EA NOSTRIL BID PRN 11/15/20 09/30/22 Nasal [place]] Loratadine 10 mg PO DAILY 09/30/22 09/30/22 Previous Rx's Medication Instructions Recorded Sulfamethox-Tmp 800-160Mg [Bactrim 1 tab PO Q12HR 5 Days #10 tab 10/04/22 DS 800-160 mg] Allergies Allergy/AdvReac Type Severity Reaction Status Date / Time cefixime [From Suprax] Allergy Dyspnea Verified 10/03/22 20:04 fexofenadine HCl Allergy Dyspnea Verified 10/03/22 20:04 [From Nina] Iodinated Contrast Media Allergy Itching IN Verified 10/03/22 20:04 [Iodinated Contrast Media - THROAT AND IV Dye] BODY, & ALLERGY SYMPTOMS levofloxacin [From Levaquin] Allergy Unknown Verified 10/03/22 20:04 propoxyphene napsylate Allergy Itching Verified 10/03/22 20:04 [From [place]-N 100] shellfish derived [Shellfish] Allergy Anaphylaxis Verified 10/03/22 20:04 egg AdvReac Abdominal Verified 10/03/22 20:04 Pain, NAUSEA - UNLESS COOKED AT HIGH TEMP IN OVEN metoclopramide [From Reglan] AdvReac Nausea & Verified 10/03/22 20:04 Vomiting & Diarrhea Milk Containing Products AdvReac ALLERGY Verified 10/03/22 20:04 NASAL SYMPTOMS, IF MORE THAN 8 OZ AT A TIME SEASONAL,MOLD,DUST,ANIMAL AdvReac RUNNY Uncoded 10/03/22 20:04 DANDER NOSE, ITCHY/WATERY EYES Review of Systems ROS Statement: Those systems with pertinent positive or pertinent negative responses have been documented in the HPI. ROS Other: All systems not noted in ROS Statement are negative. Past Medical History Past Medical History: Asthma, Cancer, GERD/Reflux, Liver Disease, Skin Disorder Additional Past Medical History / Comment(s): Thyroid cancer status post thyroidectomy and radioactive iodine treatments. OCC ECZEMA. HX GESTATIONAL DIABETES. KIDNEY STONES. MILD FATTY LIVER. HX INJURY TO RT ARM, CHRONIC PAIN. Hiatal hernia. Cauda Equina syndrome Jan 2017. COVID 2020 pancreatitis. 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 History of Any Multi-Drug Resistant Organisms: None Reported Past Surgical History: Adenoidectomy, Back Surgery, Cholecystectomy, Ear Surger y, Hysterectomy, Tonsillectomy Additional Past Surgical History / Comment(s): BMT. EXC DERMOID CYST RT OVARY. Decompressive laminectomy Jan 2017 for Cauda Equina Syndrome. Thyroidectomy. Vaginal hysterectomy with A&P repairs 2019, LITHOTRIPSY x2 , sheryl 11/16/20, EGD. [id number](next after 10yr). Past Anesthesia/Blood Transfusion Reactions: Previous Problems w/ Anesthesia, Motion Sickness, Postoperative Nausea & Vomiting (PONV) Additional Past Anesthesia/Blood Transfusion Reaction / Comment(s): WOKE UP DURING COLONOSCOPY and T&A surgeries Past Psychological History: Anxiety Smoking Status: Never smoker Past Alcohol Use History: None Reported Past Drug Use History: None Reported - Past Family History Mother Additional Family Medical History / Comment(s): Heart disease. Maternal uncle had Parkinson's disease as well as a grandfather. Grandfather had prostate and skin cancer. Father Family Medical History: Cancer Additional Family Medical History / Comment(s): Skin cancerr-basal cell General Exam Limitations: no limitations General appearance: alert, in no apparent distress Head exam: Present: atraumatic, normocephalic, normal inspection Eye exam: Present: normal appearance, EOMI. Absent: scleral icterus, periorbital swelling Neck exam: Present: normal inspection, full ROM Respiratory exam: Present: normal lung sounds bilaterally. Absent: respiratory distress, wheezes, rales, rhonchi, stridor Cardiovascular Exam: Present: normal rhythm, tachycardia, normal heart sounds. Absent: systolic murmur, diastolic murmur, rubs, gallop, clicks Neurological exam: Present: alert, oriented X3, CN II-XII intact Psychiatric exam: Present: normal affect, normal mood Skin exam: Present: warm, dry, intact, normal color. Absent: rash Course Vital Signs 10/03/22 10/03/22 10/03/22 19:54 20:08 21:25 Temperature 101.2 F H 100.7 F H Pulse Rate 98 103 H 92 Respiratory 20 18 18 Rate Blood Pressure 125/76 119/61 123/88 O2 Sat by Pulse 95 95 96 Oximetry 10/03/22 10/04/22 22:58 00:55 Temperature 98.9 F Pulse Rate 79 79 Respiratory 18 16 Rate Blood Pressure 116/73 117/68 O2 Sat by Pulse 95 98 Oximetry Medical Decision Making - Medical Decision Making Was pt. sent in by a medical professional or institution (, PA, IRRIGATION MANAGER, urgent care, hospital, or long-term...) When possible be specific @ -No Did you speak to anyone other than the patient for history (EMS, parent, family, police, friend...)? What history was obtained from this source @ -No Did you review nursing and triage notes (agree or disagree)? Why? @ -I reviewed and agree with nursing and triage notes Were old charts reviewed (outside hosp., previous admission, EMS record, old EKG, old radiological studies, urgent care reports/EKG's, long-term records)? Report findings @ -No old charts were reviewed Differential Diagnosis (chest pain, altered mental status, abdominal pain women, abdominal pain men, vaginal bleeding, weakness, fever, dyspnea, syncope, headache, dizziness, GI bleed, back pain, seizure, CVA, palpatations, mental health, musculoskeletal)? @ - MDM Differential Back Pain: Strain, zoster, cauda equina syndrome, epidural abscess, vertebral osteomyelitis, discitis, fracture, subluxation, disc herniation, DJD, spinal stenosis, dissection, AAA, pancreatitis, peptic ulcer disease, pyelonephritis, kidney stone this is not meant to be an all-inclusive list. EKG interpreted by me (3pts min.). @ -As above X-rays interpreted by me (1pt min.). @ -None done CT interpreted by me (1pt min.). @ -CT shows multiple bilateral nonobstructing renal stones. The largest one on the left 0.8 cm with the largest in the right measuring 0.4 cm. No hydronephrosis or hydroureter is evident. There is mild diverticulosis without diverticulitis U/S interpreted by me (1pt. min.). @ -None done What testing was considered but not performed or refused? (CT, X-rays, U/S, labs)? Why? @ -None What meds were considered but not given or refused? Why? @ -None Did you discuss the management of the patient with other professionals (professionals i.e. , PA, IRRIGATION MANAGER, lab, RT, psych nurse, social sciences department chair, seo coordinator, teacher, commissioned defence force officer, oil field caser)? Give summary @ -No Was smoking cessation discussed for >3mins.? @ -No Was critical care preformed (if so, how long)? @ -No Were there social determinants of health that impacted care today? How? (Homelessness, low income, unemployed, alcoholism, drug addiction, transportation, low edu. Level, literacy, decrease access to med. care, [facility], rehab)? @ -No Was there de-escalation of care discussed even if they declined (Discuss DNR or withdrawal of care, Hospice)? DNR status @ -No What co-morbidities impacted this encounter? (DM, HTN, Smoking, COPD, CAD, Cancer, CVA, ARF, Chemo, Hep., AIDS, mental health diagnosis, sleep apnea, morbid obesity)? @ -None Was patient admitted / discharged? Hospital course, mention meds given and route, prescriptions, significant lab abnormalities, going to OR and other pertinent info. @ -Patient is a 52-year-old female presenting with chief complaint of flank pain. She admits to fevers and nausea and vomiting. She suddenly had lithotripsy performed 2 days ago. Patient was given fluids, Toradol, acetaminophen, and Zofran. Lab work shows no leukocytosis or anemia. Urine shows large blood with 8 wbc's, may be due to contamination, patient will be treated empirically with Bactrim and urine sent for culture. Negative for influenza, RSV, and Covid. Urine shows nonobstructing renal stones with no hydronephrosis or hydroureter. I attempted to contact the patient's urologist, our calls were not returned. Given that the patient is hemodynamically stable and well-appearing with no white count and a normal CT, she'll be discharged home on Bactrim and instructed to follow-up with her urologist. Follow-up with PCP. Report back to ER with any new or worsening symptoms. Discussed return parameters and answered all questions. Patient conveyed verbal understanding and agreed to the plan. I discussed this case in detail with my attending Dr. Madera Undiagnosed new problem with uncertain prognosis? @ -No Drug Therapy requiring intensive monitoring for toxicity (Heparin, Nitro, Insulin, Cardizem)? @ -No Were any procedures done? @ -No Diagnosis/symptom? @ -Flank pain Acute, or Chronic, or Acute on Chronic? @ -Acute Uncomplicated (without systemic symptoms) or Complicated (systemic symptoms)? @ -Uncomplicated Side effects of treatment? @ -No Exacerbation, Progression, or Severe Exacerbation? @ -No Poses a threat to life or bodily function? How? (Chest pain, USA, CT, pneumonia, PE, COPD, DKA, ARF, appy, cholecystitis, CVA, Diverticulitis, Homicidal, Suicidal, threat to staff... and all critical care pts) @ -Low likelihood - Lab Data Result diagrams: 10/03/22 20:39 10/03/22 20:39 Lab Results 10/03/22 10/03/22 10/03/22 Range/Units 20:39 20:39 20:39 WBC 9.7 (3.8-10.6) k/uL RBC 4.95 (3.80-5.40) m/uL Hgb 14.4 (11.4-16.0) gm/dL Hct 42.8 (34.0-46.0) % MCV 86.5 (80.0-100.0) fL MCH 29.0 (25.0-35.0) pg MCHC 33.5 (31.0-37.0) g/dL RDW 12.7 (11.5-15.5) % Plt Count 244 (150-450) k/uL MPV 8.2 Neutrophils % 81 % Lymphocytes % 11 % Monocytes % 6 % Eosinophils % 0 % Basophils % 0 % Neutrophils # 7.8 H (1.3-7.7) k/uL Lymphocytes # 1.1 (1.0-4.8) k/uL Monocytes # 0.6 (0-1.0) k/uL Eosinophils # 0.0 (0-0.7) k/uL Basophils # 0.0 (0-0.2) k/uL Sodium 135 L (137-145) mmol/L Potassium 4.1 (3.5-5.1) mmol/L Chloride 101 (98-107) mmol/L Carbon Dioxide 25 (22-30) mmol/L Anion Gap 9 mmol/L BUN 8 (7-17) mg/dL Creatinine 0.72 (0.52-1.04) mg/dL Est GFR (CKD-EPI)AfAm >90 (>60 ml/min/1.73 sqM) Est GFR (CKD-EPI)NonAf >90 (>60 ml/min/1.73 sqM) Glucose 107 H (74-99) mg/dL Plasma Lactic Acid Eric (0.7-2.0) mmol/L Calcium 8.9 (8.4-10.2) mg/dL Total Bilirubin 1.0 (0.2-1.3) mg/dL AST 22 (14-36) U/L ALT 29 (4-34) U/L Alkaline Phosphatase 93 (38-126) U/L Total Protein 7.0 (6.3-8.2) g/dL Albumin 4.2 (3.5-5.0) g/dL Urine Color Yellow Urine Appearance Cloudy H (Clear) Urine pH 6.0 (5.0-8.0) Ur Specific [place] 1.019 (1.001-1.035) Urine Protein 1+ H (Negative) Urine Glucose (UA) Negative (Negative) Urine Ketones 2+ H (Negative) Urine Blood Large H (Negative) Urine Nitrite Negative (Negative) Urine Bilirubin Negative (Negative) Urine Urobilinogen 2.0 (<2.0) mg/dL Ur Leukocyte Esterase Moderate H (Negative) Urine RBC 141 H (0-5) /hpf Urine WBC 8 H (0-5) /hpf Ur Squamous Epith Cells 3 (0-4) /hpf Urine Mucus Moderate H (None) /hpf Influenza Type A (PCR) (Not Detectd) Influenza Type B (PCR) (Not Detectd) RSV (PCR) (Not Detectd) SARS-CoV-2 (PCR) (Not Detectd) 10/03/22 10/03/22 Range/Units 20:39 22:57 WBC (3.8-10.6) k/uL RBC (3.80-5.40) m/uL Hgb (11.4-16.0) gm/dL Hct (34.0-46.0) % MCV (80.0-100.0) fL MCH (25.0-35.0) pg MCHC (31.0-37.0) g/dL RDW (11.5-15.5) % Plt Count (150-450) k/uL MPV Neutrophils % % Lymphocytes % % Monocytes % % Eosinophils % % Basophils % % Neutrophils # (1.3-7.7) k/uL Lymphocytes # (1.0-4.8) k/uL Monocytes # (0-1.0) k/uL Eosinophils # (0-0.7) k/uL Basophils # (0-0.2) k/uL Sodium (137-145) mmol/L Potassium (3.5-5.1) mmol/L Chloride (98-107) mmol/L Carbon Dioxide (22-30) mmol/L Anion Gap mmol/L BUN (7-17) mg/dL Creatinine (0.52-1.04) mg/dL Est GFR (CKD-EPI)AfAm (>60 ml/min/1.73 sqM) Est GFR (CKD-EPI)NonAf (>60 ml/min/1.73 sqM) Glucose (74-99) mg/dL Plasma Lactic Acid Eric 0.9 (0.7-2.0) mmol/L Calcium (8.4-10.2) mg/dL Total Bilirubin (0.2-1.3) mg/dL AST (14-36) U/L ALT (4-34) U/L Alkaline Phosphatase (38-126) U/L Total Protein (6.3-8.2) g/dL Albumin (3.5-5.0) g/dL Urine Color Urine Appearance (Clear) Urine pH (5.0-8.0) Ur Specific [place] (1.001-1.035) Urine Protein (Negative) Urine Glucose (UA) (Negative) Urine Ketones (Negative) Urine Blood (Negative) Urine Nitrite (Negative) Urine Bilirubin (Negative) Urine Urobilinogen (<2.0) mg/dL Ur Leukocyte Esterase (Negative) Urine RBC (0-5) /hpf Urine WBC (0-5) /hpf Ur Squamous Epith Cells (0-4) /hpf Urine Mucus (None) /hpf Influenza Type A (PCR) Not Detected (Not Detectd) Influenza Type B (PCR) Not Detected (Not Detectd) RSV (PCR) Not Detected (Not Detectd) SARS-CoV-2 (PCR) Not Detected (Not Detectd) Disposition Clinical Impression: Flank pain Disposition: HOME SELF-CARE Condition: Good Instructions (If sedation given, give patient instructions): Urinary Tract Infection in Women (ED), Flank Pain (ED) Additional Instructions: Call urologist office tomorrow. Report back to ER with any new or worsening symptoms. Follow-up with PCP. Take medication as prescribed. Prescriptions: Sulfamethox-Tmp 800-160Mg [Bactrim DS 800-160 mg] 1 tab PO Q12HR 5 Days #10 tab Is patient prescribed a controlled substance at d/c from ED?: No Referrals: Clem Forrest MD [Primary Care Provider] - 1-2 days Time of Disposition: 00:47
[2022-10-03 20:55] LABS: Basophils % (A) 0 %; Eosinophils % (A) 0 %; HCT 42.8 % (34.0-46.0); HGB 14.4 gm/dL (11.4-16.0); Lymphocytes # (A) 1.1 k/uL (1.0-4.8); Lymphocytes % (A) 11 %; MCHC 33.5 g/dL (31.0-37.0); MCV 86.5 fL (80.0-100.0); Mean Platelet Volume 8.2; Monocytes # (A) 0.6 k/uL (0-1.0); Monocytes % (A) 6 %; Neutrophils # (A) 7.8 k/uL (1.3-7.7); Neutrophils % (A) 81 %; Platelet Count 244 k/uL (150-450); RBC 4.95 m/uL (3.80-5.40); RDW 12.7 % (11.5-15.5); WBC 9.7 k/uL (3.8-10.6)
[2022-10-03 21:11] LABS: ALT 29 U/L (4-34); AST 22 U/L (14-36); African American GFR (CKD) >90 (>60 ml/min/1.73 sqM); Albumin 4.2 g/dL (3.5-5.0); Alkaline Phosphatase 93 U/L (38-126); Anion Gap 9 mmol/L; Blood Urea Nitrogen 8 mg/dL (7-17); Calcium 8.9 mg/dL (8.4-10.2); Carbon Dioxide 25 mmol/L (22-30); Chloride 101 mmol/L (98-107); Glucose 107 mg/dL (74-99); Non-African American GFR(CKD) >90 (>60 ml/min/1.73 sqM); Potassium 4.1 mmol/L (3.5-5.1); Sodium 135 mmol/L (137-145)
--- NOTE | 2022-10-03 21:34 | CT ---
EXAMINATION TYPE: CT abdomen pelvis wo con DATE OF EXAM: 10/03/2022 COMPARISON: 10/09/2021 INDICATION: Bilateral Flank Pain. DLP: 1125.4 mGycm, Automated exposure control for dose reduction was used. CONTRAST: 0 mL of Isovue 300. Study performed without Oral Contrast TECHNIQUE: Axial images were obtained from above the diaphragm to the pubic rami in the axial plane a t 5 mm thick sections. Reconstructed images are reviewed on the computer in the coronal plane. FINDINGS: Limited CT sections are obtained the lung bases. The lung bases are clear. CT ABDOMEN: Liver: Normal Spleen: Normal Pancreas: Normal Adrenal glands: The adrenal glands are normal. Gallbladder: Surgically absent Kidneys: No masses are evident. No hydronephrosis is present. No cysts are present. Multiple bilat eral renal stones are present without evidence of hydronephrosis. Largest on the right anterior midpo rtion measuring 0.4 cm. Largest on the left is on the lateral aspect of the mid to lower portion coral uring 0.8 cm. No hydroureter is evident. Aorta: Vascular calcification is within the aorta. Inferior vena cava: Normal. CT PELVIS: There is a wide periumbilical hernia with an opening 7 cm. Loop of colon extends into this anterior abdominal wall hernia. Loops of bowel within the abdomen and pelvis are normal. A few diverticuli without evidence of acute diverticulitis are present within the sigmoid colon. This study is without oral contrast limiting bowel evaluation. Appendix: Not identified. No dilated tubular structure or inflammatory changes are evident. Urinary bladder: Decompressed with limited evaluation. Genitourinary structures: Uterus and ovaries are not identified. Osseous structures: No suspicious lytic or sclerotic lesions. IMPRESSIONS: 1. Multiple bilateral nonobstructing renal stones. The largest on the left is 0.8 cm with the larges t on the right measuring 0.4 cm. No hydronephrosis or hydroureter is evident. 2. Mild diverticulosis without evidence of acute diverticulitis.
[2022-10-03 22:12] LABS: Appearance,Urine Cloudy (Clear); Bilirubin,Urine Negative (Negative); Blood,Urine Large (Negative); Color,Urine Yellow; Glucose,Urine (UA) Negative (Negative); Leukocyte Esterase,Urine Moderate (Negative); Mucus,Urine Moderate /hpf; Nitrite,Urine Negative (Negative); Protein,Urine 1+ (Negative); RBC,Urine 141 /hpf (0-5); Specific Gravity,Urine 1.019 (1.001-1.035); Squamous Epithelial Cell,Urine 3 /hpf (0-4); WBC,Urine 8 /hpf (0-5)
[2022-10-03 22:13] LABS: Ketones,Urine 2+ (Negative)
[2022-10-03 22:59] VITALS: PULSE 79; TEMP 98.9
[2022-10-04 00:58] VITALS: BP 117/68; RESP 16
== END 2022-10-04 01:03 | disposition home or self-care (01) ==
LOC: EC 19:39
DX: N20.0 Calculus of kidney (principal); J45.909 Unspecified asthma, uncomplicated; F41.9 Anxiety disorder, unspecified; Z79.899 Other long term (current) drug therapy; Z88.8 Allergy status to other drugs, medicaments and biological substances; Z91.012 Allergy to eggs; Z91.011 Allergy to milk products; Z91.018 Allergy to other foods; Z88.1 Allergy status to other antibiotic agents; Z86.16 Personal history of COVID-19; Z20.822 Contact with and (suspected) exposure to COVID-19; Z90.49 Acquired absence of other specified parts of digestive tract
CPT/HCPCS: 36415; 80053; 83605; 85025; 81001; 87040; 87636; 74176; 99284; 96374; 96375; 96361 ×2; J2405; J1885

== ENCOUNTER 2022-10-04 21:10 | Observation (INO) | payer OTHER ==
[2022-10-04] MEDS ORDERED: SODIUM CHLORIDE 0.9% 2,000 ML IV STA (21:43)
[2022-10-04] MEDS ORDERED: KETOROLAC 15 MG/ML 1 ML VIAL IVP STA (21:43)
[2022-10-04] MEDS ORDERED: PANTOPRAZOLE 40 MG/10 ML VIAL IVP STA (21:43)
[2022-10-04] MEDS ORDERED: ONDANSETRON 4 MG/2 ML VIAL IVP STA (21:43)
[2022-10-04] MEDS ORDERED: ACETAMINOPHEN TAB 500 MG TAB PO STA (21:43)
--- NOTE | 2022-10-04 21:58 | XR ---
EXAMINATION TYPE: XR KUB DATE OF EXAM: 10/04/2022 9:53 PM INDICATION: Patient age:Female; 52 years old; Reason for study: abd pain; PHH. COMPARISON: CT abdomen pelvis 10/03/2022 TECHNIQUE: One radiographic view of the abdomen was obtained. FINDINGS: The bowel gas pattern is nonspecific without dilated loops of small or large bowel. There i s no evidence for organomegaly or pneumoperitoneum. The osseous structures are intact. Scoliotic cur vature the thoracolumbar spine with associated degenerative changes. Fecal material and gas are demon strated throughout the colon and rectum. IMPRESSION: Nonspecific bowel gas pattern without radiographic evidence for acute process.
[2022-10-04 22:51] LABS: Basophils % (A) 0 %; Eosinophils % (A) 0 %; HCT 44.8 % (34.0-46.0); HGB 14.9 gm/dL (11.4-16.0); Lymphocytes % (A) 12 %; MCH 28.6 pg (25.0-35.0); MCHC 33.4 g/dL (31.0-37.0); MCV 85.6 fL (80.0-100.0); Mean Platelet Volume 8.3; Monocytes # (A) 0.5 k/uL (0-1.0); Monocytes % (A) 6 %; Neutrophils # (A) 6.9 k/uL (1.3-7.7); Neutrophils % (A) 81 %; Platelet Count 231 k/uL (150-450); RBC 5.23 m/uL (3.80-5.40); RDW 12.7 % (11.5-15.5); WBC 8.5 k/uL (3.8-10.6)
[2022-10-04 23:06] LABS: INR 0.9 (<1.2); Partial Thromboplastin Time 26.3 sec (22.0-30.0)
[2022-10-04 23:09] LABS: ALT 36 U/L (4-34); AST 30 U/L (14-36); African American GFR (CKD) >90 (>60 ml/min/1.73 sqM); Albumin 4.4 g/dL (3.5-5.0); Alkaline Phosphatase 101 U/L (38-126); Amylase 46 U/L (30-110); Anion Gap 13 mmol/L; Blood Urea Nitrogen 9 mg/dL (7-17); Calcium 8.9 mg/dL (8.4-10.2); Carbon Dioxide 24 mmol/L (22-30); Chloride 101 mmol/L (98-107); Glucose 112 mg/dL (74-99); Lipase 53 U/L (23-300); Non-African American GFR(CKD) >90 (>60 ml/min/1.73 sqM); Potassium 3.8 mmol/L (3.5-5.1); Sodium 138 mmol/L (137-145); Total Bilirubin 0.7 mg/dL (0.2-1.3); Total Protein 7.4 g/dL (6.3-8.2)
--- NOTE | 2022-10-05 00:27 | US ---
EXAM: US Retroperitoneal Complete, Renal CLINICAL HISTORY: eval for hydronephrosis TECHNIQUE: Real-time complete ultrasound of the retroperitoneum with image documentation. COMPARISON: 10/03/22 FINDINGS: Right kidney: 10.3 cm in length. Right renal calculi measuring up to 5 mm. No hydronephrosis. Left kidney: 10.1 cm in length. Left renal calculi measuring up to 6 mm. No hydronephrosis. Bladder: Unremarkable as visualized. Other findings: Diffusely increased hepatic echogenicity is suggestive of steatosis. IMPRESSION: Bilateral nephrolithiasis. No hydronephrosis.
[2022-10-05 00:32] LABS: Appearance,Urine Clear (Clear); Bilirubin,Urine Negative (Negative); Blood,Urine Large (Negative); Color,Urine Yellow; Glucose,Urine (UA) Negative (Negative); Ketones,Urine 2+ (Negative); Leukocyte Esterase,Urine Moderate (Negative); Mucus,Urine Occasional /hpf; Nitrite,Urine Negative (Negative); Protein,Urine Trace (Negative); RBC,Urine 36 /hpf (0-5); Specific Gravity,Urine 1.012 (1.001-1.035); Squamous Epithelial Cell,Urine 1 /hpf (0-4); WBC,Urine 15 /hpf (0-5)
[2022-10-05] MEDS ORDERED: NALOXONE 0.4 MG/ML 1 ML VIAL IV PRN (00:58)
[2022-10-05] MEDS ORDERED: GENTAMICIN PER PHARMACY MISCELLANE PRN (01:11)
[2022-10-05] MEDS: SODIUM CHLORIDE 0.9% 1,000 ML IV SCH ×3 (01:36→16:21)
[2022-10-05] MEDS: GENTAMICIN 360 MG in SODIUM CHLORIDE 0.9% 100 ML IVPB SCH (01:36)
--- NOTE | 2022-10-05 01:37 | ED ---
General Adult HPI - General Chief complaint: Fever Stated complaint: Abd pain, fever, vomiting Time Seen by Provider: 10/04/22 21:20 Source: patient, RN notes reviewed, old records reviewed Mode of arrival: wheelchair Limitations: no limitations - History of Present Illness Initial comments: Patient is a 52-year-old female presents emergency Department complaining of intractable nausea, vomiting, as well as abdominal pain. Patient also has low- grade fevers. Was seen yesterday and diagnosed with UTI and started on Bactrim but has been unable to take the medication due to the nausea and vomiting. Has also noticed continued low-grade fevers. Patient did recently receive lithotripsy for kidney stones. States she is having continued mild pain bi laterally, but denies any hematuria. Denies any chest pain or shortness of breath. Endorses nausea and nonspecific abdominal pain. Presents over concern as she had a UTI yesterday and is unable to take the antibiotic. Patient's urologist is through an outside hospital. - Related Data Home Medications Medication Instructions Recorded Confirmed Gabapentin [Neurontin] 400 mg PO TID PRN 03/07/20 09/30/22 Levothyroxine Sodium [Synthroid] 137 mcg PO DAILY 03/07/20 09/30/22 Cyclobenzaprine [Flexeril] 5 mg PO BID PRN 08/04/20 09/30/22 Ergocalciferol (Vitamin D2) 1,250 mcg PO TU 08/04/20 09/30/22 [Drisdol (50,000 Iu)] Albuterol Nebulized [Ventolin 2.5 mg INHALATION RT-QID PRN 11/15/20 09/30/22 Nebulized] Fluticasone Nasal [place] [Flonase 2 spr EA NOSTRIL BID PRN 11/15/20 09/30/22 Nasal [place]] Loratadine 10 mg PO DAILY 09/30/22 09/30/22 Previous Rx's Medication Instructions Recorded Sulfamethox-Tmp 800-160Mg [Bactrim 1 tab PO Q12HR 5 Days #10 tab 10/04/22 DS 800-160 mg] Allergies Allergy/AdvReac Type Severity Reaction Status Date / Time cefixime [From Suprax] Allergy Dyspnea Verified 10/04/22 21:14 fexofenadine HCl Allergy Dyspnea Verified 10/04/22 21:14 [From Nina] Iodinated Contrast Media Allergy Itching IN Verified 10/04/22 21:14 [Iodinated Contrast Media - THROAT AND IV Dye] BODY, & ALLERGY SYMPTOMS levofloxacin [From Levaquin] Allergy Unknown Verified 10/04/22 21:14 propoxyphene napsylate Allergy Itching Verified 10/04/22 21:14 [From Darvocet-N 100] shellfish derived [Shellfish] Allergy Anaphylaxis Verified 10/04/22 21:14 egg AdvReac Abdominal Verified 10/04/22 21:14 Pain, NAUSEA - UNLESS COOKED AT HIGH TEMP IN OVEN metoclopramide [From Reglan] AdvReac Nausea & Verified 10/04/22 21:14 Vomiting & Diarrhea Milk Containing Products AdvReac ALLERGY Verified 10/04/22 21:14 NASAL SYMPTOMS, IF MORE THAN 8 OZ AT A TIME SEASONAL,MOLD,DUST,ANIMAL AdvReac RUNNY Uncoded 10/04/22 21:14 DANDER NOSE, ITCHY/WATERY EYES Review of Systems ROS Statement: Those systems with pertinent positive or pertinent negative responses have been documented in the HPI. Review of Systems: CONST: Endorses fever EYES: Denies blurry vision ENT: Denies nasal congestion C/V: Denies Chest pain RESP: Denies shortness of breath GI: Endorses abdominal pain : Denies dysuria SKIN: Denies rash. MSK: Denies joint pain. NEURO: Denies headache ROS Other: All systems not noted in ROS Statement are negative. Past Medical History Past Medical History: Asthma, Cancer, GERD/Reflux, Liver Disease, Skin Disorder Additional Past Medical History / Comment(s): Thyroid cancer status post thyroidectomy and radioactive iodine treatments. OCC ECZEMA. HX GESTATIONAL DIABETES. KIDNEY STONES. MILD FATTY LIVER. HX INJURY TO RT ARM, CHRONIC PAIN. Hiatal hernia. Cauda Equina syndrome Jan 2017. COVID 2020 pancreatitis. 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 History of Any Multi-Drug Resistant Organisms: None Reported Past Surgical History: Adenoidectomy, Back Surgery, Cholecystectomy, Ear Surger y, Hysterectomy, Tonsillectomy Additional Past Surgical History / Comment(s): BMT. EXC DERMOID CYST RT OVARY. Decompressive laminectomy Jan 2017 for Cauda Equina Syndrome. Thyroidectomy. Vaginal hysterectomy with A&P repairs 2019, LITHOTRIPSY x2 , sheryl 11/16/20, EGD. [id number](next after 10yr). Past Anesthesia/Blood Transfusion Reactions: Previous Problems w/ Anesthesia, Motion Sickness, Postoperative Nausea & Vomiting (PONV) Additional Past Anesthesia/Blood Transfusion Reaction / Comment(s): WOKE UP DURING COLONOSCOPY and T&A surgeries Past Psychological History: Anxiety Smoking Status: Never smoker Past Alcohol Use History: None Reported Past Drug Use History: None Reported - Past Family History Mother Additional Family Medical History / Comment(s): Heart disease. Maternal uncle had Parkinson's disease as well as a grandfather. Grandfather had prostate and skin cancer. Father Family Medical History: Cancer Additional Family Medical History / Comment(s): Skin cancerr-basal cell General Exam - General Exam Comments Initial Comments: General: Appears in mild distress secondary to abdominal pain. Fever. HEAD: Normal with no signs of head trauma. EYES: PERRLA, EOMI, conjunctiva normal, no discharge. ENT: Hearing grossly intact, normal oropharynx. RESPIRATORY: Clear breath sounds bilaterally. No wheezes, rales, or rhonchi. C/V: Tachycardic. S1 and S2 auscultated, peripheral pulses 2+ and intact throughout ABD: Abdomen is soft, nondistended. Nonspecific tenderness to palpation of the abdomen. No guarding. No peritoneal signs. No rebound tenderness. EXT: Normal range of motion, no obvious deformity SKIN: No rashes or lesions observed on exposed skin. NEURO: Alert and oriented 4. Limitations: no limitations Course Vital Signs 10/04/22 10/05/22 21:12 00:15 Temperature 100.8 F H Pulse Rate 113 H 76 Respiratory 20 18 Rate Blood Pressure 130/80 102/58 O2 Sat by Pulse 99 97 Oximetry Medical Decision Making - Medical Decision Making Was pt. sent in by a medical professional or institution (, PA, ANALOG DESIGN ENGINEER, urgent care, hospital, or skilled nursing...) When possible be specific @ -No Did you speak to anyone other than the patient for history (EMS, parent, family, police, friend...)? What history was obtained from this source @ -No Did you review nursing and triage notes (agree or disagree)? Why? @ -I reviewed and agree with nursing and triage notes Were old charts reviewed (outside hosp., previous admission, EMS record, old EKG, old radiological studies, urgent care reports/EKG's, skilled nursing records)? Report findings @ -Charts reviewed from yesterday Differential Diagnosis (chest pain, altered mental status, abdominal pain women, abdominal pain men, vaginal bleeding, weakness, fever, dyspnea, syncope, headache, dizziness, GI bleed, back pain, seizure, CVA, palpatations, mental health, musculoskeletal)? @ -Differential Abdominal Pain Women: Appendicitis, Cholecystitis, diverticulosis, ischemic bowel, pancreatitis, hepatitis, UTI, gastroenteritis, AAA, incarcerated hernia, bowel obstruction, constipation, inflammatory bowel, hepatitis, peptic ulcer disease, splenic infarction, perforated viscus, vulvitis, ovarian torsion, PID, kidney stone, placenta abruption, this is not meant to be an all-inclusive list EKG interpreted by me (3pts min.). @ -None done X-rays interpreted by me (1pt min.). @ -KUB shows no obvious acute intra-abdominal process. CT interpreted by me (1pt min.). @ -None done U/S interpreted by me (1pt. min.). @ -Did by radiology. No hydronephrosis. Bilateral nephrolithiasis. What testing was considered but not performed or refused? (CT, X-rays, U/S, labs)? Why? @ -None What meds were considered but not given or refused? Why? @ -None Did you discuss the management of the patient with other professionals (professionals i.e. , PA, ANALOG DESIGN ENGINEER, lab, RT, psych nurse, social services manager, bingo caller, teacher, botanical technical officer, case filler)? Give summary @ -Discussed with Dr. Villa who accepted the admission. Was smoking cessation discussed for >3mins.? @ -No Was critical care preformed (if so, how long)? @ -No Were there social determinants of health that impacted care today? How? (Homelessness, low income, unemployed, alcoholism, drug addiction, transpo rtation, low edu. Level, literacy, decrease access to med. care, senior living, rehab)? @ -No Was there de-escalation of care discussed even if they declined (Discuss DNR or withdrawal of care, Hospice)? DNR status @ -No What co-morbidities impacted this encounter? (DM, HTN, Smoking, COPD, CAD, Cancer, CVA, ARF, Chemo, Hep., AIDS, mental health diagnosis, sleep apnea, morbid obesity)? @ -None Was patient admitted / discharged? Hospital course, mention meds given and route, prescriptions, significant lab abnormalities, going to OR and other pertinent info. @ -Based on the patient's presentation and physical exam, I'm concerned for a UTI for the patient. Was seen yesterday and received a workup including CT imaging of the abdomen and pelvis which did not reveal any ureteral lithiasis. Remainder the workup was unremarkable except for mild UTI. Was discharged home on antibiotics. Presents back today with similar complaints with intractable nausea and vomiting. We'll repeat abdominal laboratory studies as well as obtain a KUB x-ray and renal ultrasound. We will avoid another computed tomography scan unless clinically indicated to avoid excess radiation. Patient was in agreement this plan. Vital signs remarkable for a tachycardia as well as fever. Imaging shows nephrolithiasis but no evidence of hydronephrosis or ureteral lithiasis. Labs are unremarkable. Lactic acid within acceptable limits. Urinalysis does show a slightly worsening UTI at this time. At this time, patient is still having nausea and vomiting. We did discuss her workup. She will be admitted to observation for intractable nausea and vomiting as well as IV antibiotics for her UTI. Patient was placed on IV gentamicin. She was in agreement this plan. I spoke with the admitting physician, Dr. Villa of [facility] who covers for Dr. Gupta who admits for Dr. Forrest who accepted the ad mission. Undiagnosed new problem with uncertain prognosis? @ -No Drug Therapy requiring intensive monitoring for toxicity (Heparin, Nitro, Insul in, Cardizem)? @ -No Were any procedures done? @ -No Diagnosis/symptom? @ -UTI, intractable nausea and vomiting Acute, or Chronic, or Acute on Chronic? @ -Acute Uncomplicated (without systemic symptoms) or Complicated (systemic symptoms)? @ -Complicated Side effects of treatment? @ -No Exacerbation, Progression, or Severe Exacerbation? @ -No Poses a threat to life or bodily function? How? (Chest pain, USA, SD, pneumonia, PE, COPD, DKA, ARF, appy, cholecystitis, CVA, Diverticulitis, Homicidal, Suicidal, threat to staff... and all critical care pts) @ -Yes If untreated could result in significant morbidity and mortality. - Lab Data Result diagrams: 10/04/22 22:21 10/04/22 22:40 Lab Results 10/04/22 10/04/22 10/04/22 Range/Units 22:21 22:21 22:21 WBC 8.5 (3.8-10.6) k/uL RBC 5.23 (3.80-5.40) m/uL Hgb 14.9 (11.4-16.0) gm/dL Hct 44.8 (34.0-46.0) % MCV 85.6 (80.0-100.0) fL MCH 28.6 (25.0-35.0) pg MCHC 33.4 (31.0-37.0) g/dL RDW 12.7 (11.5-15.5) % Plt Count 231 (150-450) k/uL MPV 8.3 Neutrophils % 81 % Lymphocytes % 12 % Monocytes % 6 % Eosinophils % 0 % Basophils % 0 % Neutrophils # 6.9 (1.3-7.7) k/uL Lymphocytes # 1.0 (1.0-4.8) k/uL Monocytes # 0.5 (0-1.0) k/uL Eosinophils # 0.0 (0-0.7) k/uL Basophils # 0.0 (0-0.2) k/uL PT 10.0 (9.0-12.0) sec INR 0.9 (<1.2) APTT 26.3 (22.0-30.0) sec Sodium (137-145) mmol/L Potassium (3.5-5.1) mmol/L Chloride (98-107) mmol/L Carbon Dioxide (22-30) mmol/L Anion Gap mmol/L BUN (7-17) mg/dL Creatinine (0.52-1.04) mg/dL Est GFR (CKD-EPI)AfAm (>60 ml/min/1.73 sqM) Est GFR (CKD-EPI)NonAf (>60 ml/min/1.73 sqM) Glucose (74-99) mg/dL Plasma Lactic Acid Eric 0.9 (0.7-2.0) mmol/L Calcium (8.4-10.2) mg/dL Total Bilirubin (0.2-1.3) mg/dL AST (14-36) U/L ALT (4-34) U/L Alkaline Phosphatase (38-126) U/L Total Protein (6.3-8.2) g/dL Albumin (3.5-5.0) g/dL Amylase (30-110) U/L Lipase (23-300) U/L Urine Color Urine Appearance (Clear) Urine pH (5.0-8.0) Ur Specific [place] (1.001-1.035) Urine Protein (Negative) Urine Glucose (UA) (Negative) Urine Ketones (Negative) Urine Blood (Negative) Urine Nitrite (Negative) Urine Bilirubin (Negative) Urine Urobilinogen (<2.0) mg/dL Ur Leukocyte Esterase (Negative) Urine RBC (0-5) /hpf Urine WBC (0-5) /hpf Ur Squamous Epith Cells (0-4) /hpf Urine Mucus (None) /hpf 10/04/22 10/04/22 Range/Units 22:40 23:45 WBC (3.8-10.6) k/uL RBC (3.80-5.40) m/uL Hgb (11.4-16.0) gm/dL Hct (34.0-46.0) % MCV (80.0-100.0) fL MCH (25.0-35.0) pg MCHC (31.0-37.0) g/dL RDW (11.5-15.5) % Plt Count (150-450) k/uL MPV Neutrophils % % Lymphocytes % % Monocytes % % Eosinophils % % Basophils % % Neutrophils # (1.3-7.7) k/uL Lymphocytes # (1.0-4.8) k/uL Monocytes # (0-1.0) k/uL Eosinophils # (0-0.7) k/uL Basophils # (0-0.2) k/uL PT (9.0-12.0) sec INR (<1.2) APTT (22.0-30.0) sec Sodium 138 (137-145) mmol/L Potassium 3.8 (3.5-5.1) mmol/L Chloride 101 (98-107) mmol/L Carbon Dioxide 24 (22-30) mmol/L Anion Gap 13 mmol/L BUN 9 (7-17) mg/dL Creatinine 0.69 (0.52-1.04) mg/dL Est GFR (CKD-EPI)AfAm >90 (>60 ml/min/1.73 sqM) Est GFR (CKD-EPI)NonAf >90 (>60 ml/min/1.73 sqM) Glucose 112 H (74-99) mg/dL Plasma Lactic Acid Eric (0.7-2.0) mmol/L Calcium 8.9 (8.4-10.2) mg/dL Total Bilirubin 0.7 (0.2-1.3) mg/dL AST 30 (14-36) U/L ALT 36 H (4-34) U/L Alkaline Phosphatase 101 (38-126) U/L Total Protein 7.4 (6.3-8.2) g/dL Albumin 4.4 (3.5-5.0) g/dL Amylase 46 (30-110) U/L Lipase 53 (23-300) U/L Urine Color Yellow Urine Appearance Clear (Clear) Urine pH 6.0 (5.0-8.0) Ur Specific [place] 1.012 (1.001-1.035) Urine Protein Trace H (Negative) Urine Glucose (UA) Negative (Negative) Urine Ketones 2+ H (Negative) Urine Blood Large H (Negative) Urine Nitrite Negative (Negative) Urine Bilirubin Negative (Negative) Urine Urobilinogen 4.0 (<2.0) mg/dL Ur Leukocyte Esterase Moderate H (Negative) Urine RBC 36 H (0-5) /hpf Urine WBC 15 H (0-5) /hpf Ur Squamous Epith Cells 1 (0-4) /hpf Urine Mucus Occasional H (None) /hpf Disposition Clinical Impression: UTI (urinary tract infection), Intractable nausea and vomiting Disposition: ADMITTED IP TO THIS [facility] Condition: Stable Time of Disposition: 00:35
[2022-10-05] MEDS ORDERED: ALBUTEROL NEBULIZED 2.5 MG/3 ML INHALATION PRN (01:41)
[2022-10-05] MEDS ORDERED: GABAPENTIN 400 MG CAP PO PRN (01:41)
[2022-10-05] MEDS: LEVOTHYROXINE 137 MCG TAB PO SCH (06:09)
[2022-10-05] MEDS: ONDANSETRON 4 MG/2 ML VIAL IVP PRN ×3 (06:30→21:38)
[2022-10-05] MEDS: KETOROLAC 15 MG/ML 1 ML VIAL IVP PRN ×2 (06:31→16:19)
[2022-10-05] MEDS: HEPARIN SODIUM,PORCINE/PF 5,000 UNIT/0.5 ML SYRINGE SQ SCH ×3 (08:54→23:16)
[2022-10-05] MEDS ORDERED: CYCLOBENZAPRINE 5 MG TAB PO PRN (09:00)
[2022-10-05] MEDS ORDERED: FLUTICASONE 50MCG/SPRAY NASAL 16GM EA NOSTRIL PRN (09:00)
[2022-10-05] MEDS: ACETAMINOPHEN TAB 325 MG TAB PO PRN ×2 (09:46→21:38)
[2022-10-05 10:21] LABS: African American GFR (CKD) >90 (>60 ml/min/1.73 sqM); Non-African American GFR(CKD) >90 (>60 ml/min/1.73 sqM)
--- NOTE | 2022-10-05 18:33 | P.HPIM ---
History of Present Illness H&P Date: 10/05/22 Chief Complaint: Intractable nausea and vomiting 52-year-old female presents emergency Department complaining of intractable nausea, vomiting, as well as abdominal pain. Patient also has low-grade fevers. Was seen yesterday and diagnosed with UTI and started on Bactrim but has been unable to take the medication due to the nausea and vomiting. Has also noticed continued low-grade fevers. Patient did recently receive lithotripsy for kidney stones. States she is having continued mild pain bilaterally, but denies any hematuria. Denies any chest pain or shortness of breath. Endorses nausea and nonspecific abdominal pain. Presents over concern as she had a UTI yesterday and is unable to take the antibiotic. Patient's urologist is through an outside hospital. Medical completed in ED reveals a WBC of 8.5, hemoglobin of 14.1 and platelet count of 231, sodium 138, potassium 2.8, BUN/creatinine of 9/0.69; UA is significantly positive for leukocyte esterase, WBC and large number of RBCs Review of Systems REVIEW OF SYSTEMS: CONSTITUTIONAL: No fever, no malaise, no fatigue. HEENT: No recent visual problems or hearing problems. Denied any sore throat. CARDIOVASCULAR: No chest pain, orthopnea, PND, no palpitations, no syncope. PULMONARY: No shortness of breath, no cough, no hemoptysis. GASTROINTESTINAL: No diarrhea, no nausea, no vomiting, no abdominal pain. NEUROLOGICAL: No headaches, no weakness, no numbness. HEMATOLOGICAL: Denies any bleeding or petechiae. GENITOURINARY: Denies any burning micturition, frequency, or urgency. MUSCULOSKELETAL/RHEUMATOLOGICAL: Denies any joint pain, swelling, or any muscle pain. ENDOCRINE: Denies any polyuria or polydipsia. The rest of the 14-point review of systems is negative. Past Medical History Past Medical History: Asthma, Cancer, GERD/Reflux, Liver Disease, Skin Disorder Additional Past Medical History / Comment(s): Thyroid cancer status post thyroidectomy and radioactive iodine treatments. OCC ECZEMA. HX GESTATIONAL DIABETES. KIDNEY STONES. MILD FATTY LIVER. HX INJURY TO RT ARM, CHRONIC PAIN. Hiatal hernia. Cauda Equina syndrome Jan 2017. COVID 2020 pancreatitis. 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 History of Any Multi-Drug Resistant Organisms: None Reported Past Surgical History: Adenoidectomy, Back Surgery, Cholecystectomy, Ear Surgery, Hysterectomy, Tonsillectomy Additional Past Surgical History / Comment(s): BMT. EXC DERMOID CYST RT OVARY. Decompressive laminectomy Jan 2017 for Cauda Equina Syndrome. Thyroidectomy. Vaginal hysterectomy with A&P repairs 2019, LITHOTRIPSY x2 , sheryl 11/16/20, EGD. [id number](next after 10yr). Past Anesthesia/Blood Transfusion Reactions: Previous Problems w/ Anesthesia, Motion Sickness, Postoperative Nausea & Vomiting (PONV) Additional Past Anesthesia/Blood Transfusion Reaction / Comment(s): WOKE UP DURING COLONOSCOPY and T&A surgeries Past Psychological History: Anxiety Smoking Status: Never smoker Past Alcohol Use History: None Reported Past Drug Use History: None Reported - Past Family History Mother Additional Family Medical History / Comment(s): Heart disease. Maternal uncle had Parkinson's disease as well as a grandfather. Grandfather had prostate and skin cancer. Father Family Medical History: Cancer Additional Family Medical History / Comment(s): Skin cancerr-basal cell Medications and Allergies Home Medications Medication Instructions Recorded Confirmed Type Levothyroxine Sodium [Synthroid] 137 mcg PO [id number] 03/07/20 10/05/22 History Cyclobenzaprine [Flexeril] 5 mg PO BID PRN 08/04/20 10/05/22 History Albuterol Nebulized [Ventolin 2.5 mg INHALATION RT-QID PRN 11/15/20 10/05/22 History Nebulized] Gabapentin [Neurontin] 300 mg PO BID PRN 10/05/22 10/05/22 History Allergies Allergy/AdvReac Type Severity Reaction Status Date / Time cefixime [From Suprax] Allergy Dyspnea Verified 10/05/22 12:05 fexofenadine HCl Allergy Dyspnea Verified 10/05/22 12:05 [From Nina] Iodinated Contrast Media Allergy Itching IN Verified 10/05/22 12:05 [Iodinated Contrast Media - THROAT AND IV Dye] BODY, & ALLERGY SYMPTOMS levofloxacin [From Levaquin] Allergy Unknown Verified 10/05/22 12:05 propoxyphene napsylate Allergy Itching Verified 10/05/22 12:05 [From Darvocet-N 100] shellfish derived [Shellfish] Allergy Anaphylaxis Verified 10/05/22 12:05 egg AdvReac Abdominal Verified 10/05/22 12:05 Pain, NAUSEA - UNLESS COOKED AT HIGH TEMP IN OVEN metoclopramide [From Reglan] AdvReac Nausea & Verified 10/05/22 12:05 Vomiting & Diarrhea Milk Containing Products AdvReac ALLERGY Verified 10/05/22 12:05 NASAL SYMPTOMS, IF MORE THAN 8 OZ AT A TIME SEASONAL,MOLD,DUST,ANIMAL AdvReac RUNNY Uncoded 10/05/22 12:05 DANDER NOSE, ITCHY/WATERY EYES Physical Exam Vitals: Vital Signs Temp Pulse Pulse Resp BP BP Pulse Ox 10/05/22 07:00 98.2 F 65 14 108/72 98 10/05/22 02:26 98.0 F 72 18 110/56 98 10/05/22 00:15 76 18 102/58 97 10/04/22 21:12 100.8 F H 113 H 20 130/80 99 Intake and Output 10/04/22 10/05/22 10/05/22 22:59 06:59 14:59 Other: # Voids 1 Weight 99.79 kg 99.79 kg General: Appears in mild distress secondary to abdominal pain. Fever. HEAD: Normal with no signs of head trauma. EYES: PERRLA, EOMI, conjunctiva normal, no discharge. ENT: Hearing grossly intact, normal oropharynx. RESPIRATORY: Clear breath sounds bilaterally. No wheezes, rales, or rhonchi. C/V: Tachycardic. S1 and S2 auscultated, peripheral pulses 2+ and intact throughout ABD: Abdomen is soft, nondistended. Nonspecific tenderness to palpation of the abdomen. No guarding. No peritoneal signs. No rebound tenderness. EXT: Normal range of motion, no obvious deformity SKIN: No rashes or lesions observed on exposed skin. NEURO: Alert and oriented 4. Results CBC & Chem 7: 10/04/22 22:21 10/05/22 09:45 Labs: Abnormal Lab Results - Last 24 Hours (Table) 10/04/22 10/04/22 Range/Units 22:40 23:45 Glucose 112 H (74-99) mg/dL ALT 36 H (4-34) U/L Urine Protein Trace H (Negative) Urine Ketones 2+ H (Negative) Urine Blood Large H (Negative) Ur Leukocyte Esterase Moderate H (Negative) Urine RBC 36 H (0-5) /hpf Urine WBC 15 H (0-5) /hpf Urine Mucus Occasional H (None) /hpf Thrombosis Risk Factor Assmnt - Choose All That Apply Each Factor Represents 1 point: Age 41-60 years, Obesity (BMI >25) Thrombosis Risk Factor Assessment Total Risk Factor Score: 2 Thrombosis Risk Factor Assessment Level: Low Risk Assessment and Plan Assessment: 1. UTI; failing outpatient treatment - Vision was diagnosed and discharged home on oral Bactrim; has not been able to take the antibiotic due to severe GI side effects - Patient is placed on IV gentamicin, given numerous ALLERGIES - Further recommendations once urine culture is available 2. Intractable nausea and vomiting; continue with IV fluid hydration; symptomatic treatment of nausea and vomiting 3. Asthma; not in exacerbation; continue with home immunotherapy 4. Hypothyroidism; patient is status post thyroidectomy for thyroid cancer; currently on levothyroxine 137 MCG daily 5. Chronic pain/neuropathy; patient takes Neurontin 300 mg twice a day and Flexeril 5 mg twice a day
[2022-10-06] MEDS: KETOROLAC 15 MG/ML 1 ML VIAL IVP PRN ×2 (00:06→05:50)
[2022-10-06] MEDS: GENTAMICIN 360 MG in SODIUM CHLORIDE 0.9% 100 ML IVPB SCH (01:13)
[2022-10-06] MEDS: ONDANSETRON 4 MG/2 ML VIAL IVP PRN ×2 (05:50→14:01)
[2022-10-06] MEDS: LEVOTHYROXINE 137 MCG TAB PO SCH (05:50)
[2022-10-06] MEDS: SODIUM CHLORIDE 0.9% 1,000 ML IV SCH ×2 (06:31→16:27)
[2022-10-06 06:54] LABS: African American GFR (CKD) >90 (>60 ml/min/1.73 sqM); Anion Gap 7 mmol/L; Blood Urea Nitrogen 2 mg/dL (7-17); Carbon Dioxide 22 mmol/L (22-30); Chloride 111 mmol/L (98-107); Glucose 96 mg/dL (74-99); Non-African American GFR(CKD) >90 (>60 ml/min/1.73 sqM); Potassium 4.1 mmol/L (3.5-5.1); Sodium 140 mmol/L (137-145)
[2022-10-06] MEDS: HEPARIN SODIUM,PORCINE/PF 5,000 UNIT/0.5 ML SYRINGE SQ SCH ×2 (08:35→15:48)
[2022-10-06 10:05] LABS: Basophils % (A) 0 %; Eosinophils # (A) 0.1 k/uL (0-0.7); Eosinophils % (A) 1 %; HCT 37.6 % (34.0-46.0); HGB 12.8 gm/dL (11.4-16.0); Lymphocytes # (A) 1.3 k/uL (1.0-4.8); Lymphocytes % (A) 26 %; MCH 28.8 pg (25.0-35.0); MCHC 34.2 g/dL (31.0-37.0); MCV 84.2 fL (80.0-100.0); Mean Platelet Volume 9.4; Monocytes # (A) 0.3 k/uL (0-1.0); Monocytes % (A) 6 %; Neutrophils # (A) 3.3 k/uL (1.3-7.7); Neutrophils % (A) 65 %; Platelet Count 201 k/uL (150-450); RBC 4.46 m/uL (3.80-5.40); RDW 13.2 % (11.5-15.5); WBC 5.1 k/uL (3.8-10.6)
--- NOTE | 2022-10-06 16:54 | P.PN ---
Subjective Progress Note Date: 10/06/22 52-year-old female presents emergency Department complaining of intractable nausea, vomiting, as well as abdominal pain. Patient also has low-grade fevers. Was seen yesterday and diagnosed with UTI and started on Bactrim but has been unable to take the medication due to the nausea and vomiting. Has also noticed continued low-grade fevers. Patient did recently receive lithotripsy for kidney stones. States she is having continued mild pain bilaterally, but denies any hematuria. Denies any chest pain or shortness of breath. Endorses nausea and nonspecific abdominal pain. Presents over concern as she had a UTI yesterday and is unable to take the antibiotic. Patient's urologist is through an outside hospital. Medical completed in ED reveals a WBC of 8.5, hemoglobin of 14.1 and platelet count of 231, sodium 138, potassium 2.8, BUN/creatinine of 9/0.69; UA is significantly positive for leukocyte esterase, WBC and large number of RBCs Patient continues to report severe nausea but no further episodes of vomiting -- Urine culture results were discussed with patient and have been negative to date; patient has multiple antibiotic ALLERGIES and has been placed on gentamicin for suspected UTI; we will proceed with completing a 3 day and protocol course of antibiotic therapy with no oral antibiotics at time of discharge given negative urine culture - Continue with IV fluid hydration; continue to advance diet as tolerated Possible discharge in next 24 hours-- Objective - Vital Signs Vital signs: Vital Signs Temp 98.0 F 10/06/22 07:00 Pulse 72 10/06/22 08:00 Resp 16 10/06/22 08:00 BP 116/75 10/06/22 07:00 Pulse Ox 96 10/06/22 07:00 FiO2 Intake & Output 10/05/22 10/06/22 10/06/22 18:59 06:59 18:59 Intake Total 440 220 Balance 440 220 Intake: Oral 440 220 Other: # Voids 2 5 - Exam General: Appears in mild distress secondary to abdominal pain. Fever. HEAD: Normal with no signs of head trauma. EYES: PERRLA, EOMI, conjunctiva normal, no discharge. ENT: Hearing grossly intact, normal oropharynx. RESPIRATORY: Clear breath sounds bilaterally. No wheezes, rales, or rhonchi. C/V: Tachycardic. S1 and S2 auscultated, peripheral pulses 2+ and intact throughout ABD: Abdomen is soft, nondistended. Nonspecific tenderness to palpation of the abdomen. No guarding. No peritoneal signs. No rebound tenderness. EXT: Normal range of motion, no obvious deformity SKIN: No rashes or lesions observed on exposed skin. NEURO: Alert and oriented 4. - Labs CBC & Chem 7: 10/06/22 09:12 10/06/22 06:00 Labs: Abnormal Lab Results - Last 24 Hours (Table) 10/06/22 Range/Units 06:00 Chloride 111 H (98-107) mmol/L BUN 2 L (7-17) mg/dL Calcium 8.0 L (8.4-10.2) mg/dL Microbiology - Last 24 Hours (Table) 10/04/22 23:45 Urine Culture - Final Urine,Voided Assessment and Plan Assessment: 1. UTI; failing outpatient treatment - Vision was diagnosed and discharged home on oral Bactrim; has not been able to take the antibiotic due to severe GI side effects - Patient is placed on IV gentamicin, given numerous ALLERGIES - Further recommendations once urine culture is available 2. Intractable nausea and vomiting; continue with IV fluid hydration; symptomatic treatment of nausea and vomiting 3. Asthma; not in exacerbation; continue with home immunotherapy 4. Hypothyroidism; patient is status post thyroidectomy for thyroid cancer; currently on levothyroxine 137 MCG daily 5. Chronic pain/neuropathy; patient takes Neurontin 300 mg twice a day and Flexeril 5 mg twice a day
[2022-10-06 20:53] VITALS: TEMP 98.1
[2022-10-07] MEDS: GENTAMICIN 360 MG in SODIUM CHLORIDE 0.9% 100 ML IVPB SCH (00:58)
[2022-10-07] MEDS: HEPARIN SODIUM,PORCINE/PF 5,000 UNIT/0.5 ML SYRINGE SQ SCH ×2 (00:58→08:01)
[2022-10-07] MEDS: LEVOTHYROXINE 137 MCG TAB PO SCH (06:09)
[2022-10-07 07:42] LABS: African American GFR (CKD) >90 (>60 ml/min/1.73 sqM); Non-African American GFR(CKD) >90 (>60 ml/min/1.73 sqM)
[2022-10-07 07:58] VITALS: BP 145/77; PULSE 71; RESP 16
--- NOTE | 2022-10-10 00:14 | P.DS ---
Providers Date of admission: 10/05/22 01:00 Attending physician: Salome Villa MD Primary care physician: Clem Forrest [facility] Course: Final Diagnosis Intractible nausea and vomiting secondary to bactrim Abnormal urinalysis and acute UTI has been ruled out urine culture negative Recent lithotripsy for kidney stones Asthma with no acute exacerbation Hypothyroidism s/p thyroid cander and thyroid ectomy Chronic pain/neuropathy Obesity with BMI 35.5 Discharge Disposition Patient is stable for discharge. Patient recommended to see her urologist on discharge and has an appointment made for October 10. Patient has an appointment with Dr. Baires who follows her thyroid today. Patient to repeat labs in 2 to 3 days and see PCP on discharge as well. Hospital Course 52-year-old female presents emergency Department complaining of intractable nausea, vomiting, as well as abdominal pain. Patient also has low-grade fevers. Was started on bactrim outpatient for a UTI but has been unable to take the medication due to the nausea and vomiting. Has also noticed continued low-grade fevers. Patient did recently receive lithotripsy for kidney stones. States she is having continued mild pain bilaterally, but denies any hematuria. Denies any chest pain or shortness of breath. Endorses nausea and nonspecific abdominal pain. Presents over concern as she had a UTI yesterday and is unable to take the antibiotic. Patient's urologist is through an outside hospital. Initial work up reveals a WBC of 8.5, hemoglobin of 14.1 and platelet count of 231, sodium 138, potassium 2.8, BUN/creatinine of 9/0.69; UA is significantly positive for leukocyte esterase, WBC and large number of RBCs Urine culture was completed which is negative for infection, showing less [place] [id number] of normal tigist. Patient was given IV gentimicin in patient due to allergies and this was stopped with no further need for antibiotics on discharge. GI symptoms have improved with hydration and patient advanced for clear liquid diet and tolerating Has some right sided flank pain which patient recently had the lithotripsy done and is set to see her urologist in the office. There is no elevated white count and patient is afebrile. Positive bowel sounds abdomen is soft and nontender. Lungs are clear S1 S2 auscultated. Patient to be discharged home. Please see medication reconciliation for a list of current medication. Thank you for allowing us to participate in the care of this patient. The impression and plan of care has been dictated by Evelyn Brownlee, Nurse Practitioner as directed. Dr. Danna MD I have performed a history and physical examination and medical decision making of this patient, discussed the same with the dictator, and agree with the dictators assessment and plan as written, documented as a scribe. Based on total visit time, I have performed more than 50% of this visit. Patient Condition at Discharge: Stable Plan - Discharge Summary New Discharge Prescriptions: New Fluticasone Nasal [place] [Flonase Nasal [place]] 2 spray EA NOSTRIL BID PRN ml PRN Reason: Allergy Symptoms traMADol HCl [Ultram] 50 mg PO Q6HR PRN 3 Days #12 tab PRN Reason: Pain Continue Levothyroxine Sodium [Synthroid] 137 mcg PO MOTUWETHFRSA Cyclobenzaprine [Flexeril] 5 mg PO BID PRN PRN Reason: Muscle Pain Gabapentin [Neurontin] 300 mg PO BID PRN PRN Reason: Pain Albuterol Nebulized [Ventolin Nebulized] 2.5 mg INHALATION RT-QID PRN PRN Reason: Shortness Of Breath Discharge Medication List Levothyroxine Sodium [Synthroid] 137 mcg PO MOTUWETHFRSA 03/07/20 [History] Cyclobenzaprine [Flexeril] 5 mg PO BID PRN 08/04/20 [History] Albuterol Nebulized [Ventolin Nebulized] 2.5 mg INHALATION RT-QID PRN 11/15/20 [History] Gabapentin [Neurontin] 300 mg PO BID PRN 10/05/22 [History] Fluticasone Nasal [place] [Flonase Nasal [place]] 2 spray EA NOSTRIL BID PRN ml 10/07/22 [Rx] traMADol HCl [Ultram] 50 mg PO Q6HR PRN 3 Days #12 tab 10/07/22 [Rx] Follow up Appointment(s)/Referral(s): Jean-Pierre Garner DO [REFERRING] - 10/10/22 3:00 pm Clem Forrest MD [Primary Care Provider] - 1-2 days Ambulatory/Diagnostic Orders: Basic Metabolic Panel [LAB.AMB] Time Frame: 3 Days, Location: None Selected Complete Blood Count w/diff [LAB.AMB] Time Frame: 3 Days, Location: None Selected Patient Instructions/Handouts: Kidney Stones (GEN), Urinary Tract Infection in Women (DC) Discharge Disposition: HOME SELF-CARE
== END 2022-10-07 15:05 | disposition home or self-care (01) ==
LOC: EC 21:10 → OBSVTOIN 10-05 01:00 → 6NMEDSUR 10-05 01:00 → INTOOBSV 10-05 01:00 → 6NMEDSUR 10-05 01:46 → UNDODISIN 10-07 15:05
PROVIDERS: ADMIT Internal Medicine; ATTEND Internal Medicine
DX: R11.2 Nausea with vomiting, unspecified (principal); T36.8X5A Adverse effect of other systemic antibiotics, initial encounter; M41.85 Other forms of scoliosis, thoracolumbar region; N20.0 Calculus of kidney; J45.909 Unspecified asthma, uncomplicated; K21.9 Gastro-esophageal reflux disease without esophagitis; E66.9 Obesity, unspecified; E89.0 Postprocedural hypothyroidism; K76.0 Fatty (change of) liver, not elsewhere classified; G62.9 Polyneuropathy, unspecified; F41.9 Anxiety disorder, unspecified; Z79.899 Other long term (current) drug therapy; Z79.890 Hormone replacement therapy; Z88.8 Allergy status to other drugs, medicaments and biological substances; Z91.041 Radiographic dye allergy status; Z85.850 Personal history of malignant neoplasm of thyroid; Z86.16 Personal history of COVID-19; Z90.49 Acquired absence of other specified parts of digestive tract; Z90.710 Acquired absence of both cervix and uterus; Z82.49 Family history of ischemic heart disease and other diseases of the circulatory system; Z80.8 Family history of malignant neoplasm of other organs or systems; Z80.42 Family history of malignant neoplasm of prostate; Z82.0 Family history of epilepsy and other diseases of the nervous system; Z68.35 Body mass index [BMI] 35.0-35.9, adult
CPT/HCPCS: 96376 ×2; 96361 ×4; 96365; 96366 ×2; 96372 ×2; 96375; 99285; 36415; 80053; 80048; 82150; 82565 ×2; 83605; 83690; 85025 ×2; 85610; 85730; 82272; 81001; 80170; 87086; 74018; 76770; G0378 ×3; J1580 ×3; J2405 ×3; J1885 ×3; C9113; J1644 ×2

== ENCOUNTER → 2023-03-04 | Outpatient (CLI) | payer OTHER ==
--- NOTE | 2023-03-04 19:15 | MR ---
EXAMINATION TYPE: MR lumbar spine wo con DATE OF EXAM: 03/04/2023 COMPARISON: Prior MRI lumbar spine January 21, 2017 HISTORY: Low back pain, numbness and tingling down legs, trouble walking, cauda equina syndrome. Hist ory of surgery 2017 TECHNIQUE: Multiplanar, multisequence imaging of the lumbar spine is performed without IV contrast. FINDINGS: Slight scoliotic curvature is redemonstrated. Sagittal images of the lumbar spine show vert ebral body heights to remain satisfactory. Multilevel disc desiccation is redemonstrated. Persistent moderate to severe disc space narrowing at L5-S1 level with heterogeneous Modic type II endplate wick ges anteriorly now identified. The conus medullaris remains normal in position and signal ending sup erior L1 level. Small osseous hemangioma involving L1 vertebra is noted. Axial images show T12-L1 through L2-L3 levels to remain within normal limits. Axial images at L3-L4 level show mild to moderate broad-based posterior disc protrusion with left-myranda ed annular tear mildly effacing anterior thecal sac. Patent bilateral neural foramina. Findings more prominent from prior. Axial images at L4-L5 level show [id number] facet arthropathy and ligamentum flavum hypertrophy effacing posterior lateral thecal sac with broad-based left paracentral disc protrusion effacing the anterior thecal sac. Bilateral neural foramina are patent. Findings more prominent from prior. Axial images at L5-S1 level show now marked improvement possible interval surgical correction of the inferior disc herniation. Increased disc space narrowing is seen. Subtle spondylolisthesis is stable. Mild to moderate facet arthropathy is redemonstrated. Spinal canal is preserved. There appears to be now encroachment on the left S1 nerve on axial image 5 because of left foraminal disc herniation. Th is was present on prior. Paraspinal muscle bulk is preserved. IMPRESSION: Marked improvement presumed interval surgical correction of the large disc herniation at L5-S1 level. Increasing degenerative change in the mid to lower lumbar spine is present. Further deta ils as discussed above. Disc herniation L5-S1 level appears to encroach on the central left L1 nerve similar to prior MRI study.
== END | disposition home or self-care (01) ==
LOC: RADMRIMAIN 17:23
PROVIDERS: ATTEND Psychiatry & Neurology Neurology
DX: M47.816 Spondylosis without myelopathy or radiculopathy, lumbar region (principal); M51.37 Other intervertebral disc degeneration, lumbosacral region
CPT/HCPCS: 72148

== ENCOUNTER → 2023-10-12 | Outpatient (CLI) | payer OTHER ==
[2023-10-12 13:31] VITALS: BP 116/66; PULSE 68; RESP 16
--- NOTE | 2023-10-12 14:43 | P.PAINPG ---
PQRS Measure Charge Sheet Comment: HISTORY OF PRESENT ILLNESS: A 53 yr old female w at side as a referral from [facility] presents today w severe and chronic neck pain > 6 mo secondary to DDD, spondylosis and facet arthropathy without myelopathy for evaluation. Pt states pain level is provoked at 10 /10 in intensity, intermittent, localized in the cervical spine, predominantly axial, stabbing in character w occasional shooting pain towards the BUEs. Pain is provoked by lifting. Pain is alleviated by PT x 5 wks which she is currently in , heat, medications (Neurontin, Ibu), repositioning and rest . Cervical disability score at 22. PMH: OA, Asthma, Thyroid CA, GERD, Fatty Liver Disease, Eczema, Nephrolithiasis, HH, Anxiety PSH: Thyroidectomy, Adenoidectomy, Decompressive Lumbar Laminectomy (2016), Cholecystectomy, Ear Surgery, Hysterectomy (2019), Tonsillectomy, EGD, Colonoscopy (2021) SH: Never smoker, No ETOH use, No illicit drug use FH: Mo- CAD. Fa- Basal Cell CA. Daughter- Seizure Disorder All: See list Meds: See list REVIEW OF ORGAN SYSTEMS: CONSTITUTIONAL: No fevers or chills. No recent weight loss. NEUROLOGICAL: + numbness and tingling along the distal extremities. No seizure disorders or headaches. MUSCULOSKELETAL: + pain PSYCHIATRIC: Denies current depression or suicidal thoughts. Physical Examinations : Constitutional : Cooperative , not in acute distress . Neurologic : Cranial nerve II to XII intact. No focal neurological deficits. Psychiatric : alert & oriented x 3. Matching mood & appropriate affect. Judgment & insight intact. Musculoskeletal : Cervical Spine Motor strength in the deltoid and biceps: Normal right side. Normal Left side Motor strength biceps and the wrist extensors: Normal right side . Normal left side Motor strength in the triceps muscle: Normal right side. Normal left side Deep tendon reflexes: Normal at the biceps. Normal at Brachioradialis. Normal at triceps Vertebral body tenderness to deep palpation over C6 Cervical facet loading test: positive bilaterally Spurling test: positive BL C6-C7 Neck distraction test: positive bilaterally Jordan sign: positive bilaterally Lumbar spine Motor strength lower extremities ,thigh and legs 5/5 Right side , 5/5 Left side Deep tendon reflexes : Normal Knee Jerk. Normal Ankle Jerk Vertebral body tenderness over Wilkins Test positive Lumbar facet Loading Test: positive Right / positive Left Range of motion of the lumbar spine Flexion 30 degrees, extension 10 degrees Straight Leg Raise test: Left/ Right positive at degrees Emily test: positive right / positive left. Severe tenderness over the Sacroiliac joint on the Right / Left sides Gaenslen test: positive bilaterally Seated flexion test: positive bilaterally. Sacral spine : Severe tenderness over the Sacroiliac joint: right side / left side Range of motion: Flexion of the lumbar spine <60 degrees Range of motion: Extension of the lumbar spine <20 degrees Gaenslen's Test positive Emily test: positive right side / left side Thigh Thrust Test Sacral Thrust Test Imaging: None on file Assessment/ Plan : Cervical DDD Recommendation of UNRULY C6-C7 #1. May need a series o f injections for optimal pain relief. Risks, benefits of procedure discussed and patient verbalized understanding. Admits to anti- coagulant use or medical history of diabetes. Protocol for discontinuation/ continuation of medications billy procedure discussed. All questions answered. I have spent greater than 30 minutes on patient care today. Dr Taylor was available by phone for the evaluation of this patient. The time was used to review the medical records including relevant urine studies and Prescription history (MAPs), review of the available imaging, evaluation and examination of the patient, coordination of care with the medical staff and if applicable referring physicians, as well as creation of the medical record PQRS Narrative: Smoking Status Never smoker Home Medications: Ambulatory Orders Levothyroxine Sodium [Synthroid] 137 mcg PO MOTUWETHFRSA 03/07/20 Cyclobenzaprine [Flexeril] 5 mg PO BID PRN 08/04/20 Albuterol Nebulized [Ventolin Nebulized] 2.5 mg INHALATION RT-QID PRN 11/15/20 Gabapentin [Neurontin] 300 mg PO BID PRN 10/05/22 Cholecalciferol (Vitamin D3) [Vitamin D3 (125 MCG = 5,000 IU)] 1 cap PO DAILY 10/06/23 Controlled Substance Measures - Controlled Substance Measures Is patient prescribed a controlled substance at discharge?: No
== END ==
LOC: PNWHC3 11:08
PROVIDERS: ATTEND Specialist
DX: M50.123 Cervical disc disorder at C6-C7 level with radiculopathy (principal); Z88.8 Allergy status to other drugs, medicaments and biological substances; Z91.041 Radiographic dye allergy status; Z91.012 Allergy to eggs; Z91.09 Other allergy status, other than to drugs and biological substances; Z91.013 Allergy to seafood; Z88.5 Allergy status to narcotic agent; Z91.011 Allergy to milk products; Z88.1 Allergy status to other antibiotic agents
CPT/HCPCS: 99211

== ENCOUNTER 2023-11-24 12:54 | Day surgery (SDC) | payer OTHER ==
[2023-11-24 13:42] VITALS: TEMP 97.6
[2023-11-24] MEDS ORDERED: DEXAMETHASONE SOD PHOSPHATE 10 MG/ML 1 ML VIAL ONE (13:56)
--- NOTE | 2023-11-24 14:20 | P.PCN ---
Date of Procedure: 11/24/23 Surgeon: Hong Rizvi Pathology: none sent Condition: stable Disposition: PACU Description of Procedure: PROCEDURE 1. Cervical epidural steroid injection under fluoroscopic guidance, C7-T1 paramedian approach. 2. Cervical epidurogram. : PREOPERATIVE DIAGNOSIS: Cervical radiculopathy, cervical spondylosis without myelopathy POSTOPERATIVE DIAGNOSIS: : Same as above ANESTHESIA: Local anesthesia only with 1% lidocaine . EBL 0 PROCEDURE INDICATION: The patient with neck pain and radiculopathy unresponsive to conservative treatment consents for procedure. PROCEDURE DESCRIPTION / TECHNIQUE: The patient was seen and identified in the preoperative area. Risks, benefits, complications, including but not limited to infections ,bleeding , allergic reactions to the medications ,and not complete pain relief, and alternatives were discussed with the patient, the patient agreed to proceed with the procedure and signed the consent. Patient was taken to the OR and time out was completed. The patient was placed in the prone position on the procedure table. A pillow was placed under the patients chest to increase the flexion of the cervical spine . The cervical area was prepped and draped in the usual sterile fashion. Vital signs were closely monitored during the procedure.the patient felt nauseated right after I cleaned her skin with ChloraPrep and actually follow up later date of saliva. She then felt better and was okay to proceed with the procedure. Using anterior-posterior fluoroscopy, the C7-T1 interlaminar space was identified and the skin over this site was marked and then infiltrated with 1% lidocaine subcutaneously. Subsequently, a 20-gauge 3-1/2-inch Tuohy epidural needle was inserted and advanced toward the epidural space by means of loss of resistance to air technique and guided by AP and lateral fluoroscopy. The needle tip contacted the lamina of T1 vertebra first, then it was walked off bone and into the epidural space using the loss of to air and fluoroscopic guidance to identify the epidural space. the patient is ALLERGIC to IVP contrast dye and that's why it was not used for this procedure.After negative aspiration for blood and CSF and in the absence of paresthesia a 2 ml mixture containing 10 mg of Decadron and 1 ml of preservative free Normal Saline solution was slowly injected, however the patient felt pain in the left shoulder and nausea during the injection and I had to abort the procedure after injecting only 1 ml of this solution. Needle was withdrawn intact, skin was cleansed, and bandages were applied. I suggest for the next procedure to use IV Benadryl and steroids preoperatively so we can use IV contrast to verify needle position in the epidural space.patient felt well postoperatively and was sent home in stable condition. A copy of the needle placement picture was saved to the fluoroscopy machine.
[2023-11-24 14:42] VITALS: BP 108/64; PULSE 86; RESP 20
--- NOTE | 2023-11-24 15:53 | FL ---
EXAMINATION TYPE: FL guided pain mgmt statistic DATE OF EXAM: 11/24/2023 FLUOROSCOPY 11 SEC FLUORO, DAP .[id number] mGym2 for cervical pain management procedure. One image is submitted.
== END 2023-11-24 14:55 | disposition home or self-care (01) ==
LOC: ORPAIN 12:54
PROVIDERS: ATTEND Anesthesiology
DX: M47.22 Other spondylosis with radiculopathy, cervical region (principal); Z90.710 Acquired absence of both cervix and uterus; Z88.8 Allergy status to other drugs, medicaments and biological substances
CPT/HCPCS: 62321; J1100

== ENCOUNTER → 2023-12-17 | Outpatient (CLI) | payer OTHER | LOC: PNWHC3 12:45 | PROVIDERS: ATTEND Specialist | DX: M54.12 Radiculopathy, cervical region | CPT/HCPCS: 99211 ==

== ENCOUNTER → 2024-03-02 | Outpatient (CLI) | payer OTHER ==
[2024-03-02 10:07] VITALS: BP 102/56; PULSE 65; RESP 18; TEMP 98
--- NOTE | 2024-03-02 14:38 | P.PAINPG ---
PQRS Measure Charge Sheet Comment: HISTORY OF PRESENT ILLNESS: A 53 yr old female w at side presents today w severe and chronic neck pain & LBP > 6 mo secondary to radiculopathy, spondylosis and facet arthropathy without myelopathy for evaluation. Pt states pain level is provoked at 6 /10 in intensity, intermittent, localized in the lumbar spine, predominantly axial, stabbing in character w occasional shooting pain towards the groin & BLEs. Pain is provoked by over activity. Pain is alleviated by PT x 5 wks (cervical) and PT x 4 wks (lumbar) which she is currently in , heat, medications , repositioning and rest . Interventional procedures include L5-S1 post laminectomy syndrome s/p Cauda Equina (2015), UNRULY C6-C7 x1, C7-T1 x1 Medications include [place], Neurontin, Ibu REVIEW OF ORGAN SYSTEMS: CONSTITUTIONAL: No fevers or chills. No recent weight loss. NEUROLOGICAL: + numbness and tingling along the distal extremities. No seizure disorders or headaches. MUSCULOSKELETAL: + pain PSYCHIATRIC: Denies current depression or suicidal thou ghts. Physical Examinations : Constitutional : Cooperative , not in acute distress . Neurologic : Cranial nerve II to XII intact. No focal neurological deficits. Psychiatric : alert & oriented x 3. Matching mood & appropriate affect. Judgment & insight intact. Musculoskeletal : Cervical Spine Motor strength in the deltoid and biceps: Normal right side. Normal Left side Motor strength biceps and the wrist extensors: Normal right side . Normal left side Motor strength in the triceps muscle: Normal right side. Normal left side Deep tendon reflexes: Normal at the biceps. Normal at Brachioradialis. Normal at triceps Vertebral body tenderness to deep palpation over C6 Cervical facet loading test: positive bilaterally Spurling test: positive BL C6-C7 Neck distraction test: positive bilaterally Jordan sign: positive bilaterally Lumbar spine Motor strength lower extremities ,thigh and legs 5/5 Right side , 5/5 Left side Deep tendon reflexes : Normal Knee Jerk. Normal Ankle Jerk Vertebral body tenderness over L5 Wilkins Test positive BL L5-S1 Lumbar facet Loading Test: positive Right / positive Left Range of motion of the lumbar spine Flexion 30 degrees, extension 10 degrees Straight Leg Raise test: Left/ Right positive at degrees Emily test: positive right / positive left. Severe tenderness over the Sacroiliac joint on the Right / Left sides Gaenslen test: positive bilaterally Seated flexion test: positive bilaterally. Sacral spine : Severe tenderness over the Sacroiliac joint: right side / left side Range of motion: Flexion of the lumbar spine <60 degrees Range of motion: Extension of the lumbar spine <20 degrees Gaenslen's Test positive Emily test: positive right side / left side Thigh Thrust Test Sacral Thrust Test Imaging: CT non contrast of the cervical spine from 08/08/23 obtained and reviewed. MRI non contrast lumbar spine from 03/04/23 reviewed Assessment/ Plan : Cervical radiculopathy, Post L5-S1 laminectomy s/p Cauda Equina (2015) Recommendation of BL TFESI L5-S1 #1. Risks, benefits of procedure discussed and patient verbalized understanding. Admits to anti- coagulant use or medical history of diabetes. Protocol for discontinuation/ continuation of medications billy procedure discussed. All questions answered. I have spent greater than 30 minutes on patient care today. Dr Taylor was available by phone for the evaluation of this patient. The time was used to review the medical records including relevant urine studies and Prescription history (MAPs), review of the available imaging, evaluation and examination of the patient, coordination of care with the medical staff and if applicable referring physicians, as well as creation of the medical record PQRS Narrative: Smoking Status Never smoker Hx Alcohol Use (MH) No Home Medications: Ambulatory Orders Levothyroxine Sodium [Synthroid] 137 mcg PO MOTUWETHFRSA 03/07/20 Cyclobenzaprine [Flexeril] 5 mg PO BID PRN 08/04/20 Albuterol Nebulized [Ventolin Nebulized] 2.5 mg INHALATION RT-QID PRN 11/15/20 Gabapentin [Neurontin] 300 mg PO BID PRN 10/05/22 Cholecalciferol (Vitamin D3) [Vitamin D3 (125 MCG = 5,000 IU)] 1 cap PO WEEKLY 10/06/23 Controlled Substance Measures - Controlled Substance Measures Is patient prescribed a controlled substance at discharge?: No
== END ==
LOC: PNWHC3 09:46
PROVIDERS: ATTEND Specialist
CPT/HCPCS: 99211

== ENCOUNTER 2024-03-18 09:24 | Day surgery (SDC) | payer OTHER ==
[2024-03-18 09:42] VITALS: RESP 16; TEMP 97.9
[2024-03-18] MEDS ORDERED: DEXAMETHASONE SOD PHOSPHATE 10 MG/ML 1 ML VIAL ONE (10:34)
--- NOTE | 2024-03-18 10:55 | P.PCN ---
Date of Procedure: 03/18/24 Surgeon: Hong Rizvi Pathology: none sent Condition: stable Disposition: PACU Description of Procedure: Preoperative Diagnosis: lumbar radiculopathy Postoperative Diagnosis: Same as above Procedure(s) Performed: Bilateral Transforaminal epidural steroid injection at level L5-S1 under fluoroscopic guidance Anesthesia: Local only with lidocaine 1% Surgeon: Hong Rizvi Condition: stable Disposition: PACU Description of Procedure: . The patient was seen and identified in the preoperative area. Risks, benefits, complications, and alternatives were discussed with the patient. The patient agreed to proceed with the procedure and signed the consent. IV was started, and vital signs were stable. Patient was taken to the OR and time out was completed. The patient was placed in the prone position on procedure table and a pillow was placed under the abdomen to reduce lumbar lordosis. The lumbosacral area was prepped and draped in the usual sterile fashion. Critical pause was taken. Vital signs were closely monitored during the procedure. Conscious sedation was used during the procedure to decrease patients anxiety. Lidocaine 1% was used to numb the skin up at the target points that were chosen as follows: For the L5-S1 level the target point was at the 6 o'clock position of L-5 pedicle in the left oblique view. The correct view was obtained by squaring off the L5 vertebra on the AP view of fluoroscopy then the C-arm was tilted to the left oblique position to an angle at which the superior articular process of the lower vertebra would point to the middle of the pedicle above it at the 6 o'clock position as mentioned above . Then I used 5 inch 22-gauge Quincke spinal needle to get to the target point mentioned above by touching the inferior edge of the L5 pedicle and then walking off the bone and into the superior part of the L5-S1 foramen using the lateral view of fluoroscopy. I then injected 1 mL of Gadavest contrast dye,(due to the patient's ALLERGY to iodinated contrast dyes), which showed typical epidurogram around the L5 nerve root and into the epidural space. Then I injected 1 mL of lidocaine 1% +5 mg of Decadron.the procedure was repeated on the right side in the same manner. Patient tolerated procedure well,and was transferred to PACU in stable condition. A copy of the needle placement picture was saved to the fluoroscopy machine.
[2024-03-18 11:12] VITALS: BP 133/79; PULSE 76
--- NOTE | 2024-03-18 11:29 | FL ---
EXAMINATION TYPE: FL guided pain mgmt statistic DATE OF EXAM: 03/18/2024 HISTORY: Fluoroscopy time Total dose area product (DAP) in uGy*m?, mGy*cm? (or similar): 0.85316 IMPRESSION: 1. Fluoroscopy time. [facility], , 03/18/2024 11:26 AM
== END 2024-03-18 11:57 | disposition home or self-care (01) ==
LOC: ORPAIN 09:24
PROVIDERS: ATTEND Anesthesiology
DX: M54.16 Radiculopathy, lumbar region (principal); Z91.013 Allergy to seafood; Z88.8 Allergy status to other drugs, medicaments and biological substances; Z88.1 Allergy status to other antibiotic agents; Z91.048 Other nonmedicinal substance allergy status; Z90.710 Acquired absence of both cervix and uterus

== ENCOUNTER → 2024-04-11 | Outpatient (CLI) | payer OTHER ==
[2024-04-11 13:26] VITALS: BP 115/60; PULSE 90; RESP 16
--- NOTE | 2024-04-11 16:23 | P.PAINPG ---
PQRS Measure Charge Sheet Comment: VHISTORY OF PRESENT ILLNESS: A 53 yr old female w at side presents today w severe and chronic neck pain & LBP > 6 mo secondary to radiculopathy, spondylosis and facet arthropathy without myelopathy for evaluation s/p BL TFESI L5-S1 #1. Pt states she experienced 0% pain relief s/p procedure. Pt states pain level is provoked at 7 /10 in intensity, intermittent, localized in the lumbar spine, predominantly axial, stabbing in character w occasional shooting pain towards the back of the BLEs. Pain is provoked by over activity. Pain is alleviated by PT x 5 wks (cervical) and PT x 6 wks (lumbar) in Mar 2024, physician guided exercises every other day since Mar 2024, heat, medications , repositioning and rest . Interventional procedures include L5-S1 post laminectomy syndrome s/p Cauda Equina (2014), UNRULY C6-C7 x1, C7-T1 x1, BL TFESI L5-S1 x1 Medications include [place], Neurontin, Ibu REVIEW OF ORGAN SYSTEMS: CONSTITUTIONAL: No fevers or chills. No recent weight loss. NEUROLOGICAL: + numbness and tingling along the distal extremities. No seizure disorders or headaches. MUSCULOSKELETAL: + pain PSYCHIATRIC: Denies current depression or suicidal thoughts. Physical Examinations : Constitutional : Cooperative , not in acute distress . Neurologic : Cranial nerve II to XII intact. No focal neurological deficits. Psychiatric : alert & oriented x 3. Matching mood & appropriate affect. Judgment & insight intact. Musculoskeletal : Cervical Spine Motor strength in the deltoid and biceps: Normal right side. Normal Left side Motor strength biceps and the wrist extensors: Normal right side . Normal left side Motor strength in the triceps muscle: Normal right side. Normal left side Deep tendon reflexes: Normal at the biceps. Normal at Brachioradialis. Normal at triceps Vertebral body tenderness to deep palpation over C6 Cervical facet loading test: positive bilaterally Spurling test: positive BL C6-C7 Neck distraction test: positive bilaterally Jordan sign: positive bilaterally Lumbar spine Motor strength lower extremities ,thigh and legs 5/5 Right side , 5/5 Left side Deep tendon reflexes : Normal Knee Jerk. Normal Ankle Jerk Vertebral body tenderness over L5 Wilkins Test positive BL L5-S1 Lumbar facet Loading Test: positive Right / positive Left Range of motion of the lumbar spine Flexion 30 degrees, extension 10 degrees Straight Leg Raise test: Left/ Right positive at degrees Emily test: positive right / positive left. Severe tenderness over the Sacroiliac joint on the Right / Left sides Gaenslen test: positive bilaterally Seated flexion test: positive bilater ally. Sacral spine : Severe tenderness over the Sacroiliac joint: right side / left side Range of motion: Flexion of the lumbar spine <60 degrees Range of motion: Extension of the lumbar spine <20 degrees Gaenslen's Test positive Emily test: positive right side / left side Thigh Thrust Test Sacral Thrust Test Imaging: CT non contrast of the cervical spine from 08/08/23 obtained and reviewed. MRI non contrast lumbar spine from 03/04/23 reviewed Assessment/ Plan : Cervical radiculopathy, Post L5-S1 laminectomy s/p Cauda Equina (2015) Recommendation of Caudal UNRULY w Lysis #1. Risks, benefits of procedure discussed and patient verbalized understanding. Admits to anti- coagulant use or medical history of diabetes. Protocol for discontinuation/ continuation of medications billy procedure discussed. All questions answered. I have spent greater than 30 minutes on patient care today. Dr Taylor was available by phone for the evaluation of this patient. The time was used to review the medical records including relevant urine studies and Prescription history (MAPs), review of the available imaging, evaluation and examination of the patient, coordination of care with the medical staff and if applicable referring physicians, as well as creation of the medical record - Pain Location Bilateral Lower Back Non-Pharmacological Interventions: Physical Therapy, Position/Reposition, Sitting Pharmacological Interventions: Epidural, PRN Medication, Scheduled Medication PQRS Narrative: Smoking Status Never smoker Narcotic Agreement Date Signed 03/02/24 Hx Alcohol Use (MH) No Home Medications: Ambulatory Orders Levothyroxine Sodium [Synthroid] 137 mcg PO [id number] 03/07/20 Cyclobenzaprine [Flexeril] 5 mg PO BID PRN 08/04/20 Albuterol Nebulized [Ventolin Nebulized] 2.5 mg INHALATION RT-QID PRN 11/15/20 Gabapentin [Neurontin] 300 mg PO BID PRN 10/05/22 Cholecalciferol (Vitamin D3) [Vitamin D3 (125 MCG = 5,000 IU)] 1 cap PO WEEKLY 10/06/23 Controlled Substance Measures - Controlled Substance Measures Is patient prescribed a controlled substance at discharge?: Yes When asked, does pt state using other controlled substances?: No If prescribed controlled substance>3 days was MAPS reviewed?: Prescribed <3 Days
== END ==
LOC: PNWHC3 13:00
PROVIDERS: ATTEND Specialist
DX: M54.12 Radiculopathy, cervical region (principal); M96.1 Postlaminectomy syndrome, not elsewhere classified; G83.4 Cauda equina syndrome; Z91.012 Allergy to eggs; Z91.013 Allergy to seafood; Z91.011 Allergy to milk products; Z88.5 Allergy status to narcotic agent; Z88.1 Allergy status to other antibiotic agents; Z91.040 Latex allergy status; Z91.041 Radiographic dye allergy status; Z88.8 Allergy status to other drugs, medicaments and biological substances; Z88.6 Allergy status to analgesic agent; Z91.09 Other allergy status, other than to drugs and biological substances
CPT/HCPCS: 99211

== ENCOUNTER → 2024-08-11 | Outpatient (CLI) | payer OTHER ==
--- NOTE | 2024-08-11 19:19 | CT ---
EXAMINATION TYPE: CT abdomen pelvis wo con CT DLP: 1100.5 mGycm, Automated exposure control for dose reduction was used. DATE OF EXAM: 08/11/2024 6:47 PM COMPARISON: CT abdomen pelvis 10/03/2022, 10/09/2021, 11/22/2020 CLINICAL INDICATION:Female, 54 years old with history of N20.0 CALCULUS OF KIDNEY; Both left and righ t flank pain, hx of kidney stones. TECHNIQUE: Standard CT of the abdomen and pelvis without IV or oral contrast. Lack of IV or oral co ntrast limits evaluation of solid and hollow organ viscera. Coronal and sagittal reformats were perfo rmed. FINDINGS: LOWER CHEST: Unremarkable ABDOMEN LIVER: Unremarkable GALLBLADDER AND BILE DUCTS: The gallbladder is surgically absent. No biliary duct dilatation. PANCREAS: Unremarkable. SPLEEN: Unremarkable. ADRENAL GLANDS: Unremarkable. KIDNEYS AND URETERS: No evidence of hydronephrosis. No hydroureter. Approximately 4 nonobstructive ri ght renal calculi and 3 nonobstructive left renal calculi. Largest within the right kidney measures u p to 4 mm. Largest within the left kidney measures up to 5 mm. No perinephric fat stranding or fluid collections. No periureteral fat stranding. PELVIS BLADDER: Incompletely distended but grossly unremarkable. REPRODUCTIVE: The uterus is surgically absent. ABDOMEN & PELVIS STOMACH AND BOWEL: Stomach and duodenum are unremarkable. Distal colonic diverticulosis without evide nce for acute diverticulitis. No focal bowel wall thickening or surrounding inflammatory changes. No evidence of bowel obstruction. PERITONEUM: No evidence of pneumoperitoneum or free fluid. VASCULATURE: No evidence of aortic aneurysm. Pelvic phleboliths. MUSCULOSKELETAL: No acute osseous abnormalities. Degenerative disease L5-S1. S-shaped scoliotic curva ture of the visualized thoracolumbar spine. LYMPH NODES: No gross evidence for lymphadenopathy. SOFT TISSUE/ABDOMINAL WALL: Tiny fat filled umbilical hernia is superimposed upon diastases rectus. IMPRESSION: 1. Bilateral nonobstructive renal calculi without evidence for obstructive uropathy. 2. Colonic diverticulosis without evidence for acute diverticulitis. [facility], , 08/11/2024 7:17 PM
== END | disposition home or self-care (01) ==
LOC: RADCTMAIN 18:25
PROVIDERS: ATTEND Urology
DX: N20.0 Calculus of kidney (principal); K57.30 Diverticulosis of large intestine without perforation or abscess without bleeding
CPT/HCPCS: 74176

== ENCOUNTER → 2024-09-29 | Outpatient (CLI) | payer OTHER ==
[2024-09-29 22:38] LABS: Calcium 9.3 mg/dL (8.7-10.3); Potassium 4.5 mmol/L (3.5-5.5)
== END | disposition home or self-care (01) ==
LOC: LABWHC1 13:39
PROVIDERS: ATTEND Internal Medicine
DX: M62.838 Other muscle spasm (principal); E89.0 Postprocedural hypothyroidism; E55.9 Vitamin D deficiency, unspecified; C73 Malignant neoplasm of thyroid gland; R73.09 Other abnormal glucose
CPT/HCPCS: 36415; 82306; 82310; 82607; 82947; 83036; 83735; 84100; 84132; 84295; 84432; 86800